=== PATIENT | female | born 1940 | race Caucasian/White ===

== ENCOUNTER → 2020-02-14 14:47 | Outpatient (CLI) | payer MEDICARE, MEDICAID, SELFPAY ==
--- NOTE | ~2020-02-14 | MR_ITS ---
EXAMINATION: MR lumbar spine wo con DATE: 02/14/2020 15:28 INDICATION: Lumbar radiculopathy. TECHNIQUE: Magnetic resonance imaging (MRI) of the lumbar spine was performed without intravenous con trast. Sequences included sagittal T2-weighted FSE, sagittal T2-weighted FS FSE, sagittal T1-weighted FSE, and axial T2-weighted FSE. COMPARISON: None FINDINGS: There is 34 degrees levoscoliosis of lumbar spine. There is 4 mm retrolisthesis of L3 on L4 and L4 on L5. There is severely decreased disc height from L1-L2 through L5-S1 with endplate remodel ing. There is interbody fusion at L4-L5. The distal spinal cord signal intensity is normal. The conus medullaris is at L1-L2. The following disc levels are specifically discussed: L1-L2: The disc is bulging. There is severe bilateral facet joint osteoarthritis. There is mild bilat eral neural foraminal stenosis. There is mild central canal stenosis. L2-L3: The disc is bulging. There is severe bilateral facet joint osteoarthritis. There is mild left neural foraminal stenosis. There is mild central canal stenosis. L3-L4: The disc is bulging. There is severe bilateral facet joint osteoarthritis. There is mild right and moderate left neural foraminal stenosis. There is mild central canal stenosis. L4-L5: The disc is bulging. There is severe right and mild left facet joint osteoarthritis. There is mild bilateral neural foraminal stenosis. There is mild central canal stenosis. L5-S1: The disc does not extend beyond the endplate margin. There is ankylosis of the facet joints wi th moderate hypertrophy. There is moderate right and mild left neural foraminal stenosis. There is no central canal stenosis. IMPRESSION: 1. Severe lumbar spondylosis. 2. Lumbar levoscoliosis. Reviewed, dictated and finalized at location A.
== END ==
PROVIDERS: Visit Provider Nurse Practitioner Adult Health
DX: M47.26 Other spondylosis with radiculopathy, lumbar region (principal)
CPT/HCPCS: 72148

== ENCOUNTER 2020-04-30 14:36 | Outpatient (CLI) | payer MEDICARE, MEDICAID, SELFPAY ==
[2020-04-30 15:00] LABS: Basophils Absolute Auto 0.1 K/mm3 (0.0-0.1); Basophils Percent Auto 0.5 % (0.2-1.2); Eosinophils Absolute Auto 2.1 K/mm3 (0-0.3); Eosinophils Percent Auto 16.2 % (0-4.4); Hematocrit 38.2 % (37.0-47.0); Hemoglobin 13.1 g/dL (12.0-15.0); Immature Granulocyte Absolute 0.03 K/mm3 (0.00-0.031); Immature Granulocyte Percent A 0.2 % (0-0.5); Lymphocytes Absolute Auto 5.91 K/mm3 (0.9-3.2); Mean Corpuscular HGB Conc 34.3 g/dl (32-36); Mean Corpuscular Hemoglobin 32.5 pg (26-34); Mean Corpuscular Volume 94.8 fl (80-100); Mean Platelet Volume 9.4 fl (7.4-10.4); Monocytes Absolute Auto 0.8 K/mm3 (0.1-0.6); Monocytes Percent Auto 5.7 % (2.6-8.5); Neutrophils Absolute Auto 4.3 K/mm3 (1.3-6.7); Neutrophils Percent Auto 32.4 % (45.5-73.1); Platelet Count Result 186 k/mm3 (150-375); Red Blood Count 4.03 M/mm3 (4.2-5.4); Red Cell Distribution Width 12.7 % (11.5-14.5); White Blood Count 13.1 K/mm3 (4.5-10.0)
[2020-04-30 15:03] LABS: Atypical Lymphocytes Present; Platelet Estimate Adequate (Adequate)
[2020-04-30 16:45] LABS: Alanine Aminotransferase 15 U/L (4-35); Albumin Level 4.9 g/dL (3.5-5.1); Alkaline Phosphatase 40 U/L (38-126); Anion Gap 8 mmol/L (8-16); Aspartate Amino Transferase 23 U/L (14-36); Bilirubin,Total 0.4 mg/dL (0.2-1.3); Blood Urea Nitrogen 19 mg/dL (7-17); Calcium 10.5 mg/dL (8.4-10.2); Carbon Dioxide 28 mmol/L (22-30); Chloride 99 mmol/L (98-107); Estimated Glomerular Filt Rate > 60; Glucose 92 mg/dL (65-105); Lactate Dehydrogenase 431 U/L (313-618); Potassium 4.6 mmol/L (3.4-5.0); Sodium 135 mmol/L (137-145)
[2020-04-30 18:23] LABS: Immunoglobulin A < 40 mg/dL (70-400); Immunoglobulin G < 270 mg/dL (700-1600); Immunoglobulin M < 25 mg/dL (40-230)
== END 2020-04-30 14:37 | disposition home or self-care (01) ==
PROVIDERS: Visit Provider Internal Medicine Hematology & Oncology
DX: C91.10 Chronic lymphocytic leukemia of B-cell type not having achieved remission (principal)
CPT/HCPCS: 36415; 80053; 82784; 83615; 85025

== ENCOUNTER 2022-11-05 10:44 | Inpatient (IN) | payer MEDICARE, MEDICAID, SELFPAY ==
[2022-11-05] VITALS (28 sets, daily range): BP systolic 105–125; BP diastolic 45–65; PULSE 0–101; RESP 10–27; TEMP 36.3–37.1; O2SAT 92–100; BMI 21.5
--- NOTE | ~2022-11-05 | XR_ITS ---
EXAM: XR hip LT min 2V DATE: 11/08/2022 15:24 HISTORY: LEFT BIPOLAR HIP - POST OP . COMPARISON: 11/05/2022. FINDINGS: Decreased mineralization. Status post left hip arthroplasty, in good position. Postsurgica l gas in the joint capsule and surrounding soft tissues. No unexpected radiopaque foreign body. IMPRESSION: Expected postsurgical changes, with no radiographic evidence of procedure or hardware rel ated complication. Reviewed, dictated and finalized at location K. IMPRESSION: Expected postsurgical changes, with no radiographic evidence of pro cedure or hardware related complication.
--- NOTE | ~2022-11-05 | XR_ITS ---
EXAMINATION: XR chest 1V DATE: 11/05/2022 11:50 INDICATION: New hypoxia. TECHNIQUE: A single frontal view of the chest was obtained on 2 radiographs. COMPARISON: None. FINDINGS: There is volume loss of right hemithorax. There is mild scarring at left lung apex with anastasiia cifications. There are peripheral reticular opacities in right mid and lower lung zones. A calcified left lung nodule is consistent with old adenomatous disease. No pleural effusion or pneumothorax. The heart size is normal. There are surgical clips in right axilla. IMPRESSION: 1. Peripheral reticular opacities in right mid and lower lung zones with volume loss of right lung, l ikely chronic lung disease such as chronic radiation pneumonitis. Reviewed, dictated and finalized at location A. IMPRESSION: 1. Peripheral reticular opacities in right mid and lower lung zones with volume loss of right lung, likely chronic lung disease such as chronic radiation pneu monitis.
--- NOTE | ~2022-11-05 | CT_ITS ---
EXAMINATION: CT brain wo con INDICATION: Head injury COMPARISON: None TECHNIQUE: Standard unenhanced head CT. The dose-length product (DLP) was 681.00 mGy-cm. The mA was a djusted according to patient size. Iterative reconstruction technique was employed. FINDINGS: There is no acute intraparenchymal hemorrhage. No evidence of mass lesion. No evidence of a cute infarction. There is moderate periventricular and subcortical hypodensity probably related to sm all vessel ischemic disease. There is moderate prominence of the sulci and ventricles related to cere bral atrophy. Intracranial calcified cerebral atherosclerosis is noted. There are no extra-axial alicia ections. There is no mass effect or midline shift. Changes in the globes are likely from ocular lens surgery. The visualized sinuses and mastoid air cells are well aerated. IMPRESSION: 1. No acute intracranial abnormality. 2. Age related findings. Reviewed, dictated and finalized at location B.
--- NOTE | ~2022-11-05 | XR_ITS ---
EXAMINATION: XR hip LT 2V w AP pelvis DATE: 11/05/2022 11:50 INDICATION: Left hip pain. Fall. TECHNIQUE: An anteroposterior view of the pelvis and 2 views of left hip on 3 radiographs were obtain ed. COMPARISON: None. FINDINGS: There is a subcapital fracture of left femoral neck. The distal fracture fragment demonstra jean-claude impaction, varus angulation, 7 mm lateral displacement, and 6 mm anterior displacement. There is lumbar scoliosis and severe spondylosis. There is mild osteoarthritis of the hips. IMPRESSION: 1. Subcapital fracture of left femoral neck. 2. Mild osteoarthritis of the hips. Reviewed, dictated and finalized at location A.
--- NOTE | 2022-11-05 11:06 | ECG_ITS ---
Measurements Intervals [place] Rate: 72 P: 70 DC: 172 QRS: 82 QRSD: 89 T: 77 QT: 383 QTc: 421 Interpretive Statements SINUS RHYTHM NORMAL ECG NO PREVIOUS ECG AVAILABLE FOR COMPARISON Electronically Signed On 11-06-2022 14:53:56 CDT by Richard Mathews M.D.
[2022-11-05 12:10] LABS: Basophils Absolute Auto 0.1 K/mm3 (0.0-0.1); Basophils Percent Auto 0.3 % (0.2-1.2); Eosinophils Absolute Auto 0.5 K/mm3 (0-0.3); Eosinophils Percent Auto 2.9 % (0-4.4); Hematocrit 39.5 % (37.0-47.0); Hemoglobin 13.2 g/dL (12.0-15.0); Immature Granulocyte Absolute 0.11 K/mm3 (0.00-0.031); Immature Granulocyte Percent A 0.6 % (0-0.5); Lymphocytes Absolute Auto 3.59 K/mm3 (0.9-3.2); Lymphocytes Percent Auto 20.7 % (18.3-44.2); Mean Corpuscular HGB Conc 33.4 g/dl (32-36); Mean Corpuscular Volume 98.8 fl (80-100); Mean Platelet Volume 9.3 fl (7.4-10.4); Monocytes Absolute Auto 0.7 K/mm3 (0.1-0.6); Monocytes Percent Auto 3.9 % (2.6-8.5); Neutrophils Absolute Auto 12.4 K/mm3 (1.3-6.7); Neutrophils Percent Auto 71.6 % (45.5-73.1); Platelet Count Result 195 k/mm3 (150-375); Red Cell Distribution Width 13.3 % (11.5-14.5); White Blood Count 17.4 K/mm3 (4.5-10.0)
[2022-11-05 12:24] LABS: Alanine Aminotransferase 45 U/L (6-35); Albumin Level 4.8 g/dL (3.5-5.1); Alkaline Phosphatase 46 U/L (38-126); Anion Gap 6 mmol/L (8-16); Aspartate Amino Transferase 48 U/L (14-36); Bilirubin,Total 0.6 mg/dL (0.2-1.3); Blood Urea Nitrogen 30 mg/dL (7-17); Calcium 10.1 mg/dL (8.4-10.2); Carbon Dioxide 29 mmol/L (22-30); Chloride 104 mmol/L (98-107); Estimated CRCL calculation 43 ml/min; Estimated Glomerular Filt Rate > 60; Glucose 107 mg/dL (65-110); Potassium 4.5 mmol/L (3.4-5.0); Sodium 139 mmol/L (137-145)
[2022-11-05] MEDS: SODIUM CHLORIDE 0.9% IV 1,000 ML 999 ML IV CONT (12:28)
[2022-11-05] MEDS: ONDANSETRON INJ 4 MG/2 ML VIAL IV PUSH (12:29)
[2022-11-05] MEDS: HYDROmorphone HCL INJ (*CRX) 1 MG/ML SYR IV PUSH (12:29)
[2022-11-05 13:02] LABS: Appearance Urine Clear (Clear); Bacteria Urine None Seen /hpf; Bilirubin Urine Negative (Negative); Blood Urine Negative (Negative); Color Urine Yellow (Yellow); Glucose Urine UA Negative (Negative); Ketones Urine Negative (Negative); Leukocyte Esterase Ur 2+ LEU/UL (Negative); Nitrate Urine Negative (Negative); Non Pathogenic Casts 0-2; Protein Urine Negative (Negative); RBC Urine 0-2 /hpf (0-2); Specific Grav Ur 1.015 (1.001-1.035); Squamous Epithelial Cell Urine None seen /hpf (Few); Urobilinogen Urine 0.2 mg/dL (<2.0); WBC Urine 21-50 /hpf; pH Urine 6.5 (5.0-9.0)
[2022-11-05 13:28] LABS: Add Urine Microscopic? YES
[2022-11-05 13:30] LABS: Prothrombin Time 12.4 Seconds (11.1-14.7)
--- NOTE | 2022-11-05 13:39 | ED.LOWEXIN ---
HPI - Extremity Injury (Lower) General Chief Complaint: Extremity Injury, Lower Stated Complaint: fall Time Seen by Provider: 11/05/22 12:04 Source: patient, EMS and RN notes reviewed Mode of arrival: EMS Limitations: no limitations History of Present Illness HPI Narrative: THis is an 82 year old female with history of chronic back pain, COPD who presents from home for evaluation of left hip pain s/p fall. PAtient states she has been dealing with a UTI and she was diagnosed yesterday. She told triage that she tripped but she reports that she thinks she was dizzy. She is unsure if she hit her head, but she does have wound to her right eyebrow that may be from fall. She reports severe left hip pain from her fall, and she rates it 10.5/10.. When asked if she has pain anywhere, she states she does not know because she is having too much pain in her hip. EMS reports patient was found to have oxygen saturation of 88% on room air, so she was placed on 4 L NC. Patient is 94% on room air in ER. Related Data Home Medications Medication Instructions Recorded Confirmed loratadine 10 mg tablet 10 mg PO DAILY 01/11/20 11/05/22 morphine 15 mg tablet,extended 15 mg PO Q12H 01/11/20 11/05/22 release hydrocodone 7.5 mg-acetaminophen 1 tablet BID 11/05/22 11/05/22 325 mg tablet Allergies Allergy/AdvReac Type Severity Reaction Status Date / Time doxycycline Allergy Unknown Verified 01/11/20 07:59 latex Allergy Unknown Verified 01/11/20 07:59 pregabalin [From Lyrica] Allergy Unknown Verified 01/11/20 07:59 Sulfa (Sulfonamide Allergy Unknown Verified 01/11/20 07:59 Antibiotics) sulfamethoxazole Allergy Unknown Verified 01/11/20 07:59 [From Bactrim] trimethoprim [From Bactrim] Allergy Unknown Verified 01/11/20 07:59 PMF Past Medical History Medical History (Updated 11/05/22 @ 13:49 by Germaine Burdick MD) Allergies Arthritis CLL (chronic lymphocytic leukemia) COPD (chronic obstructive pulmonary disease) Diabetes Melanoma left arm- removed Osteoporosis 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 Trigeminal neuralgia Surgical History Surgical History H/O: hysterectomy History of cholecystectomy History of mastectomy right 1987 Family History Family History Mother CLL (chronic lymphocytic leukemia) Father Lung cancer Sibling Pancreatic cancer Social History Social History Smoking status: Current every day smoker Tobacco type: cigarettes Alcohol intake: never Substance use: never Lack of Transportation: YES Lack of Food: Sometimes True Current Housing: I Have Housing Concerned About Future Housing: No Difficulty Paying Gas/Electric Bills: YES Difficulty Paying for Meds: YES Currently Unemployed: No Education: Don't Know Difficulty w/ Childcare or Family Care: No Spiritual care concerns: No Exam Const: General: alert Nutritional Appearance: thin Orientation/consciousness: patient oriented x3 Limitations: no limitations HENMT: Head: contusion (right eyebrow with abrasion) Ears: external ears normal Mouth: Yes Normal oral and palatal mucosa present Throat: posterior oropharynx normal and uvula midline Eyes: Pupils: Equal, round and reactive pupils present EOM: EOMs intact bilaterally Neck: Neck: normal visual inspection Chest: Chest palpation & inspection: normal inspection of the chest and no tenderness Resp: Effort & Inspection: normal respiratory effort Auscultation: clear to auscultation bilaterally Cardio: Rate: regular rate Rhythm: regular rhythm Heart sounds: no murmurs GI: GI Palp: Yes Soft to palpation, No Tenderness to palpation present (GI), No Guarding due to palpation present (GI) and No Rigid due to palpation Auscultation: normal bowel sounds Back/Spine/Pelvis:
[2022-11-05] MEDS: HYDROmorphone HCL INJ (*CRX) 1 MG/ML SYR 0.5 MG IV PUSH ×3 (14:08→22:18)
--- NOTE | 2022-11-05 15:33 | ADMGEN ---
This patient, Korin Jones, was admitted to Medical Room 249-01. Patient/family oriented to hospital policies and general routines including ID bracelet, bed and alarms, visiting hours, pain management, procedures, bathroom and other care routines, personal items, smoking policy, room service/diet, and visiting hours. Information on how to activate the Rapid Response Team has been discussed. Patient/Family are encouraged to report perceived risks to care and to ask questions if they do not understand what they are told or what they should do.
[2022-11-05] MEDS: SODIUM CHLORIDE 0.9% IV 1,000 ML 125 ML IV CONT (15:51)
--- NOTE | 2022-11-05 16:23 | PM.CNOR ---
Assessment and Plan Assessment and plan (1) Closed subcapital fracture of left femur: Code(s): S72.012A - Unspecified intracapsular fracture of left femur, initial encounter for closed fracture Status: Acute (2) Acute UTI: Code(s): N39.0 - Urinary tract infection, site not specified Status: Acute (3) RA (rheumatoid arthritis): Qualifiers: Rheumatoid arthritis location: multiple sites Rheumatoid factor presence: without rheumatoid factor Qualified Code(s): M06.09 - Rheumatoid arthritis without rheumatoid factor, multiple sites Code(s): M06.9 - Rheumatoid arthritis, unspecified Status: Acute Plan Displaced left hip femoral neck fracture. Will benefit from bipolar hemiarthroplasty. Poor candidate for total hip due to high dislocation risk and medical comorbidities. White count 17.4 due to acute UTI. Will need to treat the UTI prior to surgery. Expect pain control challenges due to her chronic narcotic dependence. Postoperatively she is interested in potential home discharge which may be reasonable. Alternatively, she may benefit from few weeks of rehabilitation. I discussed the situation with the patient in detail. Risks, benefits, and alternatives of surgery discussed. Will proceed with left hip bipolar hemiarthroplasty when ready. History of Present Illness HPI Consult date: 11/05/22 Chief complaint: Left Subcapital Femoral Neck Fracture Narrative: Patient complains of acute left hip pain. Fell from standing height. Admitted through the emergency room for definitive management. No previous hip pain. No numbness, tingling, or other associated symptoms. Relevant history includes acute urinary tract infection followed by dizziness causing the fall. Slight eyebrow wound. CT scan normal. History of CLL, COPD, osteoporosis, diabetes mellitus, current smoker. Chronic pain medication 10 mg morphine twice daily. She has a severe degenerative scoliosis as well. Review of Systems Review of Systems: Denies loss of consciousness. 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 Trigeminal neuralgia Surgical History Surgical History H/O: hysterectomy History of cholecystectomy History of mastectomy right 1987 Family History Family History Mother CLL (chronic lymphocytic leukemia) Father Lung cancer Sibling Pancreatic cancer Social History Social History Smoking status: Current every day smoker Meds Home Medications and Allergies Home Medications Medication Instructions Recorded Confirmed Type loratadine 10 mg tablet 10 mg PO DAILY 01/11/20 11/05/22 History morphine 15 mg tablet,extended 15 mg PO Q12H 01/11/20 11/05/22 History release albuterol sulfate 90 mcg/actuation 1 - 2 puff inhalation Q4-6H PRN 11/17/21 11/05/22 Rx aerosol inhaler (Ventolin HFA) shortness of breath or wheezing #8.5 grams amitriptyline 25 mg tablet 25 mg PO .QHS #90 tabs 11/17/21 11/05/22 Rx carbamazepine 100 mg 100 mg PO Q12H #120 tabs 11/17/21 11/05/22 Rx tablet,extended release,12 hr citalopram 20 mg tablet 20 mg PO DAILY #90 tabs 11/17/21 11/05/22 Rx nitrofurantoin 100 mg PO Q12H 5 days #10 caps 11/03/22 11/05/22 Rx monohydrate/macrocrystals 100 mg capsule (Macrobid) hydrocodone 7.5 mg-acetaminophen 1 tablet BID 11/05/22 11/05/22 History 325 mg tablet Allergies Allergy/AdvReac Type Severity Reaction Status Date / Time doxycycline Allergy Unknown Verified 0
[2022-11-05] MEDS: CARBAMAZEPINE XR 100 MG TAB.SR.12H PO (20:20)
[2022-11-05] MEDS: NITROFURANTOIN MONOHYD MACROCR 100 MG CAP PO (20:20)
[2022-11-05] MEDS: AMITRIPTYLINE HCL 25 MG TABLET PO (20:20)
[2022-11-05] MEDS: MORPHINE SULFATE (*CRX) 15 MG TABCR PO (20:20)
[2022-11-05] MEDS: HYDROcodone/acetaminophen (*CRX) 7.5-325 MG TABLET 1 TAB BY MOUTH (20:20)
--- NOTE | 2022-11-05 21:00 | PM.IMHP ---
H&P: HPI History of Present Illness Date/Time: 11/05/22 21:00 Chief Complaint: Left hip pain after a fall. Narrative: This is a very pleasant 82-year-old female smoker with COPD, trigeminal neuralgia, chronic lymphocytic leukemia, rheumatoid arthritis, diet-controlled diabetes, chronic pain syndrome on long-term opiate therapy, and other comorbidities who presented to the emergency department via EMS from home for evaluation of left hip pain after a fall. Patient provides the following history. 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 She could not get herself up due to severe pain in the left hip but she was able to crawl to the door to call her neighbors for help. She does not think that she lost consciousness consciousness but cannot say for certain and in fact she thinks she may have been feeling dizzy before she fell. She has a small abrasion on the right eyebrow but she does not recall hitting her head. Brain CT in the ED showed no acute intracranial abnormalities. Hip and pelvic x-rays showed a subcapital fracture of the left femoral neck and she is being admitted in this setting for pain control and surgical repair. She is currently complaining of severe pain in the left hip. As mentioned she is on chronic opiate therapy which is not touching her left hip pain, unfortunately. She describes a sharp shooting pain in the hip, worse with movement. She has no other complaints at this time. Review of Systems Review of Systems: Twelve systems were reviewed. No fever, chills, or sweats. She denies recent cold and flu symptoms. She has severe right-sided trigeminal neuralgia and is on chronic pain medications for that. No chest pain or shortness of breath. She is currently on oxygen however and chest x-ray shows findings of chronic lung disease, possible radiation pneumonitis. She does have a history of breast cancer and radiation. She also has COPD but states she has never had an oxygen requirement before. No chest pain or pleuritic pain. She denies nausea, vomiting, and diarrhea. She occasionally has constipation due to the pain medication. No history of venous thromboembolism. Except as documented, all other systems were reviewed and are negative. [facility] Past Medical History Medical History (Updated 11/05/22 @ 23:47 by Ghazala Tejeda PA-C) Allergies Arthritis Cancer of right breast Status post mastectomy and radiation. Chronic lymphocytic leukemia Chronic obstructive pulmonary disease Chronic pain syndrome Chronic prescription opiate use Depression Diabetes Diet-controlled diabetes mellitus Immunoglobulin deficiency Melanoma Left arm. Osteoporosis Rheumatoid arthritis Squamous cell carcinoma Back. Tobacco dependence Trigeminal neuralgia Surgical History Surgical History (Updated 11/05/22 @ 23:43 by Ghazala Tejeda PA-C) History of cholecystectomy History of hysterectomy History of melanoma excision Left arm. History of right mastectomy (1987) History of squamous cell carcinoma excision Back. Family History Family History Mother CLL (chronic lymphocytic leukemia) Father Lung cancer Sibling Pancreatic cancer Social History Social History (Updated 11/05/22 @ 23:44 by Ghazala Tejeda PA-C) Social History: Surrogate medical decision maker: Oj Gregory, son. Code status: Full code. Smoking packs per day: 0.25 Smoking cigarettes per day: 5.0 Years smoked: 50 Smoking pack-years: 12.50 Smoking status: Current every day smoker Tobacco type: cigarettes Alcohol intake: never Substance use: never Lack of Transportation: YES Lack of Food: Sometimes True Current Housing: I Have Housing Concerned About Future Housing: No Difficulty Paying Gas/Electric Bills: YES Difficulty Paying for Meds: YES Currently Unemployed:
[2022-11-05] MEDS: NICOTINE (*PBKC) 7 MG PATCH 1 PATCH TRANSDERM (22:19)
[2022-11-06] VITALS (10 sets, daily range): BP systolic 106–123; BP diastolic 43–71; PULSE 62–84; RESP 17–20; TEMP 36.5–37.1; O2SAT 92–99
[2022-11-06] MEDS: HYDROmorphone HCL INJ (*CRX) 1 MG/ML SYR 0.5 MG IV PUSH ×5 (02:05→20:05)
[2022-11-06 06:07] LABS: Basophils Absolute Auto 0.1 K/mm3 (0.0-0.1); Basophils Percent Auto 0.5 % (0.2-1.2); Eosinophils Absolute Auto 0.3 K/mm3 (0-0.3); Eosinophils Percent Auto 2.8 % (0-4.4); Hematocrit 35.7 % (37.0-47.0); Hemoglobin 11.9 g/dL (12.0-15.0); Immature Granulocyte Absolute 0.04 K/mm3 (0.00-0.031); Immature Granulocyte Percent A 0.3 % (0-0.5); Lymphocytes Absolute Auto 3.52 K/mm3 (0.9-3.2); Lymphocytes Percent Auto 29.2 % (18.3-44.2); Mean Corpuscular HGB Conc 33.3 g/dl (32-36); Mean Corpuscular Hemoglobin 33.2 pg (26-34); Mean Corpuscular Volume 99.7 fl (80-100); Mean Platelet Volume 9.8 fl (7.4-10.4); Neutrophils Absolute Auto 7.1 K/mm3 (1.3-6.7); Neutrophils Percent Auto 59.2 % (45.5-73.1); Platelet Count Result 171 k/mm3 (150-375); Red Blood Count 3.58 M/mm3 (4.2-5.4)
[2022-11-06 06:14] LABS: Alanine Aminotransferase 35 U/L (6-35); Albumin Level 3.9 g/dL (3.5-5.1); Alkaline Phosphatase 38 U/L (38-126); Anion Gap 5 mmol/L (8-16); Aspartate Amino Transferase 37 U/L (14-36); Bilirubin,Total 0.7 mg/dL (0.2-1.3); Blood Urea Nitrogen 21 mg/dL (7-17); Carbon Dioxide 25 mmol/L (22-30); Chloride 105 mmol/L (98-107); Estimated CRCL calculation 51 ml/min; Estimated Glomerular Filt Rate > 60; Glucose 107 mg/dL (65-110); Potassium 3.9 mmol/L (3.4-5.0); Sodium 135 mmol/L (137-145)
[2022-11-06 07:24] LABS: Free T4 Free Thyroxine Reflex 1.02 ng/dL (0.78-2.19)
[2022-11-06] MEDS: MORPHINE SULFATE (*CRX) 15 MG TABCR PO ×3 (08:06→23:01)
[2022-11-06] MEDS: LORATADINE 10 MG TABLET PO (08:06)
[2022-11-06] MEDS: HYDROcodone/acetaminophen (*CRX) 7.5-325 MG TABLET 1 TAB BY MOUTH ×2 (08:06→17:12)
[2022-11-06] MEDS: NICOTINE (*PBKC) 7 MG PATCH 1 PATCH TRANSDERM (08:07)
[2022-11-06] MEDS: CITALOPRAM HYDROBROMIDE 20 MG TABLET PO (08:07)
[2022-11-06 08:34] LABS: Total Triiodothyronine (T3) 0.72 NG/ML (0.97-1.69)
[2022-11-06] MEDS: SODIUM CHLORIDE 0.9% IV 1,000 ML 125 ML IV CONT ×2 (09:08→20:09)
[2022-11-06] MEDS: CARBAMAZEPINE XR 100 MG TAB.SR.12H PO ×2 (09:09→20:05)
--- NOTE | 2022-11-06 09:30 | PM.IMPN ---
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 Initiate fall precautions. PT and OT when appropriate (2) Closed subcapital fracture of left femur: Code(s): S72.012A - Unspecified intracapsular fracture of left femur, initial encounter for closed fracture Status: Acute Assessment and Plan: hip and pelvis x-ray shows subcapital fracture of the left femoral neck Dilaudid available for breakthrough pain, increased to q.3 hours. orthopedics consulted await recommendations from Ortho surgeon possibly need to be NPO after midnight for surgery in the morning pain control ordered however will be hard to difficult due to patient's chronic pain medication use DVT prophylaxis per Orthopedics (3) Abnormal urinalysis: Code(s): R82.90 - Unspecified abnormal findings in urine Status: Acute Assessment and Plan: UA mildly infectious with leukocyte esterase and mild white blood cell continue ceftriaxone for now urine culture pending trend urine output (4) Chronic pain syndrome: Code(s): G89.4 - Chronic pain syndrome Status: Acute Assessment and Plan: Continue chronic pain regimen. Dilaudid available for breakthrough pain. (5) Chronic lymphocytic leukemia: Code(s): C91.10 - Chronic lymphocytic leukemia of B-cell type not having achieved remission Status: Acute Assessment and Plan: Not being actively treated. chronic and stable continue outpatient follow-up as indicated (6) Chronic obstructive pulmonary disease: Code(s): J44.9 - Chronic obstructive pulmonary disease, unspecified Status: Acute Assessment and Plan: No evidence to suggest acute exacerbation. Currently on a couple of L nasal cannula. Chest x-ray shows findings of possible chronic lung disease. May need home O2 evaluation prior to discharge. (7) Tobacco dependence: Code(s): F17.200 - Nicotine dependence, unspecified, uncomplicated Status: Acute Assessment and Plan: Patient requested nicotine patch. Smoking cessation is encouraged. (8) Diet-controlled diabetes mellitus: Code(s): E11.9 - Type 2 diabetes mellitus without complications Status: Acute Assessment and Plan: Random glucose was 107 no indication for further treatment at this time continue to trend glucose adjust therapy as indicated Time Spent With Patient Time: 53 minutes Time with patient: Greater than 35 minutes Subjective Date/time seen: 11/06/22929 Interval history: 11/06/22929 Patient stated that she has been having a lot of pain issues. She also stated that she has not been able to get comfortable. She does take quite a bit of pain medicine at home including 15 mg of morphine Q 8 and [place] 7.5/325 twice a day. Currently she states her pain is above 10 and hurts like crazy. She denies any chest pain, shortness a breath, nausea, vomiting, diarrhea constipation. Went in to re-evaluate the patient at 1130 and patient stated that her pain was better however she did try to adjust herself and the pain is coming back. According the nurse the patient's pain did get down to a 9. It was also mentioned that the patient has chronic pain level is a 7-8. 11/05/22? 21:00 This is a very pleasant 82-year-old female smoker with COPD, trigeminal neuralgia, chronic lymphocytic leukemia, rheumatoid arthritis, diet-controlled diabetes, chronic pain syndrome on long-term opiate therapy, and other comorbidities who presented to the emergency department via EMS from home for evaluation of left hip pain after a fall. Patient provides the following history. She
--- NOTE | 2022-11-06 09:30 | P.PNIM_ITS ---
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 * Initiate fall precautions. * PT and OT when appropriate (2) Closed subcapital fracture of left femur: Code(s): S72.012A - Unspecified intracapsular fracture of left femur, initial encounter for closed fracture Status: Acute Assessment and Plan: * hip and pelvis x-ray shows subcapital fracture of the left femoral neck * Dilaudid available for breakthrough pain, increased to q.3 hours. * orthopedics consulted * await recommendations from Ortho surgeon * possibly need to be NPO after midnight for surgery in the morning * pain control ordered however will be hard to difficult due to patient's chronic pain medication use * DVT prophylaxis per Orthopedics (3) Abnormal urinalysis: Code(s): R82.90 - Unspecified abnormal findings in urine Status: Acute Assessment and Plan: * UA mildly infectious with leukocyte esterase and mild white blood cell * continue ceftriaxone for now * urine culture pending * trend urine output (4) Chronic pain syndrome: Code(s): G89.4 - Chronic pain syndrome Status: Acute Assessment and Plan: * Continue chronic pain regimen. * Dilaudid available for breakthrough pain. (5) Chronic lymphocytic leukemia: Code(s): C91.10 - Chronic lymphocytic leukemia of B-cell type not having achieved remission Status: Acute Assessment and Plan: * Not being actively treated. * chronic and stable * continue outpatient follow-up as indicated (6) Chronic obstructive pulmonary disease: Code(s): J44.9 - Chronic obstructive pulmonary disease, unspecified Status: Acute Assessment and Plan: * No evidence to suggest acute exacerbation. * Currently on a couple of L nasal cannula. * Chest x-ray shows findings of possible chronic lung disease. * May need home O2 evaluation prior to discharge. (7) Tobacco dependence: Code(s): F17.200 - Nicotine dependence, unspecified, uncomplicated Status: Acute Assessment and Plan: * Patient requested nicotine patch. Smoking cessation is encouraged. (8) Diet-controlled diabetes mellitus: Code(s): E11.9 - Type 2 diabetes mellitus without complications Status: Acute Assessment and Plan: * Random glucose was 107 * no indication for further treatment at this time * continue to trend glucose adjust therapy as indicated Time Spent With Patient Time: 53 minutes Time with patient: Greater than 35 minutes Subjective Date/time seen: 11/06/22929 Interval history: 11/06/22929 Patient stated that she has been having a lot of pain issues. She also stated that she has not been able to get comfortable. She does take quite a bit of pain medicine at home including 15 mg of morphine Q 8 and [place] 7.5/325 twice a day. Currently she states her pain is above 10 and hurts like crazy. She denies any chest pain, shortness a breath, nausea, vomiting, diarrhea constipation. Went in to re-evaluate the patient at 1130 and patient stated that her pain was better however she did try t
[2022-11-06] MEDS: HYDROmorphone HCL INJ (*CRX) 1 MG/ML SYR IV PUSH (09:56)
[2022-11-06] MEDS: AMITRIPTYLINE HCL 25 MG TABLET PO (20:05)
[2022-11-06] MEDS: MORPHINE SULFATE (*CRX) 2 MG/ML INJ IV PUSH (23:27)
--- NOTE | 2022-11-06 23:45 | PC.NURSE ---
This RN witnessed patient take her scheduled MS Contin 15mg which was scanned at 2301. Patient states she took a white pill when MS Contin is normally blue. She is denying she took the MS Contin at this time. RN looked extensively through patient's bed and blankets, on the floor, and on her bedside table to make sure the medication was not there. She still insists she did not take the medication. RN explained to patient he witnessed the patient take the medication directly after it was scanned and he cannot risk giving her two doses of the medication. Will continue to assess pain and address as needed.
[2022-11-07] VITALS (9 sets, daily range): BP systolic 107–116; BP diastolic 46–54; PULSE 63–81; RESP 16–18; TEMP 36.4–36.8; O2SAT 92–97
[2022-11-07] MEDS: HYDROmorphone HCL INJ (*CRX) 1 MG/ML SYR 4 MG IV PUSH (01:28)
[2022-11-07] MEDS: SODIUM CHLORIDE 0.9% IV 1,000 ML 125 ML IV CONT (05:02)
[2022-11-07 06:43] LABS: Basophils Absolute Auto 0.1 K/mm3 (0.0-0.1); Basophils Percent Auto 0.5 % (0.2-1.2); Eosinophils Absolute Auto 0.7 K/mm3 (0-0.3); Eosinophils Percent Auto 6.3 % (0-4.4); Hematocrit 34.2 % (37.0-47.0); Hemoglobin 11.3 g/dL (12.0-15.0); Immature Granulocyte Absolute 0.05 K/mm3 (0.00-0.031); Immature Granulocyte Percent A 0.5 % (0-0.5); Lymphocytes Absolute Auto 4.01 K/mm3 (0.9-3.2); Lymphocytes Percent Auto 37.7 % (18.3-44.2); Mean Corpuscular Hemoglobin 33.1 pg (26-34); Mean Corpuscular Volume 100.3 fl (80-100); Mean Platelet Volume 9.8 fl (7.4-10.4); Monocytes Absolute Auto 0.8 K/mm3 (0.1-0.6); Monocytes Percent Auto 7.3 % (2.6-8.5); Neutrophils Absolute Auto 5.1 K/mm3 (1.3-6.7); Neutrophils Percent Auto 47.7 % (45.5-73.1); Platelet Count Result 166 k/mm3 (150-375); Red Blood Count 3.41 M/mm3 (4.2-5.4); Red Cell Distribution Width 13.2 % (11.5-14.5); White Blood Count 10.7 K/mm3 (4.5-10.0)
[2022-11-07 06:52] LABS: Alanine Aminotransferase 30 U/L (6-35); Albumin Level 3.5 g/dL (3.5-5.1); Alkaline Phosphatase 31 U/L (38-126); Anion Gap 1 mmol/L (8-16); Aspartate Amino Transferase 29 U/L (14-36); Bilirubin,Total 0.6 mg/dL (0.2-1.3); Blood Urea Nitrogen 17 mg/dL (7-17); Calcium 8.9 mg/dL (8.4-10.2); Carbon Dioxide 27 mmol/L (22-30); Chloride 108 mmol/L (98-107); Estimated CRCL calculation 51 ml/min; Estimated Glomerular Filt Rate > 60; Glucose 84 mg/dL (65-110); Potassium 3.8 mmol/L (3.4-5.0); Sodium 136 mmol/L (137-145)
[2022-11-07] MEDS: MORPHINE SULFATE (*CRX) 15 MG TABCR PO ×3 (07:09→23:01)
[2022-11-07] MEDS: NICOTINE (*PBKC) 7 MG PATCH 1 PATCH TRANSDERM (08:00)
[2022-11-07] MEDS: HYDROcodone/acetaminophen (*CRX) 7.5-325 MG TABLET 1 TAB BY MOUTH ×2 (08:00→16:29)
[2022-11-07] MEDS: LORATADINE 10 MG TABLET PO (08:00)
[2022-11-07] MEDS: CARBAMAZEPINE XR 100 MG TAB.SR.12H PO ×2 (08:00→20:55)
[2022-11-07] MEDS: CITALOPRAM HYDROBROMIDE 20 MG TABLET PO (08:01)
[2022-11-07] MEDS: HYDROmorphone HCL INJ (*CRX) 1 MG/ML SYR 0.5 MG IV PUSH ×5 (08:36→20:56)
--- NOTE | 2022-11-07 10:45 | PM.IMPN ---
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 Initiate fall precautions. PT and OT when appropriate Could be from the UTI (2) Closed subcapital fracture of left femur: Code(s): S72.012A - Unspecified intracapsular fracture of left femur, initial encounter for closed fracture Status: Acute Assessment and Plan: hip and pelvis x-ray shows subcapital fracture of the left femoral neck Dilaudid available for breakthrough pain, increased to q.3 hours. orthopedics consulted Surgical intervention most likely on Mon, UTI treatment under way possibly need to be NPO after midnight for surgery in the morning pain control ordered however will be hard to difficult due to patient's chronic pain medication use DVT prophylaxis per Orthopedics (3) Acute UTI: Code(s): N39.0 - Urinary tract infection, site not specified Status: Acute Assessment and Plan: UA mildly infectious with leukocyte esterase and mild white blood cell continue ceftriaxone for now urine culture gram negative bacilli trend urine output (4) Chronic pain syndrome: Code(s): G89.4 - Chronic pain syndrome Status: Acute Assessment and Plan: Continue chronic pain regimen. Dilaudid available for breakthrough pain. (5) Chronic lymphocytic leukemia: Code(s): C91.10 - Chronic lymphocytic leukemia of B-cell type not having achieved remission Status: Acute Assessment and Plan: Not being actively treated. chronic and stable continue outpatient follow-up as indicated (6) Chronic obstructive pulmonary disease: Code(s): J44.9 - Chronic obstructive pulmonary disease, unspecified Status: Acute Assessment and Plan: No evidence to suggest acute exacerbation. Currently on a couple of L nasal cannula. Chest x-ray shows findings of possible chronic lung disease. May need home O2 evaluation prior to discharge. (7) Tobacco dependence: Code(s): F17.200 - Nicotine dependence, unspecified, uncomplicated Status: Acute Assessment and Plan: Patient requested nicotine patch. Smoking cessation is encouraged. (8) Diet-controlled diabetes mellitus: Code(s): E11.9 - Type 2 diabetes mellitus without complications Status: Acute Assessment and Plan: Random glucose was 84 no indication for further treatment at this time continue to trend glucose adjust therapy as indicated Time Spent With Patient Time: 51 minutes Time with patient: Greater than 35 minutes Subjective Date/time seen: 11/07/221044 Interval history: 11/07/221044 patient was lying in bed. Patient stated that she would like her pain shot. She is having a lot of issues with pain and stated that she is not getting any relief. She currently denies any chest pain, shortness a breath, nausea, vomiting, diarrhea or constipation. She is eating and doing well otherwise. 11/06/22 09 Patient stated that she has been having a lot of pain issues. She also stated that she has not been able to get comfortable. She does take quite a bit of pain medicine at home including 15 mg of morphine Q 8 and [place] 7.5/325 twice a day. Currently she states her pain is above 10 and hurts like crazy. She denies any chest pain, shortness a breath, nausea, vomiting, diarrhea constipation. Went in to re-evaluate the patient at 1130 and patient stated that her pain was better however she did try to adjust herself and the pain is coming back. According the nurse the patient's pain did get down to a 9. It was also mentioned that the patient has chronic pain level is a 7-8.
--- NOTE | 2022-11-07 10:45 | P.PNIM_ITS ---
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 * Initiate fall precautions. * PT and OT when appropriate * Could be from the UTI (2) Closed subcapital fracture of left femur: Code(s): S72.012A - Unspecified intracapsular fracture of left femur, initial encounter for closed fracture Status: Acute Assessment and Plan: * hip and pelvis x-ray shows subcapital fracture of the left femoral neck * Dilaudid available for breakthrough pain, increased to q.3 hours. * orthopedics consulted * Surgical intervention most likely on Mon, UTI treatment under way * possibly need to be NPO after midnight for surgery in the morning * pain control ordered however will be hard to difficult due to patient's chronic pain medication use * DVT prophylaxis per Orthopedics (3) Acute UTI: Code(s): N39.0 - Urinary tract infection, site not specified Status: Acute Assessment and Plan: * UA mildly infectious with leukocyte esterase and mild white blood cell * continue ceftriaxone for now * urine culture gram negative bacilli * trend urine output (4) Chronic pain syndrome: Code(s): G89.4 - Chronic pain syndrome Status: Acute Assessment and Plan: * Continue chronic pain regimen. * Dilaudid available for breakthrough pain. (5) Chronic lymphocytic leukemia: Code(s): C91.10 - Chronic lymphocytic leukemia of B-cell type not having achieved remission Status: Acute Assessment and Plan: * Not being actively treated. * chronic and stable * continue outpatient follow-up as indicated (6) Chronic obstructive pulmonary disease: Code(s): J44.9 - Chronic obstructive pulmonary disease, unspecified Status: Acute Assessment and Plan: * No evidence to suggest acute exacerbation. * Currently on a couple of L nasal cannula. * Chest x-ray shows findings of possible chronic lung disease. * May need home O2 evaluation prior to discharge. (7) Tobacco dependence: Code(s): F17.200 - Nicotine dependence, unspecified, uncomplicated Status: Acute Assessment and Plan: * Patient requested nicotine patch. Smoking cessation is encouraged. (8) Diet-controlled diabetes mellitus: Code(s): E11.9 - Type 2 diabetes mellitus without complications Status: Acute Assessment and Plan: * Random glucose was 84 * no indication for further treatment at this time * continue to trend glucose adjust therapy as indicated Time Spent With Patient Time: 51 minutes Time with patient: Greater than 35 minutes Subjective Date/time seen: 11/07/221044 Interval history: 11/07/221044 patient was lying in bed. Patient stated that she would like her pain shot. She is having a lot of issues with pain and stated that she is not getting any relief. She currently denies any chest pain, shortness a breath, nausea, vomiti ng, diarrhea or constipation. She is eating and doing well otherwise. 11/06/22 09 Patient stated that she has been having a lot of pain i
[2022-11-07] MEDS: KETOROLAC 15 MG/ML VIAL (*BKC) IV PUSH (14:15)
[2022-11-07] MEDS: AMITRIPTYLINE HCL 25 MG TABLET PO (20:55)
[2022-11-08] VITALS (18 sets, daily range): BP systolic 98–139; BP diastolic 46–64; PULSE 60–97; RESP 11–20; TEMP 36.1–36.9; O2SAT 70–100
[2022-11-08] MEDS: HYDROmorphone HCL INJ (*CRX) 1 MG/ML SYR 0.5 MG IV PUSH ×4 (00:14→10:51)
[2022-11-08] MEDS: HYDROmorphone HCL INJ (*CRX) 1 MG/ML SYR 4 MG IV PUSH (04:55)
[2022-11-08 06:33] LABS: Basophils Absolute Auto 0.1 K/mm3 (0.0-0.1); Basophils Percent Auto 0.4 % (0.2-1.2); Eosinophils Absolute Auto 0.6 K/mm3 (0-0.3); Eosinophils Percent Auto 4.9 % (0-4.4); Hematocrit 32.7 % (37.0-47.0); Hemoglobin 11.4 g/dL (12.0-15.0); Immature Granulocyte Absolute 0.06 K/mm3 (0.00-0.031); Immature Granulocyte Percent A 0.5 % (0-0.5); Lymphocytes Absolute Auto 4.54 K/mm3 (0.9-3.2); Lymphocytes Percent Auto 37.3 % (18.3-44.2); Mean Corpuscular HGB Conc 34.9 g/dl (32-36); Mean Corpuscular Hemoglobin 32.6 pg (26-34); Mean Corpuscular Volume 93.4 fl (80-100); Monocytes Absolute Auto 0.8 K/mm3 (0.1-0.6); Monocytes Percent Auto 6.3 % (2.6-8.5); Neutrophils Absolute Auto 6.2 K/mm3 (1.3-6.7); Neutrophils Percent Auto 50.6 % (45.5-73.1); Platelet Count Result 157 k/mm3 (150-375); Red Cell Distribution Width 12.6 % (11.5-14.5); White Blood Count 12.2 K/mm3 (4.5-10.0)
[2022-11-08 06:41] LABS: Alanine Aminotransferase 28 U/L (6-35); Albumin Level 3.3 g/dL (3.5-5.1); Alkaline Phosphatase 32 U/L (38-126); Anion Gap 4 mmol/L (8-16); Aspartate Amino Transferase 33 U/L (14-36); Bilirubin,Total 0.8 mg/dL (0.2-1.3); Blood Urea Nitrogen 13 mg/dL (7-17); Calcium 8.8 mg/dL (8.4-10.2); Carbon Dioxide 26 mmol/L (22-30); Chloride 104 mmol/L (98-107); Estimated CRCL calculation 51 ml/min; Estimated Glomerular Filt Rate > 60; Glucose 98 mg/dL (65-110); Magnesium 1.9 mg/dL (1.6-2.3); Potassium 3.6 mmol/L (3.4-5.0); Sodium 134 mmol/L (137-145)
[2022-11-08] MEDS: CARBAMAZEPINE XR 100 MG TAB.SR.12H PO ×2 (08:06→20:34)
[2022-11-08] MEDS: CITALOPRAM HYDROBROMIDE 20 MG TABLET PO (08:07)
[2022-11-08] MEDS: HYDROcodone/acetaminophen (*CRX) 7.5-325 MG TABLET 1 TAB BY MOUTH ×2 (08:09→16:48)
--- NOTE | 2022-11-08 11:00 | P.PNIM_ITS ---
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 * Initiate fall precautions. * PT and OT when appropriate * Could be from the UTI (2) Closed subcapital fracture of left femur: Code(s): S72.012A - Unspecified intracapsular fracture of left femur, initial encounter for closed fracture Status: Acute Assessment and Plan: * POD 0 * hip and pelvis x-ray shows subcapital fracture of the left femoral neck * Dilaudid available for breakthrough pain, increased to q.3 hours. * orthopedics consulted * Surgical intervention preformed on 11/08/22 * Post op care per ortho * possibly need to be NPO after midnight for surgery in the morning * pain control ordered however will be hard to difficult due to patient's chronic pain medication use * DVT prophylaxis per Orthopedics (3) Acute UTI: Code(s): N39.0 - Urinary tract infection, site not specified Status: Acute Assessment and Plan: * UA mildly infectious with leukocyte esterase and mild white blood cell * ceftriaxone for today then change antibiotics Augmentin per sensitivities * urine culture grew proteus Mirabilis * trend urine output (4) Chronic pain syndrome: Code(s): G89.4 - Chronic pain syndrome Status: Acute Assessment and Plan: * Continue chronic pain regimen. * Dilaudid available for breakthrough pain. (5) Chronic lymphocytic leukemia: Code(s): C91.10 - Chronic lymphocytic leukemia of B-cell type not having achieved remission Status: Acute Assessment and Plan: * Not being actively treated. * chronic and stable * continue outpatient follow-up as indicated (6) Chronic obstructive pulmonary disease: Code(s): J44.9 - Chronic obstructive pulmonary disease, unspecified Status: Acute Assessment and Plan: * No evidence to suggest acute exacerbation. * Currently on a couple of L nasal cannula. * Chest x-ray shows findings of possible chronic lung disease. * May need home O2 evaluation prior to discharge. (7) Tobacco dependence: Code(s): F17.200 - Nicotine dependence, unspecified, uncomplicated Status: Acute Assessment and Plan: * Patient requested nicotine patch. Smoking cessation is encouraged. (8) Diet-controlled diabetes mellitus: Code(s): E11.9 - Type 2 diabetes mellitus without complications Status: Acute Assessment and Plan: * Random glucose was 98 * no indication for further treatment at this time * continue to trend glucose adjust therapy as indicated Time Spent With Patient Time: 28 minutes Time with patient: Greater than 35 minutes Subjective Date/time seen: 11/08/22 1100 Interval history: 11/08/22 1100 Patient went to her procedure for her hip repair. She denied any complaints except for pain. Labs and vital signs were reviewed. Antibiotics were changed in relation to UTI and sensitivities. 11/07/22 1045 patient was lying in bed. Patient stated that she would like her pain shot. She is having a lot o
--- NOTE | 2022-11-08 11:00 | PM.IMPN ---
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 Initiate fall precautions. PT and OT when appropriate Could be from the UTI (2) Closed subcapital fracture of left femur: Code(s): S72.012A - Unspecified intracapsular fracture of left femur, initial encounter for closed fracture Status: Acute Assessment and Plan: POD 0 hip and pelvis x-ray shows subcapital fracture of the left femoral neck Dilaudid available for breakthrough pain, increased to q.3 hours. orthopedics consulted Surgical intervention preformed on 11/08/22 Post op care per ortho possibly need to be NPO after midnight for surgery in the morning pain control ordered however will be hard to difficult due to patient's chronic pain medication use DVT prophylaxis per Orthopedics (3) Acute UTI: Code(s): N39.0 - Urinary tract infection, site not specified Status: Acute Assessment and Plan: UA mildly infectious with leukocyte esterase and mild white blood cell ceftriaxone for today then change antibiotics Augmentin per sensitivities urine culture grew proteus Mirabilis trend urine output (4) Chronic pain syndrome: Code(s): G89.4 - Chronic pain syndrome Status: Acute Assessment and Plan: Continue chronic pain regimen. Dilaudid available for breakthrough pain. (5) Chronic lymphocytic leukemia: Code(s): C91.10 - Chronic lymphocytic leukemia of B-cell type not having achieved remission Status: Acute Assessment and Plan: Not being actively treated. chronic and stable continue outpatient follow-up as indicated (6) Chronic obstructive pulmonary disease: Code(s): J44.9 - Chronic obstructive pulmonary disease, unspecified Status: Acute Assessment and Plan: No evidence to suggest acute exacerbation. Currently on a couple of L nasal cannula. Chest x-ray shows findings of possible chronic lung disease. May need home O2 evaluation prior to discharge. (7) Tobacco dependence: Code(s): F17.200 - Nicotine dependence, unspecified, uncomplicated Status: Acute Assessment and Plan: Patient requested nicotine patch. Smoking cessation is encouraged. (8) Diet-controlled diabetes mellitus: Code(s): E11.9 - Type 2 diabetes mellitus without complications Status: Acute Assessment and Plan: Random glucose was 98 no indication for further treatment at this time continue to trend glucose adjust therapy as indicated Time Spent With Patient Time: 28 minutes Time with patient: Greater than 35 minutes Subjective Date/time seen: 11/08/22 1100 Interval history: 11/08/22 1100 Patient went to her procedure for her hip repair. She denied any complaints except for pain. Labs and vital signs were reviewed. Antibiotics were changed in relation to UTI and sensitivities. 11/07/22 1045 patient was lying in bed. Patient stated that she would like her pain shot. She is having a lot of issues with pain and stated that she is not getting any relief. She currently denies any chest pain, shortness a breath, nausea, vomiting, diarrhea or constipation. She is eating and doing well otherwise. 11/06/22 0930 Patient stated that she has been having a lot of pain issues. She also stated that she has not been able to get comfortable. She does take quite a bit of pain medicine at home including 15 mg of morphine Q 8 and [place] 7.5/325 twice a day. Currently she states her pain is above 10 and hurts like crazy. She denies any chest pain, shortness a breath, nausea, vomiting, diarrhea constipation. Went in to re-e
--- NOTE | 2022-11-08 12:04 | WPDHPUPDATE1 ---
History and Physical Update Update Date/Time: 11/08/22 12:04 History and Physical has been reviewed, including an updated exam of the patient. There are NO changes in the patient's condition. Risks, benefits, and alternatives have been discussed and questions answered. Patient agrees to proceed with procedure.
[2022-11-08] MEDS: fentaNYL CITRATE INJ (*CRX) 100 MCG/2 ML VIAL 25 MCG IV PUSH ×4 (12:17→12:49)
--- NOTE | 2022-11-08 12:38 | WPDANESEPPF ---
Anes - Initial Pre Proc Eval Procedure: Operation Date: 11/08/22 13:00 Proposed Procedures p Left Bipolar Hip Replacement(Left) - Brian Escobar MD Date/Time: 11/08/22 12:38 Surgeon: Shawn Pre Op Diagnosis: Left Subcapital Femoral Neck Fracture Patient Data Age: 82 Gender: F Height: 1.52 m Weight: 53 kg Last Vital Signs Temp 36.8 C 11/08/22 05:42 Pulse 78 11/08/22 08:00 Resp 17 11/08/22 05:42 BP 121/49 L 11/08/22 05:42 Pulse Ox 93 11/08/22 05:42 O2 Del Method Room Air 11/07/22 08:00 O2 Flow Rate 1 11/06/22 09:20 FiO2 36 11/05/22 16:33 Allergies Allergy/AdvReac Type Severity Reaction Status Date / Time doxycycline Allergy Unknown Verified 01/11/20 07:59 latex Allergy Unknown Verified 01/11/20 07:59 pregabalin [From Lyrica] Allergy Unknown Verified 01/11/20 07:59 Sulfa (Sulfonamide Allergy Unknown Verified 01/11/20 07:59 Antibiotics) sulfamethoxazole Allergy Unknown Verified 01/11/20 07:59 [From Bactrim] trimethoprim [From Bactrim] Allergy Unknown Verified 01/11/20 07:59 Home Medications Medication Instructions Recorded Confirmed Type loratadine 10 mg tablet 10 mg PO DAILY 01/11/20 11/05/22 History morphine 15 mg tablet,extended 15 mg PO Q8H 01/11/20 11/06/22 History release albuterol sulfate 90 mcg/actuation 1 - 2 puff inhalation Q4-6H PRN 11/17/21 11/05/22 Rx aerosol inhaler (Ventolin HFA) shortness of breath or wheezing #8.5 grams amitriptyline 25 mg tablet 25 mg PO .QHS #90 tabs 11/17/21 11/05/22 Rx carbamazepine 100 mg 100 mg PO Q12H #120 tabs 11/17/21 11/05/22 Rx tablet,extended release,12 hr citalopram 20 mg tablet 20 mg PO DAILY #90 tabs 11/17/21 11/05/22 Rx nitrofurantoin 100 mg PO Q12H 5 days #10 caps 11/03/22 11/05/22 Rx monohydrate/macrocrystals 100 mg capsule (Macrobid) hydrocodone 7.5 mg-acetaminophen 1 tablet BID 11/05/22 11/05/22 History 325 mg tablet Laboratory Tests 11/08/22 11/08/22 06:17 06:17 WBC 12.2 K/mm3 H K/mm3 (4.5-10.0) RBC 3.50 M/mm3 L M/mm3 (4.2-5.4) Hgb 11.4 g/dL L g/dL (12.0-15.0) Hct 32.7 % L % (37.0-47.0) MCV 93.4 fl D fl (80-100) MCH 32.6 pg pg (26-34) MCHC 34.9 g/dl g/dl (32-36) RDW 12.6 % % (11.5-14.5) Plt Count 157 k/mm3 k/mm3 (150-375) MPV 9.0 fl fl (7.4-10.4) Immature Gran % (Auto) 0.5 % % (0-0.5) Neut % (Auto) 50.6 % % (45.5-73.1) Lymph % (Auto) 37.3 % % (18.3-44.2) [place] % (Auto) 6.3 % % (2.6-8.5) Eos % (Auto) 4.9 % H % (0-4.4) Baso % (Auto) 0.4 % % (0.2-1.2) Lymph # (Auto) 4.54 K/mm3 H K/mm3 (0.9-3.2) [place] # (Auto) 0.8 K/mm3 H K/mm3 (0.1-0.6) Eos # (Auto) 0.6 K/mm3 H K/mm3 (0-0.3) Baso # (Auto) 0.1 K/mm3 K/mm3 (0.0-0.1) Abs Immat Gran (auto) 0.06 K/mm3 H K/mm3 (0.00-0.031) Absolute Neuts (auto) 6.2 K/mm3 K/mm3 (1.3-6.7) Absolute Nucleated RBC 0.0 K/mm3 K/mm3 (0.0-0.012) Nucleated RBC % 0.0 % % (0.0-0.2) Sodium 134 mmol/L L mmol/L (137-145) Potassium 3.6 mmol/L mmol/L (3.4-5.0) Chloride 104 mmol/L mmol/L (98-107) Carbon Dioxide 26 mmol/L mmol/L (22-30) Anion Gap 4 mmol/L L mmol/L (8-16) BUN 13 mg/dL mg/dL (7-17) Creatinine 0.50 mg/dL L mg/dL (0.7-1.0) Estim Creat Clear Calc 51 ml/min ml/min Estimated GFR > 60 (59 - ) Glucose 98 mg/dL mg/dL (65-110) Calcium 8.8 mg/dL mg/dL (8.4-10.2) Magnesium 1.9 mg/dL mg/dL (1.6-2.3) Total Bilirubin 0.8 mg/dL mg/dL (0.2-1.3) AST 33 U/L U/L (14-36) ALT 28 U/L U/L (6-35) Alkaline Phosphatase 32 U/L L U/L (38-126) Total Protein 5.0 g/dL L g/dL (6.3-8.2) Albumin 3.3 g/dL L g/dL (3.5-5.1) Patient hx anesthesia problems: none Family hx anesthesia problems: none Results
[2022-11-08] MEDS: TRANEXAMIC ACID 1,000MG/ISO100 1,000 MG/100 ML BAG 200 MG IVPB (12:47)
[2022-11-08] MEDS: LACTATED RINGERS 1,000 ML 30 ML IV CONT (15:09)
--- NOTE | 2022-11-08 16:02 | P.OP_ITS ---
Procedure Note - Detailed Date of Procedure 11/08/22 Pre-op Diagnosis Left Subcapital Femoral Neck Fracture Post-op Diagnosis Same Procedure Performed Bipolar hemiarthroplasty left. Surgeon Brian Escobar MD Anesthesia General Description of Procedure A general anesthetic was administered. The patient was carefully placed in the lateral decubitus position on the peg board positioner. An axillary roll was placed. The hip was prepped and draped in the usual sterile fashion. A minimally invasive optimized posterior approach to the hip was performed. An L shaped capsulotomy was created along the upper border of the piriformis. The short external rotators were tagged with number 2 high strength suture for later repair. The labrum was preserved. The femoral neck cut was performed. The femoral head was removed and sized. The acetabular floor was cleared of debris and loose tissue. The femur was sequentially broached. Trial was assessed for leg length and stability. The real component was impacted into position, trialed again, and the final head and bipolar component were assembled. The hip was reduced after copious irrigation. The short external rotators and capsule were repaired through drill holes in the posterior trochanter. The wound was closed in layers with 1 vicryl, 2,0, and 2-0 running barbed suture. Adhesive tapes were placed on the skin, followed by a sterile gauze dressing. The patient was extubated and brought to the recovery room. Implants [place] Accolate 2 hip stem 132 degree, size 4, UH are bipolar component outer diameter size 44, inner metal ball size 28 mm Estimated Blood Loss 75 Urine Output -300.0 Drains No Pathology None sent Complications No immediate complications Condition Stable Disposition PACU [facility] Billing Surgery - Charge Forward: Surgery Billing
[2022-11-08] MEDS: NICOTINE (*PBKC) 7 MG PATCH 1 PATCH TRANSDERM (16:48)
[2022-11-08] MEDS: MORPHINE SULFATE (*CRX) 15 MG TABCR PO ×2 (16:48→23:01)
[2022-11-08] MEDS: SENNA/DOCUSATE SODIUM TABLET 2 TAB PO (18:30)
[2022-11-08] MEDS: ACETAMINOPHEN 500 MG TABLET 1000 MG PO (18:30)
[2022-11-08] MEDS: FAMOTIDINE 20 MG TABLET PO (20:34)
[2022-11-08] MEDS: AMITRIPTYLINE HCL 25 MG TABLET PO (20:34)
[2022-11-08] MEDS: ACETAMINOPHEN 325 MG TABLET 650 MG BY MOUTH (23:01)
[2022-11-09] VITALS (8 sets, daily range): BP systolic 107–141; BP diastolic 48–63; PULSE 77–93; RESP 18; TEMP 36.4–36.9; O2SAT 90–96
[2022-11-09] MEDS: HYDROmorphone HCL INJ (*CRX) 1 MG/ML SYR 0.5 MG IV PUSH ×4 (05:03→17:05)
[2022-11-09] MEDS: ACETAMINOPHEN 325 MG TABLET 650 MG BY MOUTH ×3 (05:03→17:05)
[2022-11-09 06:02] LABS: Basophils Absolute Auto 0.1 K/mm3 (0.0-0.1); Basophils Percent Auto 0.3 % (0.2-1.2); Eosinophils Absolute Auto 0.4 K/mm3 (0-0.3); Eosinophils Percent Auto 2.7 % (0-4.4); Hematocrit 32.6 % (37.0-47.0); Hemoglobin 11.3 g/dL (12.0-15.0); Immature Granulocyte Absolute 0.08 K/mm3 (0.00-0.031); Immature Granulocyte Percent A 0.5 % (0-0.5); Mean Corpuscular HGB Conc 34.7 g/dl (32-36); Mean Corpuscular Hemoglobin 33.1 pg (26-34); Mean Corpuscular Volume 95.6 fl (80-100); Mean Platelet Volume 9.4 fl (7.4-10.4); Monocytes Percent Auto 6.4 % (2.6-8.5); Neutrophils Absolute Auto 9.6 K/mm3 (1.3-6.7); Neutrophils Percent Auto 64.1 % (45.5-73.1); Platelet Count Result 168 k/mm3 (150-375); Red Blood Count 3.41 M/mm3 (4.2-5.4); Red Cell Distribution Width 12.9 % (11.5-14.5)
[2022-11-09 06:15] LABS: Alanine Aminotransferase 28 U/L (6-35); Albumin Level 3.4 g/dL (3.5-5.1); Alkaline Phosphatase 34 U/L (38-126); Anion Gap 3 mmol/L (8-16); Aspartate Amino Transferase 31 U/L (14-36); Bilirubin,Total 0.6 mg/dL (0.2-1.3); Blood Urea Nitrogen 19 mg/dL (7-17); Calcium 8.8 mg/dL (8.4-10.2); Carbon Dioxide 27 mmol/L (22-30); Chloride 105 mmol/L (98-107); Estimated CRCL calculation 51 ml/min; Estimated Glomerular Filt Rate > 60; Glucose 117 mg/dL (65-110); Magnesium 1.9 mg/dL (1.6-2.3); Potassium 3.8 mmol/L (3.4-5.0); Sodium 135 mmol/L (137-145)
[2022-11-09] MEDS: MORPHINE SULFATE (*CRX) 15 MG TABCR PO ×2 (07:51→17:05)
[2022-11-09] MEDS: HYDROcodone/acetaminophen (*CRX) 7.5-325 MG TABLET 1 TAB BY MOUTH ×2 (07:55→17:04)
--- NOTE | 2022-11-09 09:15 | PM.IMPN ---
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 Initiate fall precautions. PT and OT ongoing Could be from the UTI (2) Closed subcapital fracture of left femur: Code(s): S72.012A - Unspecified intracapsular fracture of left femur, initial encounter for closed fracture Status: Acute Assessment and Plan: POD 1 hip and pelvis x-ray shows subcapital fracture of the left femoral neck Dilaudid available for breakthrough pain, increased to q.3 hours. orthopedics consulted Surgical intervention preformed on 11/08/22 Post op care per ortho possibly need to be NPO after midnight for surgery in the morning pain control ordered however will be hard to difficult due to patient's chronic pain medication use DVT prophylaxis per Orthopedics Added some oxy 10mg for further pain control (3) Acute UTI: Code(s): N39.0 - Urinary tract infection, site not specified Status: Acute Assessment and Plan: UA mildly infectious with leukocyte esterase and mild white blood cell ceftriaxone for today then change antibiotics Augmentin per sensitivities urine culture grew proteus Mirabilis trend urine output (4) Chronic pain syndrome: Code(s): G89.4 - Chronic pain syndrome Status: Acute Assessment and Plan: Continue chronic pain regimen. Dilaudid available for breakthrough pain. (5) Chronic lymphocytic leukemia: Code(s): C91.10 - Chronic lymphocytic leukemia of B-cell type not having achieved remission Status: Acute Assessment and Plan: Not being actively treated. chronic and stable continue outpatient follow-up as indicated (6) Chronic obstructive pulmonary disease: Code(s): J44.9 - Chronic obstructive pulmonary disease, unspecified Status: Acute Assessment and Plan: No evidence to suggest acute exacerbation. Currently on a couple of L nasal cannula. Chest x-ray shows findings of possible chronic lung disease. May need home O2 evaluation prior to discharge. (7) Tobacco dependence: Code(s): F17.200 - Nicotine dependence, unspecified, uncomplicated Status: Acute Assessment and Plan: Patient requested nicotine patch. Smoking cessation is encouraged. (8) Diet-controlled diabetes mellitus: Code(s): E11.9 - Type 2 diabetes mellitus without complications Status: Acute Assessment and Plan: Random glucose was 98 no indication for further treatment at this time continue to trend glucose adjust therapy as indicated Time Spent With Patient Time: 48 minutes Time with patient: Greater than 35 minutes Subjective Date/time seen: 11/09/22914 Interval history: 11/09/22914 Patient resting in bed. She is currently doing ok. She is having some pain. She currently rates her pain a 10/10. She denies any chest pain shortness of breath, nausea, vomiting, diarrhea, or constipation. 11/08/22 1100 Patient went to her procedure for her hip repair. She denied any complaints except for pain. Labs and vital signs were reviewed. Antibiotics were changed in relation to UTI and sensitivities. 11/07/22 1045 patient was lying in bed. Patient stated that she would like her pain shot. She is having a lot of issues with pain and stated that she is not getting any relief. She currently denies any chest pain, shortness a breath, nausea, vomiting, diarrhea or constipation. She is eating and doing well otherwise. 11/06/22 0930 Patient stated that she has been having a lot of pain issues. She also stated that she has not been able to get comfortable. She does take quite a
--- NOTE | 2022-11-09 09:15 | P.PNIM_ITS ---
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 * Initiate fall precautions. * PT and OT ongoing * Could be from the UTI (2) Closed subcapital fracture of left femur: Code(s): S72.012A - Unspecified intracapsular fracture of left femur, initial encounter for closed fracture Status: Acute Assessment and Plan: * POD 1 * hip and pelvis x-ray shows subcapital fracture of the left femoral neck * Dilaudid available for breakthrough pain, increased to q.3 hours. * orthopedics consulted * Surgical intervention preformed on 11/08/22 * Post op care per ortho * possibly need to be NPO after midnight for surgery in the morning * pain control ordered however will be hard to difficult due to patient's chronic pain medication use * DVT prophylaxis per Orthopedics * Added some oxy 10mg for further pain control (3) Acute UTI: Code(s): N39.0 - Urinary tract infection, site not specified Status: Acute Assessment and Plan: * UA mildly infectious with leukocyte esterase and mild white blood cell * ceftriaxone for today then change antibiotics Augmentin per sensitivities * urine culture grew proteus Mirabilis * trend urine output (4) Chronic pain syndrome: Code(s): G89.4 - Chronic pain syndrome Status: Acute Assessment and Plan: * Continue chronic pain regimen. * Dilaudid available for breakthrough pain. (5) Chronic lymphocytic leukemia: Code(s): C91.10 - Chronic lymphocytic leukemia of B-cell type not having achieved remission Status: Acute Assessment and Plan: * Not being actively treated. * chronic and stable * continue outpatient follow-up as indicated (6) Chronic obstructive pulmonary disease: Code(s): J44.9 - Chronic obstructive pulmonary disease, unspecified Status: Acute Assessment and Plan: * No evidence to suggest acute exacerbation. * Currently on a couple of L nasal cannula. * Chest x-ray shows findings of possible chronic lung disease. * May need home O2 evaluation prior to discharge. (7) Tobacco dependence: Code(s): F17.200 - Nicotine dependence, unspecified, uncomplicated Status: Acute Assessment and Plan: * Patient requested nicotine patch. Smoking cessation is encouraged. (8) Diet-controlled diabetes mellitus: Code(s): E11.9 - Type 2 diabetes mellitus without complications Status: Acute Assessment and Plan: * Random glucose was 98 * no indication for further treatment at this time * continue to trend glucose adjust therapy as indicated Time Spent With Patient Time: 48 minutes Time with patient: Greater than 35 minutes Subjective Date/time seen: 11/09/22914 Interval history: 11/09/22914 Patient resting in bed. She is currently doing ok. She is having some pain. She currently rates her pain a 10/10. She denies any chest pain shortness of breath, nausea, vomiting, diarrhea, or constipation. 11/08/22 1100 Patient went to her procedure for her hip repair.
[2022-11-09] MEDS: SENNA/DOCUSATE SODIUM TABLET 2 TAB PO ×2 (09:23→17:05)
[2022-11-09] MEDS: polyethylene glycoL 3350 17 GM POWD.PACK PO (09:23)
[2022-11-09] MEDS: NICOTINE (*PBKC) 7 MG PATCH 1 PATCH TRANSDERM (09:24)
[2022-11-09] MEDS: ENOXAPARIN 30 MG/0.3 ML SYRINGE SUB-Q (09:24)
[2022-11-09] MEDS: FAMOTIDINE 20 MG TABLET PO ×2 (09:24→21:44)
[2022-11-09] MEDS: CARBAMAZEPINE XR 100 MG TAB.SR.12H PO ×2 (09:24→21:44)
[2022-11-09] MEDS: AMOXICILLIN/CLAVULANATE K 875-125 MG TAB 1 TABLET PO ×2 (09:24→21:43)
[2022-11-09] MEDS: CITALOPRAM HYDROBROMIDE 20 MG TABLET PO (09:24)
[2022-11-09] MEDS: LORATADINE 10 MG TABLET PO (09:24)
[2022-11-09] MEDS: oxyCODONE HCL (*CRX) 5 MG TAB IR 10 MG PO ×2 (11:50→21:49)
--- NOTE | 2022-11-09 12:52 | PM.PNORT ---
Progress Note: A&P Assessment and Plan (1) Closed subcapital fracture of left femur: Code(s): S72.012A - Unspecified intracapsular fracture of left femur, initial encounter for closed fracture Status: Acute Plan Postop day 1: left bipolar hemiarthroplasty. Patient tolerated procedure well. No complications. Pain manageable with pain medication. No numbness or tingling. She is participating well with formal physical therapy. She typically lives at home. I recommend rehab or SNF at discharge. Discharge planning in progress. I had a lengthy discussion with the patient and family regarding postoperative wound care, limitations, expectations, and exercises. Patient shows good understanding. Ortho instructions: DOS: 11/08/22 D/C to SNF/rehab Xray in 3 weeks. Follow up virtually with xray surveillance or in office at 4-6 weeks depending on if she is in rehab or not. Wound Care: Remove Mepilex dressing at 7 days post op. Remove steristrips at 14 days post op. May shower. No soaking. PT: Weight bearing as tolerated with a walker. DVT prophylaxis: continue Lovenox for 30 days total Pain medication: Oxycodone. Tylenol. Limit narcotics due to patient's age. Subjective Subjective Date/Time Seen: 11/09/22 12:52 Interval history: Patient resting comfortably in bed with family at the bedside. Notes improved pain since surgery. She has been able to work with formal physical therapy. She has been getting up with a walker with some discomfort. Pain with hip motion. No numbness or tingling. Review of Systems Review of Systems: All systems reviewed & are unremarkable except as noted in HPI and below Exam Narrative: Thin, elderly 82 y/o female. Resting comfortably in bed. Wearing compression socks bilaterally. Dressing dry and intact with no drainage. Mild swelling. No ecchymosis. No erythema. No hematoma. Range of motion limited due to pain. Calf nontender. Thigh nontender. Neurologic status intact. No varicosities. Distal pulses palpable. Objective Data Vital Signs Vital Signs: Vital Signs - 24 hr 11/08/22 15:09 11/08/22 15:20 11/08/22 15:30 Temperature 97.1 F L Pulse Rate 68 60 60 Respiratory Rate 11 L 14 12 Blood Pressure 98/46 L 126/60 126/60 Pulse Oximetry 99 100 100 Oxygen Delivery Simple Face Mask Simple Face Mask Simple Face Mask Oxygen Flow Rate 8 8 8 11/08/22 15:45 11/08/22 16:00 11/08/22 16:15 Temperature Pulse Rate 62 69 75 Respiratory Rate 18 18 20 Blood Pressure 129/62 130/60 130/60 Pulse Oximetry 99 100 98 Oxygen Delivery Nasal Cannula Nasal Cannula Room Air Oxygen Flow Rate 2 2 11/08/22 16:35 11/08/22 16:58 11/08/22 17:40 Temperature 97.6 F 97.5 F L 98.2 F Pulse Rate 66 64 97 Respiratory Rate 18 16 18 Blood Pressure 116/64 133/56 L 116/52 L Pulse Oximetry 95 100 70 L Oxygen Delivery Oxygen Flow Rate 11/08/22 18:10 11/08/22 19:10 11/08/22 20:00 Temperature 98.4 F 96.9 F L Pulse Rate 86 78 77 Respiratory Rate 18 18 Blood Pressure 110/50 L 127/59 L Pulse Oximetry 100 97 Oxygen Delivery Oxygen Flow Rate 11/09/22 00:00 11/08/22 23:10 11/09/22 03:10 Temperature 97.7 F 97.6 F Pulse Rate 79 81 86 Respiratory Rate 18 18 Blood Pressure 139/61 141/56 H Pulse Oximetry 96 96 Oxygen Delivery Oxygen Flow Rate 11/09/22 04:00 11/09/22 07:32 11/09/22 10:00 Temperature 98.4 F Pulse Rate 77 85 Respiratory Rate 18 Blood Pressure 114/48 L Pulse Oximetry 94 Oxygen Delivery Room Air Oxygen Flow Rate Intake/Output Intake/Output: Intake & Output 11/06/22 11/07/22 11/08/22 11/09/22 23:59 23:59 23:59 23:59 Intake Total 2780 1920 660 240 Output Total 168 333 6276 390 Balance [facility] 1120 -880 -150 Meds/Results Medications: Active Medications Generic Name Dose Route Start Last Admin Trade Name Librado PRN Reason Stop Dose Admin Acetaminophen 650 mg 11/09/22 00:00 11/09/22 12:51 Acetaminophen 325 Mg Tablet
--- NOTE | 2022-11-09 14:33 | P.PNAN_ITS ---
Anes - Prog Note Post-Op Date/Time: 11/09/22 14:33 Cardiovascular status: normal Respiratory status: normal Airway patency: baseline Mental status: baseline Post-Op hydration status: normal Vital Signs: Last Vital Signs Temp 98.4 F 11/09/22 10:00 Pulse 85 11/09/22 10:00 Resp 18 11/09/22 10:00 BP 114/48 L 11/09/22 10:00 Pulse Ox 94 11/09/22 10:00 O2 Del Method Room Air 11/09/22 07:32 O2 Flow Rate 2 11/08/22 16:00 FiO2 36 11/05/22 16:33 Pain Score (VAS): 0/10 I/O: Intake & Output 11/08/22 11/09/22 11/09/22 23:59 07:59 15:59 Intake Total 410 120 120 Output Total 90 390 Balance 320 -270 120 Laboratory Tests 11/09/22 05:40 11/09/22 05:40 11/09/22 11/09/22 05:40 05:40 WBC 15.0 H RBC 3.41 L Hgb 11.3 L Hct 32.6 L MCV 95.6 MCH 33.1 MCHC 34.7 RDW 12.9 Plt Count 168 MPV 9.4 Immature Gran % (Auto) 0.5 Neut % (Auto) 64.1 Lymph % (Auto) 26.0 [place] % (Auto) 6.4 Eos % (Auto) 2.7 Baso % (Auto) 0.3 Lymph # (Auto) 3.90 H [place] # (Auto) 1.0 H Eos # (Auto) 0.4 H Baso # (Auto) 0.1 Abs Immat Gran (auto) 0.08 H Absolute Neuts (auto) 9.6 H Absolute Nucleated RBC 0.0 Nucleated RBC % 0.0 Sodium 135 L Potassium 3.8 Chloride 105 Carbon Dioxide 27 Anion Gap 3 L BUN 19 H Creatinine 0.50 L Estim Creat Clear Calc 51 Estimated GFR > 60 Glucose 117 H Calcium 8.8 Magnesium 1.9 Total Bilirubin 0.6 AST 31 ALT 28 Alkaline Phosphatase 34 L Total Protein 5.0 L Albumin 3.4 L Post-procedural complaints: none Patient Feedback: Patient satisfied with anesthetic care.
[2022-11-09] MEDS: AMITRIPTYLINE HCL 25 MG TABLET PO (21:43)
[2022-11-10] MEDS: MORPHINE SULFATE (*CRX) 15 MG TABCR PO ×3 (00:23→15:41)
[2022-11-10] MEDS: ACETAMINOPHEN 325 MG TABLET 650 MG BY MOUTH ×3 (00:23→11:19)
[2022-11-10 00:42] VITALS: BP 124/48; PULSE 87; RESP 18; TEMP 36.8; O2SAT 94
[2022-11-10 04:56] VITALS: BP 127/59; PULSE 85; RESP 18; TEMP 36.3; O2SAT 93
[2022-11-10] MEDS: oxyCODONE HCL (*CRX) 5 MG TAB IR 10 MG PO ×2 (05:30→11:18)
[2022-11-10 05:31] LABS: Basophils Percent Auto 0.3 % (0.2-1.2); Eosinophils Absolute Auto 0.8 K/mm3 (0-0.3); Eosinophils Percent Auto 5.9 % (0-4.4); Hematocrit 31.1 % (37.0-47.0); Hemoglobin 10.5 g/dL (12.0-15.0); Immature Granulocyte Absolute 0.05 K/mm3 (0.00-0.031); Immature Granulocyte Percent A 0.4 % (0-0.5); Lymphocytes Percent Auto 31.9 % (18.3-44.2); Mean Corpuscular HGB Conc 33.8 g/dl (32-36); Mean Corpuscular Hemoglobin 31.9 pg (26-34); Mean Corpuscular Volume 94.5 fl (80-100); Mean Platelet Volume 9.8 fl (7.4-10.4); Monocytes Absolute Auto 0.8 K/mm3 (0.1-0.6); Neutrophils Absolute Auto 7.5 K/mm3 (1.3-6.7); Neutrophils Percent Auto 55.5 % (45.5-73.1); Platelet Count Result 181 k/mm3 (150-375); Red Blood Count 3.29 M/mm3 (4.2-5.4); Red Cell Distribution Width 12.8 % (11.5-14.5); White Blood Count 13.5 K/mm3 (4.5-10.0)
[2022-11-10 05:50] LABS: Alanine Aminotransferase 38 U/L (6-35); Albumin Level 3.1 g/dL (3.5-5.1); Alkaline Phosphatase 36 U/L (38-126); Anion Gap 2 mmol/L (8-16); Aspartate Amino Transferase 39 U/L (14-36); Bilirubin,Total 0.6 mg/dL (0.2-1.3); Blood Urea Nitrogen 18 mg/dL (7-17); Calcium 8.6 mg/dL (8.4-10.2); Carbon Dioxide 29 mmol/L (22-30); Chloride 104 mmol/L (98-107); Estimated CRCL calculation 43 ml/min; Estimated Glomerular Filt Rate > 60; Glucose 104 mg/dL (65-110); Potassium 3.7 mmol/L (3.4-5.0); Sodium 135 mmol/L (137-145)
--- NOTE | 2022-11-10 06:59 | P.PNIM_ITS ---
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 * Initiate fall precautions. * PT and OT ongoing * Could be from the UTI * Will need rehab (2) Closed subcapital fracture of left femur: Code(s): S72.012A - Unspecified intracapsular fracture of left femur, initial encounter for closed fracture Status: Acute Assessment and Plan: * POD 2 * hip and pelvis x-ray shows subcapital fracture of the left femoral neck * Dilaudid available for breakthrough pain, increased to q.3 hours. * orthopedics consulted * Surgical intervention preformed on 11/08/22 * Post op care per ortho * possibly need to be NPO after midnight for surgery in the morning * pain control ordered however will be hard to difficult due to patient's chronic pain medication use * DVT prophylaxis per Orthopedics * Added some oxy 10mg for further pain control (3) Acute UTI: Code(s): N39.0 - Urinary tract infection, site not specified Status: Acute Assessment and Plan: * UA mildly infectious with leukocyte esterase and mild white blood cell * ceftriaxone change antibiotics Augmentin per sensitivities * urine culture grew proteus Mirabilis * trend urine output (4) Chronic pain syndrome: Code(s): G89.4 - Chronic pain syndrome Status: Acute Assessment and Plan: * Continue chronic pain regimen. * Add oxycodone 10mg for pain 7-10 * Dilaudid available for breakthrough pain. (5) Chronic lymphocytic leukemia: Code(s): C91.10 - Chronic lymphocytic leukemia of B-cell type not having achieved remission Status: Acute Assessment and Plan: * Not being actively treated. * chronic and stable * continue outpatient follow-up as indicated (6) Chronic obstructive pulmonary disease: Code(s): J44.9 - Chronic obstructive pulmonary disease, unspecified Status: Acute Assessment and Plan: * No evidence to suggest acute exacerbation. * Currently on a couple of L nasal cannula. * Chest x-ray shows findings of possible chronic lung disease. * May need home O2 evaluation prior to discharge. (7) Tobacco dependence: Code(s): F17.200 - Nicotine dependence, unspecified, uncomplicated Status: Acute Assessment and Plan: * Patient requested nicotine patch. Smoking cessation is encouraged. (8) Diet-controlled diabetes mellitus: Code(s): E11.9 - Type 2 diabetes mellitus without complications Status: Acute Assessment and Plan: * Random glucose was 104 * no indication for further treatment at this time * continue to trend glucose adjust therapy as indicated Time Spent With Patient Time: 45 minutes Time with patient: Greater than 35 minutes Subjective Date/time seen: 11/10/22 06:59 Interval history: 11/09/22 0915 Patient resting in bed. She is currently doing ok. She is having some pain. She currently rates her pain a 10/10. She denies any chest pain shortness of breath, nausea, vomiting, diarrhea, or constipation. 11/08/22 1100
--- NOTE | 2022-11-10 06:59 | PM.IMPN ---
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 Initiate fall precautions. PT and OT ongoing Could be from the UTI Will need rehab (2) Closed subcapital fracture of left femur: Code(s): S72.012A - Unspecified intracapsular fracture of left femur, initial encounter for closed fracture Status: Acute Assessment and Plan: POD 2 hip and pelvis x-ray shows subcapital fracture of the left femoral neck Dilaudid available for breakthrough pain, increased to q.3 hours. orthopedics consulted Surgical intervention preformed on 11/08/22 Post op care per ortho possibly need to be NPO after midnight for surgery in the morning pain control ordered however will be hard to difficult due to patient's chronic pain medication use DVT prophylaxis per Orthopedics Added some oxy 10mg for further pain control (3) Acute UTI: Code(s): N39.0 - Urinary tract infection, site not specified Status: Acute Assessment and Plan: UA mildly infectious with leukocyte esterase and mild white blood cell ceftriaxone change antibiotics Augmentin per sensitivities urine culture grew proteus Mirabilis trend urine output (4) Chronic pain syndrome: Code(s): G89.4 - Chronic pain syndrome Status: Acute Assessment and Plan: Continue chronic pain regimen. Add oxycodone 10mg for pain 7-10 Dilaudid available for breakthrough pain. (5) Chronic lymphocytic leukemia: Code(s): C91.10 - Chronic lymphocytic leukemia of B-cell type not having achieved remission Status: Acute Assessment and Plan: Not being actively treated. chronic and stable continue outpatient follow-up as indicated (6) Chronic obstructive pulmonary disease: Code(s): J44.9 - Chronic obstructive pulmonary disease, unspecified Status: Acute Assessment and Plan: No evidence to suggest acute exacerbation. Currently on a couple of L nasal cannula. Chest x-ray shows findings of possible chronic lung disease. May need home O2 evaluation prior to discharge. (7) Tobacco dependence: Code(s): F17.200 - Nicotine dependence, unspecified, uncomplicated Status: Acute Assessment and Plan: Patient requested nicotine patch. Smoking cessation is encouraged. (8) Diet-controlled diabetes mellitus: Code(s): E11.9 - Type 2 diabetes mellitus without complications Status: Acute Assessment and Plan: Random glucose was 104 no indication for further treatment at this time continue to trend glucose adjust therapy as indicated Time Spent With Patient Time: 45 minutes Time with patient: Greater than 35 minutes Subjective Date/time seen: 11/10/22 06:59 Interval history: 11/09/22 0915 Patient resting in bed. She is currently doing ok. She is having some pain. She currently rates her pain a 10/10. She denies any chest pain shortness of breath, nausea, vomiting, diarrhea, or constipation. 11/08/22 1100 Patient went to her procedure for her hip repair. She denied any complaints except for pain. Labs and vital signs were reviewed. Antibiotics were changed in relation to UTI and sensitivities. 11/07/22 1045 patient was lying in bed. Patient stated that she would like her pain shot. She is having a lot of issues with pain and stated that she is not getting any relief. She currently denies any chest pain, shortness a breath, nausea, vomiting, diarrhea or constipation. She is eating and doing well otherwise. 11/06/22 0930 Patient stated that she has been having a lot of pain issues. She also stated that she has not been able t
--- NOTE | 2022-11-10 08:34 | PCPTNOTE ---
Patient refused treatment this session. Patient did not give reason why, just asked if therapy can come back.
[2022-11-10 08:43] VITALS: PULSE 82; O2SAT 91
[2022-11-10] MEDS: CITALOPRAM HYDROBROMIDE 20 MG TABLET PO (08:57)
[2022-11-10] MEDS: FAMOTIDINE 20 MG TABLET PO (08:57)
[2022-11-10] MEDS: LORATADINE 10 MG TABLET PO (08:57)
[2022-11-10] MEDS: AMOXICILLIN/CLAVULANATE K 875-125 MG TAB 1 TABLET PO (08:57)
[2022-11-10] MEDS: CARBAMAZEPINE XR 100 MG TAB.SR.12H PO (08:57)
[2022-11-10] MEDS: SENNA/DOCUSATE SODIUM TABLET 2 TAB PO ×2 (08:57→16:29)
[2022-11-10] MEDS: polyethylene glycoL 3350 17 GM POWD.PACK PO (08:58)
[2022-11-10] MEDS: NICOTINE (*PBKC) 7 MG PATCH 1 PATCH TRANSDERM (08:58)
[2022-11-10] MEDS: ENOXAPARIN 30 MG/0.3 ML SYRINGE SUB-Q (08:58)
[2022-11-10 10:26] VITALS: BP 127/54; PULSE 81; RESP 16; TEMP 37.3; O2SAT 95
--- NOTE | 2022-11-10 11:04 | PC.NURSE ---
This RN held 0900 dose of scheduled 7.5mg Severy d/t decreased BP and patient appearing very drowsy. BP was 104/54 and pt was also receiving 15mg PO Morphine. I advised pt that we would re-assess BP in a couple of hours and I would administer the Severy if BP was improved. Glenn Roy NP called and advised to not hold the Severy d/t chronic and unmanageable acute pain. I explained reasoning for holding the medication. Was advised to administer the 7.5mg Severy and also give PRN 10mg Oxycodone. Will monitor patient.
[2022-11-10] MEDS: HYDROcodone/acetaminophen (*CRX) 7.5-325 MG TABLET 1 TAB BY MOUTH ×2 (11:18→16:29)
--- NOTE | 2022-11-10 13:38 | PC.NURSE ---
On 11/10/22, the student, [Sandra Read], provided care and completed [facility] documentation on this patient. I have reviewed the student's documentation and agree with the findings.
--- NOTE | 2022-11-10 14:08 | PCPTNOTE ---
Attempted to see patient for PT, however patient declined and asked PT to come back later.
--- NOTE | 2022-11-10 15:00 | PM.DS ---
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 Initiate fall precautions. PT and OT ongoing Could be from the UTI Will need rehab (2) Closed subcapital fracture of left femur: Code(s): S72.012A - Unspecified intracapsular fracture of left femur, initial encounter for closed fracture Status: Acute Assessment and Plan: POD 2 hip and pelvis x-ray shows subcapital fracture of the left femoral neck Dilaudid available for breakthrough pain, increased to q.3 hours. orthopedics consulted Surgical intervention preformed on 11/08/22 Post op care per ortho possibly need to be NPO after midnight for surgery in the morning pain control ordered however will be hard to difficult due to patient's chronic pain medication use DVT prophylaxis per Orthopedics Added some oxy 10mg for further pain control (3) Acute UTI: Code(s): N39.0 - Urinary tract infection, site not specified Status: Acute Assessment and Plan: UA mildly infectious with leukocyte esterase and mild white blood cell ceftriaxone change antibiotics Augmentin per sensitivities urine culture grew proteus Mirabilis trend urine output (4) Chronic pain syndrome: Code(s): G89.4 - Chronic pain syndrome Status: Acute Assessment and Plan: Continue chronic pain regimen. Add oxycodone 10mg for pain 7-10 Dilaudid available for breakthrough pain. (5) Chronic lymphocytic leukemia: Code(s): C91.10 - Chronic lymphocytic leukemia of B-cell type not having achieved remission Status: Acute Assessment and Plan: Not being actively treated. chronic and stable continue outpatient follow-up as indicated (6) Chronic obstructive pulmonary disease: Code(s): J44.9 - Chronic obstructive pulmonary disease, unspecified Status: Acute Assessment and Plan: No evidence to suggest acute exacerbation. Currently on a couple of L nasal cannula. Chest x-ray shows findings of possible chronic lung disease. May need home O2 evaluation prior to discharge. (7) Tobacco dependence: Code(s): F17.200 - Nicotine dependence, unspecified, uncomplicated Status: Acute Assessment and Plan: Patient requested nicotine patch. Smoking cessation is encouraged. (8) Diet-controlled diabetes mellitus: Code(s): E11.9 - Type 2 diabetes mellitus without complications Status: Acute Assessment and Plan: Random glucose was 104 no indication for further treatment at this time continue to trend glucose adjust therapy as indicated DS: Summary Hospital Course Hospital Course: Patient is an 82-year-old female with a past medical history of COPD, neuralgia, CLL, arthritis who presented to the ED with complaints left hip pain after fall. Patient was loading it is worse when she stood up and tripped on her feet and onto her left side. Upon arrival to the ED brain CT was performed showed no acute intracranial process. Hip and pelvis x-ray showed subcapital fracture of the left femoral neck. Patient is on chronic pain medicines and pain has been extremely hard to control. Pain medication regimen had been adjusted throughout her stay for max control. UA did appear infectious and patient was started on ceftriaxone. Proteus mirabilis was grown in the culture and antibiotics have been changed to augementin. patient with for surgical repair of the left hip on 11/08/[address] Escobar. Patient has been working with PT and OT and has been doing well with getting
--- NOTE | 2022-11-10 15:00 | P.DS_ITS ---
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 * Initiate fall precautions. * PT and OT ongoing * Could be from the UTI * Will need rehab (2) Closed subcapital fracture of left femur: Code(s): S72.012A - Unspecified intracapsular fracture of left femur, initial encounter for closed fracture Status: Acute Assessment and Plan: * POD 2 * hip and pelvis x-ray shows subcapital fracture of the left femoral neck * Dilaudid available for breakthrough pain, increased to q.3 hours. * orthopedics consulted * Surgical intervention preformed on 11/08/22 * Post op care per ortho * possibly need to be NPO after midnight for surgery in the morning * pain control ordered however will be hard to difficult due to patient's chronic pain medication use * DVT prophylaxis per Orthopedics * Added some oxy 10mg for further pain control (3) Acute UTI: Code(s): N39.0 - Urinary tract infection, site not specified Status: Acute Assessment and Plan: * UA mildly infectious with leukocyte esterase and mild white blood cell * ceftriaxone change antibiotics Augmentin per sensitivities * urine culture grew proteus Mirabilis * trend urine output (4) Chronic pain syndrome: Code(s): G89.4 - Chronic pain syndrome Status: Acute Assessment and Plan: * Continue chronic pain regimen. * Add oxycodone 10mg for pain 7-10 * Dilaudid available for breakthrough pain. (5) Chronic lymphocytic leukemia: Code(s): C91.10 - Chronic lymphocytic leukemia of B-cell type not having achieved remission Status: Acute Assessment and Plan: * Not being actively treated. * chronic and stable * continue outpatient follow-up as indicated (6) Chronic obstructive pulmonary disease: Code(s): J44.9 - Chronic obstructive pulmonary disease, unspecified Status: Acute Assessment and Plan: * No evidence to suggest acute exacerbation. * Currently on a couple of L nasal cannula. * Chest x-ray shows findings of possible chronic lung disease. * May need home O2 evaluation prior to discharge. (7) Tobacco dependence: Code(s): F17.200 - Nicotine dependence, unspecified, uncomplicated Status: Acute Assessment and Plan: * Patient requested nicotine patch. Smoking cessation is encouraged. (8) Diet-controlled diabetes mellitus: Code(s): E11.9 - Type 2 diabetes mellitus without complications Status: Acute Assessment and Plan: * Random glucose was 104 * no indication for further treatment at this time * continue to trend glucose adjust therapy as indicated DS: Summary Hospital Course Hospital Course: Patient is an 82-year-old female with a past medical history of COPD, neuralgia, CLL, arthritis who presented to the ED with complaints left hip pain after fall. Patient was loading it is worse when she stood up and tripped on her feet and onto her left side. Upon arrival to
[2022-11-10 15:16] VITALS: BP 111/44; PULSE 81; RESP 18; TEMP 37.2; O2SAT 94
== END 2022-11-10 18:04 | DRG 522 ==
LOC: ANHED 13:49 → ANH2MED 14:45
PROVIDERS: Emergency Medicine; Orthopaedic Surgery; Physician Assistant; Admitting Provider Internal Medicine; Emergency Provider General Practice; PCP Internal Medicine; Visit Provider Nurse Practitioner
PROC: (CPT 27125; principal; 2022-11-08 13:00)
DX: S72.012A Unspecified intracapsular fracture of left femur, initial encounter for closed fracture (principal); N39.0 Urinary tract infection, site not specified; C91.10 Chronic lymphocytic leukemia of B-cell type not having achieved remission; S00.11XA Contusion of right eyelid and periocular area, initial encounter; J44.9 Chronic obstructive pulmonary disease, unspecified; E11.9 Type 2 diabetes mellitus without complications; M81.0 Age-related osteoporosis without current pathological fracture; M54.9 Dorsalgia, unspecified; M06.09 Rheumatoid arthritis without rheumatoid factor, multiple sites; M41.50 Other secondary scoliosis, site unspecified; G50.0 Trigeminal neuralgia; G89.4 Chronic pain syndrome; F17.210 Nicotine dependence, cigarettes, uncomplicated; W01.0XXA Fall on same level from slipping, tripping and stumbling without subsequent striking against object, initial encounter; Z85.3 Personal history of malignant neoplasm of breast; Z85.820 Personal history of malignant melanoma of skin; Z79.891 Long term (current) use of opiate analgesic
CPT/HCPCS: 36415; 51702; 70450; 71045; 73502; 80053; 81001; 83605; 83735; 84439; 84443; 84480; 85025; 85610; 85730; 86850; 86900; 86901; 87077; 87086; 87186; 93005; 96361; 96365; 96375; 96376; 97110; 97161; 97165; 97530; 97535; 99285; A9270; C1713; C1776; J0171; J0330; J0696; J1100; J1170; J1650; J1885; J2270; J2405; J2704; J2795; J3010; J7030; J7120

== ENCOUNTER 2023-03-28 15:11 | Outpatient (CLI) | payer MEDICARE, MEDICAID, SELFPAY ==
[2023-03-28 18:56] LABS: Hemoglobin 13.6 g/dL (12.0-15.0); Mean Corpuscular HGB Conc 33.2 g/dl (32-36); Mean Corpuscular Hemoglobin 32.5 pg (26-34); Mean Corpuscular Volume 97.9 fl (80-100); Mean Platelet Volume 10.5 fl (7.4-10.4); Platelet Count Result 193 k/mm3 (150-375); Red Blood Count 4.19 M/mm3 (4.2-5.4); Red Cell Distribution Width 13.6 % (11.5-14.5); White Blood Count 13.9 K/mm3 (4.5-10.0)
[2023-03-28 19:23] LABS: Alanine Aminotransferase 29 U/L (6-35); Albumin Level 4.6 g/dL (3.5-5.1); Alkaline Phosphatase 48 U/L (38-126); Anion Gap 4 mmol/L (8-16); Aspartate Amino Transferase 52 U/L (14-36); Bilirubin,Total 0.3 mg/dL (0.2-1.3); Blood Urea Nitrogen 27 mg/dL (7-17); Carbon Dioxide 32 mmol/L (22-30); Chloride 102 mmol/L (98-107); Estimated Glomerular Filt Rate > 60; Glucose 97 mg/dL (65-110); Sodium 138 mmol/L (137-145)
[2023-03-28 20:02] LABS: Eosinophils Absolute Manual 1.25 K/mm3 (0.02-0.5); Eosinophils Percent Manual 9 % (0-4); Lymphocytes Absolute Manual 6.39 K/mm3 (1.1-4.5); Monocytes Absolute Manual 0.97 K/mm3 (0.1-0.90); Monocytes Percent Manual 7 % (3-9); Neutrophils Percent Manual 38 % (46-73); Platelet Estimate Adequate (Adequate); Total Cells Counted 100
[2023-03-28 20:03] LABS: Schistocytes None Seen (NORMAL)
== END 2023-03-28 15:12 | disposition home or self-care (01) ==
LOC: ANHGOSHLAB 15:14
PROVIDERS: PCP Internal Medicine; Visit Provider Clinical Nurse Specialist
DX: C91.10 Chronic lymphocytic leukemia of B-cell type not having achieved remission (principal); F32.9 Major depressive disorder, single episode, unspecified; E55.9 Vitamin D deficiency, unspecified
CPT/HCPCS: 36415; 80053; 82306; 84443; 85025

== ENCOUNTER → 2023-03-28 15:54 | Outpatient (CLI) | payer MEDICARE, MEDICAID, SELFPAY ==
--- NOTE | ~2023-03-28 | XR_ITS ---
XR hip LT min 2V DATE: 03/28/2023 16:11 INDICATION: Left hip pain TECHNIQUE: AP and lateral views COMPARISON: 12/23/2022 left hip FINDINGS: Status post left bipolar hip replacement. No fracture or dislocation or bone destruction. There is osteopenia. There is severe rotatory lumbar dextroscoliosis and severe degenerative disc disease. The pubic symphysis and sacral iliac joints are intact. IMPRESSION: Severe rotatory lumbar dextroscoliosis and multilevel severe degenerative disc disease Osteopenia Left bipolar hip prosthesis No fracture or dislocation or bone destruction of left hip Reviewed, dictated and finalized at location B. IMPRESSION: Severe rotatory lumbar dextroscoliosis and multilevel severe degene rative disc disease Osteopenia Left bipolar hip prosthesis No fracture or dislocation or bone destruction of left hip
== END ==
PROVIDERS: PCP Clinical Nurse Specialist; Visit Provider Clinical Nurse Specialist
DX: M25.552 Pain in left hip (principal); M51.36 Other intervertebral disc degeneration, lumbar region
CPT/HCPCS: 73502

== ENCOUNTER 2023-07-19 13:16 | Outpatient (CLI) | payer MEDICARE, MEDICAID, SELFPAY ==
[2023-07-19 13:35] LABS: Basophils Absolute Auto 0.1 K/mm3 (0.0-0.1); Basophils Percent Auto 0.7 % (0.2-1.2); Eosinophils Absolute Auto 1.2 K/mm3 (0-0.3); Eosinophils Percent Auto 9.8 % (0-4.4); Hematocrit 39.5 % (37.0-47.0); Hemoglobin 13.3 g/dL (12.0-15.0); Immature Granulocyte Absolute 0.04 K/mm3 (0.00-0.031); Immature Granulocyte Percent A 0.3 % (0-0.5); Lymphocytes Absolute Auto 5.84 K/mm3 (0.9-3.2); Lymphocytes Percent Auto 49.5 % (18.3-44.2); Mean Corpuscular HGB Conc 33.7 g/dl (32-36); Mean Platelet Volume 9.6 fl (7.4-10.4); Monocytes Absolute Auto 0.8 K/mm3 (0.1-0.6); Monocytes Percent Auto 6.4 % (2.6-8.5); Neutrophils Absolute Auto 3.9 K/mm3 (1.3-6.7); Neutrophils Percent Auto 33.3 % (45.5-73.1); Platelet Count Result 194 k/mm3 (150-375); Red Blood Count 4.03 M/mm3 (4.2-5.4); Red Cell Distribution Width 12.9 % (11.5-14.5); White Blood Count 11.8 K/mm3 (4.5-10.0)
[2023-07-19 14:30] LABS: Alanine Aminotransferase 19 U/L (6-35); Albumin Level 4.5 g/dL (3.5-5.1); Alkaline Phosphatase 49 U/L (38-126); Anion Gap 7 mmol/L (8-16); Aspartate Amino Transferase 33 U/L (14-36); Bilirubin,Total 0.4 mg/dL (0.2-1.3); Blood Urea Nitrogen 27 mg/dL (7-17); Carbon Dioxide 27 mmol/L (22-30); Chloride 103 mmol/L (98-107); Estimated Glomerular Filt Rate > 60; Glucose 97 mg/dL (65-110); Lactate Dehydrogenase 195 U/L (120-246); Potassium 4.5 mmol/L (3.4-5.0); Sodium 137 mmol/L (137-145)
[2023-07-19 14:55] LABS: Immunoglobulin A < 40 mg/dL (70-400); Immunoglobulin G < 270 mg/dL (700-1600); Immunoglobulin M < 25 mg/dL (40-230)
== END 2023-07-19 13:17 | disposition home or self-care (01) ==
LOC: ANHLAB 13:20
PROVIDERS: PCP Clinical Nurse Specialist; Visit Provider Internal Medicine Hematology & Oncology
DX: C91.10 Chronic lymphocytic leukemia of B-cell type not having achieved remission (principal)
CPT/HCPCS: 36415; 80053; 82784; 83615; 85025

== ENCOUNTER 2023-09-15 13:35 | Outpatient (NON) | payer MEDICARE, MEDICAID, SELFPAY | END 2023-09-15 13:36 | disposition home or self-care (01) | LOC: ANHGOSHLAB 13:36 | PROVIDERS: PCP Internal Medicine; Visit Provider Clinical Nurse Specialist | DX: R39.9 Unspecified symptoms and signs involving the genitourinary system (principal) | CPT/HCPCS: 87077; 87086; 87186 ==

== ENCOUNTER 2024-04-30 13:49 | Outpatient (CLI) | payer MEDICARE, SELFPAY ==
[2024-04-30 18:53] LABS: Basophils Absolute Auto 0.1 K/mm3 (0.0-0.1); Basophils Percent Auto 0.5 % (0.2-1.2); Eosinophils Absolute Auto 0.4 K/mm3 (0-0.3); Eosinophils Percent Auto 3.2 % (0-4.4); Hematocrit 42.2 % (37.0-47.0); Hemoglobin 14.2 g/dL (12.0-15.0); Immature Granulocyte Absolute 0.03 K/mm3 (0.00-0.031); Immature Granulocyte Percent A 0.2 % (0-0.5); Lymphocytes Absolute Auto 4.84 K/mm3 (0.9-3.2); Mean Corpuscular HGB Conc 33.6 g/dl (32-36); Mean Corpuscular Hemoglobin 33.7 pg (26-34); Mean Corpuscular Volume 100.2 fl (80-100); Mean Platelet Volume 10.2 fl (7.4-10.4); Monocytes Absolute Auto 1.5 K/mm3 (0.1-0.6); Monocytes Percent Auto 11.6 % (2.6-8.5); Neutrophils Absolute Auto 6.2 K/mm3 (1.3-6.7); Neutrophils Percent Auto 47.5 % (45.5-73.1); Platelet Count Result 200 k/mm3 (150-375); Red Blood Count 4.21 M/mm3 (4.2-5.4); Red Cell Distribution Width 12.9 % (11.5-14.5); White Blood Count 13.1 K/mm3 (4.5-10.0)
[2024-04-30 19:12] LABS: Alanine Aminotransferase 22 U/L (6-35); Albumin Level 4.5 g/dL (3.5-5.1); Alkaline Phosphatase 51 U/L (38-126); Anion Gap 8 mmol/L (4-12); Aspartate Amino Transferase 47 U/L (14-36); Bilirubin,Total 0.3 mg/dL (0.2-1.3); Blood Urea Nitrogen 28 mg/dL (7-17); Calcium 10.4 mg/dL (8.4-10.2); Carbon Dioxide 29 mmol/L (22-30); Chloride 100 mmol/L (98-107); Estimated Glomerular Filt Rate 60; Glucose 99 mg/dL (65-110); Potassium 4.6 mmol/L (3.4-5.0); Sodium 137 mmol/L (137-145)
[2024-04-30 19:23] LABS: Hemoglobin A1C 5.8 % (<5.7)
[2024-04-30 19:35] LABS: Vitamin D 25 Hydroxy 60.7 ng/mL
== END 2024-04-30 13:50 | disposition home or self-care (01) ==
LOC: ANHGOSHLAB 13:50
PROVIDERS: PCP Internal Medicine; Visit Provider Clinical Nurse Specialist
DX: G89.4 Chronic pain syndrome (principal); E55.9 Vitamin D deficiency, unspecified; C91.10 Chronic lymphocytic leukemia of B-cell type not having achieved remission; D80.9 Immunodeficiency with predominantly antibody defects, unspecified; M06.9 Rheumatoid arthritis, unspecified; E11.9 Type 2 diabetes mellitus without complications; M06.09 Rheumatoid arthritis without rheumatoid factor, multiple sites; F32.9 Major depressive disorder, single episode, unspecified
CPT/HCPCS: 36415; 80053; 82306; 83036; 84443; 85025

== ENCOUNTER 2024-06-27 16:18 | Inpatient (IN) | payer MEDICARE, MEDICAID, SELFPAY ==
--- NOTE | ~2024-06-27 | XR_ITS ---
EXAMINATION: XR chest 1V portable DATE: 07/01/2024 10:03 INDICATION: Fever. TECHNIQUE: A single frontal view of the chest was obtained. COMPARISON: Chest single view 11/05/2022, CT abdomen and pelvis 06/27/2024 FINDINGS: There is mild scarring at the lung apices. There is an interstitial pattern in the lungs. T here are airspace opacities at the lung bases. There are small pleural effusions. No pneumothorax. Th e heart size is normal. There are surgical clips in right axilla. IMPRESSION: 1. Mild pulmonary edema. 2. Small pleural effusions. 3. Airspace opacities at the lung bases, consistent with atelectasis versus pneumonia. Reviewed, dictated and finalized at location A. NING INSPECTOR IMPRESSION: 1. Mild pulmonary edema. 2. Small pleural effusions. 3. Airspace opacities at the lung bases, consistent with atelectasis versus pne umonia.
--- NOTE | ~2024-06-27 | XR_ITS ---
EXAMINATION: XR chest 1V portable DATE: 07/03/2024 09:32 INDICATION: Shortness of breath and confusion TECHNIQUE: frontal view of the chest was obtained. COMPARISON: Chest radiograph dated 07/01/[address] abdomen and pelvis dated 06/27/2024 FINDINGS: Persistent airspace opacities in bilateral lower lung zones which includes unchanged small bilateral pleural effusions. No pneumothorax. Heart size within normal limits for AP technique. Asymmetry to th e breasts surgical clips the right axilla consistent with likely prior partial right mastectomy and a xillary lymph node dissection. Curvilinear capsular calcifications associated with a ruptured and col lapsed right breast implant better appreciated on prior CT. IMPRESSION: 1. Unchanged small bilateral pleural effusions with associated basilar atelectasis versus pneumonia. Reviewed, dictated and finalized at location A. S COUNTER CLERK IMPRESSION: 1. Unchanged small bilateral pleural effusions with associated basilar atelecta sis versus pneumonia.
--- NOTE | ~2024-06-27 | CT_ITS ---
EXAMINATION: CT abdomen pelvis w con DATE: 06/27/2024 16:51 INDICATION: Abdominal pain TECHNIQUE: Computed tomography (CT) of the abdomen and pelvis was performed with 100 mL Omnipaque-350 intravenous contrast. Automated exposure control and iterative reconstruction technique were employe d. The dose-length product was 213.77 mGy-cm. COMPARISON: None FINDINGS: Mild emphysema and mild dependent atelectasis in the bilateral lower lungs. Mild hepatomegaly with ri ght atrial enlargement. Atherosclerotic coronary artery calcific location. No pericardial or pleural effusion. Dilation of the common bile duct 1.8 cm and moderate intrahepatic biliary ductal dilation w ithout evident distal stone or mass which could be related to prior cholecystectomy with no visualize d gallbladder. Numerous dystrophic calcifications throughout the pancreas consistent with sequela of chronic pancreatitis. There is also mild dilation of the main pancreatic duct which measures up to 5 mm at the head of the pancreas. No peripancreatic infiltrative change to suggest acute pancreatitis. Spleen, bilateral adrenal glands are normal. There are bilateral renal cysts larger on the left measu ring 1.7 cm. There is asymmetric delayed renal parenchymal enhancement at the left kidney prominent a therosclerotic plaque and likely hemodynamically significant stenosis at the origin of the left renal artery. Decompressed bladder is unremarkable. The uterus is not identified and has likely been surgi reyna resected. Moderate amount of colonic stool. No abnormal bowel wall thickening or obstruction. T he appendix is not visualized. No pericecal inflammatory change to suggest acute appendicitis. No charlette e intraperitoneal gas or fluid. No pathologically enlarged abdominal or pelvic lymphadenopathy. Moder ate S-shaped scoliosis of the lumbar lower thoracic spine with severe spondylosis. Bipolar type left hip hemiarthroplasty. IMPRESSION: 1. Likely hemodynamically significant stenosis at the origin of the left renal artery with asymmetric ally delayed left renal parenchymal enhancement. 2. Moderate intra and extra hepatic biliary ductal dilation which could be related to prior cholecyst ectomy and sphincterotomy. Correlate with liver function tests and if clinically indicated could cons ider MRCP for further evaluation. 3. Cardiomegaly with right atrial enlargement. 4. Numerous pancreatic parenchymal calcifications along with mild dilation of the main pancreatic jorgito t consistent with sequela chronic pancreatitis without radiographic findings to suggest acute pancrea titis. Could consider correlation with lipase levels if there is concern for acute pancreatitis. Reviewed, dictated and finalized at location A. GHT FORWARDER IMPRESSION: 1. Likely hemodynamically significant stenosis at the origin of the left renal artery with asymmetrically delayed left renal parenchymal enhancement. 2. Moderate intra and extra hepatic biliary ductal dilation which could be rela nereyda to prior cholecystectomy and sphincterotomy. Correlate with liver function tests and if clinically indicated could consider MRCP for further evaluation. 3. Cardiomegaly with right atrial enlargement. 4. Numerous pancreatic parenchymal calcifications along with mild dilation of t he main pancreatic duct consistent with sequela chronic pancreatitis without ra diographic findings to suggest acute pancreatitis. Could consider correlation w ith lipase levels if there is concern for acute pancreatitis.
[2024-06-27 16:20] VITALS: BP 143/67; PULSE 85; RESP 16; TEMP 36.8; O2SAT 91
[2024-06-27 16:42] LABS: Basophils Percent Auto 0.2 % (0.2-1.2); Eosinophils Absolute Auto 0.3 K/mm3 (0-0.3); Eosinophils Percent Auto 1.6 % (0-4.4); Immature Granulocyte Percent A 0.6 % (0-0.5); Lymphocytes Absolute Auto 4.86 K/mm3 (0.9-3.2); Lymphocytes Percent Auto 27.3 % (18.3-44.2); Mean Corpuscular HGB Conc 34.1 g/dl (32-36); Mean Corpuscular Hemoglobin 33.2 pg (26-34); Mean Corpuscular Volume 97.2 fl (80-100); Mean Platelet Volume 9.8 fl (7.4-10.4); Monocytes Absolute Auto 1.2 K/mm3 (0.1-0.6); Monocytes Percent Auto 6.5 % (2.6-8.5); Neutrophils Absolute Auto 11.3 K/mm3 (1.3-6.7); Neutrophils Percent Auto 63.8 % (45.5-73.1); Platelet Count Result 188 k/mm3 (150-375); Red Blood Count 4.22 M/mm3 (4.2-5.4); White Blood Count 17.8 K/mm3 (4.5-10.0)
[2024-06-27 16:53] LABS: Alanine Aminotransferase 29 U/L (6-35); Albumin Level 4.6 g/dL (3.5-5.1); Alkaline Phosphatase 52 U/L (38-126); Anion Gap 3 mmol/L (4-12); Aspartate Amino Transferase 40 U/L (14-36); Bilirubin,Total 0.6 mg/dL (0.2-1.3); Blood Urea Nitrogen 28 mg/dL (7-17); Calcium 10.2 mg/dL (8.4-10.2); Carbon Dioxide 30 mmol/L (22-30); Chloride 99 mmol/L (98-107); Estimated CRCL calculation 25 ml/min; Estimated Glomerular Filt Rate 47; Glucose 138 mg/dL (65-110); Lipase 42 U/L (23-300); Potassium 4.6 mmol/L (3.4-5.0); Sodium 132 mmol/L (137-145)
[2024-06-27 17:06] LABS: Add Urine Microscopic? YES; Appearance Urine Cloudy (Clear); Bacteria Urine 3+ /hpf; Bilirubin Urine Negative (Negative); Blood Urine Negative (Negative); Budding Yeast Urine Present /hpf; Color Urine Yellow (Yellow); Glucose Urine UA Negative (Negative); Ketones Urine Negative (Negative); Leukocyte Esterase Ur 1+ LEU/UL (Negative); Need Manual Microscopic Reviewed; Nitrate Urine Negative (Negative); Non Pathogenic Casts 0-2; Protein Urine 1+ mg/dL (Negative); Specific Grav Ur 1.017 (1.001-1.035); Squamous Epithelial Cell Urine None Seen /hpf (Few); pH Urine 7.5 (5.0-9.0)
--- NOTE | 2024-06-27 17:28 | ED_ITS ---
HPI - Abdominal Pain General Chief Complaint: Abdominal Pain Stated Complaint: abd pain Time Seen by Provider: 06/27/24 17:10 Source: patient Mode of arrival: EMS Limitations: no limitations History of Present Illness HPI narrative: this is an 84-year-old female that presents to the emergency department for lower abdominal pain. Ongoing since last night. Reports cloudy urine. She was concerned she had a UTI which prompted her to be seen. Denies fevers, vomiting, diarrhea. Related Data Home Medications Medication Instructions Recorded Confirmed loratadine 10 mg tablet 10 mg PO DAILY 01/11/20 04/30/24 omega 5-arg-agt-fish oil 60 mg-90 1 cap PO DAILY 09/15/23 04/30/24 mg-500 mg capsule hydrocodone 10 mg-acetaminophen 1 tablet PO BID Pain (Scale Score 04/30/24 04/30/24 325 mg tablet 7-10) morphine 30 mg tablet,extended 30 mg PO Q12H 04/30/24 04/30/24 release Allergies Allergy/AdvReac Type Severity Reaction Status Date / Time doxycycline Allergy Unknown Verified 04/30/24 12:54 latex Allergy Unknown Verified 04/30/24 12:54 pregabalin [From Lyrica] Allergy Unknown Verified 04/30/24 12:54 Sulfa (Sulfonamide Allergy Unknown Verified 04/30/24 12:54 Antibiotics) sulfamethoxazole Allergy Unknown Verified 04/30/24 12:54 [From Bactrim] trimethoprim [From Bactrim] Allergy Unknown Verified 04/30/24 12:54 Review of Systems Review of Systems: CONSTITUTIONAL: Denies fever GASTROINTESTINAL: Reports abdominal pain, nausea. Denies vomiting, or diarrhea. GENITOURINARY: Denies dysuria All systems reviewed & are unremarkable except as noted in HPI and below PMFSH Past Medical History Medical History (Updated 06/27/24 @ 18:57 by Rajwinder Rosa APRN) Allergies Arthritis Cancer of right breast Status post mastectomy and radiation. Chronic lymphocytic leukemia Chronic obstructive pulmonary disease Chronic pain syndrome Chronic prescription opiate use Depression Diet-controlled diabetes mellitus GERD (gastroesophageal reflux disease) Immunoglobulin deficiency Melanoma Left arm. Osteoporosis Rheumatoid arthritis Squamous cell carcinoma Back. Tobacco dependence Trigeminal neuralgia Vitamin D deficiency Surgical History Surgical History History of cholecystectomy History of hemiarthroplasty of left hip (~11/08/22) Bipolar hemiarthroplasty left. History of hysterectomy History of melanoma excision Left arm. History of right mastectomy (1987) History of squamous cell carcinoma excision Back. Family History Family History Mother CLL (chronic lymphocytic leukemia) Father Lung cancer Sibling Pancreatic cancer Social History Social History (Updated 03/28/23 @ 14:31 by Yumi Marin [facility]) Social History: Surrogate medical decision maker: richie Youssef. Code status: Full code. Smoking packs per day: 0.50 Smoking cigarettes per day: 10.0 Years smoked: 40 Smoking pack-years: 20.00 Smoking status: Current every day smoker Tobacco type: cigarettes Alcohol intake: never Substance use: never Substance use type: does not use Lack of Transportation: YES Lack of Food: Sometimes True Current Housing: I Have Housing Concerned About Future Housing: No Difficulty Paying Gas/Electric Bills: YES Difficulty Paying for Meds: YES Currently Unemployed: No Education: Don't Know Difficulty w/ Childcare or Family Care: No Additional living arrangements comments: Lives alone in [place]. Originally from [place]. Spiritual care concerns: No Exam Narrative: GENERAL: Well-appearing, well-nourished, and in no acute distress. HEAD: Normocephalic, atraumatic. EYES: EOMI. CHEST: Clear to auscultation. No respiratory distress. No wheezes rales or rhonchi HEART: Regular rate and rhythm. No murmur heard. Normal peripheral pulses. ABDOMEN: Soft, nondistended, normal active bowel sounds. Tender to palpation throughout the lower abdomen, without guarding EXTREMITIES: Normal range of motion. No edema. SKIN: Warm, dry, no rash. NEURO: No focal deficits. Alert and oriented x3. PSYCH: Normal mood and affect Course Course Emergency Course: patient updated on workup and recommendation for admission Consultations Consultation #1: Spoke with Dr. Lovelace about finding of renal artery stenosis. He reports they only stent this if it is bilateral or she has severe hypertension or poor renal function Date: 06/27/24 Consultation #2: Spoke with hospitalist about patient and workup who accepts admission Date: 06/27/24 Vital Signs Vital signs: Vital Signs Temperature 98.2 F 06/27/24 16:20 Pulse Rate 85 06/27/24 16:20 Respiratory Rate 16 06/27/24 16:20 Blood Pressure 143/67 H 06/27/24 16:20 Pulse Oximetry 91 06/27/24 16:20 Oxygen Delivery Room Air 06/27/24 16:20 Temperature 98.3 F 06/27/24 18:52 Pulse Rate 81 06/27/24 18:52 Respiratory Rate 20 06/27/24 18:52 Blood Pressure 134/58 L 06/27/24 18:52 Pulse Oximetry 97 06/27/24 18:52 Oxygen Delivery Room Air 06/27/24 16:20 MDM - Abdominal Pain MDM Narrative Medical decision making narrative: Patient presents to the ER for lower abdominal pain. She is afebrile and nontoxic appearing. Her vitals are stable. CBC with leukocytosis to 17.8. Metabolic panel with some evidence of dehydration. Urine with evidence of infection. CT abdomen pelvis shows renal artery stenosis. Biliary ductal dilation. Cardiomegaly. Chronic pancreatitis. Patient updated on workup and recommendation for admission. Spoke with Dr. Lovelace about finding of renal artery stenosis. He reports they only stent this if it is bilateral or she has severe hypertension or poor renal function. Spoke with hospitalist about patient and workup who accepts admission Differential Diagnosis Differential diagnosis: Likely calculus of kidney, constipation and diverticulitis Lab Data Attestation: I reviewed the patient's lab results. 06/27/24 16:30 06/27/24 16:30 Labs: Lab Results 06/27/24 Range/Units 16:30 WBC 17.8 H (4.5-10.0) K/mm3 RBC 4.22 (4.2-5.4) M/mm3 Hgb 14.0 (12.0-15.0) g/dL Hct 41.0 (37.0-47.0) % MCV 97.2 (80-100) fl MCH 33.2 (26-34) pg MCHC 34.1 (32-36) g/dl RDW 13.0 (11.5-14.5) % Plt Count 188 (150-375) k/mm3 MPV 9.8 (7.4-10.4) fl Immature Gran % (Auto) 0.6 H (0-0.5) % Neut % (Auto) 63.8 (45.5-73.1) % Lymph % (Auto) 27.3 (18.3-44.2) % Ada % (Auto) 6.5 (2.6-8.5) % Eos % (Auto) 1.6 (0-4.4) % Baso % (Auto) 0.2 (0.2-1.2) % Lymph # (Auto) 4.86 H (0.9-3.2) K/mm3 Ada # (Auto) 1.2 H (0.1-0.6) K/mm3 Eos # (Auto) 0.3 (0-0.3) K/mm3 Baso # (Auto) 0.0 (0.0-0.1) K/mm3 Abs Immat Gran (auto) 0.10 H (0.00-0.031) K/mm3 Absolute Neuts (auto) 11.3 H (1.3-6.7) K/mm3 Absolute Nucleated RBC 0.000 (0.0-0.012) K/mm3 Nucleated RBC % 0.0 (0.0-0.2) % Sodium 132 L (137-145) mmol/L Potassium 4.6 (3.4-5.0) mmol/L Chloride 99 (98-107) mmol/L Carbon Dioxide 30 (22-30) mmol/L Anion Gap 3 L (4-12) mmol/L BUN 28 H (7-17) mg/dL Creatinine 1.10 H (0.7-1.0) mg/dL Estim Creat Clear Calc 25 ml/min Estimated GFR 47 L (59 - ) Glucose 138 H (65-110) mg/dL Calcium 10.2 (8.4-10.2) mg/dL Total Bilirubin 0.6 (0.2-1.3) mg/dL AST 40 H (14-36) U/L ALT 29 (6-35) U/L Alkaline Phosphatase 52 (38-126) U/L Total Protein 7.0 (6.3-8.2) g/dL Albumin 4.6 (3.5-5.1) g/dL Lipase 42 (23-300) U/L Urine Color Yellow (Yellow) Urine Appearance Cloudy H (Clear) Urine pH 7.5 (5.0-9.0) Ur Specific [place] 1.017 (1.001-1.035) Urine Protein 1+ H (Negative) mg/dL Urine Glucose (UA) Negative (Negative) mg/dL Urine Ketones Negative (Negative) mg/dL Ur Blood (Man) Negative (Negative) Urine Nitrate Negative (Negative) Urine Bilirubin Negative (Negative) Urine Urobilinogen 1.0 (<2.0) mg/dL Add Ur Microanalysis Reviewed Leukocyte Esterase Rfl 1+ H (Negative) SHERITA/UL Urine RBC 6-10 H (0-2) /hpf Urine WBC 11-20 H (0-3) /hpf Ur Squamous Epith Cells None seen (Few) /hpf Urine Bacteria 3+ H /hpf Urine Casts 0-2 Urine Yeast (Budding) Present H (None) /hpf Imaging Data Radiologist's impression: ITS Impressions Abdomen/Pelvis CT 06/27/24 16:52 IMPRESSION: 1. Likely hemodynamically significant stenosis at the origin of the left renal artery with asymmetrically delayed left renal parenchymal enhancement. 2. Moderate intra and extra hepatic biliary ductal dilation which could be related to prior cholecystectomy and sphincterotomy. Correlate with liver function tests and if clinically indicated could consider MRCP for further eval uation. 3. Cardiomegaly with right atrial enlargement. 4. Numerous pancreatic parenchymal calcifications along with mild dilation of the main pancreatic duct consistent with sequela chronic pancreatitis without radiographic findings to suggest acute pancreatitis. Could consider correlation with lipase levels if there is concern for acute pancreatitis. Critical Care Time Critical Care Time Critical Care Time: No Discharge Plan Discharge Clinical Impression: Acute UTI, Acute dehydration, Renal artery stenosis Patient Disposition: Still a Patient Condition: Stable Prescriptions: No Action hydrocodone-acetaminophen 10-325 mg tablet 1 tablet PO BID omega 2-nfe-nwv-fish oil 60-90-500 mg capsule 1 cap PO DAILY albuterol sulfate [Ventolin HFA] 90 mcg/actuation HFA aerosol inhaler 1 - 2 puff INHALATION Q4-6H PRN (Reason: shortness of breath or wheezing) Qty: 8.5 3RF duloxetine [Cymbalta] 30 mg capsule,delayed release(DR/EC) 30 mg PO QAM Qty: 90 1RF famotidine 20 mg tablet 20 mg PO Q12HR Qty: 180 1RF fluticasone propionate [Flonase Allergy Relief] 50 mcg/actuation spray,suspension 1 spray intranasal Q12H Qty: 16 0RF Rx Instructions: administer into each nostril morphine 30 mg tablet extended release 30 mg PO Q12H Patient Comments: Prescribed by pain management. loratadine 10 mg tablet 10 mg PO DAILY carbamazepine 100 mg tablet extended release 12 hr 100 mg PO Q12H Qty: 60 3RF amitriptyline 25 mg tablet 25 mg PO .QHS Qty: 90 1RF Follow-up/Referrals: Baldomero Denis, [Primary Care Provider] -
[2024-06-27] MEDS: MORPHINE SULFATE (*CRX) 4 MG/ML INJ IV PUSH (18:35)
[2024-06-27] MEDS: ONDANSETRON INJ 4 MG/2 ML VIAL IV PUSH (18:35)
[2024-06-27] MEDS: SODIUM CHLORIDE 0.9% IV 1,000 ML 999 ML IV CONT (18:42)
--- NOTE | 2024-06-27 18:51 | P.HP_ITS ---
H&P: HPI History of Present Illness Date/Time: 06/27/24 18:51 Chief Complaint: Lower Abdominal Pain Narrative: 84 y/o F presents here with lower abdominal pain with PMH of breast cancer (s/p mastectomy and radiation), chronic lymphocytic leukemia, COPD, chronic pain syndrome, depression, diet-controlled diabetes, rheumatoid arthritis, osteoporosis, squamous cell carcinoma (back). The patient presents here from home for further evaluation of lower abdominal pain. She reports insidious onset of abdominal pain approximately 2 days ago. She describes the pain as severe, radiating into her hip and back, constant, no aggravating or alleviating factors. Trialed her home pain medications without relief. The abdominal pain is accompanied by cloudy urine and urinary frequency. She denies fever, nausea, vomiting, diarrhea, dysuria, or hematuria. Initial VS at presentation: 98.2? F, HR 85, RR 16, 143/67, and 91% on RA. ED workup showed: WBC 17.8, no anemia, sodium 132, creatinine 1.1 and GFR 47 (previously 0.9 and GFR 60 on 04/30/2024), and UA consistent with UTI. CT of the abdomen pelvis showed likely hemodynamically significant stenosis at the origin of the left renal artery, moderate extrahepatic biliary duct dilation (could be related to prior cholecystectomy or sphincterectomy), cardiomegaly with right atrial enlargement, and numerous pancreatic parenchymal calcifications. Review of Systems Review of Systems: All systems reviewed & are unremarkable except as noted in HPI and below PMFSH Past Medical History Medical History Allergies Arthritis Cancer of right breast Status post mastectomy and radiation. Chronic lymphocytic leukemia Chronic obstructive pulmonary disease Chronic pain syndrome Chronic prescription opiate use Depression Diet-controlled diabetes mellitus GERD (gastroesophageal reflux disease) Immunoglobulin deficiency Melanoma Left arm. Osteoporosis Rheumatoid arthritis Squamous cell carcinoma Back. Tobacco dependence Trigeminal neuralgia Vitamin D deficiency Surgical History Surgical History History of cholecystectomy History of hemiarthroplasty of left hip (~11/08/22) Bipolar hemiarthroplasty left. History of hysterectomy History of melanoma excision Left arm. History of right mastectomy (1987) History of squamous cell carcinoma excision Back. Family History Family History Mother CLL (chronic lymphocytic leukemia) Father Lung cancer Sibling Pancreatic cancer Social History Social History Social History: Surrogate medical decision maker: Oj Gregory, richie. Code status: Full code. Smoking packs per day: 1 Smoking cigarettes per day: 20.0 Years smoked: 60 Smoking pack-years: 60.00 Smoking status: Current every day smoker Tobacco type: cigarettes Alcohol intake: never Substance use: never Substance use type: does not use Do You Feel Safe in your Home?: Yes Lack of Transportation: YES Lack of Food: Never True Current Housing: I Have Housing Concerned About Future Housing: No Difficulty Paying Gas/Electric Bills: No Difficulty Paying for Meds: No Currently Unemployed: No Education: Grade School Difficulty w/ Childcare or Family Care: No Additional living arrangements comments: Lives alone in [place]. Originally from [place]. Spiritual care concerns: No Meds Home Medications and Allergies Home Medications Medication Instructions Recorded Confirmed Type omega 4-qmb-xnf-fish oil 60 mg-90 1 cap PO QPM 09/15/23 06/27/24 History mg-500 mg capsule carbamazepine 100 mg 100 mg PO Q12H #60 tabs 03/29/24 06/27/24 Rx tablet,extended release,12 hr amitriptyline 25 mg tablet 25 mg PO .QHS #90 tabs 04/16/24 06/27/24 Rx albuterol sulfate 90 mcg/actuation 1 - 2 puff inhalation Q4-6H PRN 04/30/24 06/27/24 Rx aerosol inhaler (Ventolin HFA) shortness of breath or wheezing #8.5 grams duloxetine 30 mg capsule,delayed 30 mg PO QAM #90 caps 04/30/24 06/27/24 Rx release (Cymbalta) famotidine 20 mg tablet 20 mg PO Q12HR #180 tabs 04/30/24 06/27/24 Rx fluticasone propionate 50 1 spray intranasal Q12H #16 mL 04/30/24 06/27/24 Rx mcg/actuation nasal spray,suspension (Flonase Allergy Relief) hydrocodone 10 mg-acetaminophen 1 tablet PO BID PRN Pain (Scale 04/30/24 06/27/24 History 325 mg tablet Score 7-10) morphine 30 mg tablet,extended 30 mg PO Q12H 04/30/24 06/27/24 History release Allergies Allergy/AdvReac Type Severity Reaction Status Date / Time doxycycline Allergy Unknown Verified 04/30/24 12:54 latex Allergy Unknown Verified 04/30/24 12:54 pregabalin [From Lyrica] Allergy Unknown Verified 04/30/24 12:54 Sulfa (Sulfonamide Allergy Unknown Verified 04/30/24 12:54 Antibiotics) sulfamethoxazole Allergy Unknown Verified 04/30/24 12:54 [From Bactrim] trimethoprim [From Bactrim] Allergy Unknown Verified 04/30/24 12:54 Vital Signs Vital Signs - 24 hr 06/27/24 16:20 Temperature 98.2 F Pulse Rate 85 Respiratory Rate 16 Blood Pressure 143/67 H Pulse Oximetry 91 Oxygen Delivery Room Air Exam Const: General: comfortable and no acute distress Other: , female, nontoxic appearance HENMT: Face/Nose/Sinus: Normal nares present Mouth: Yes moist mucous m embranes Eyes: General: appearance normal, both eyes and all related structures Sclera: sclerae normal Pupils: Equal, round and reactive pupils present EOM: EOMs intact bilaterally Resp: Effort & Inspection: normal respiratory effort Auscultation: clear to auscultation bilaterally Cardio: Rate: regular rate Rhythm: regular rhythm Other: S1-S2 present without murmur, rub, ectopy GI: Other: Abdomen soft to firm, nondistended. Nontender. : Other: No suprapubic tenderness Skin: General skin exam: normal color and no rashes or lesions noted Wounds: no wounds Neuro: Speech: normal speech Motor exam (neuro): 5/5 motor strength present throughout Sensory Exam: normal sensation Other: A&O x4 Extrem: General: normal to inspection Psych: Mental Status: mental status grossly normal Affect: normal affect Other: Good insight and judgment, pleasant H&P: Results Labs Labs: Short CBC 06/27/24 Range/Units 16:30 WBC 17.8 H (4.5-10.0) K/mm3 Hgb 14.0 (12.0-15.0) g/dL Hct 41.0 (37.0-47.0) % Plt Count 188 (150-375) k/mm3 BMP 06/27/24 16:30 Sodium 132 L Potassium 4.6 Chloride 99 Carbon Dioxide 30 BUN 28 H Creatinine 1.10 H Glucose 138 H Calcium 10.2 Liver Function 06/27/24 Range/Units 16:30 Total Bilirubin 0.6 (0.2-1.3) mg/dL AST 40 H (14-36) U/L ALT 29 (6-35) U/L Alkaline Phosphatase 52 (38-126) U/L Albumin 4.6 (3.5-5.1) g/dL Urine 06/27/24 Range/Units 16:30 Urine Color Yellow (Yellow) Urine Appearance Cloudy H (Clear) Urine pH 7.5 (5.0-9.0) Ur Specific [place] 1.017 (1.001-1.035) Urine Protein 1+ H (Negative) mg/dL Urine Glucose (UA) Negative (Negative) mg/dL Assessment and Plan Assessment and plan (1) Acute UTI: Code(s): N39.0 - Urinary tract infection, site not specified Status: Acute Assessment and Plan: - did not meet SIRS criteria (WBC only at 17.8) - UA: Cloudy, 1+ protein, 1+ leuks, 6-10 RBC, 11-20 WBC, no epithelial cells, 3+ bacteria, yeast budding present. - UC pending - previous micro reviewed, has previously grown Proteus mirabilis, Pseudomonas in 2022. Most recent positive urine culture grew E coli in September of 2023 with only intermediate response to Unasyn, otherwise no resistances. Given Pseudomonas in the last year, will start patient on cefepime - started on Ceftriaxone, and transitioned to cefepime on 06/27 - patient dry on exam, maintenance fluids at 100 mL/hour. Discontinue when appropriate. - trend renal function (2) Renal artery stenosis: Code(s): I70.1 - Atherosclerosis of renal artery Status: Acute Assessment and Plan: - CT abd/pelvis: 1. Likely hemodynamically significant stenosis at the origin of the left renal artery with asymmetrically delayed left renal parenchymal enhancement. 2. Moderate intra and extra hepatic biliary ductal dilation which could be related to prior cholecystectomy and sphincterotomy. Correlate with liver function tests and if clinically indicated could consider MRCP for further evaluation. 3. Cardiomegaly with right atrial enlargement. 4. Numerous pancreatic parenchymal calcifications along with mild dilation of the main pancreatic duct consistent with sequela chronic pancreatitis without radiographic findings to suggest acute pancreatitis. Could consider correlation with lipase levels if there is concern for acute pancreatitis. - ED provider reached out to vascular at [facility] [place], no intervention indicated at this time given stenosis. Bilateral, patient is not renal failure, and blood pressure is not extremely elevated - trend renal function and CBC (3) Diet-controlled diabetes mellitus: Code(s): E11.9 - Type 2 diabetes mellitus without complications Status: Acute Assessment and Plan: - A1C 5.8 on 04/30/2024 Plan Diet: Diabetic GI Prophylaxis: Not currently indicated DVT Prophylaxis: SCDs Lines: Peripheral Code Status: Full code Quality VTE Prophylaxis VTE prophylaxis: mechanical ordered Hospitalist MIPS Advance Care Plan I have confirmed that the patient's Advanced Care Plan is present, code status is documented, or surrogate decision maker is listed in patient medical record.: Yes Medication Reconciliation I have utilized all available resources to obtain, update and review the patients current medications (includes all prescriptions, OTC, herbals, cannabis, and nutritional supplements).: Yes
[2024-06-27 18:52] VITALS: BP 134/58; PULSE 81; RESP 20; TEMP 36.8; O2SAT 97
[2024-06-27] MEDS: SODIUM CHLORIDE 0.9% IV 1,000 ML 100 ML IV CONT (20:12)
[2024-06-27 20:13] VITALS: BP 125/55; PULSE 81; RESP 18; TEMP 36.8; O2SAT 95
[2024-06-27] MEDS: CEFEPIME 1 GM/NS 50 ML 1 GM/50 ML BAG IVPB (21:48)
[2024-06-27 22:00] VITALS: BP 129/43; PULSE 84; RESP 14; TEMP 36.4; O2SAT 90; O2SAT 93
[2024-06-27 22:08] VITALS: BMI 19.1
[2024-06-27] MEDS: MORPHINE SULFATE (*CRX) 30 MG TABCR PO (23:08)
[2024-06-27] MEDS: AMITRIPTYLINE HCL 25 MG TABLET PO (23:08)
[2024-06-28 05:47] VITALS: BP 136/54; PULSE 76; RESP 22; TEMP 37; O2SAT 91
[2024-06-28 06:08] LABS: Basophils Absolute Auto 0.1 K/mm3 (0.0-0.1); Basophils Percent Auto 0.3 % (0.2-1.2); Eosinophils Absolute Auto 0.3 K/mm3 (0-0.3); Eosinophils Percent Auto 1.7 % (0-4.4); Hematocrit 38.4 % (37.0-47.0); Hemoglobin 12.8 g/dL (12.0-15.0); Immature Granulocyte Absolute 0.09 K/mm3 (0.00-0.031); Immature Granulocyte Percent A 0.5 % (0-0.5); Lymphocytes Absolute Auto 5.62 K/mm3 (0.9-3.2); Lymphocytes Percent Auto 32.9 % (18.3-44.2); Mean Corpuscular HGB Conc 33.3 g/dl (32-36); Mean Corpuscular Hemoglobin 33.3 pg (26-34); Mean Platelet Volume 9.8 fl (7.4-10.4); Monocytes Absolute Auto 1.2 K/mm3 (0.1-0.6); Neutrophils Absolute Auto 9.8 K/mm3 (1.3-6.7); Neutrophils Percent Auto 57.6 % (45.5-73.1); Platelet Count Result 181 k/mm3 (150-375); Red Blood Count 3.84 M/mm3 (4.2-5.4); Red Cell Distribution Width 12.9 % (11.5-14.5); White Blood Count 17.1 K/mm3 (4.5-10.0)
[2024-06-28 06:17] LABS: Anion Gap 6 mmol/L (4-12); Blood Urea Nitrogen 22 mg/dL (7-17); Calcium 9.4 mg/dL (8.4-10.2); Carbon Dioxide 26 mmol/L (22-30); Chloride 102 mmol/L (98-107); Estimated CRCL calculation 29 ml/min; Estimated Glomerular Filt Rate 53; Glucose 98 mg/dL (65-110); Potassium 4.6 mmol/L (3.4-5.0); Sodium 134 mmol/L (137-145)
[2024-06-28 06:37] LABS: Atypical Lymphocytes Present; Platelet Estimate Adequate (Adequate); Schistocytes None Seen
[2024-06-28] MEDS: SODIUM CHLORIDE 0.9% IV 1,000 ML 100 ML IV CONT ×2 (07:49→17:23)
[2024-06-28] MEDS: MORPHINE SULFATE (*CRX) 30 MG TABCR PO ×2 (07:49→19:52)
[2024-06-28 08:20] VITALS: O2SAT 93
[2024-06-28] MEDS: FAMOTIDINE 20 MG TABLET PO ×2 (09:00→19:52)
[2024-06-28] MEDS: CARBAMAZEPINE XR 100 MG TAB.SR.12H PO ×2 (09:00→19:58)
[2024-06-28] MEDS: DULoxetine HCL 30 MG CAPSULE.DR PO (09:00)
[2024-06-28] MEDS: ONDANSETRON INJ 4 MG/2 ML VIAL IV PUSH (11:25)
[2024-06-28] MEDS: FLUTICASONE PROPIONATE 0.05% NA SPR 16 GM BTL (*BKC) 1 SPRAY NASAL ×2 (11:26→19:58)
[2024-06-28 14:00] VITALS: BP 132/53; PULSE 77; RESP 16; TEMP 36.8; O2SAT 91
[2024-06-28] MEDS: HYDROcodone/acetaminophen (*CRX) 10-325 MG TABLET 1 TAB PO (14:49)
--- NOTE | 2024-06-28 16:03 | P.PNIM_ITS ---
Progress Note: A&P Assessment and Plan (1) Acute UTI: Code(s): N39.0 - Urinary tract infection, site not specified Status: Acute Assessment and Plan: - did not meet SIRS criteria (WBC only at 17.8) - UA: Cloudy, 1+ protein, 1+ leuks, 6-10 RBC, 11-20 WBC, no epithelial cells, 3+ bacteria, yeast budding present. - UC pending - previous micro reviewed, has previously grown Proteus mirabilis, Pseudomonas in 2022. Most recent positive urine culture grew E coli in September of 2023 with only intermediate response to Unasyn, otherwise no resistances. Given Pseudomonas in the last year, started on cefepime. - started on Ceftriaxone, and transitioned to cefepime on 06/27 - patient dry on exam, maintenance fluids at 100 mL/hour. Discontinue when appropriate. - continue to trend renal function (2) Renal artery stenosis: Code(s): I70.1 - Atherosclerosis of renal artery Status: Acute Assessment and Plan: - CT abd/pelvis: 1. Likely hemodynamically significant stenosis at the origin of the left renal artery with asymmetrically delayed left renal parenchymal enhancement. 2. Moderate intra and extra hepatic biliary ductal dilation which could be related to prior cholecystectomy and sphincterotomy. Correlate with liver functi on tests and if clinically indicated could consider MRCP for further evaluation. 3. Cardiomegaly with right atrial enlargement. 4. Numerous pancreatic parenchymal calcifications along with mild dilation of the main pancreatic duct consistent with sequela chronic pancreatitis without radiographic findings to suggest acute pancreatitis. Could consider correlation with lipase levels if there is concern for acute pancreatitis. - ED provider reached out to vascular at [facility], no intervention indicated at this time given stenosis. Patient is not in renal failure, and blood pressure is not extremely elevated. - trend renal function and CBC. - Icing Machine Operator consulted for recommendations. (3) Diet-controlled diabetes mellitus: Code(s): E11.9 - Type 2 diabetes mellitus without complications Status: Acute Assessment and Plan: - A1C 5.8 on 04/30/2024. - Continue to monitor blood-glucose for now with diet restrictions. Plan Diet: Diabetic GI Prophylaxis: Not currently indicated DVT Prophylaxis: SCDs Lines: Peripheral Code Status: Full code Time Spent With Patient Time with patient: 15 - 25 minutes Subjective Date/time seen: 06/28/24 16:03 Patient states she feels alright. States she wants to go home and spend time with her grandson and his kitten. Interval history: Patient calm on bedrest and looks to be in no acute distress. Review of Systems Review of Systems: All systems reviewed & are unremarkable except as noted in HPI and below Exam Narrative: General: Fair appearing, no acute distress. HEENT: Atraumatic, PERRL, EOM, moist mucosa. NECK: Supple. Lungs: Clear bilaterally. Heart: RRR, no murmurs. Abdomen: Soft, non-tender, non-distended, +ve bowel sounds X4 quadrants. Extremities: No edema. 2+ radial and pedal pulses. Skin: Warm and dry with no lesions. Neuro: Fairly well oriented. No focal neuro deficits noted. Psych: Pleasant and co-operative. Objective Data Vital Signs Vital Signs: Vital Signs - 24 hr 06/27/24 16:20 06/27/24 18:52 06/27/24 20:13 Temperature 98.2 F 98.3 F 98.2 F Pulse Rate 85 81 81 Respiratory Rate 16 20 18 Blood Pressure 143/67 H 134/58 L 125/55 L Pulse Oximetry 91 97 95 Oxygen Delivery Room Air Oxygen Flow Rate 06/27/24 22:00 06/28/24 05:47 06/27/24 22:00 Temperature 97.6 F 98.6 F Pulse Rate 84 76 Respiratory Rate 14 22 H Blood Pressure 129/43 L 136/54 L Pulse Oximetry 90 91 93 Oxygen Delivery Nasal Cannula Oxygen Flow Rate 1 06/28/24 08:20 06/28/24 14:00 Temperature 98.2 F Pulse Rate 77 Respiratory Rate 16 Blood Pressure 132/53 L Pulse Oximetry 93 91 Oxygen Delivery Nasal Cannula Oxygen Flow Rate 1 Intake/Output Intake/Output: Intake & Output 06/25/24 06/26/24 06/27/24 06/28/24 23:59 23:59 23:59 23:59 Intake Total 1100 1490 Output Total 100 600 Balance 1000 890 Meds/Results Medications: Active Medications Generic Name Dose Route Start Last Admin Trade Name Freq PRN Reason Stop Dose Admin Acetaminophen 650 mg 06/27/24 19:00 Acetaminophen 325 Mg Tablet PO Q4H PRN Mild Pain (1-3) or Fever Hydrocodone Bitart/Acetaminophen 1 tab 06/27/24 19:04 Hydrocodone/Acetaminophen (*Crx) 5-325 Mg Tablet PO Q6H PRN Pain Rated 4-6 Hydrocodone Bitart/Acetaminophen 1 tab 06/27/24 22:49 06/28/24 14:49 Hydrocodone/Acetaminophen (*Crx) 10-325 Mg Tablet PO 1 tab BID PRN Administration Pain (Scale Score 7-10) Albuterol 1 - 2 puff 06/27/24 22:49 Albuterol Sulfate (*Sp) Aerosol 1 Puff INHALATION Q4-6H PRN SOB/WHEEZING Amitriptyline HCl 25 mg 06/27/24 22:55 06/27/24 23:08 Amitriptyline Hcl 25 Mg Tablet PO 25 mg HS WILI Administration Carbamazepine 100 mg 06/27/24 21:00 06/28/24 09:00 Carbamazepine Xr 100 Mg Tab.Sr.12h PO 100 mg Q12H WILI Administration Duloxetine HCl 30 mg 06/28/24 09:00 06/28/24 09:00 Duloxetine Hcl 30 Mg Capsule.Dr PO 30 mg QAM WILI Administration Famotidine 20 mg 06/28/24 09:00 06/28/24 09:00 Famotidine 20 Mg Tablet PO 20 mg Q12HR WILI Administration Fish Oil 1 gm 06/28/24 17:00 [place] 3 Polyunsat Fatty Acids 1 Gm Cap PO DAILY@1700 WILI Fluticasone Propionate 1 spray 06/28/24 09:00 06/28/24 11:26 Fluticasone Propionate 0.05% Na Spr 16 Gm Btl (*Bkc) NASAL 1 spray Q12H WILI Administration Cefepime HCl 1 gm in 50 mls @ 100 mls/hr 06/27/24 21:00 06/27/24 22:15 Maxipime 1 Gm/Ns 50 Ml IVPB Infused Q24H WILI Infusion Sodium Chloride 1,000 mls @ 100 mls/hr 06/27/24 19:05 06/28/24 07:49 Normal Saline Iv IV CONT 100 mls/hr .Q10H WILI Administration Morphine Sulfate 30 mg 06/27/24 22:55 06/28/24 07:49 Morphine Sulfate (*Crx) 30 Mg Tabcr PO 30 mg 0700,1900 WILI Administration Ondansetron HCl 4 mg 06/28/24 11:20 06/28/24 11:25 Ondansetron Inj 4 Mg/2 Ml Vial IV PUSH 4 mg Q6H PRN Administration Nausea And Vomiting Radiology Results: ITS Impressions Abdomen/Pelvis CT 06/27/24 16:52 IMPRESSION: 1. Likely hemodynamically significant stenosis at the origin of the left renal artery with asymmetrically delayed left renal parenchymal enhancement. 2. Moderate intra and extra hepatic biliary ductal dilation which could be related to prior cholecystectomy and sphincterotomy. Correlate with liver function tests and if clinically indicated could consider MRCP for further evaluation. 3. Cardiomegaly with right atrial enlargement. 4. Numerous pancreatic parenchymal calcifications along with mild dilation of the main pancreatic duct consistent with sequela chronic pancreatitis without radiographic findings to suggest acute pancreatitis. Could consider correlation with lipase levels if there is concern for acute pancreatitis. Labs Labs: Laboratory Results - last 24 hr 06/27/24 06/28/24 16:30 05:58 WBC 17.8 H 17.1 H RBC 4.22 3.84 L Hgb 14.0 12.8 Hct 41.0 38.4 MCV 97.2 100.0 MCH 33.2 33.3 MCHC 34.1 33.3 RDW 13.0 12.9 Plt Count 188 181 MPV 9.8 9.8 Immature Gran % (Auto) 0.6 H 0.5 Neut % (Auto) 63.8 57.6 Lymph % (Auto) 27.3 32.9 [place] % (Auto) 6.5 7.0 Eos % (Auto) 1.6 1.7 Baso % (Auto) 0.2 0.3 Lymph # (Auto) 4.86 H 5.62 H [place] # (Auto) 1.2 H 1.2 H Eos # (Auto) 0.3 0.3 Baso # (Auto) 0.0 0.1 Abs Immat Gran (auto) 0.10 H 0.09 H Absolute Neuts (auto) 11.3 H 9.8 H Absolute Nucleated RBC 0.000 0.000 Nucleated RBC % 0.0 0.0 Atypical Lymphocytes Present Platelet Estimate Adequate Schistocytes None seen Sodium 132 L 134 L Potassium 4.6 4.6 Chloride 99 102 Carbon Dioxide 30 26 Anion Gap 3 L 6 BUN 28 H 22 H Creatinine 1.10 H 1.00 Estim Creat Clear Calc 25 29 Estimated GFR 47 L 53 L Glucose 138 H 98 Calcium 10.2 9.4 Total Bilirubin 0.6 AST 40 H ALT 29 Alkaline Phosphatase 52 Total Protein 7.0 Albumin 4.6 Lipase 42 Urine Color Yellow Urine Appearance Cloudy H Urine pH 7.5 Ur Specific [place] 1.017 Urine Protein 1+ H Urine Glucose (UA) Negative Urine Ketones Negative Ur Blood (Man) Negative Urine Nitrate Negative Urine Bilirubin Negative Urine Urobilinogen 1.0 Add Ur Microanalysis Reviewed Leukocyte Esterase Rfl 1+ H Urine RBC 6-10 H Urine WBC 11-20 H Ur Squamous Epith Cells None seen Urine Bacteria 3+ H Urine Casts 0-2 Urine Yeast (Budding) Present H Quality VTE Prophylaxis VTE prophylaxis: mechanical ordered Hospitalist MIPS Advance Care Plan I have confirmed that the patient's Advanced Care Plan is present, code status is documented, or surrogate decision maker is listed in patient medical record.: Yes Medication Reconciliation I have utilized all available resources to obtain, update and review the patients current medications (includes all prescriptions, OTC, herbals, cannabis, and nutritional supplements).: Yes
[2024-06-28] MEDS: OMEGA 3 POLYUNSAT FATTY ACIDS 1 GM CAP PO (17:22)
[2024-06-28 18:09] LABS: Basophils Absolute Auto 0.1 K/mm3 (0.0-0.1); Basophils Percent Auto 0.3 % (0.2-1.2); Eosinophils Percent Auto 0.2 % (0-4.4); Hematocrit 37.2 % (37.0-47.0); Hemoglobin 12.4 g/dL (12.0-15.0); Immature Granulocyte Absolute 0.05 K/mm3 (0.00-0.031); Immature Granulocyte Percent A 0.3 % (0-0.5); Lymphocytes Absolute Auto 4.61 K/mm3 (0.9-3.2); Lymphocytes Percent Auto 27.4 % (18.3-44.2); Mean Corpuscular HGB Conc 33.3 g/dl (32-36); Mean Corpuscular Hemoglobin 33.3 pg (26-34); Mean Platelet Volume 9.7 fl (7.4-10.4); Monocytes Absolute Auto 1.2 K/mm3 (0.1-0.6); Monocytes Percent Auto 7.2 % (2.6-8.5); Neutrophils Absolute Auto 10.9 K/mm3 (1.3-6.7); Neutrophils Percent Auto 64.6 % (45.5-73.1); Platelet Count Result 163 k/mm3 (150-375); Red Blood Count 3.72 M/mm3 (4.2-5.4); Red Cell Distribution Width 12.7 % (11.5-14.5); White Blood Count 16.8 K/mm3 (4.5-10.0)
[2024-06-28 18:14] LABS: Alanine Aminotransferase 29 U/L (6-35); Albumin Level 3.7 g/dL (3.5-5.1); Alkaline Phosphatase 41 U/L (38-126); Anion Gap 5 mmol/L (4-12); Aspartate Amino Transferase 35 U/L (14-36); Bilirubin,Total 0.7 mg/dL (0.2-1.3); Blood Urea Nitrogen 22 mg/dL (7-17); Calcium 9.4 mg/dL (8.4-10.2); Carbon Dioxide 26 mmol/L (22-30); Chloride 102 mmol/L (98-107); Estimated CRCL calculation 29 ml/min; Estimated Glomerular Filt Rate 53; Glucose 146 mg/dL (65-110); Potassium 4.5 mmol/L (3.4-5.0); Sodium 133 mmol/L (137-145)
[2024-06-28] MEDS: ACETAMINOPHEN 325 MG TABLET 650 MG PO (19:52)
[2024-06-28] MEDS: CEFEPIME 1 GM/NS 50 ML 1 GM/50 ML BAG IVPB (19:57)
[2024-06-28] MEDS: AMITRIPTYLINE HCL 25 MG TABLET PO (19:58)
[2024-06-28 20:00] VITALS: BP 136/55; PULSE 77; RESP 18; TEMP 37.5; O2SAT 93
[2024-06-28 21:54] VITALS: BP 136/55; PULSE 77; RESP 18; TEMP 37.5; O2SAT 93
[2024-06-29] VITALS (7 sets, daily range): BP systolic 98–137; BP diastolic 57–78; PULSE 84–93; RESP 18–20; TEMP 36.8–37.2; O2SAT 92–98
[2024-06-29] MEDS: HYDROcodone/acetaminophen (*CRX) 5-325 MG TABLET 1 TAB PO ×2 (03:01→14:56)
[2024-06-29] MEDS: SODIUM CHLORIDE 0.9% IV 1,000 ML 100 ML IV CONT ×2 (05:30→19:56)
[2024-06-29] MEDS: MORPHINE SULFATE (*CRX) 30 MG TABCR PO ×2 (06:06→18:06)
[2024-06-29] MEDS: FAMOTIDINE 20 MG TABLET PO ×2 (08:33→19:55)
[2024-06-29] MEDS: DULoxetine HCL 30 MG CAPSULE.DR PO (08:33)
[2024-06-29] MEDS: CARBAMAZEPINE XR 100 MG TAB.SR.12H PO ×2 (08:33→19:55)
[2024-06-29] MEDS: HYDROcodone/acetaminophen (*CRX) 10-325 MG TABLET 1 TAB PO (08:33)
[2024-06-29] MEDS: FLUTICASONE PROPIONATE 0.05% NA SPR 16 GM BTL (*BKC) 1 SPRAY NASAL ×2 (08:35→19:56)
[2024-06-29] MEDS: ONDANSETRON INJ 4 MG/2 ML VIAL IV PUSH (08:36)
--- NOTE | 2024-06-29 11:08 | P.PNIM_ITS ---
Progress Note: A&P Assessment and Plan (1) Acute UTI: Code(s): N39.0 - Urinary tract infection, site not specified Status: Acute Assessment and Plan: - did not meet SIRS criteria, WBC 17.8>>16.8 - UA: Cloudy, 1+ protein, 1+ leuks, 6-10 RBC, 11-20 WBC, no epithelial cells, 3+ bacteria, yeast budding present. - UC; Non-uropathogenic Gram positive organism. May represent colonizers from external and internal genitalia. - previous micro reviewed, previously grew Proteus mirabilis on urine culture, Pseudomonas in 2022. Most recent urine culture grew E. coli in September of 2023 with only intermediate response to Unasyn, otherwise no resistances. Started on cefepime per previous sensitivities. - Initially on Ceftriaxone but transitioned to cefepime on 06/27 - Discontinue IVF with improved renal function and good PO intake. (2) Renal artery stenosis: Code(s): I70.1 - Atherosclerosis of renal artery Status: Acute Assessment and Plan: - CT abd/pelvis: 1. Likely hemodynamically significant stenosis at the origin of the left renal artery with asymmetrically delayed left renal parenchymal enhancement. 2. Moderate intra and extra hepatic biliary ductal dilation which could be related to prior cholecystectomy and sphincterotomy. Correlate with liver function tests and if clinically indicated could consider MRCP for further evaluation. 3. Cardiomegaly with right atrial enlargement. 4. Numerous pancreatic parenchymal calcifications along with mild dilation of the main pancreatic duct consistent with sequela chronic pancreatitis without radiographic findings to suggest acute pancreatitis. Could consider correlation with lipase levels if there is concern for acute pancreatitis. - ED provider reached out to vascular at [facility], no intervention indicated at this time given stenosis. Patient is not in renal failure, and blood pressure is not extremely elevated. - trend renal function and CBC. - Clinical Data Specialist consulted for significant renal stenosis and we'll follow recommendations. (3) Diet-controlled diabetes mellitus: Code(s): E11.9 - Type 2 diabetes mellitus without complications Status: Acute Assessment and Plan: - A1C 5.8 on 04/30/2024. - Continue to monitor blood-glucose for now with diet restrictions. Plan Diet: Diabetic GI Prophylaxis: Not currently indicated DVT Prophylaxis: SCDs Lines: Peripheral Code Status: Full code Time Spent With Patient Time with patient: 15 - 25 minutes Subjective Date/time seen: 06/29/24 11:08 Patient states she feels alright and has no distressful symptoms.States hoping to be home before tuesday. Interval history: Patient calm on bedrest and looks to be in no acute distress. Review of Systems Review of Systems: All systems reviewed & are unremarkable except as noted in HPI and below Exam Narrative: General: Generalized muscle weakness, no acute distress. HEENT: Atraumatic, PERRL, EOM, moist mucosa. NECK: Supple. Lungs: Clear bilaterally. Heart: RRR, no murmurs. Abdomen: Soft, non-tender, non-distended, +ve bowel sounds X4 quadrants. Extremities: No edema. 2+ radial and pedal pulses. Skin: Warm and dry with no lesions. Neuro: Fairly well oriented. No focal neuro deficits noted. Psych: Pleasant and co-operative. Objective Data Vital Signs Vital Signs: Vital Signs - 24 hr 06/28/24 14:00 06/28/24 20:00 06/28/24 21:54 Temperature 98.2 F 99.5 F 99.5 F Pulse Rate 77 77 77 Respiratory Rate 16 18 18 Blood Pressure 132/53 L 136/55 L 136/55 L Pulse Oximetry 91 93 93 Oxygen Delivery Oxygen Flow Rate 06/28/24 20:00 06/29/24 06:00 06/29/24 08:00 Temperature 98.8 F Pulse Rate 85 Respiratory Rate 20 Blood Pressure 133/60 Pulse Oximetry 93 98 95 Oxygen Delivery Nasal Cannula Nasal Cannula Oxygen Flow Rate 1 1 Intake/Output Intake/Output: Intake & Output 06/26/24 06/27/24 06/28/24 06/29/24 23:59 23:59 23:59 23:59 Intake Total 1100 2496.7 1240 Output Total 100 600 Balance 1000 1896.7 1240 Meds/Results Medications: Active Medications Generic Name Dose Route Start Last Admin Trade Name Freq PRN Reason Stop Dose Admin Acetaminophen 650 mg 06/27/24 19:00 06/28/24 19:52 Acetaminophen 325 Mg Tablet PO 650 mg Q4H PRN Administration Mild Pain (1-3) or Fever Hydrocodone Bitart/Acetaminophen 1 tab 06/27/24 19:04 06/29/24 03:01 Hydrocodone/Acetaminophen (*Crx) 5-325 Mg Tablet PO 1 tab Q6H PRN Administration Pain Rated 4-6 Hydrocodone Bitart/Acetaminophen 1 tab 06/27/24 22:49 06/29/24 08:33 Hydrocodone/Acetaminophen (*Crx) 10-325 Mg Tablet PO 1 tab BID PRN Administration Pain (Scale Score 7-10) Albuterol 1 - 2 puff 06/27/24 22:49 Albuterol Sulfate (*Sp) Aerosol 1 Puff INHALATION Q4-6H PRN SOB/WHEEZING Amitriptyline HCl 25 mg 06/27/24 22:55 06/28/24 19:58 Amitriptyline Hcl 25 Mg Tablet PO 25 mg HS WILI Administration Carbamazepine 100 mg 06/27/24 21:00 06/29/24 08:33 Carbamazepine Xr 100 Mg Tab.Sr.12h PO 100 mg Q12H WILI Administration Duloxetine HCl 30 mg 06/28/24 09:00 06/29/24 08:33 Duloxetine Hcl 30 Mg Capsule.Dr PO 30 mg QAM WILI Administration Famotidine 20 mg 06/28/24 09:00 06/29/24 08:33 Famotidine 20 Mg Tablet PO 20 mg Q12HR WILI Administration Fish Oil 1 gm 06/28/24 17:00 06/28/24 17:22 [place] 3 Polyunsat Fatty Acids 1 Gm Cap PO 1 gm DAILY@1700 WILI Administration Fluticasone Propionate 1 spray 06/28/24 09:00 06/29/24 08:35 Fluticasone Propionate 0.05% Na Spr 16 Gm Btl (*Bkc) NASAL 1 spray Q12H WILI Administration Cefepime HCl 1 gm in 50 mls @ 100 mls/hr 06/27/24 21:00 06/28/24 20:27 Maxipime 1 Gm/Ns 50 Ml IVPB Infused Q24H WILI Infusion Sodium Chloride 1,000 mls @ 100 mls/hr 06/27/24 19:05 06/29/24 05:30 Normal Saline Iv IV CONT 100 mls/hr .Q10H WILI Administration Morphine Sulfate 30 mg 06/27/24 22:55 06/29/24 06:06 Morphine Sulfate (*Crx) 30 Mg Tabcr PO 30 mg 0700,1900 WILI Administration Ondansetron HCl 4 mg 06/28/24 11:20 06/29/24 08:36 Ondansetron Inj 4 Mg/2 Ml Vial IV PUSH 4 mg Q6H PRN Administration Nausea And Vomiting Radiology Results: ITS Impressions Abdomen/Pelvis CT 06/27/24 16:52 IMPRESSION: 1. Likely hemodynamically significant stenosis at the origin of the left renal artery with asymmetrically delayed left renal parenchymal enhancement. 2. Moderate intra and extra hepatic biliary ductal dilation which could be related to prior cholecystectomy and sphincterotomy. Correlate with liver function tests and if clinically indicated could consider MRCP for further evaluation. 3. Cardiomegaly with right atrial enlargement. 4. Numerous pancreatic parenchymal calcifications along with mild dilation of the main pancreatic duct consistent with sequela chronic pancreatitis without radiographic findings to suggest acute pancreatitis. Could consider correlation with lipase levels if there is concern for acute pancreatitis. Labs Labs: Laboratory Results - last 24 hr 06/28/24 17:59 WBC 16.8 H RBC 3.72 L Hgb 12.4 Hct 37.2 MCV 100.0 MCH 33.3 MCHC 33.3 RDW 12.7 Plt Count 163 MPV 9.7 Immature Gran % (Auto) 0.3 Neut % (Auto) 64.6 Lymph % (Auto) 27.4 [place] % (Auto) 7.2 Eos % (Auto) 0.2 Baso % (Auto) 0.3 Lymph # (Auto) 4.61 H [place] # (Auto) 1.2 H Eos # (Auto) 0.0 Baso # (Auto) 0.1 Abs Immat Gran (auto) 0.05 H Absolute Neuts (auto) 10.9 H Absolute Nucleated RBC 0.000 Nucleated RBC % 0.0 Sodium 133 L Potassium 4.5 Chloride 102 Carbon Dioxide 26 Anion Gap 5 BUN 22 H Creatinine 1.00 Estim Creat Clear Calc 29 Estimated GFR 53 L Glucose 146 H Calcium 9.4 Total Bilirubin 0.7 AST 35 ALT 29 Alkaline Phosphatase 41 Total Protein 6.0 L Albumin 3.7 Quality VTE Prophylaxis VTE prophylaxis: mechanical ordered Hospitalist [facility] Advance Care Plan I have confirmed that the patient's Advanced Care Plan is present, code status is documented, or surrogate decision maker is listed in patient medical record.: Yes Medication Reconciliation I have utilized all available resources to obtain, update and review the patients current medications (includes all prescriptions, OTC, herbals, cannabis, and nutritional supplements).: Yes
[2024-06-29 12:55] LABS: Add Urine Microscopic? YES; Appearance Urine Clear (Clear); Bacteria Urine None Seen /hpf; Bilirubin Urine Negative (Negative); Blood Urine Negative (Negative); Color Urine Yellow (Yellow); Glucose Urine UA Negative (Negative); Ketones Urine 2+ mg/dL (Negative); Leukocyte Esterase Ur 2+ LEU/UL (Negative); Need Manual Microscopic Reviewed; Nitrate Urine Negative (Negative); Non Pathogenic Casts 0-2; Protein Urine 1+ mg/dL (Negative); Specific Grav Ur 1.018 (1.001-1.035); Squamous Epithelial Cell Urine None Seen /hpf (Few); Urobilinogen Urine 0.2 mg/dL (<2.0); WBC Urine 51-100 /hpf (0-3); pH Urine 5.5 (5.0-9.0)
--- NOTE | 2024-06-29 13:22 | PM.CNCAR ---
Assessment and Plan Assessment and plan (1) Renal artery stenosis: Code(s): I70.1 - Atherosclerosis of renal artery Status: Acute Plan This is an 84-year-old woman hospitalized with a urinary tract infection. In the course of this evaluation a CT scan of the abdomen has demonstrated some atherosclerosis of the left renal artery there is no indication for investigating this or certainly for intervention of this as she is normotensive, takes no blood pressure medication and renal function is normal. Jamison Lang MD [facility] History of Present Illness History of Present Illness Consult date/time: 06/29/24 13:22 Reason For Visit: Acute UTI, dehydration Narrative: This is an 84-year-old woman I am seeing at the request of the hospitalist because of renal artery stenosis. She has no cardiovascular history that she is aware of. She came to the hospital was hospitalized with a chief complaint of abdominal pain and she was found to have evidence of a urinary tract infection which is being treated. In the process of this workup she had a CT scan of her abdomen done which demonstrated evidence of some left renal artery stenosis prompting this consultation. There is a note in the chart that indicates a phone conversation/consultation was had with the vascular surgeon elsewhere who indicated there was no indication for intervention. The patient has no history of hypertension she takes no blood pressure medication and according to the her lab data her creatinine is normal. She says that her abdominal discomfort is getting better with antibiotics but she still has some cramping mid abdominal pain off and on. She is comfortable otherwise visiting with with her son as a at the room to see her for consultation. She denies any cardiac symptoms such as chest pain CURTIS palpitations orthopnea PND or edema. Review of Systems Constitutional: Constitutional: Reports lethargy Eyes: Eyes: Reports no additional eye complaints ENT: Reports system reviewed and no additional complaints, except as documented Cardiovascular: Cardiovascular: Reports no additional cardiovascular complaints Respiratory: Respiratory: Reports no additional respiratory complaints Gastrointestinal: Gastrointestinal: Reports as per HPI and Reports abdominal pain Genitourinary: Genitourinary: Reports as per HPI Musculoskeletal: Musculoskeletal: Reports back pain Integumentary/Breasts: Skin/Breast: Reports system reviewed and no additional complaints, except as docu Neurologic: Reports system reviewed and no additional complaints, except as documented Endocrine: Endocrine: Reports no additional endocrine complaints Hematologic/Lymphatic: Hematologic/Lymphatic: Reports no additional hematologic/lymphatic complaints Allergic/Immunologic: Allergic/Immunologic: Reports no additional allergic/immunologic complaints [facility] Past Medical History Medical History Allergies Arthritis Cancer of right breast Status post mastectomy and radiation. Chronic lymphocytic leukemia Chronic obstructive pulmonary disease Chronic pain syndrome Chronic prescription opiate use Depression Diet-controlled diabetes mellitus GERD (gastroesophageal reflux disease) Immunoglobulin deficiency Melanoma Left arm. Osteoporosis Rheumatoid arthritis Squamous cell carcinoma Back. Tobacco dependence Trigeminal neuralgia Vitamin D deficiency Surgical History Surgical History History of cholecystectomy History of hemiarthroplasty of left hip (~11/08/22) Bipolar hemiarthroplasty left. History of hysterectomy History of melanoma excision Left arm. History of right mastectomy (1987) History of squamous cell carcinoma excision Back. Family History Family History Mother CLL (chronic lymphocytic leukemia) Father Lung cancer Sibling Pancreatic cancer Social History Social History Social History: Surrogate medical decision maker: Oj Gregory, son. Code status: Full code. Smoking packs per day: 1 Smoking cigarettes per day: 20.0 Years smoked: 60 Smoking pack-years: 60.00 Smoking status: Current every day smoker Tobacco type: cigarettes Alcohol intake: never Substance use: never Substance use type: does not use Do You Feel Safe in your Home?: Yes Lack of Transportation: YES Lack of Food: Never True Current Housing: I Have Housing Concerned About Future Housing: No Difficulty Paying Gas/Electric Bills: No Difficulty Paying for Meds: No Currently Unemployed: No Education: Grade School Difficulty w/ Childcare or Family Care: No Additional living arrangements comments: Lives alone in [place]. Originally from [place]. Spiritual care concerns: No Meds Home Medications and Allergies Home Medications Medication Instructions Recorded Confirmed Type omega 7-alj-bkm-fish oil 60 mg-90 1 cap PO QPM 09/15/23 06/27/24 History mg-500 mg capsule carbamazepine 100 mg 100 mg PO Q12H #60 tabs 03/29/24 06/27/24 Rx tablet,extended release,12 hr amitriptyline 25 mg tablet 25 mg PO .QHS #90 tabs 04/16/24 06/27/24 Rx albuterol sulfate 90 mcg/actuation 1 - 2 puff inhalation Q4-6H PRN 04/30/24 06/27/24 Rx aerosol inhaler (Ventolin HFA) shortness of breath or wheezing #8.5 grams duloxetine 30 mg capsule,delayed 30 mg PO QAM #90 caps 04/30/24 06/27/24 Rx release (Cymbalta) famotidine 20 mg tablet 20 mg PO Q12HR #180 tabs 04/30/24 06/27/24 Rx fluticasone propionate 50 1 spray intranasal Q12H #16 mL 04/30/24 06/27/24 Rx mcg/actuation nasal spray,suspension (Flonase Allergy Relief) hydrocodone 10 mg-acetaminophen 1 tablet PO BID PRN Pain (Scale 04/30/24 06/27/24 History 325 mg tablet Score 7-10) morphine 30 mg tablet,extended 30 mg PO Q12H 04/30/24 06/27/24 History release Allergies Allergy/AdvReac Type Severity Reaction Status Date / Time doxycycline Allergy Unknown Verified 04/30/24 12:54 latex Allergy Unknown Verified 04/30/24 12:54 pregabalin [From Lyrica] Allergy Unknown Verified 04/30/24 12:54 Sulfa (Sulfonamide Allergy Unknown Verified 04/30/24 12:54 Antibiotics) sulfamethoxazole Allergy Unknown Verified 04/30/24 12:54 [From Bactrim] trimethoprim [From Bactrim] Allergy Unknown Verified 04/30/24 12:54 Vital Signs Vital Signs - 24 hr 06/28/24 14:00 06/28/24 20:00 06/28/24 21:54 Temperature 36.8 C 37.5 C 37.5 C Pulse Rate 77 77 77 Respiratory Rate 16 18 18 Blood Pressure 132/53 L 136/55 L 136/55 L Pulse Oximetry 91 93 93 Oxygen Delivery Oxygen Flow Rate 06/28/24 20:00 06/29/24 06:00 06/29/24 08:00 Temperature 37.1 C Pulse Rate 85 Respiratory Rate 20 Blood Pressure 133/60 Pulse Oximetry 93 98 95 Oxygen Delivery Nasal Cannula Nasal Cannula Oxygen Flow Rate 1 1 Exam Const: Other: Pleasant elderly white female appearing her stated age comfortable cooperative in no distress of any kind HENMT: Mouth: Yes moist mucous membranes Eyes: Sclera: sclerae normal Neck: Neck: supple and no JVD Resp: Effort & Inspection: normal respiratory effort Auscultation: clear to auscultation bilaterally Cardio: Rate: regular rate Rhythm: regular rhythm Other: Very soft systolic murmur which does not radiate from the left sternal border GI: GI Palp: Yes Soft to palpation Auscultation: normal bowel sounds Other: No abdominal bruit Skin: General skin exam: normal color Neuro: Other: Alert and oriented Results Labs and Meds 06/28/24 17:59 06/28/24 17:59 Lab results: Cardiac Enzymes 06/28/24 Range/Units 17:59 AST 35 (14-36) U/L CBC 06/28/24 Range/Units 17:59 WBC 16.8 H (4.5-10.0) K/mm3 RBC 3.72 L (4.2-5.4) M/mm3 Hgb 12.4 (12.0-15.0) g/dL Hct 37.2 (37.0-47.0) % Plt Count 163 (150-375) k/mm3 Lymph # (Auto) 4.61 H (0.9-3.2) K/mm3 [place] # (Auto) 1.2 H (0.1-0.6) K/mm3 Eos # (Auto) 0.0 (0-0.3) K/mm3 Baso # (Auto) 0.1 (0.0-0.1) K/mm3 Comprehensive Metabolic Panel 06/28/24 Range/Units 17:59 Sodium 133 L (137-145) mmol/L Potassium 4.5 (3.4-5.0) mmol/L Chloride 102 (98-107) mmol/L Carbon Dioxide 26 (22-30) mmol/L BUN 22 H (7-17) mg/dL Creatinine 1.00 (0.7-1.0) mg/dL Glucose 146 H (65-110) mg/dL Calcium 9.4 (8.4-10.2) mg/dL AST 35 (14-36) U/L ALT 29 (6-35) U/L Alkaline Phosphatase 41 (38-126) U/L Total Protein 6.0 L (6.3-8.2) g/dL Albumin 3.7 (3.5-5.1) g/dL Intake and Output 11/28/24 11/29/24 11/29/24 23:59 07:59 15:59 Intake Total 1006.7 1000 240 Balance 1006.7 1000 240 Intake: IV 1006.7 1000 Sodium Chloride 0.9% IV 1,000 956.7 1000 ml @ 100 mls/hr IV CONT .Q10H [facility] Rx#:[id number] Cefepime 1 gm/Ns 50 ml 1 gm In 50 50 ml @ 100 mls/hr IVPB Q24H [facility] Rx#:[id number] Oral 0 240 Other: # Unmeasured Voids 2 5
[2024-06-29] MEDS: OMEGA 3 POLYUNSAT FATTY ACIDS 1 GM CAP PO (16:08)
[2024-06-29 17:32] LABS: Basophils Percent Auto 0.2 % (0.2-1.2); Eosinophils Absolute Auto 0.1 K/mm3 (0-0.3); Eosinophils Percent Auto 0.6 % (0-4.4); Hematocrit 37.2 % (37.0-47.0); Hemoglobin 12.6 g/dL (12.0-15.0); Immature Granulocyte Absolute 0.08 K/mm3 (0.00-0.031); Immature Granulocyte Percent A 0.5 % (0-0.5); Lymphocytes Absolute Auto 5.08 K/mm3 (0.9-3.2); Lymphocytes Percent Auto 29.3 % (18.3-44.2); Mean Corpuscular HGB Conc 33.9 g/dl (32-36); Mean Corpuscular Hemoglobin 33.2 pg (26-34); Mean Corpuscular Volume 98.2 fl (80-100); Mean Platelet Volume 9.6 fl (7.4-10.4); Monocytes Absolute Auto 1.4 K/mm3 (0.1-0.6); Monocytes Percent Auto 7.9 % (2.6-8.5); Neutrophils Absolute Auto 10.7 K/mm3 (1.3-6.7); Neutrophils Percent Auto 61.5 % (45.5-73.1); Platelet Count Result 179 k/mm3 (150-375); Red Blood Count 3.79 M/mm3 (4.2-5.4); Red Cell Distribution Width 12.7 % (11.5-14.5); White Blood Count 17.3 K/mm3 (4.5-10.0)
[2024-06-29 17:43] LABS: Alanine Aminotransferase 27 U/L (6-35); Albumin Level 3.6 g/dL (3.5-5.1); Alkaline Phosphatase 47 U/L (38-126); Anion Gap 7 mmol/L (4-12); Aspartate Amino Transferase 30 U/L (14-36); Bilirubin,Total 0.6 mg/dL (0.2-1.3); Blood Urea Nitrogen 25 mg/dL (7-17); Calcium 9.2 mg/dL (8.4-10.2); Carbon Dioxide 25 mmol/L (22-30); Chloride 99 mmol/L (98-107); Estimated CRCL calculation 32 ml/min; Estimated Glomerular Filt Rate 60; Glucose 118 mg/dL (65-110); Potassium 3.9 mmol/L (3.4-5.0); Sodium 131 mmol/L (137-145)
[2024-06-29] MEDS: AMITRIPTYLINE HCL 25 MG TABLET PO (19:55)
[2024-06-29] MEDS: CEFEPIME 1 GM/NS 50 ML 1 GM/50 ML BAG IVPB (19:56)
[2024-06-30] VITALS (7 sets, daily range): BP systolic 136–146; BP diastolic 55–85; PULSE 82–100; RESP 18; TEMP 36.7–37.7; O2SAT 91–95
[2024-06-30] MEDS: SODIUM CHLORIDE 0.9% IV 1,000 ML 100 ML IV CONT (06:24)
[2024-06-30] MEDS: MORPHINE SULFATE (*CRX) 30 MG TABCR PO ×2 (06:24→18:16)
[2024-06-30 09:23] LABS: Basophils Percent Auto 0.2 % (0.2-1.2); Eosinophils Percent Auto 0.2 % (0-4.4); Hematocrit 34.5 % (37.0-47.0); Hemoglobin 12.2 g/dL (12.0-15.0); Immature Granulocyte Absolute 0.06 K/mm3 (0.00-0.031); Immature Granulocyte Percent A 0.4 % (0-0.5); Lymphocytes Absolute Auto 3.92 K/mm3 (0.9-3.2); Lymphocytes Percent Auto 27.8 % (18.3-44.2); Mean Corpuscular HGB Conc 35.4 g/dl (32-36); Mean Corpuscular Hemoglobin 33.7 pg (26-34); Mean Corpuscular Volume 95.3 fl (80-100); Mean Platelet Volume 9.5 fl (7.4-10.4); Monocytes Absolute Auto 0.9 K/mm3 (0.1-0.6); Monocytes Percent Auto 6.6 % (2.6-8.5); Neutrophils Absolute Auto 9.2 K/mm3 (1.3-6.7); Neutrophils Percent Auto 64.8 % (45.5-73.1); Platelet Count Result 168 k/mm3 (150-375); Red Blood Count 3.62 M/mm3 (4.2-5.4); Red Cell Distribution Width 12.7 % (11.5-14.5); White Blood Count 14.1 K/mm3 (4.5-10.0)
[2024-06-30] MEDS: FAMOTIDINE 20 MG TABLET PO ×2 (09:31→20:12)
[2024-06-30] MEDS: FLUTICASONE PROPIONATE 0.05% NA SPR 16 GM BTL (*BKC) 1 SPRAY NASAL ×2 (09:31→20:12)
[2024-06-30] MEDS: CARBAMAZEPINE XR 100 MG TAB.SR.12H PO ×2 (09:31→20:12)
[2024-06-30] MEDS: DULoxetine HCL 30 MG CAPSULE.DR PO (09:31)
[2024-06-30 09:53] LABS: Anion Gap 3 mmol/L (4-12); Blood Urea Nitrogen 19 mg/dL (7-17); Calcium 9.1 mg/dL (8.4-10.2); Carbon Dioxide 24 mmol/L (22-30); Chloride 105 mmol/L (98-107); Estimated CRCL calculation 36 ml/min; Estimated Glomerular Filt Rate > 60; Glucose 99 mg/dL (65-110); Potassium 4.1 mmol/L (3.4-5.0); Sodium 132 mmol/L (137-145)
--- NOTE | 2024-06-30 13:50 | PM.IMPN ---
Progress Note: A&P Assessment and Plan (1) Acute UTI: Code(s): N39.0 - Urinary tract infection, site not specified Status: Acute Assessment and Plan: - did not meet SIRS criteria, WBC 17.8>>16.8 - UA: Cloudy, 1+ protein, 1+ leuks, 6-10 RBC, 11-20 WBC, no epithelial cells, 3+ bacteria, yeast budding present. - UC; Non-uropathogenic Gram positive organism. May represent colonizers from external and internal genitalia. - previous micro reviewed, previously grew Proteus mirabilis on urine culture, Pseudomonas in 2022. Most recent urine culture grew E. coli in September of 2023 with only intermediate response to Unasyn, otherwise no resistances. Started on cefepime per previous sensitivities. - Repeat urine culture pending. - Initially on Ceftriaxone but transitioned to cefepime on 06/27 - IVF discontinued with improved renal function and good PO intake. (2) Renal artery stenosis: Code(s): I70.1 - Atherosclerosis of renal artery Status: Acute Assessment and Plan: - CT abd/pelvis: 1. Likely hemodynamically significant stenosis at the origin of the left renal artery with asymmetrically delayed left renal parenchymal enhancement. 2. Moderate intra and extra hepatic biliary ductal dilation which could be related to prior cholecystectomy and sphincterotomy. Correlate with liver function tests and if clinically indicated could consider MRCP for further evaluation. 3. Cardiomegaly with right atrial enlargement. 4. Numerous pancreatic parenchymal calcifications along with mild dilation of the main pancreatic duct consistent with sequela chronic pancreatitis without radiographic findings to suggest acute pancreatitis. Could consider correlation with lipase levels if there is concern for acute pancreatitis. - ED provider reached out to vascular [facility], no intervention indicated at this time given stenosis. Patient is not in renal failure, and blood pressure is not extremely elevated. - trend renal function and CBC. 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 (3) Diet-controlled diabetes mellitus: Code(s): E11.9 - Type 2 diabetes mellitus without complications Status: Acute Assessment and Plan: - A1C 5.8 on 04/30/2024. - Continue to monitor blood-glucose for now with diet restrictions. Plan Diet: Diabetic GI Prophylaxis: Not currently indicated DVT Prophylaxis: SCDs Lines: Peripheral Code Status: Full code Time Spent With Patient Time with patient: 15 - 25 minutes Subjective Date/time seen: 06/30/24 13:50 Patient cstates she feels good and want to go home. Interval history: Patient calm on bedrest and looks to be in no acute distress. Review of Systems Review of Systems: All systems reviewed & are unremarkable except as noted in HPI and below Exam Narrative: General: Generalized muscle weakness, no acute distress. HEENT: Atraumatic, PERRL, EOM, moist mucosa. NECK: Supple. Lungs: Clear bilaterally. Heart: RRR, no murmurs. Abdomen: Soft, non-tender, non-distended, +ve bowel sounds X4 quadrants. Extremities: No edema. 2+ radial and pedal pulses. Skin: Warm and dry with no lesions. Neuro: Fairly well oriented. No focal neuro deficits noted. Psych: Pleasant and co-operative. Objective Data Vital Signs Vital Signs: Vital Signs - 24 hr 06/29/24 16:00 06/29/24 20:00 06/29/24 21:27 Temperature 99 F 98.5 F 98.5 F Pulse Rate 84 93 93 Respiratory Rate 20 18 18 Blood Pressure 134/75 137/57 L 137/57 L Pulse Oximetry 95 92 92 Oxygen Delivery Oxygen Flow Rate Fraction of Inspired Oxygen 06/29/24 23:59 06/29/24 20:00 06/30/24 04:00 Temperature 98.5 F 98.1 F Pulse Rate 93 90 Respiratory Rate 18 18 Blood Pressure 137/57 L 142/85 H Pulse Oximetry 92 93 93 Oxygen Delivery Nasal Cannula Oxygen Flow Rate 1 Fraction of Inspired Oxygen 06/30/24 06:00 06/30/24 07:50 06/30/24 09:18 Temperature 98.4 F 99.7 F H Pulse Rate 100 98 Respiratory Rate 18 18 Blood Pressure 140/65 146/68 H Pulse Oximetry 94 93 91 Oxygen Delivery Nasal Cannula Oxygen Flow Rate 1 Fraction of Inspired Oxygen 24 Intake/Output Intake/Output: Intake & Output 06/27/24 06/28/24 06/29/24 06/30/24 23:59 23:59 23:59 23:59 Intake Total 1100 2496.7 3480 1720 Output Total 100 939 947 4807 Balance 1000 1896.7 2680 720 Meds/Results Medications: Active Medications Generic Name Dose Route Start Last Admin Trade Name Freq PRN Reason Stop Dose Admin Acetaminophen 650 mg 06/27/24 19:00 06/28/24 19:52 Acetaminophen 325 Mg Tablet PO 650 mg Q4H PRN Administration Mild Pain (1-3) or Fever Hydrocodone Bitart/Acetaminophen 1 tab 06/27/24 19:04 06/29/24 14:56 Hydrocodone/Acetaminophen (*Crx) 5-325 Mg Tablet PO 1 tab Q6H PRN Administration Pain Rated 4-6 Hydrocodone Bitart/Acetaminophen 1 tab 06/27/24 22:49 06/29/24 08:33 Hydrocodone/Acetaminophen (*Crx) 10-325 Mg Tablet PO 1 tab BID PRN Administration Pain (Scale Score 7-10) Albuterol 1 - 2 puff 06/27/24 22:49 Albuterol Sulfate (*Sp) Aerosol 1 Puff INHALATION Q4-6H PRN SOB/WHEEZING Amitriptyline HCl 25 mg 06/27/24 22:55 06/29/24 19:55 Amitriptyline Hcl 25 Mg Tablet PO 25 mg HS WILI Administration Carbamazepine 100 mg 06/27/24 21:00 06/30/24 09:31 Carbamazepine Xr 100 Mg Tab.Sr.12h PO 100 mg Q12H WILI Administration Duloxetine HCl 30 mg 06/28/24 09:00 06/30/24 09:31 Duloxetine Hcl 30 Mg Capsule.Dr PO 30 mg QAM WILI Administration Famotidine 20 mg 06/28/24 09:00 06/30/24 09:31 Famotidine 20 Mg Tablet PO 20 mg Q12HR WILI Administration Fish Oil 1 gm 06/28/24 17:00 06/29/24 16:08 [place] 3 Polyunsat Fatty Acids 1 Gm Cap PO 1 gm DAILY@1700 WILI Administration Fluticasone Propionate 1 spray 06/28/24 09:00 06/30/24 09:31 Fluticasone Propionate 0.05% Na Spr 16 Gm Btl (*Bkc) NASAL 1 spray Q12H WILI Administration Cefepime HCl 1 gm in 50 mls @ 100 mls/hr 06/27/24 21:00 06/29/24 19:56 Maxipime 1 Gm/Ns 50 Ml IVPB 100 mls/hr Q24H WILI Administration Sodium Chloride 1,000 mls @ 100 mls/hr 06/27/24 19:05 06/30/24 06:24 Normal Saline Iv IV CONT 100 mls/hr .Q10H WILI Administration Morphine Sulfate 30 mg 06/27/24 22:55 06/30/24 06:24 Morphine Sulfate (*Crx) 30 Mg Tabcr PO 30 mg 0700,1900 WILI Administration Ondansetron HCl 4 mg 06/28/24 11:20 06/29/24 08:36 Ondansetron Inj 4 Mg/2 Ml Vial IV PUSH 4 mg Q6H PRN Administration Nausea And Vomiting Radiology Results: ITS Impressions Abdomen/Pelvis CT 06/27/24 16:52 IMPRESSION: 1. Likely hemodynamically significant stenosis at the origin of the left renal artery with asymmetrically delayed left renal parenchymal enhancement. 2. Moderate intra and extra hepatic biliary ductal dilation which could be related to prior cholecystectomy and sphincterotomy. Correlate with liver function tests and if clinically indicated could consider MRCP for further evaluation. 3. Cardiomegaly with right atrial enlargement. 4. Numerous pancreatic parenchymal calcifications along with mild dilation of the main pancreatic duct consistent with sequela chronic pancreatitis without radiographic findings to suggest acute pancreatitis. Could consider correlation with lipase levels if there is concern for acute pancreatitis. Labs Labs: Laboratory Results - last 24 hr 06/29/24 06/30/24 17:26 09:15 WBC 17.3 H 14.1 H RBC 3.79 L 3.62 L Hgb 12.6 12.2 Hct 37.2 34.5 L MCV 98.2 95.3 MCH 33.2 33.7 MCHC 33.9 35.4 RDW 12.7 12.7 Plt Count 179 168 MPV 9.6 9.5 Immature Gran % (Auto) 0.5 0.4 Neut % (Auto) 61.5 64.8 Lymph % (Auto) 29.3 27.8 [place] % (Auto) 7.9 6.6 Eos % (Auto) 0.6 0.2 Baso % (Auto) 0.2 0.2 Lymph # (Auto) 5.08 H 3.92 H [place] # (Auto) 1.4 H 0.9 H Eos # (Auto) 0.1 0.0 Baso # (Auto) 0.0 0.0 Abs Immat Gran (auto) 0.08 H 0.06 H Absolute Neuts (auto) 10.7 H 9.2 H Absolute Nucleated RBC 0.000 0.000 Nucleated RBC % 0.0 0.0 Sodium 131 L 132 L Potassium 3.9 4.1 Chloride 99 105 Carbon Dioxide 25 24 Anion Gap 7 3 L BUN 25 H 19 H Creatinine 0.90 0.80 Estim Creat Clear Calc 32 36 Estimated GFR 60 > 60 Glucose 118 H 99 Calcium 9.2 9.1 Total Bilirubin 0.6 AST 30 ALT 27 Alkaline Phosphatase 47 Total Protein 6.0 L Albumin 3.6 Quality VTE Prophylaxis VTE prophylaxis: mechanical ordered Hospitalist MIPS Advance Care Plan I have confirmed that the patient's Advanced Care Plan is present, code status is documented, or surrogate decision maker is listed in patient medical record.: Yes Medication Reconciliation I have utilized all available resources to obtain, update and review the patients current medications (includes all prescriptions, OTC, herbals, cannabis, and nutritional supplements).: Yes
[2024-06-30] MEDS: HYDROcodone/acetaminophen (*CRX) 10-325 MG TABLET 1 TAB PO ×2 (14:47→20:17)
[2024-06-30 16:29] LABS: Basophils Percent Auto 0.3 % (0.2-1.2); Eosinophils Absolute Auto 0.1 K/mm3 (0-0.3); Eosinophils Percent Auto 0.7 % (0-4.4); Hematocrit 33.4 % (37.0-47.0); Hemoglobin 11.8 g/dL (12.0-15.0); Immature Granulocyte Absolute 0.08 K/mm3 (0.00-0.031); Immature Granulocyte Percent A 0.6 % (0-0.5); Lymphocytes Absolute Auto 4.15 K/mm3 (0.9-3.2); Mean Corpuscular HGB Conc 35.3 g/dl (32-36); Mean Corpuscular Hemoglobin 33.7 pg (26-34); Mean Corpuscular Volume 95.4 fl (80-100); Mean Platelet Volume 9.5 fl (7.4-10.4); Monocytes Percent Auto 7.1 % (2.6-8.5); Neutrophils Absolute Auto 8.9 K/mm3 (1.3-6.7); Neutrophils Percent Auto 62.3 % (45.5-73.1); Platelet Count Result 164 k/mm3 (150-375); Red Cell Distribution Width 12.7 % (11.5-14.5); White Blood Count 14.3 K/mm3 (4.5-10.0)
[2024-06-30 16:40] LABS: Alanine Aminotransferase 23 U/L (6-35); Alkaline Phosphatase 44 U/L (38-126); Anion Gap 2 mmol/L (4-12); Aspartate Amino Transferase 27 U/L (14-36); Bilirubin,Total 0.6 mg/dL (0.2-1.3); Blood Urea Nitrogen 19 mg/dL (7-17); Carbon Dioxide 25 mmol/L (22-30); Chloride 103 mmol/L (98-107); Estimated CRCL calculation 36 ml/min; Estimated Glomerular Filt Rate > 60; Glucose 102 mg/dL (65-110); Potassium 4.1 mmol/L (3.4-5.0); Sodium 130 mmol/L (137-145)
[2024-06-30] MEDS: OMEGA 3 POLYUNSAT FATTY ACIDS 1 GM CAP PO (18:16)
[2024-06-30] MEDS: CEFEPIME 1 GM/NS 50 ML 1 GM/50 ML BAG IVPB (20:11)
[2024-06-30] MEDS: AMITRIPTYLINE HCL 25 MG TABLET PO (20:12)
[2024-07-01] VITALS: BP 143/63; PULSE 84; RESP 18; TEMP 37.4; O2SAT 92
[2024-07-01 04:00] VITALS: BP 136/74; PULSE 97; RESP 18; TEMP 36.6; O2SAT 95
[2024-07-01] MEDS: MORPHINE SULFATE (*CRX) 30 MG TABCR PO ×2 (06:13→17:00)
[2024-07-01 06:20] LABS: Basophils Percent Auto 0.3 % (0.2-1.2); Eosinophils Absolute Auto 0.2 K/mm3 (0-0.3); Eosinophils Percent Auto 1.2 % (0-4.4); Hematocrit 35.3 % (37.0-47.0); Hemoglobin 12.5 g/dL (12.0-15.0); Immature Granulocyte Absolute 0.06 K/mm3 (0.00-0.031); Immature Granulocyte Percent A 0.5 % (0-0.5); Lymphocytes Absolute Auto 4.08 K/mm3 (0.9-3.2); Mean Corpuscular HGB Conc 35.4 g/dl (32-36); Mean Corpuscular Hemoglobin 33.5 pg (26-34); Mean Corpuscular Volume 94.6 fl (80-100); Mean Platelet Volume 9.4 fl (7.4-10.4); Monocytes Absolute Auto 0.9 K/mm3 (0.1-0.6); Monocytes Percent Auto 6.8 % (2.6-8.5); Neutrophils Absolute Auto 7.6 K/mm3 (1.3-6.7); Neutrophils Percent Auto 59.2 % (45.5-73.1); Platelet Count Result 177 k/mm3 (150-375); Red Blood Count 3.73 M/mm3 (4.2-5.4); Red Cell Distribution Width 12.6 % (11.5-14.5); White Blood Count 12.8 K/mm3 (4.5-10.0)
[2024-07-01 08:00] VITALS: BP 132/62; PULSE 90; RESP 16; TEMP 37.4; O2SAT 95
[2024-07-01] MEDS: CARBAMAZEPINE XR 100 MG TAB.SR.12H PO ×2 (09:46→20:35)
[2024-07-01] MEDS: DULoxetine HCL 30 MG CAPSULE.DR PO (09:46)
[2024-07-01] MEDS: FAMOTIDINE 20 MG TABLET PO ×2 (09:46→20:35)
[2024-07-01] MEDS: FLUTICASONE PROPIONATE 0.05% NA SPR 16 GM BTL (*BKC) 1 SPRAY NASAL ×2 (09:47→20:35)
--- NOTE | 2024-07-01 11:35 | PM.IMPN ---
Progress Note: A&P Assessment and Plan (1) Pneumonia: Code(s): J18.9 - Pneumonia, unspecified organism Status: Acute Assessment and Plan: - CXR 07/01: Airspace opacities at the lung bases, consistent with atelectasis versus pneumonia. - WBC still elevated but trending down; 17.8>>16.8>>12.8 - Continued on Cefepime and started on Azithromyicin. - IS provided and encouraged. - Currently good O2 sats > 90 % on RA. - Bronchodilators ordered. (2) Acute UTI: Code(s): N39.0 - Urinary tract infection, site not specified Status: Acute Assessment and Plan: - Possibly not real UTI. - Initial UA 06/27: Cloudy, 1+ protein, 1+ leuks, 6-10 RBC, 11-20 WBC, no epithelial cells, 3+ bacteria, yeast budding present. - UC; Non-uropathogenic Gram positive organism. May represent colonizers from external and internal genitalia. - Repeat UA 06/29 with no bacteria. - Continued on cefepime for now, started 06/27, for possible PNA. - IVF discontinued with improved renal function and good PO intake. (3) Renal artery stenosis: Code(s): I70.1 - Atherosclerosis of renal artery Status: Acute Assessment and Plan: - CT abd/pelvis: 1. Likely hemodynamically significant stenosis at the origin of the left renal artery with asymmetrically delayed left renal parenchymal enhancement. 2. Moderate intra and extra hepatic biliary ductal dilation which could be related to prior cholecystectomy and sphincterotomy. Correlate with liver function tests and if clinically indicated could consider MRCP for further evaluation. 3. Cardiomegaly with right atrial enlargement. 4. Numerous pancreatic parenchymal calcifications along with mild dilation of the main pancreatic duct consistent with sequela chronic pancreatitis without radiographic findings to suggest acute pancreatitis. Could consider correlation with lipase levels if there is concern for acute pancreatitis. - ED provider reached out to vascular at [facility], no intervention indicated at this time given stenosis. Patient is not in renal failure, and blood pressure is not extremely elevated. - trend renal function and CBC. - Seen by [facility] and no interventions recommended for renal artery stenosis. (4) Diet-controlled diabetes mellitus: Code(s): E11.9 - Type 2 diabetes mellitus without complications Status: Acute Assessment and Plan: - A1C 5.8 on 04/30/2024. - Continue to monitor blood-glucose for now with diet restrictions. Plan Diet: Diabetic GI Prophylaxis: Not currently indicated DVT Prophylaxis: SCDs Lines: Peripheral Code Status: Full code Time Spent With Patient Time with patient: 15 - 25 minutes Subjective Date/time seen: 07/01/24 11:35 Patient states she feels alright and wants to go home. Interval history: Patient calm on bedrest and looks to be in no acute distress. Review of Systems Review of Systems: All systems reviewed & are unremarkable except as noted in HPI and below Exam Narrative: General: Generalized muscle weakness, no acute distress. HEENT: Atraumatic, PERRL, EOM, moist mucosa. NECK: Supple. Lungs: Faint crackles to bases. Heart: RRR, no murmurs. Abdomen: Soft, non-tender, non-distended, +ve bowel sounds X4 quadrants. Extremities: No edema. 2+ radial and pedal pulses. Skin: Warm and dry with no lesions. Neuro: Fairly well oriented. No focal neuro deficits noted. Psych: Pleasant and co-operative. Objective Data Vital Signs Vital Signs: Vital Signs - 24 hr 06/30/24 12:00 06/30/24 16:00 06/30/24 20:00 Temperature 99.8 F H 99.7 F H Pulse Rate 87 82 Respiratory Rate 18 18 Blood Pressure 143/71 H 138/59 L Pulse Oximetry 95 95 95 Oxygen Delivery Nasal Cannula Oxygen Flow Rate 1 06/30/24 20:00 07/01/24 00:00 07/01/24 04:00 Temperature 99.8 F H 99.4 F 98 F Pulse Rate 91 84 97 Respiratory Rate 18 18 18 Blood Pressure 136/55 L 143/63 H 136/74 Pulse Oximetry 93 92 95 Oxygen Delivery Oxygen Flow Rate 07/01/24 08:00 Temperature 99.4 F Pulse Rate 90 Respiratory Rate 16 Blood Pressure 132/62 Pulse Oximetry 95 Oxygen Delivery Oxygen Flow Rate Intake/Output Intake/Output: Intake & Output 06/28/24 06/29/24 06/30/24 07/01/24 23:59 23:59 23:59 23:59 Intake Total 2496.7 3530 2320 100 Output Total 613 322 9427 Balance 1896.7 2730 1320 100 Meds/Results Medications: Active Medications Generic Name Dose Route Start Last Admin Trade Name Freq PRN Reason Stop Dose Admin Acetaminophen 650 mg 06/27/24 19:00 06/28/24 19:52 Acetaminophen 325 Mg Tablet PO 650 mg Q4H PRN Administration Mild Pain (1-3) or Fever Hydrocodone Bitart/Acetaminophen 1 tab 06/27/24 19:04 06/29/24 14:56 Hydrocodone/Acetaminophen (*Crx) 5-325 Mg Tablet PO 1 tab Q6H PRN Administration Pain Rated 4-6 Hydrocodone Bitart/Acetaminophen 1 tab 06/27/24 22:49 06/30/24 20:17 Hydrocodone/Acetaminophen (*Crx) 10-325 Mg Tablet PO 1 tab BID PRN Administration Pain (Scale Score 7-10) Albuterol 1 - 2 puff 06/27/24 22:49 Albuterol Sulfate (*Sp) Aerosol 1 Puff INHALATION Q4-6H PRN SOB/WHEEZING Amitriptyline HCl 25 mg 06/27/24 22:55 06/30/24 20:12 Amitriptyline Hcl 25 Mg Tablet PO 25 mg HS WILI Administration Carbamazepine 100 mg 06/27/24 21:00 07/01/24 09:46 Carbamazepine Xr 100 Mg Tab.Sr.12h PO 100 mg Q12H WILI Administration Duloxetine HCl 30 mg 06/28/24 09:00 07/01/24 09:46 Duloxetine Hcl 30 Mg Capsule.Dr PO 30 mg QAM WILI Administration Famotidine 20 mg 06/28/24 09:00 07/01/24 09:46 Famotidine 20 Mg Tablet PO 20 mg Q12HR WILI Administration Fish Oil 1 gm 06/28/24 17:00 06/30/24 18:16 [place] 3 Polyunsat Fatty Acids 1 Gm Cap PO 1 gm DAILY@1700 WILI Administration Fluticasone Propionate 1 spray 06/28/24 09:00 07/01/24 09:47 Fluticasone Propionate 0.05% Na Spr 16 Gm Btl (*Bkc) NASAL 1 spray Q12H WILI Administration Cefepime HCl 1 gm in 50 mls @ 100 mls/hr 06/27/24 21:00 06/30/24 21:31 Maxipime 1 Gm/Ns 50 Ml IVPB Infused Q24H WILI Infusion Morphine Sulfate 30 mg 06/27/24 22:55 07/01/24 06:13 Morphine Sulfate (*Crx) 30 Mg Tabcr PO 30 mg 0700,1900 WILI Administration Ondansetron HCl 4 mg 06/28/24 11:20 06/29/24 08:36 Ondansetron Inj 4 Mg/2 Ml Vial IV PUSH 4 mg Q6H PRN Administration Nausea And Vomiting Radiology Results: ITS Impressions Abdomen/Pelvis CT 06/27/24 16:52 IMPRESSION: 1. Likely hemodynamically significant stenosis at the origin of the left renal artery with asymmetrically delayed left renal parenchymal enhancement. 2. Moderate intra and extra hepatic biliary ductal dilation which could be related to prior cholecystectomy and sphincterotomy. Correlate with liver function tests and if clinically indicated could consider MRCP for further evaluation. 3. Cardiomegaly with right atrial enlargement. 4. Numerous pancreatic parenchymal calcifications along with mild dilation of the main pancreatic duct consistent with sequela chronic pancreatitis without radiographic findings to suggest acute pancreatitis. Could consider correlation with lipase levels if there is concern for acute pancreatitis. Chest X-Ray 07/01/24 10:06 IMPRESSION: 1. Mild pulmonary edema. 2. Small pleural effusions. 3. Airspace opacities at the lung bases, consistent with atelectasis versus pneumonia. Labs Labs: Laboratory Results - last 24 hr 06/30/24 07/01/24 16:25 06:11 WBC 14.3 H 12.8 H RBC 3.50 L 3.73 L Hgb 11.8 L 12.5 Hct 33.4 L 35.3 L MCV 95.4 94.6 MCH 33.7 33.5 MCHC 35.3 35.4 RDW 12.7 12.6 Plt Count 164 177 MPV 9.5 9.4 Immature Gran % (Auto) 0.6 H 0.5 Neut % (Auto) 62.3 59.2 Lymph % (Auto) 29.0 32.0 [place] % (Auto) 7.1 6.8 Eos % (Auto) 0.7 1.2 Baso % (Auto) 0.3 0.3 Lymph # (Auto) 4.15 H 4.08 H [place] # (Auto) 1.0 H 0.9 H Eos # (Auto) 0.1 0.2 Baso # (Auto) 0.0 0.0 Abs Immat Gran (auto) 0.08 H 0.06 H Absolute Neuts (auto) 8.9 H 7.6 H Absolute Nucleated RBC 0.000 0.000 Nucleated RBC % 0.0 0.0 Sodium 130 L Potassium 4.1 Chloride 103 Carbon Dioxide 25 Anion Gap 2 L BUN 19 H Creatinine 0.80 Estim Creat Clear Calc 36 Estimated GFR > 60 Glucose 102 Calcium 9.0 Total Bilirubin 0.6 AST 27 ALT 23 Alkaline Phosphatase 44 Total Protein 5.0 L Albumin 3.0 L Quality VTE Prophylaxis VTE prophylaxis: mechanical ordered Hospitalist MIPS Advance Care Plan I have confirmed that the patient's Advanced Care Plan is present, code status is documented, or surrogate decision maker is listed in patient medical record.: Yes Medication Reconciliation I have utilized all available resources to obtain, update and review the patients current medications (includes all prescriptions, OTC, herbals, cannabis, and nutritional supplements).: Yes
[2024-07-01 12:00] VITALS: BP 138/64; PULSE 91; RESP 18; TEMP 37.5; O2SAT 93
[2024-07-01] MEDS: NICOTINE (*PBKC) 14 MG PATCH 1 PATCH TRANSDERM (14:54)
[2024-07-01] MEDS: AZITHROMYCIN 500 MG/NS 250 ML 500 MG/250 ML BAG 250 MG IVPB (14:56)
[2024-07-01 16:00] VITALS: BP 138/64; PULSE 88; RESP 18; TEMP 36.9; O2SAT 93
[2024-07-01] MEDS: OMEGA 3 POLYUNSAT FATTY ACIDS 1 GM CAP PO (16:59)
[2024-07-01] MEDS: CEFEPIME 1 GM/NS 50 ML 1 GM/50 ML BAG IVPB (20:34)
[2024-07-01] MEDS: AMITRIPTYLINE HCL 25 MG TABLET PO (20:35)
[2024-07-01 21:00] VITALS: BP 132/73; PULSE 86; RESP 16; TEMP 36.9; O2SAT 97
[2024-07-02 04:50] VITALS: BP 141/72; PULSE 78; RESP 18; TEMP 36.5; O2SAT 92
--- NOTE | 2024-07-02 05:28 | PC.NURSE ---
Pt stated that her back pain was a 10/10. I attempted to give pt a [place] 10 (ordered for 7-10 breakthrough pain). Pt refused to take the pill. Pt stated that she wanted her nurse. I said that I was her nurse and that we had been together for the last 3 nights. Pt sneered at me as she looked me up and down and stated, you're not the nurse you're a bitch! I asked pt not please not call me names as I am trying to help her. Pt held on to the [place] 10 in the cup but refused to take the pill. She continued to rant and curse. Pt demanded that I call her son as she wants to speak to him all the while saying that this is the worst place ever. all of you are the worst ever! I attempted to call using the house phone (as pt doesn't have a cell phone) standing bedside pt's son but his number went straight to voicemail. I explained this to pt as I hung up the phone to which pt replied, You're a liar! I attempted to assess pt's orientation to which she snidely laughed and refused to answer any questions. There was another nurse and an aide in the room while all of this was occurring. Still refusing to take the pill, I removed the cup with the pill from pt explaining that I cannot leave her to just hold the pill. She did not resist me removing the cup. I made sure the bed alarm was on and tended to the other patient in the room.
[2024-07-02 07:09] LABS: Basophils Absolute Auto 0.1 K/mm3 (0.0-0.1); Basophils Percent Auto 0.4 % (0.2-1.2); Eosinophils Absolute Auto 0.2 K/mm3 (0-0.3); Eosinophils Percent Auto 1.8 % (0-4.4); Hemoglobin 12.3 g/dL (12.0-15.0); Immature Granulocyte Absolute 0.05 K/mm3 (0.00-0.031); Immature Granulocyte Percent A 0.4 % (0-0.5); Lymphocytes Absolute Auto 3.84 K/mm3 (0.9-3.2); Lymphocytes Percent Auto 32.8 % (18.3-44.2); Mean Corpuscular HGB Conc 34.2 g/dl (32-36); Mean Corpuscular Hemoglobin 32.9 pg (26-34); Mean Corpuscular Volume 96.3 fl (80-100); Mean Platelet Volume 9.5 fl (7.4-10.4); Monocytes Absolute Auto 0.9 K/mm3 (0.1-0.6); Monocytes Percent Auto 7.3 % (2.6-8.5); Neutrophils Absolute Auto 6.7 K/mm3 (1.3-6.7); Neutrophils Percent Auto 57.3 % (45.5-73.1); Platelet Count Result 210 k/mm3 (150-375); Red Blood Count 3.74 M/mm3 (4.2-5.4); Red Cell Distribution Width 12.5 % (11.5-14.5); White Blood Count 11.7 K/mm3 (4.5-10.0)
[2024-07-02 08:00] VITALS: PULSE 78; RESP 18; O2SAT 92
[2024-07-02] MEDS: FAMOTIDINE 20 MG TABLET PO ×2 (08:31→21:28)
[2024-07-02] MEDS: NICOTINE (*PBKC) 14 MG PATCH 1 PATCH TRANSDERM (08:31)
[2024-07-02] MEDS: FLUTICASONE PROPIONATE 0.05% NA SPR 16 GM BTL (*BKC) 1 SPRAY NASAL ×2 (08:31→21:28)
[2024-07-02] MEDS: DULoxetine HCL 30 MG CAPSULE.DR PO (08:31)
[2024-07-02] MEDS: MORPHINE SULFATE (*CRX) 30 MG TABCR PO ×2 (08:31→16:55)
[2024-07-02] MEDS: CARBAMAZEPINE XR 100 MG TAB.SR.12H PO ×2 (08:31→21:28)
[2024-07-02] MEDS: AZITHROMYCIN 500 MG/NS 250 ML 500 MG/250 ML BAG 250 MG IVPB (12:05)
--- NOTE | 2024-07-02 13:03 | PM.IMPN ---
Progress Note: A&P Assessment and Plan (1) Pneumonia: Code(s): J18.9 - Pneumonia, unspecified organism Status: Acute Assessment and Plan: - CXR 07/01: Airspace opacities at the lung bases, consistent with atelectasis versus pneumonia. - WBC still elevated but trending down; 17.8>>16.8>>12.8>>11.7 - Started on Augmentin and we'll continue Azithromyicin. - IS provided and encouraged. - Currently good O2 sats > 90 % on RA. - Continue bronchodilators. (2) Acute UTI: Code(s): N39.0 - Urinary tract infection, site not specified Status: Acute Assessment and Plan: - Possibly not real UTI. - Initial UA 06/27: Cloudy, 1+ protein, 1+ leuks, 6-10 RBC, 11-20 WBC, no epithelial cells, 3+ bacteria, yeast budding present. - UC; Non-uropathogenic Gram positive organism. May represent colonizers from external and internal genitalia. - Repeat UA 06/29 with no bacteria. - Treated with Cefepime for 6 days. 06/27-07/02. (3) Renal artery stenosis: Code(s): I70.1 - Atherosclerosis of renal artery Status: Acute Assessment and Plan: - CT abd/pelvis: 1. Likely hemodynamically significant stenosis at the origin of the left renal artery with asymmetrically delayed left renal parenchymal enhancement. 2. Moderate intra and extra hepatic biliary ductal dilation which could be related to prior cholecystectomy and sphincterotomy. Correlate with liver function tests and if clinically indicated could consider MRCP for further evaluation. 3. Cardiomegaly with right atrial enlargement. 4. Numerous pancreatic parenchymal calcifications along with mild dilation of the main pancreatic duct consistent with sequela chronic pancreatitis without radiographic findings to suggest acute pancreatitis. Could consider correlation with lipase levels if there is concern for acute pancreatitis. - ED provider reached out to vascular [facility], no intervention indicated at this time given stenosis. Patient is not in renal failure, and blood pressure is not extremely elevated. - trend renal function and CBC. - Seen by [facility] [employer] and no interventions recommended for renal artery stenosis. (4) Diet-controlled diabetes mellitus: Code(s): E11.9 - Type 2 diabetes mellitus without complications Status: Acute Assessment and Plan: - A1C 5.8 on 04/30/2024. - Continue to monitor blood-glucose for now with diet restrictions. Plan Diet: Diabetic GI Prophylaxis: Not currently indicated DVT Prophylaxis: SCDs Lines: Peripheral Code Status: Full code Time Spent With Patient Time with patient: 15 - 25 minutes Subjective Date/time seen: 07/02/24 13:03 Patient states she feels alright and has to go home tomorrow. States she ambulated with PT earlier and did well. Interval history: Patient seated on chair and looks to be in no acute distress. Review of Systems Review of Systems: All systems reviewed & are unremarkable except as noted in HPI and below Exam Narrative: General: Generalized muscle weakness, no acute distress. HEENT: Atraumatic, PERRL, EOM, moist mucosa. NECK: Supple. Lungs: Faint crackles to bases. Heart: RRR, no murmurs. Abdomen: Soft, non-tender, non-distended, +ve bowel sounds X4 quadrants. Extremities: No edema. 2+ radial and pedal pulses. Skin: Warm and dry with no lesions. Neuro: Fairly well oriented. No focal neuro deficits noted. Psych: Pleasant and co-operative. Objective Data Vital Signs Vital Signs: Vital Signs - 24 hr 07/01/24 16:00 07/01/24 21:00 07/01/24 20:00 Temperature 98.5 F 98.4 F Pulse Rate 88 86 Respiratory Rate 18 16 Blood Pressure 138/64 132/73 Pulse Oximetry 93 97 Oxygen Delivery Room Air Fraction of Inspired Oxygen 07/02/24 04:50 07/02/24 08:00 Temperature 97.7 F Pulse Rate 78 78 Respiratory Rate 18 18 Blood Pressure 141/72 H Pulse Oximetry 92 92 Oxygen Delivery Room Air Fraction of Inspired Oxygen 24 Intake/Output Intake/Output: Intake & Output 06/29/24 06/30/24 07/01/24 07/02/24 23:59 23:59 23:59 23:59 Intake Total 3530 2320 590 478 Output Total 800 1000 1000 Balance 2730 1320 590 -522 Meds/Results Medications: Active Medications Generic Name Dose Route Start Last Admin Trade Name Freq PRN Reason Stop Dose Admin Acetaminophen 650 mg 06/27/24 19:00 06/28/24 19:52 Acetaminophen 325 Mg Tablet PO 650 mg Q4H PRN Administration Mild Pain (1-3) or Fever Hydrocodone Bitart/Acetaminophen 1 tab 06/27/24 19:04 06/29/24 14:56 Hydrocodone/Acetaminophen (*Crx) 5-325 Mg Tablet PO 1 tab Q6H PRN Administration Pain Rated 4-6 Hydrocodone Bitart/Acetaminophen 1 tab 06/27/24 22:49 06/30/24 20:17 Hydrocodone/Acetaminophen (*Crx) 10-325 Mg Tablet PO 1 tab BID PRN Administration Pain (Scale Score 7-10) Albuterol 1 - 2 puff 06/27/24 22:49 Albuterol Sulfate (*Sp) Aerosol 1 Puff INHALATION Q4-6H PRN SOB/WHEEZING Amitriptyline HCl 25 mg 06/27/24 22:55 07/01/24 20:35 Amitriptyline Hcl 25 Mg Tablet PO 25 mg HS WILI Administration Amoxicillin/Clavulanate Potassium 1 tablet 07/03/24 09:00 Amoxicillin/Clavulanate K 875-125 Mg Tab PO 07/03/24 21:01 Q12HR WILI Azithromycin 500 mg 07/03/24 09:00 Azithromycin 250 Mg Tablet PO 07/05/24 09:01 DAILY WILI Carbamazepine 100 mg 06/27/24 21:00 07/02/24 08:31 Carbamazepine Xr 100 Mg Tab.Sr.12h PO 100 mg Q12H WILI Administration Duloxetine HCl 30 mg 06/28/24 09:00 07/02/24 08:31 Duloxetine Hcl 30 Mg Capsule.Dr PO 30 mg QAM WILI Administration Famotidine 20 mg 06/28/24 09:00 07/02/24 08:31 Famotidine 20 Mg Tablet PO 20 mg Q12HR WILI Administration Fish Oil 1 gm 06/28/24 17:00 07/01/24 16:59 [place] 3 Polyunsat Fatty Acids 1 Gm Cap PO 1 gm DAILY@1700 WILI Administration Fluticasone Propionate 1 spray 06/28/24 09:00 07/02/24 08:31 Fluticasone Propionate 0.05% Na Spr 16 Gm Btl (*Bkc) NASAL 1 spray Q12H WILI Administration Cefepime HCl 1 gm in 50 mls @ 100 mls/hr 06/27/24 21:00 07/01/24 20:34 Maxipime 1 Gm/Ns 50 Ml IVPB 07/02/24 23:59 100 mls/hr Q24H WILI Administration Morphine Sulfate 30 mg 06/27/24 22:55 07/02/24 08:31 Morphine Sulfate (*Crx) 30 Mg Tabcr PO 30 mg 0700,1900 WILI Administration Nicotine 1 patch 07/01/24 11:45 07/02/24 08:31 Nicotine (*Pbkc) 14 Mg Patch TRANSDERM 1 patch DAILY WILI Administration Ondansetron HCl 4 mg 06/28/24 11:20 06/29/24 08:36 Ondansetron Inj 4 Mg/2 Ml Vial IV PUSH 4 mg Q6H PRN Administration Nausea And Vomiting Radiology Results: ITS Impressions Abdomen/Pelvis CT 06/27/24 16:52 IMPRESSION: 1. Likely hemodynamically significant stenosis at the origin of the left renal artery with asymmetrically delayed left renal parenchymal enhancement. 2. Moderate intra and extra hepatic biliary ductal dilation which could be related to prior cholecystectomy and sphincterotomy. Correlate with liver function tests and if clinically indicated could consider MRCP for further evaluation. 3. Cardiomegaly with right atrial enlargement. 4. Numerous pancreatic parenchymal calcifications along with mild dilation of the main pancreatic duct consistent with sequela chronic pancreatitis without radiographic findings to suggest acute pancreatitis. Could consider correlation with lipase levels if there is concern for acute pancreatitis. Chest X-Ray 07/01/24 10:06 IMPRESSION: 1. Mild pulmonary edema. 2. Small pleural effusions. 3. Airspace opacities at the lung bases, consistent with atelectasis versus pneumonia. Labs Labs: Laboratory Results - last 24 hr 07/02/24 06:44 WBC 11.7 H RBC 3.74 L Hgb 12.3 Hct 36.0 L MCV 96.3 MCH 32.9 MCHC 34.2 RDW 12.5 Plt Count 210 MPV 9.5 Immature Gran % (Auto) 0.4 Neut % (Auto) 57.3 Lymph % (Auto) 32.8 [place] % (Auto) 7.3 Eos % (Auto) 1.8 Baso % (Auto) 0.4 Lymph # (Auto) 3.84 H [place] # (Auto) 0.9 H Eos # (Auto) 0.2 Baso # (Auto) 0.1 Abs Immat Gran (auto) 0.05 H Absolute Neuts (auto) 6.7 Absolute Nucleated RBC 0.000 Nucleated RBC % 0.0 Quality VTE Prophylaxis VTE prophylaxis: mechanical ordered Hospitalist [facility] Advance Care Plan I have confirmed that the patient's Advanced Care Plan is present, code status is documented, or surrogate decision maker is listed in patient medical record.: Yes Medication Reconciliation I have utilized all available resources to obtain, update and review the patients current medications (includes all prescriptions, OTC, herbals, cannabis, and nutritional supplements).: Yes
[2024-07-02 13:56] VITALS: BP 120/55; PULSE 66; RESP 18; TEMP 36.7; O2SAT 94
[2024-07-02] MEDS: OMEGA 3 POLYUNSAT FATTY ACIDS 1 GM CAP PO (16:55)
[2024-07-02 20:00] VITALS: O2SAT 94
[2024-07-02] MEDS: AMITRIPTYLINE HCL 25 MG TABLET PO (21:28)
[2024-07-03 05:57] VITALS: PULSE 86; RESP 20; TEMP 37.3; O2SAT 100
[2024-07-03 06:21] LABS: Basophils Percent Auto 0.2 % (0.2-1.2); Eosinophils Absolute Auto 0.3 K/mm3 (0-0.3); Eosinophils Percent Auto 2.5 % (0-4.4); Hematocrit 36.8 % (37.0-47.0); Hemoglobin 12.8 g/dL (12.0-15.0); Immature Granulocyte Absolute 0.06 K/mm3 (0.00-0.031); Immature Granulocyte Percent A 0.5 % (0-0.5); Lymphocytes Absolute Auto 3.85 K/mm3 (0.9-3.2); Lymphocytes Percent Auto 31.7 % (18.3-44.2); Mean Corpuscular HGB Conc 34.8 g/dl (32-36); Mean Corpuscular Hemoglobin 32.9 pg (26-34); Mean Corpuscular Volume 94.6 fl (80-100); Mean Platelet Volume 9.2 fl (7.4-10.4); Monocytes Absolute Auto 0.9 K/mm3 (0.1-0.6); Monocytes Percent Auto 7.6 % (2.6-8.5); Neutrophils Percent Auto 57.5 % (45.5-73.1); Platelet Count Result 240 k/mm3 (150-375); Red Blood Count 3.89 M/mm3 (4.2-5.4); Red Cell Distribution Width 12.8 % (11.5-14.5); White Blood Count 12.2 K/mm3 (4.5-10.0)
[2024-07-03] MEDS: NICOTINE (*PBKC) 14 MG PATCH 1 PATCH TRANSDERM (08:20)
[2024-07-03] MEDS: AZITHROMYCIN 250 MG TABLET 500 MG PO (08:21)
[2024-07-03] MEDS: FAMOTIDINE 20 MG TABLET PO (08:22)
[2024-07-03] MEDS: FLUTICASONE PROPIONATE 0.05% NA SPR 16 GM BTL (*BKC) 1 SPRAY NASAL (08:22)
[2024-07-03] MEDS: DULoxetine HCL 30 MG CAPSULE.DR PO (08:22)
[2024-07-03] MEDS: CARBAMAZEPINE XR 100 MG TAB.SR.12H PO (08:22)
[2024-07-03] MEDS: AMOXICILLIN/CLAVULANATE K 875-125 MG TAB 1 TABLET PO (08:22)
[2024-07-03] MEDS: MORPHINE SULFATE (*CRX) 30 MG TABCR PO (08:26)
--- NOTE | 2024-07-03 08:57 | PCPTNOTE ---
Attempted to see patient for PT, however patient was eating breakfast at this time.
--- NOTE | 2024-07-03 12:42 | P.DS_ITS ---
DS: Admitting Diagnosis Discharge Date 07/03/2024 Admitting Diagnosis UTI DS: Discharge Diagnosis Discharge Diagnosis (1) Pneumonia: Code(s): J18.9 - Pneumonia, unspecified organism Status: Acute Assessment and Plan: - CXR 07/01: Airspace opacities at the lung bases, consistent with atelectasis versus pneumonia. - CXR 07/03: Unchanged small bilateral pleural effusions with associated basilar atelectasis versus pneumonia. - WBC stable and mildly elevated elevated, slightly trended up; 12.8>>11.7>>12.2 - Will be discharged on Augmentin and Azithromycin to complete abx treatment. - IS provided and encouraged with use. - Maintains good O2 sats > 90 % on RA. - Continue bronchodilators. (2) Acute UTI: Code(s): N39.0 - Urinary tract infection, site not specified Status: Acute Assessment and Plan: - Possibly not real UTI. - Initial UA 06/27: Cloudy, 1+ protein, 1+ leuks, 6-10 RBC, 11-20 WBC, no epithelial cells, 3+ bacteria, yeast budding present. - UC; Non-uropathogenic Gram positive organism. May represent colonizers from external and internal genitalia. - Repeat UA 06/29 with no bacteria. - Treated with Cefepime for 6 days. 06/27-07/02. (3) Renal artery stenosis: Code(s): I70.1 - Atherosclerosis of renal artery Status: Acute Assessment and Plan: - CT abd/pelvis: 1. Likely hemodynamically significant stenosis at the origin of the left renal artery with asymmetrically delayed left renal parenchymal enhancement. 2. Moderate intra and extra hepatic biliary ductal dilation which could be related to prior cholecystectomy and sphincterotomy. Correlate with liver function tests and if clinically indicated could consider MRCP for further evaluation. 3. Cardiomegaly with right atrial enlargement. 4. Numerous pancreatic parenchymal calcifications along with mild dilation of the main pancreatic duct consistent with sequela chronic pancreatitis without radiographic findings to suggest acute pancreatitis. Could consider correlation with lipase levels if there is concern for acute pancreatitis. - ED provider reached out to vascular at [facility], no intervention indicated at this time given stenosis. Patient is not in renal failure, and blood pressure is not extremely elevated. - trend renal function and CBC. - Seen by Sales Service Supervisor and no interventions recommended for renal artery stenosis. (4) Diet-controlled diabetes mellitus: Code(s): E11.9 - Type 2 diabetes mellitus without complications Status: Acute Assessment and Plan: - A1C 5.8 on 04/30/2024. - Continue to monitor blood-glucose with diet management. Plan Discharge Home. DS: Summary Hospital Course Reason for hospitalization: Lower abdominal Pain. Hospital Course: Patient presented here from home for further evaluation of lower abdominal pain. She reported insidious onset of abdominal pain approximately 2 days ago. She described the pain as severe, radiating into her hip and back, constant, no aggravating or alleviating factors. Trialed her home pain medications without relief. The abdominal pain was accompanied by cloudy urine and urinary frequency. Her UA was consistent with possible UTI, but the patient had negative urine and blood cultures, including with repeat urine cultures. Patient also had an abdominal CT done on admission that was significant for left renal artery stenosis.ED provider reached out to vascular at [facility], no intervention indicated at this time given stenosis. She was also seen by the lapping machine set up operator and no interventions were recommended, with pt's normal BP and no renal dysfunction. Patient has been treated by IV abx for possible PNA and will be discharged on oral antibiotics to complete treatment. She has also worked with PT and has been encouraged with incentive spirometer use, to assist with possible bibasilar atelectasis vs PNA. Her blood glucose levels were well controlled by diet. Patient states she feels well and has to be discharged today, and will f/u with PCP for new symptoms. No acute distress was noted and patient was medically stable for discharge to f/u with PCP for repeat labs. Time spent discussing smoking cessation with patient: 3 to 10 minutes Status at Discharge Functional status at discharge: independent ambulation Overall status at discharge: patient is progressing back to baseline Time Spent with Patient Time attestation: Total time spent providing and/or coordinating discharge services: Time spent: Greater than 30 minutes Exam Narrative: General: Generalized muscle weakness, no acute distress. HEENT: Atraumatic, PERRL, EOM, moist mucosa. NECK: Supple. Lungs: Faint crackles to bases. Heart: RRR, no murmurs. Abdomen: Soft, non-tender, non-distended, +ve bowel sounds X4 quadrants. Extremities: No edema. 2+ radial and pedal pulses. Skin: Warm and dry with no lesions. Neuro: Fairly well oriented. No focal neuro deficits noted. Psych: Pleasant and co-operative. DS: Data Data Completed and Pending Labs on day of discharge: Labs from last 24 hours 07/03/24 06:05 WBC 12.2 H RBC 3.89 L Hgb 12.8 Hct 36.8 L MCV 94.6 MCH 32.9 MCHC 34.8 RDW 12.8 Plt Count 240 MPV 9.2 Immature Gran % (Auto) 0.5 Neut % (Auto) 57.5 Lymph % (Auto) 31.7 [place] % (Auto) 7.6 Eos % (Auto) 2.5 Baso % (Auto) 0.2 Lymph # (Auto) 3.85 H [place] # (Auto) 0.9 H Eos # (Auto) 0.3 Baso # (Auto) 0.0 Abs Immat Gran (auto) 0.06 H Absolute Neuts (auto) 7.0 H Absolute Nucleated RBC 0.000 Nucleated RBC % 0.0 Discharge Plan Discharge Attending physician on discharge: Gustavo Prince Consulting providers: Jamison Lang Discharging Clinician: Tony Mart Anticipated Discharge Date/Time: 07/03/24 13:15 Patient Disposition: Home, Self-Care Activity: as tolerated Diet: heart healthy and diabetic Patient Instructions: How to Stop Smoking (DC), Antibiotic Form Stand Alone Forms: General Discharge Information Follow-up/Referrals: Baldomero Denis DO [Primary Care Provider] - 1 Week Discharge Medications: New amoxicillin-pot clavulanate [Augmentin] 500-125 mg tablet 1 tablet PO Q12H Qty: 4 0RF azithromycin [Zithromax] 250 mg Tablet 500 mg PO DAILY Qty: 2 0RF Continued hydrocodone-acetaminophen 10-325 mg tablet 1 tablet PO BID PRN (Reason: Pain (Scale Score 7-10)) Rx Instructions: for breakthrough pain omega 8-nyx-ekb-fish oil 60-90-500 mg capsule 1 cap PO QPM Rx Instructions: only takes when she eats dinner albuterol sulfate [Ventolin HFA] 90 mcg/actuation HFA aerosol inhaler 1 - 2 puff INHALATION Q4-6H PRN (Reason: shortness of breath or wheezing) Qty: 8.5 3RF duloxetine [Cymbalta] 30 mg capsule,delayed release(DR/EC) 30 mg PO QAM Qty: 90 1RF famotidine 20 mg tablet 20 mg PO Q12HR Qty: 180 1RF fluticasone propionate [Flonase Allergy Relief] 50 mcg/actuation spray,suspension 1 spray intranasal Q12H Qty: 16 0RF Rx Instructions: administer into each nostril morphine 30 mg tablet extended release 30 mg PO Q12H Patient Comments: Prescribed by pain management. please schedule for 7a-7p carbamazepine 100 mg tablet extended release 12 hr 100 mg PO Q12H Qty: 60 3RF amitriptyline 25 mg tablet 25 mg PO .QHS Qty: 90 1RF Date of admission: 06/29/24 13:11 Primary Care Provider: Baldomero Denis Admitting Provider: Marcel Butts Attending physician on admission: Marcel Butts Condition: Stable Quality If No VTE Prophylaxis Answer both mechanical and pharmacologic: Reason no mechanical VTE proph: low risk/not indicated Reason no pharmacologic proph: low risk/not indicated Hospitalist MIPS Heart Failure (Exclusion) Patient has history of Heart Transplant or Left Ventricular Assistive Device?: No IF YES, STOP HERE Heart Failure (Qualifier) Patient has current or prior documentation of LVEF less than or equal to 40%, or mod/servere depressed LVSF?: No IF NO, STOP HERE
[2024-07-03 14:00] VITALS: BP 131/63; PULSE 68; RESP 18; TEMP 36.6; O2SAT 94
[2024-07-06 10:34] LABS: Estimated CRCL calculation 23 ml/min; Estimated Glomerular Filt Rate 39
== END 2024-07-03 17:15 | disposition home or self-care (01) | DRG 195 ==
LOC: ANHED 19:02 → ANH3MEDSUR 21:02
PROVIDERS: Emergency Medicine; Student in an Organized Health Care Education/Training Program; Admitting Provider Internal Medicine; Emergency Provider Physician Assistant; PCP Internal Medicine; Visit Provider Nurse Practitioner Adult Health
DX: J18.9 Pneumonia, unspecified organism (principal); I70.1 Atherosclerosis of renal artery; E86.0 Dehydration; J44.9 Chronic obstructive pulmonary disease, unspecified; K21.9 Gastro-esophageal reflux disease without esophagitis; G89.4 Chronic pain syndrome; E11.9 Type 2 diabetes mellitus without complications; M81.0 Age-related osteoporosis without current pathological fracture; M06.9 Rheumatoid arthritis, unspecified; G50.0 Trigeminal neuralgia; F32.A Depression, unspecified; F17.210 Nicotine dependence, cigarettes, uncomplicated; Z85.828 Personal history of other malignant neoplasm of skin; Z85.3 Personal history of malignant neoplasm of breast; Z85.820 Personal history of malignant melanoma of skin; Z90.49 Acquired absence of other specified parts of digestive tract; Z90.710 Acquired absence of both cervix and uterus; Z85.6 Personal history of leukemia
CPT/HCPCS: 36415; 71045; 74177; 80048; 80053; 81001; 82565; 83690; 85025; 87040; 87086; 87088; 96361; 96376; 97161; 97530; 99285; A9270; G0378; J0456; J0692; J0696; J2270; J2405; J7030; Q9967

== ENCOUNTER 2024-07-04 16:17 | Observation (INO) | payer MEDICARE, MEDICAID, SELFPAY ==
--- NOTE | ~2024-07-04 | CT_ITS ---
CT cervical spine wo con Ordering provider: Earlene Marquez History: . fall, possible HI . Comparison: None. Technique: CT of the cervical spine was performed without contrast. Sagittal and coronal reformatted images were also obtained and reviewed. Automated exposure control and iterative reconstruction waldo hnique were employed. The dose-length product was 133.55 mGy-cm. FINDINGS: VERTEBRAE: Minimal anterolisthesis at the level of C4-C5 C7-T1. No subluxation or acute fracture. The occipital condyles are intact. DISC SPACES: Severe Narrowing of the disc C5-C6 and C6-C7. Narrowing of the disc C7-T1. Multilevel fa cet joint disease. Multilevel uncovertebral joint osteoarthritic changes narrowing of the left forami na at the level of C3-C4 and C4-C5. Bilateral narrowing of the level of C5-C6. Right narrowing at the level of C6-C7 PARASPINOUS SOFT TISSUES: Normal. Calcification the left thyroid gland. Emphysematous changes of the lungs. Pleural calcification in the left apical area. IMPRESSION: No acute osseous abnormality cervical spine. Multilevel degenerative disc disease. Reviewed, dictated and finalized at location A. DAMAGE PREVENTION TECHNICIAN
--- NOTE | ~2024-07-04 | XR_ITS ---
XR hip BI 2V w AP pelvis Ordering provider: Earlene Marquez History: . fall, pain . Comparison: March 28, 2023 FINDINGS: BONES: Lucency in the right intertrochanteric area. This may be artifactual but CT evaluation to excl ude a fracture is advised. HIP JOINT SPACES: Left hip arthroplasty. Right hip severe osteoarthritic changes. SACROILIAC JOINT SPACES/LUMBAR SPINE: The sacroiliac joint spaces are normal. Mild degenerative atwood es of the visualized lower lumbar spine. Dextroscoliosis. Bilateral sacroiliitis. PUBIC SYMPHYSIS: Normal. SOFT TISSUES: Vascular calcifications. IMPRESSION: Lucency in the right intertrochanteric area further evaluation with the CT is advised. Severe degenerative changes of the spine with dextroscoliosis. Bilateral sacroiliitis. Reviewed, dictated and finalized at location A. L ARCHITECT SPECIALIST IMPRESSION: Lucency in the right intertrochanteric area further evaluation with the CT is a dvised. Severe degenerative changes of the spine with dextroscoliosis. Bilateral sacroiliitis.
--- NOTE | ~2024-07-04 | XR_ITS ---
XR knee RT 3V Ordering provider: Ana María Way History: . swollen, post fall . Comparison: None. FINDINGS: BONES: No acute fracture or dislocation. JOINT SPACES: Narrowing of the medial compartment. Marginal osteophytes are seen in the knee and zavala lla. SOFT TISSUES: Vascular calcifications. IMPRESSION: No acute osseous abnormality right knee. Severe osteoarthritic changes. Reviewed, dictated and finalized at location A. TIME GUARD
--- NOTE | ~2024-07-04 | CT_ITS ---
CT abdomen pelvis wo con Ordering provider: Bob Kaiser MD History: 84 years Female with . Hydronephrosis, further imaging recommended by Rad . Comparison: None Technique: CT abdomen and pelvis without IV and without oral contrast. Automated exposure control and iterative reconstruction technique were employed. The dose-length product was 277.97 mGy-cm. Findings: VISUALIZED LOWER CHEST: Bilateral atelectasis versus pneumonia with pleural effusion. Emphysematous c hanges of the lungs. UPPER ABDOMINAL ORGANS: Liver: Normal. Gallbladder: Not well demonstrated. Spleen: Normal. Stomach/duodenum: Normal. Pancreas: Pancreatic calcifications. Adrenals: Slightly prominent left adrenal. Kidneys: Right kidney is smaller than the left. Multiple hyperdense areas are seen in the left kidney. Possibility of nephrocalcinosis or masses shou ld be considered. Stones are less likely. Hydronephrotic changes seen in the left kidney. No definite ureteric stones seen. PELVIC ORGANS: The bladder is normal. BOWEL AND MESENTERY: Colon: Residual contrast is seen in the colon . Fecal material is seen in the rectum with thickened w all which may indicate proctitis. Appendix is not demonstrated. Small Bowel: Normal. No obstruction. Peritoneum/mesentery: No free air or free fluid. No mesenteric lymphadenopathy. RETROPERITONEUM: Mild atheromatous disease of the abdominal aorta. No retroperitoneal lymphadenopat hy. MUSCULOSKELETAL: Superficial soft tissues: The superficial soft tissues are normal. Bones: Age appropriate degenerative changes of the spine. Left hip arthroplasty. Dextroscoliosis. IMPRESSION: 1. Left kidney hydronephrotic changes with no definite stones. Right kidney is smaller than the left . 2. Constipation with impacted fecal material in the rectum. Proctitis is highly suggestive 3. Multiple hypodense areas in the left kidney differential include nephrocalcinosis. Masses cannot be excluded. Follow-up advised. 4. Bilateral atelectatic changes versus pneumonia with pleural effusion. 5. Prominent left adrenal gland. Reviewed, dictated and finalized at location A. T TECHNICIAN IMPRESSION: 1. Left kidney hydronephrotic changes with no definite stones. Right kidney is smaller than the left. 2. Constipation with impacted fecal material in the rectum. Proctitis is highl y suggestive 3. Multiple hypodense areas in the left kidney differential include nephrocalc inosis. Masses cannot be excluded. Follow-up advised. 4. Bilateral atelectatic changes versus pneumonia with pleural effusion. 5. Prominent left adrenal gland.
--- NOTE | ~2024-07-04 | CT_ITS ---
CT brain wo con Ordering provider: Earlene Marquez History: 84 years Female with . fall, possible HI . Comparison: November 05, 2022 Technique: CT of the head without contrast. FINDINGS: BRAIN PARENCHYMA AND CSF SPACES: Moderate leukoaraiosis and diffuse cortical atrophy. Moderate athero matous disease. No midline shift, mass effect or hemorrhage. The brain parenchyma and CSF spaces are otherwise normal. VISUALIZED PARANASAL SINUSES: Well aerated. MASTOIDS: Bilateral sclerotic. BONES: The bones appear intact. SOFT TISSUES: Visualized nasopharynx is normal. Superficial soft tissues are normal. IMPRESSION: No acute intracranial findings. Reviewed, dictated and finalized at location A. SHOP TECHNICIAN
--- NOTE | ~2024-07-04 | CT_ITS ---
EXAMINATION: CT hip RT wo con DATE: 07/04/2024 20:38 INDICATION: Right hip pain. Fracture. TECHNIQUE: Computed tomography (CT) of the right hip was performed without intravenous contrast. Auto mated exposure control and iterative reconstruction technique were employed. The dose-length product was 194.08 mGy-cm. COMPARISON: Pelvis and hip radiographs 07/04/2024 FINDINGS: Stool distends the rectum. There are calcifications in the pancreas, consistent with chroni c pancreatitis. There is lumbar dextroscoliosis and severe spondylosis. No fracture. There is severe right hip osteoarthritis. Osteitis pubis is noted. IMPRESSION: 1. No fracture. 2. Severe right hip osteoarthritis. Reviewed, dictated and finalized at location A. D DESIGNER
--- NOTE | ~2024-07-04 | XR_ITS ---
XR chest 1V portable 07/06/2024 11:35 Indication: Pneumonia Procedure: AP portable chest Comparison: 07/03/2024 and 07/01/2024 Findings: Stable cardiomegaly. There is bilateral airspace disease in the mid and lower lungs. Possib le small effusions. No pneumothorax. Impression: 1: Bibasilar airspace disease may represent edema or pneumonia. 2: Cardiomegaly. Reviewed, dictated and finalized at location B. PAROLE COUNSELING AIDE Impression: 1: Bibasilar airspace disease may represent edema or pneumonia. 2: Cardiomegaly.
--- NOTE | ~2024-07-04 | CT_ITS ---
CT lumbar spine wo con Ordering provider: Earlene Marquez History: 84 years Female with . fall, back pain . Comparison: The Technique: CT lumbar spine without contrast. Automated exposure control and iterative reconstruction technique were employed. The dose-length product was 471.40 mGy-cm. FINDINGS: VERTEBRAE: Dextroscoliosis. Severe degenerative changes of the spine. Normal height and alignment. No subluxation or visible acute fracture. DISC SPACES: Narrowing of all the disc spaces. Multilevel facet joint disease. Narrowing of the left foramina at the level of L1-L2 PARASPINOUS SOFT TISSUES: Mild atheromatous disease of the abdominal aorta. Bilateral pleural effusio n with adjacent atelectasis. Areas of hypodensity seen in the left kidney with left hydronephrotic ch anges. Bilateral sacroiliitis. IMPRESSION: No evidence of acute fracture or dislocation. Multilevel degenerative disc disease. Severe right dextroscoliosis. Multiple hyperdense areas in the left kidney with hydronephrotic changes. Proper imaging advised. Bilateral pleural effusion with adjacent atelectasis. Reviewed, dictated and finalized at location A. BLANKER OPERATOR IMPRESSION: No evidence of acute fracture or dislocation. Multilevel degenerative disc disease. Severe right dextroscoliosis. Multiple hyperdense areas in the left kidney with hydronephrotic changes. Prope r imaging advised. Bilateral pleural effusion with adjacent atelectasis.
[2024-07-04 16:42] VITALS: BP 139/65; PULSE 93; RESP 17; TEMP 36.4; O2SAT 94
--- NOTE | 2024-07-04 16:48 | ED_ITS ---
HPI - Fall General Chief Complaint: Fall <EMILY Hamilton Last Filed: 07/04/24 16:50> Stated Complaint: unwitnessed fall, back pain <EMILY Hamilton Last Filed: 07/04/24 16:50> Time Seen by Provider: 07/04/24 16:42 <EMILY Hamilton Last Filed: 07/04/24 16:50> Focused HPI: Patient is an 84-year-old female who presents the ED via EMS from home with report of a fall. per EMS report, patient had an unwitnessed fall today. Patient reports she fell while trying to go to the bathroom. She is unable to tell me how the fall occurred. Denies passing out. States she was unable to get up off the ground. Complains of pain to her lower back. Unsure if she hit her head. Denied LOC. patient is not on any anticoagulation. Was reportedly seen in our ED yesterday and diagnosed with UTI. GENERAL: Elderly, frail, and in no acute distress. HEAD: Normocephalic, atraumatic. CHEST: Clear to auscultation. ?No respiratory distress. HEART: Regular rate and rhythm.? MSK: Diffuse tenderness to palpation throughout lumbosacral region. No palpable bony deformities or step offs. NEURO: ?Alert and oriented x3. Patient screened in triage and initial orders placed.? ?Additional care and disposition to be based upon?diagnostic testing and treatment. <EMILY Hamilton Last Filed: 07/04/24 16:50> Source: patient <EMILY Hamilton Last Filed: 07/04/24 16:50> Mode of arrival: EMS <EMILY Hamilton Last Filed: 07/04/24 16:50> Limitations: no limitations <EMILY Hamilton Last Filed: 07/04/24 16:50> History of Present Illness HPI Narrative: Patient is a 84-year-old female who presents emergency department with chief complaint of fall patient was brought in by EMS after an unwitnessed fall while trying to go the bathroom the patient was unable to tell how she fell is unable to really provide history the patient was complaining of low back pain reports that she was just discharged from the hospital on the after being in the hospital from the the patient is currently on amoxicillin and a Zithromax for 2 more days <Bob Kaiser MD - Last Filed: 07/05/24 00:14> Related Data Home Medications: Home Medications Medication Instructions Recorded Confirmed omega 1-thp-zbi-fish oil 60 mg-90 1 cap PO QPM 09/15/23 06/27/24 mg-500 mg capsule hydrocodone 10 mg-acetaminophen 1 tablet PO BID PRN Pain (Scale 04/30/24 06/27/24 325 mg tablet Score 7-10) morphine 30 mg tablet,extended 30 mg PO Q12H 04/30/24 06/27/24 release <Earlene Marquez PA-C - Last Filed: 07/04/24 16:50> Allergies/Adverse Reactions: Allergies Allergy/AdvReac Type Severity Reaction Status Date / Time doxycycline Allergy Unknown Verified 07/04/24 18:56 latex Allergy Unknown Verified 07/04/24 18:56 pregabalin [From Lyrica] Allergy Unknown Verified 07/04/24 18:56 Sulfa (Sulfonamide Allergy Unknown Verified 07/04/24 18:56 Antibiotics) sulfamethoxazole Allergy Unknown Verified 07/04/24 18:56 [From Bactrim] trimethoprim [From Bactrim] Allergy Unknown Verified 07/04/24 18:56 <Earlene Marquez PA-C - Last Filed: 07/04/24 16:50> Review of Systems Review of Systems: A 10 system review of systems was completed on the patient and is negative except for what is stated in the HPI. Nursing and ancillary documentation was reviewed. <Bob Kaiser MD - Last Filed: 07/05/24 00:14> [facility] Past Medical History Medical History: Medical History Allergies Arthritis Cancer of right breast Status post mastectomy and radiation. Chronic lymphocytic leukemia Chronic obstructive pulmonary disease Chronic pain syndrome Chronic prescription opiate use Depression Diet-controlled diabetes mellitus GERD (gastroesophageal reflux disease) Immunoglobulin deficiency Melanoma Left arm. Osteoporosis Rheumatoid arthritis Squamous cell carcinoma Back. Tobacco dependence Trigeminal neuralgia Vitamin D deficiency <EMILY Hamilton Last Filed: 07/04/24 16:50> Surgical History Surgical History: Surgical History History of cholecystectomy History of hemiarthroplasty of left hip (~11/08/22) Bipolar hemiarthroplasty left. History of hysterectomy History of melanoma excision Left arm. History of right mastectomy (1987) History of squamous cell carcinoma excision Back. <EMILY Hamilton Last Filed: 07/04/24 16:50> Family History Family History: Family History Mother CLL (chronic lymphocytic leukemia) Father Lung cancer Sibling Pancreatic cancer <Earlene Marquez PA-C - Last Filed: 07/04/24 16:50> Social History Social History: Social History Social History: Surrogate medical decision maker: Oj Gregory, richie. Code status: Full code. Smoking packs per day: 1 Smoking cigarettes per day: 20.0 Years smoked: 60 Smoking pack-years: 60.00 Smoking status: Current every day smoker Tobacco type: cigarettes Alcohol intake: never Substance use: never Substance use type: does not use Do You Feel Safe in your Home?: Yes Lack of Transportation: YES Lack of Food: Never True Current Housing: I Have Housing Concerned About Future Housing: No Difficulty Paying Gas/Electric Bills: No Difficulty Paying for Meds: No Currently Unemployed: No Education: Grade School Difficulty w/ Childcare or Family Care: No Additional living arrangements comments: Lives alone in [place]. Originally from [place]. Spiritual care concerns: No <EMILY Hamilton Last Filed: 07/04/24 16:50> Exam Narrative: GENERAL: Well-appearing, well-nourished, and in no acute distress. HEAD: Normocephalic, atraumatic. EYES: PERRLA and EOMI. ENT: Nares clear, no rhinorrhea or epistaxis. Mucous membranes moist. NECK: Supple. CHEST: Clear to auscultation. No respiratory distress. HEART: Regular rate and rhythm. No murmur heard. Normal peripheral pulses. ABDOMEN: Soft, nontender, nondistended, normal active bowel sounds. EXTREMITIES: Normal range of motion. No edema. SKIN: Warm, dry, no rash. NEURO: No focal deficits. Alert and oriented x2-3. PSYCH: Normal mood and affect. <Bob Kaiser MD - Last Filed: 07/05/24 00:14> Course Vital Signs Vital signs: Vital Signs Temperature 36.4 C 07/04/24 16:42 Pulse Rate 93 07/04/24 16:42 Respiratory Rate 17 07/04/24 16:42 Blood Pressure 139/65 07/04/24 16:42 Pulse Oximetry 94 07/04/24 16:42 Temperature 36.4 C 07/04/24 16:42 Pulse Rate 73 07/05/24 00:03 Respiratory Rate 16 07/05/24 00:03 Blood Pressure 147/68 H 07/05/24 00:03 Pulse Oximetry 95 07/05/24 00:03 <Earlene Marquez PA-C - Last Filed: 07/04/24 16:50> Vital Signs Temperature 36.4 C 07/04/24 16:42 Pulse Rate 93 07/04/24 16:42 Respiratory Rate 17 07/04/24 16:42 Blood Pressure 139/65 07/04/24 16:42 Pulse Oximetry 94 07/04/24 16:42 Temperature 36.4 C 07/04/24 16:42 Pulse Rate 73 07/05/24 00:03 Respiratory Rate 16 07/05/24 00:03 Blood Pressure 147/68 H 07/05/24 00:03 Pulse Oximetry 95 07/05/24 00:03 <Bob Kaiser MD - Last Filed: 07/05/24 00:14> MDM - Fall MDM Narrative Medical decision making narrative: MSE by INDU in triage. <Earlene Marquez PA-C - Last Filed: 07/04/24 16:50> MSE by INDU in triage. Differential diagnosis includes Intracranial injury, cervical spine fracture, lumbar fracture, hip fracture CT head CT C-spine were obtained that showed no acute abnormality CT scan of the lumbar spine showed possible hydronephrosis Plain film x-rays of the hip showed a possibility of a hip fracture a CT scan of the hip was obtained which showed no evidence of fracture CT scan of the abdomen pelvis showed no acute abnormalities but did show some hydronephrosis Initial plan was for the patient be discharged back parent leave the patient lives independently and was discharged back to living independently from the hospital and is unable to care for herself at this point would been unable to contact family Laboratory studies were obtained on the patient and plan will be to admit the patient back to the hospital <Bob Kaiser MD - Last Filed: 07/05/24 00:14> Lab Data Result diagrams: 07/04/24 23:32 07/04/24 23:32 <Earlene Marquez PA-C - Last Filed: 07/04/24 16:50> Labs: Lab Results 07/04/24 Range/Units 23:32 WBC 17.7 H (4.5-10.0) K/mm3 RBC 3.77 L (4.2-5.4) M/mm3 Hgb 12.5 (12.0-15.0) g/dL Hct 36.2 L (37.0-47.0) % MCV 96.0 (80-100) fl MCH 33.2 (26-34) pg MCHC 34.5 (32-36) g/dl RDW 12.6 (11.5-14.5) % Plt Count 330 (150-375) k/mm3 MPV 9.4 (7.4-10.4) fl Immature Gran % (Auto) 0.6 H (0-0.5) % Neut % (Auto) 70.0 (45.5-73.1) % Lymph % (Auto) 24.1 (18.3-44.2) % [place] % (Auto) 4.7 (2.6-8.5) % Eos % (Auto) 0.3 (0-4.4) % Baso % (Auto) 0.3 (0.2-1.2) % Lymph # (Auto) 4.27 H (0.9-3.2) K/mm3 [place] # (Auto) 0.8 H (0.1-0.6) K/mm3 Eos # (Auto) 0.1 (0-0.3) K/mm3 Baso # (Auto) 0.1 (0.0-0.1) K/mm3 Abs Immat Gran (auto) 0.10 H (0.00-0.031) K/mm3 Absolute Neuts (auto) 12.4 H (1.3-6.7) K/mm3 Absolute Nucleated RBC 0.000 (0.0-0.012) K/mm3 Nucleated RBC % 0.0 (0.0-0.2) % Sodium 135 L (137-145) mmol/L Potassium 3.7 (3.4-5.0) mmol/L Chloride 100 (98-107) mmol/L Carbon Dioxide 29 (22-30) mmol/L Anion Gap 6 (4-12) mmol/L BUN 25 H (7-17) mg/dL Creatinine 0.60 L (0.7-1.0) mg/dL Estim Creat Clear Calc Not Reportable Estimated GFR > 60 (59 - ) Glucose 106 (65-110) mg/dL Calcium 10.6 H (8.4-10.2) mg/dL Total Bilirubin 0.7 (0.2-1.3) mg/dL AST 47 H (14-36) U/L ALT 39 H (6-35) U/L Alkaline Phosphatase 50 (38-126) U/L Total Protein 7.0 (6.3-8.2) g/dL Albumin 4.2 (3.5-5.1) g/dL <Earlene Marquez PA-C - Last Filed: 07/04/24 16:50> Lab Results 07/04/24 Range/Units 23:32 WBC 17.7 H (4.5-10.0) K/mm3 RBC 3.77 L (4.2-5.4) M/mm3 Hgb 12.5 (12.0-15.0) g/dL Hct 36.2 L (37.0-47.0) % MCV 96.0 (80-100) fl MCH 33.2 (26-34) pg MCHC 34.5 (32-36) g/dl RDW 12.6 (11.5-14.5) % Plt Count 330 (150-375) k/mm3 MPV 9.4 (7.4-10.4) fl Immature Gran % (Auto) 0.6 H (0-0.5) % Neut % (Auto) 70.0 (45.5-73.1) % Lymph % (Auto) 24.1 (18.3-44.2) % [place] % (Auto) 4.7 (2.6-8.5) % Eos % (Auto) 0.3 (0-4.4) % Baso % (Auto) 0.3 (0.2-1.2) % Lymph # (Auto) 4.27 H (0.9-3.2) K/mm3 [place] # (Auto) 0.8 H (0.1-0.6) K/mm3 Eos # (Auto) 0.1 (0-0.3) K/mm3 Baso # (Auto) 0.1 (0.0-0.1) K/mm3 Abs Immat Gran (auto) 0.10 H (0.00-0.031) K/mm3 Absolute Neuts (auto) 12.4 H (1.3-6.7) K/mm3 Absolute Nucleated RBC 0.000 (0.0-0.012) K/mm3 Nucleated RBC % 0.0 (0.0-0.2) % Sodium 135 L (137-145) mmol/L Potassium 3.7 (3.4-5.0) mmol/L Chloride 100 (98-107) mmol/L Carbon Dioxide 29 (22-30) mmol/L Anion Gap 6 (4-12) mmol/L BUN 25 H (7-17) mg/dL Creatinine 0.60 L (0.7-1.0) mg/dL Estim Creat Clear Calc Not Reportable Estimated GFR > 60 (59 - ) Glucose 106 (65-110) mg/dL Calcium 10.6 H (8.4-10.2) mg/dL Total Bilirubin 0.7 (0.2-1.3) mg/dL AST 47 H (14-36) U/L ALT 39 H (6-35) U/L Alkaline Phosphatase 50 (38-126) U/L Total Protein 7.0 (6.3-8.2) g/dL Albumin 4.2 (3.5-5.1) g/dL <Bob Kaiser MD - Last Filed: 07/05/24 00:14> Discharge Plan Discharge Clinical Impression: Fall from ground level, Back pain, Altered mental status, Weakness <EMILY Hamilton Last Filed: 07/04/24 16:50> Patient Disposition: NH Detention/Asst Living <EMILY Hamilton Last Filed: 07/04/24 16:50> Condition: Stable <EMILY Hamilton Last Filed: 07/04/24 16:50> Instructions: Antibiotic Form, Back Pain (ED), Fall Prevention (ED) <EMILY Hamilton Last Filed: 07/04/24 16:50> Additional Instructions: Please continue the antibiotics were prescribed after being discharged from the hospital yesterday <EMILY Hamilton Last Filed: 07/04/24 16:50> Prescriptions: No Action hydrocodone-acetaminophen 10-325 mg tablet 1 tablet PO BID PRN (Reason: Pain (Scale Score 7-10)) Rx Instructions: for breakthrough pain omega 0-hvp-lui-fish oil 60-90-500 mg capsule 1 cap PO QPM Rx Instructions: only takes when she eats dinner albuterol sulfate [Ventolin HFA] 90 mcg/actuation HFA aerosol inhaler 1 - 2 puff INHALATION Q4-6H PRN (Reason: shortness of breath or wheezing) Qty: 8.5 3RF duloxetine [Cymbalta] 30 mg capsule,delayed release(DR/EC) 30 mg PO QAM Qty: 90 1RF famotidine 20 mg tablet 20 mg PO Q12HR Qty: 180 1RF fluticasone propionate [Flonase Allergy Relief] 50 mcg/actuation spray,suspension 1 spray intranasal Q12H Qty: 16 0RF Rx Instructions: administer into each nostril morphine 30 mg tablet extended release 30 mg PO Q12H Patient Comments: Prescribed by pain management. please schedule for 7a-7p azithromycin [Zithromax] 250 mg Tablet 500 mg PO DAILY Qty: 2 0RF amoxicillin-pot clavulanate [Augmentin] 500-125 mg tablet 1 tablet PO Q12H Qty: 4 0RF carbamazepine 100 mg tablet extended release 12 hr 100 mg PO Q12H Qty: 60 3RF amitriptyline 25 mg tablet 25 mg PO .QHS Qty: 90 1RF <Earlene Marquez PA-C - Last Filed: 07/04/24 16:50> Follow-up/Referrals: Baldomero Denis DO [Primary Care Provider] - <Earlene Marquez PA-C - Last Filed: 07/04/24 16:50> Time of Disposition: 22:34 <Earlene Marquez PA-C - Last Filed: 07/04/24 16:50> 22:34 <Bob Kaiser MD - Last Filed: 07/05/24 00:14>
[2024-07-04 18:35] VITALS: BP 136/59; PULSE 75; RESP 15; O2SAT 94
--- NOTE | 2024-07-04 19:15 | PC.NURSE ---
Assumed care of patient after receiving report from NOE Knight. No questions at this time.
[2024-07-04 19:20] VITALS: BP 131/99; PULSE 75; RESP 15; O2SAT 96
[2024-07-04 21:15] VITALS: BP 134/59; PULSE 74; RESP 15; O2SAT 95
[2024-07-04 23:43] LABS: Basophils Absolute Auto 0.1 K/mm3 (0.0-0.1); Basophils Percent Auto 0.3 % (0.2-1.2); Eosinophils Absolute Auto 0.1 K/mm3 (0-0.3); Eosinophils Percent Auto 0.3 % (0-4.4); Hematocrit 36.2 % (37.0-47.0); Hemoglobin 12.5 g/dL (12.0-15.0); Immature Granulocyte Percent A 0.6 % (0-0.5); Lymphocytes Absolute Auto 4.27 K/mm3 (0.9-3.2); Lymphocytes Percent Auto 24.1 % (18.3-44.2); Mean Corpuscular HGB Conc 34.5 g/dl (32-36); Mean Corpuscular Hemoglobin 33.2 pg (26-34); Mean Platelet Volume 9.4 fl (7.4-10.4); Monocytes Absolute Auto 0.8 K/mm3 (0.1-0.6); Monocytes Percent Auto 4.7 % (2.6-8.5); Neutrophils Absolute Auto 12.4 K/mm3 (1.3-6.7); Platelet Count Result 330 k/mm3 (150-375); Red Blood Count 3.77 M/mm3 (4.2-5.4); Red Cell Distribution Width 12.6 % (11.5-14.5); White Blood Count 17.7 K/mm3 (4.5-10.0)
[2024-07-04 23:56] LABS: Alanine Aminotransferase 39 U/L (6-35); Albumin Level 4.2 g/dL (3.5-5.1); Alkaline Phosphatase 50 U/L (38-126); Anion Gap 6 mmol/L (4-12); Aspartate Amino Transferase 47 U/L (14-36); Bilirubin,Total 0.7 mg/dL (0.2-1.3); Blood Urea Nitrogen 25 mg/dL (7-17); Calcium 10.6 mg/dL (8.4-10.2); Carbon Dioxide 29 mmol/L (22-30); Chloride 100 mmol/L (98-107); Estimated Glomerular Filt Rate > 60; Glucose 106 mg/dL (65-110); Potassium 3.7 mmol/L (3.4-5.0); Sodium 135 mmol/L (137-145)
[2024-07-05 00:03] VITALS: BP 147/68; PULSE 73; RESP 16; O2SAT 95
[2024-07-05 00:47] LABS: Add Urine Microscopic? YES; Appearance Urine Clear (Clear); Bacteria Urine None Seen /hpf; Bilirubin Urine Negative (Negative); Blood Urine Negative (Negative); Color Urine Yellow (Yellow); Glucose Urine UA Negative (Negative); Ketones Urine 3+ mg/dL (Negative); Leukocyte Esterase Ur Trace LEU/UL (Negative); Nitrate Urine Negative (Negative); Non Pathogenic Casts 0-2; Protein Urine 1+ mg/dL (Negative); Specific Grav Ur 1.018 (1.001-1.035); Squamous Epithelial Cell Urine None Seen /hpf (Few); WBC Urine 0-5 /hpf (0-3)
[2024-07-05 00:48] LABS: Need Manual Microscopic Reviewed
[2024-07-05 02:04] VITALS: BP 160/62; PULSE 77; RESP 17; O2SAT 96
--- NOTE | 2024-07-05 03:13 | ADMGEN ---
This patient, Korin Jones, was admitted to Medical Room 344-01. Patient/family oriented to hospital policies and general routines including ID bracelet, bed and alarms, visiting hours, pain management, procedures, bathroom and other care routines, personal items, smoking policy, room service/diet, and visiting hours. Information on how to activate the Rapid Response Team has been discussed. Patient/Family are encouraged to report perceived risks to care and to ask questions if they do not understand what they are told or what they should do.
[2024-07-05 03:23] VITALS: BP 146/63; PULSE 69; RESP 18; TEMP 36.6; O2SAT 99
[2024-07-05] MEDS: ACETAMINOPHEN 325 MG TABLET 650 MG PO (06:32)
[2024-07-05 07:04] LABS: Basophils Percent Auto 0.2 % (0.2-1.2); Eosinophils Percent Auto 0.2 % (0-4.4); Hematocrit 34.2 % (37.0-47.0); Hemoglobin 11.7 g/dL (12.0-15.0); Immature Granulocyte Absolute 0.08 K/mm3 (0.00-0.031); Immature Granulocyte Percent A 0.6 % (0-0.5); Lymphocytes Percent Auto 27.7 % (18.3-44.2); Mean Corpuscular HGB Conc 34.2 g/dl (32-36); Mean Corpuscular Hemoglobin 32.9 pg (26-34); Mean Corpuscular Volume 96.1 fl (80-100); Mean Platelet Volume 9.6 fl (7.4-10.4); Monocytes Absolute Auto 0.6 K/mm3 (0.1-0.6); Monocytes Percent Auto 4.4 % (2.6-8.5); Neutrophils Absolute Auto 9.7 K/mm3 (1.3-6.7); Neutrophils Percent Auto 66.9 % (45.5-73.1); Platelet Count Result 305 k/mm3 (150-375); Red Blood Count 3.56 M/mm3 (4.2-5.4); Red Cell Distribution Width 12.5 % (11.5-14.5); White Blood Count 14.4 K/mm3 (4.5-10.0)
[2024-07-05 07:15] LABS: Alanine Aminotransferase 32 U/L (6-35); Albumin Level 3.7 g/dL (3.5-5.1); Alkaline Phosphatase 45 U/L (38-126); Anion Gap 8 mmol/L (4-12); Aspartate Amino Transferase 39 U/L (14-36); Bilirubin,Total 0.7 mg/dL (0.2-1.3); Blood Urea Nitrogen 24 mg/dL (7-17); Carbon Dioxide 25 mmol/L (22-30); Chloride 101 mmol/L (98-107); Estimated Glomerular Filt Rate > 60; Glucose 104 mg/dL (65-110); Potassium 3.5 mmol/L (3.4-5.0); Sodium 134 mmol/L (137-145)
--- NOTE | 2024-07-05 07:43 | P.HP_ITS ---
H&P: HPI History of Present Illness Date/Time: 07/05/24 07:43 Chief Complaint: fall Narrative: Patient is an 84-year-old female PMH of breast cancer (s/p mastectomy and radiation), chronic lymphocytic leukemia, COPD, chronic pain syndrome, depression, diet-controlled diabetes, rheumatoid arthritis, osteoporosis, squamous cell carcinoma (back).who presents the ED via EMS from home with report of a fall. per EMS report, patient had an unwitnessed fall today. Patient reports she fell while trying to go to the bathroom. She is unable to tell me how the fall occurred. Denies passing out. States she was unable to get up off the ground. Complains of pain to her lower back. Unsure if she hit her head. Denied LOC. patient is not on any anticoagulation. Was reportedly seen in our ED yesterday and diagnosed with UTI. Of note- she was discharged from this hospital on 07/03 for abd pain. abdominal CT done on admission that was significant for left renal artery stenosis.ED provider reached out to vascular at [facility], no intervention indicated at this time given stenosis. Patient has been treated by IV abx for possible PNA and will be discharged on oral antibiotics to complete treatment. She has also worked with PT and has been encouraged with incentive spirometer use, to assist with possible bibasilar atelectasis vs PNA. she was discharged on amoxicillin and a Zithromax for 2 more days. IN ED: differentials dxs: Intracranial injury, cervical spine fracture, lumbar fracture, hip fracture CT head CT C-spine were obtained that showed no acute abnormality CT scan of the lumbar spine showed possible hydronephrosis Plain film x-rays of the hip showed a possibility of a hip fracture a CT scan of the hip was obtained which showed no evidence of fracture CT scan of the abdomen pelvis showed no acute abnormalities but did show some hydronephrosis Initial plan was for the patient be discharged back home but she is unable to take care of herself independently and will need PT/OT eval for possible placement. she is seen and examined. she answerers questions but confused. reports pain all over, weakness. Review of Systems Review of Systems: All systems reviewed & are unremarkable except as noted in HPI and below ROS unobtainable: Yes unobtainable due to mental status PMFSH Past Medical History Medical History Allergies Arthritis Cancer of right breast Status post mastectomy and radiation. Chronic lymphocytic leukemia Chronic obstructive pulmonary disease Chronic pain syndrome Chronic prescription opiate use Depression Diet-controlled diabetes mellitus GERD (gastroesophageal reflux disease) Immunoglobulin deficiency Melanoma Left arm. Osteoporosis Rheumatoid arthritis Squamous cell carcinoma Back. Tobacco dependence Trigeminal neuralgia Vitamin D deficiency Surgical History Surgical History History of cholecystectomy History of hemiarthroplasty of left hip (~11/08/22) Bipolar hemiarthroplasty left. History of hysterectomy History of melanoma excision Left arm. History of right mastectomy (1987) History of squamous cell carcinoma excision Back. Family History Family History Mother CLL (chronic lymphocytic leukemia) Father Lung cancer Sibling Pancreatic cancer Social History Social History Social History: Surrogate medical decision maker: Oj Gregory, son. Code status: Full code. Smoking packs per day: 1 Smoking cigarettes per day: 20.0 Years smoked: 60 Smoking pack-years: 60.00 Smoking status: Never smoker Tobacco type: cigarettes Alcohol intake: never Substance use: never Substance use type: does not use Do You Feel Safe in your Home?: Yes Lack of Transportation: YES Lack of Food: Never True Current Housing: I Have Housing Concerned About Future Housing: No Difficulty Paying Gas/Electric Bills: No Difficulty Paying for Meds: No Currently Unemployed: No Education: Grade School Difficulty w/ Childcare or Family Care: No Additional living arrangements comments: Lives alone in [place]. Originally from [place]. Spiritual care concerns: No Meds Home Medications and Allergies Home Medications Medication Instructions Recorded Confirmed Type omega 6-fnu-dma-fish oil 60 mg-90 1 cap PO QPM 09/15/23 07/05/24 History mg-500 mg capsule carbamazepine 100 mg 100 mg PO Q12H #60 tabs 03/29/24 07/05/24 Rx tablet,extended release,12 hr amitriptyline 25 mg tablet 25 mg PO .QHS #90 tabs 04/16/24 07/05/24 Rx albuterol sulfate 90 mcg/actuation 1 - 2 puff inhalation Q4-6H PRN 04/30/24 07/05/24 Rx aerosol inhaler (Ventolin HFA) shortness of breath or wheezing #8.5 grams duloxetine 30 mg capsule,delayed 30 mg PO QAM #90 caps 04/30/24 07/05/24 Rx release (Cymbalta) famotidine 20 mg tablet 20 mg PO Q12HR #180 tabs 04/30/24 07/05/24 Rx fluticasone propionate 50 1 spray intranasal Q12H #16 mL 04/30/24 07/05/24 Rx mcg/actuation nasal spray,suspension (Flonase Allergy Relief) hydrocodone 10 mg-acetaminophen 1 tablet PO BID PRN Pain (Scale 04/30/24 07/05/24 History 325 mg tablet Score 7-10) morphine 30 mg tablet,extended 30 mg PO Q12H 04/30/24 07/05/24 History release amoxicillin 500 mg-potassium 1 tablet PO Q12H #4 tabs 07/03/24 07/05/24 Rx clavulanate 125 mg tablet (Augmentin) azithromycin 250 mg tablet 500 mg PO DAILY #2 tabs 07/03/24 07/05/24 Rx (Zithromax) Allergies Allergy/AdvReac Type Severity Reaction Status Date / Time doxycycline Allergy Unknown Verified 07/05/24 06:46 latex Allergy Unknown Verified 07/05/24 06:46 pregabalin [From Lyrica] Allergy Unknown Verified 07/05/24 06:46 Sulfa (Sulfonamide Allergy Unknown Verified 07/05/24 06:46 Antibiotics) sulfamethoxazole Allergy Unknown Verified 07/05/24 06:46 [From Bactrim] trimethoprim [From Bactrim] Allergy Unknown Verified 07/05/24 06:46 Vital Signs Vital Signs - 24 hr 07/04/24 16:42 07/04/24 18:35 07/04/24 19:20 Temperature 97.6 F Pulse Rate 93 75 75 Respiratory Rate 17 15 15 Blood Pressure 139/65 136/59 L 131/99 H Pulse Oximetry 94 94 96 Oxygen Delivery 07/05/24 00:03 07/04/24 21:15 07/05/24 02:04 Temperature Pulse Rate 73 74 77 Respiratory Rate 16 15 17 Blood Pressure 147/68 H 134/59 L 160/62 H Pulse Oximetry 95 95 96 Oxygen Delivery 07/05/24 03:20 07/05/24 03:23 Temperature 97.8 F Pulse Rate 69 Respiratory Rate 18 Blood Pressure 146/63 H Pulse Oximetry 99 Oxygen Delivery Room Air H&P: Results Labs Labs: Short CBC 07/04/24 07/05/24 Range/Units 23:32 06:29 WBC 17.7 H 14.4 H (4.5-10.0) K/mm3 Hgb 12.5 11.7 L (12.0-15.0) g/dL Hct 36.2 L 34.2 L (37.0-47.0) % Plt Count 330 305 (150-375) k/mm3 BMP 07/04/24 07/05/24 23:32 06:29 Sodium 135 L 134 L Potassium 3.7 3.5 Chloride 100 101 Carbon Dioxide 29 25 BUN 25 H 24 H Creatinine 0.60 L 0.60 L Glucose 106 104 Calcium 10.6 H 10.0 Liver Function 07/04/24 07/05/24 Range/Units 23:32 06:29 Total Bilirubin 0.7 0.7 (0.2-1.3) mg/dL AST 47 H 39 H (14-36) U/L ALT 39 H 32 (6-35) U/L Alkaline Phosphatase 50 45 (38-126) U/L Albumin 4.2 3.7 (3.5-5.1) g/dL Urine 07/05/24 Range/Units 00:00 Urine Color Yellow (Yellow) Urine Appearance Clear (Clear) Urine pH 7.0 (5.0-9.0) Ur Specific [place] 1.018 (1.001-1.035) Urine Protein 1+ H (Negative) mg/dL Urine Glucose (UA) Negative (Negative) mg/dL Assessment and Plan Assessment and plan (1) Fall from ground level: Code(s): W18.30XA - Fall on same level, unspecified, initial encounter Status: Acute Assessment and Plan: pt/ot will likely need placement noted rt swollen knee- will xray (2) Back pain: Code(s): M54.9 - Dorsalgia, unspecified Status: Acute (3) Pneumonia: Code(s): J18.9 - Pneumonia, unspecified organism Status: Acute Assessment and Plan: finishing up treatment augmentin and azithro Plan dvt- scd Quality VTE Prophylaxis VTE prophylaxis: mechanical ordered Hospitalist MIPS Advance Care Plan I have confirmed that the patient's Advanced Care Plan is present, code status is documented, or surrogate decision maker is listed in patient medical record.: Yes Medication Reconciliation I have utilized all available resources to obtain, update and review the patients current medications (includes all prescriptions, OTC, herbals, cannabis, and nutritional supplements).: Yes
[2024-07-05 10:43] VITALS: BMI 19.1
[2024-07-05 14:00] VITALS: BP 123/44; PULSE 71; RESP 16; TEMP 36.8; O2SAT 95
[2024-07-05] MEDS: OMEGA 3 POLYUNSAT FATTY ACIDS 1 GM CAP PO (18:23)
[2024-07-05] MEDS: AMOXICILLIN/CLAVULANATE K 500-125 MG TAB 1 TABLET PO (21:20)
[2024-07-05] MEDS: AMITRIPTYLINE HCL 25 MG TABLET PO (21:20)
[2024-07-05] MEDS: CARBAMAZEPINE XR 100 MG TAB.SR.12H PO (21:20)
[2024-07-05] MEDS: MORPHINE SULFATE (*CRX) 30 MG TABCR PO (21:20)
[2024-07-05] MEDS: FLUTICASONE PROPIONATE 0.05% NA SPR 16 GM BTL (*BKC) 1 SPRAY NASAL (21:21)
[2024-07-05] MEDS: FAMOTIDINE 20 MG TABLET PO (21:21)
[2024-07-05 21:43] VITALS: BP 144/59; PULSE 71; RESP 14; TEMP 36.8; O2SAT 94
[2024-07-06 05:57] LABS: Basophils Absolute Auto 0.1 K/mm3 (0.0-0.1); Basophils Percent Auto 0.3 % (0.2-1.2); Eosinophils Absolute Auto 0.3 K/mm3 (0-0.3); Eosinophils Percent Auto 1.9 % (0-4.4); Hematocrit 34.8 % (37.0-47.0); Hemoglobin 11.9 g/dL (12.0-15.0); Immature Granulocyte Absolute 0.13 K/mm3 (0.00-0.031); Immature Granulocyte Percent A 0.9 % (0-0.5); Lymphocytes Absolute Auto 5.32 K/mm3 (0.9-3.2); Lymphocytes Percent Auto 36.5 % (18.3-44.2); Mean Corpuscular HGB Conc 34.2 g/dl (32-36); Mean Corpuscular Hemoglobin 32.7 pg (26-34); Mean Corpuscular Volume 95.6 fl (80-100); Mean Platelet Volume 9.2 fl (7.4-10.4); Monocytes Absolute Auto 1.2 K/mm3 (0.1-0.6); Monocytes Percent Auto 8.1 % (2.6-8.5); Neutrophils Absolute Auto 7.6 K/mm3 (1.3-6.7); Neutrophils Percent Auto 52.3 % (45.5-73.1); Platelet Count Result 338 k/mm3 (150-375); Red Blood Count 3.64 M/mm3 (4.2-5.4); Red Cell Distribution Width 12.5 % (11.5-14.5); White Blood Count 14.6 K/mm3 (4.5-10.0)
[2024-07-06 06:00] VITALS: BP 137/71; PULSE 82; RESP 14; TEMP 36.8; O2SAT 96
[2024-07-06 06:24] LABS: Alanine Aminotransferase 35 U/L (6-35); Albumin Level 3.7 g/dL (3.5-5.1); Alkaline Phosphatase 45 U/L (38-126); Anion Gap 4 mmol/L (4-12); Aspartate Amino Transferase 34 U/L (14-36); Bilirubin,Total 0.6 mg/dL (0.2-1.3); Blood Urea Nitrogen 24 mg/dL (7-17); Carbon Dioxide 28 mmol/L (22-30); Chloride 105 mmol/L (98-107); Estimated CRCL calculation 40 ml/min; Estimated Glomerular Filt Rate > 60; Glucose 104 mg/dL (65-110); Potassium 3.3 mmol/L (3.4-5.0); Sodium 137 mmol/L (137-145)
[2024-07-06] MEDS: CARBAMAZEPINE XR 100 MG TAB.SR.12H PO (10:08)
[2024-07-06] MEDS: MORPHINE SULFATE (*CRX) 30 MG TABCR PO (10:08)
[2024-07-06] MEDS: AMOXICILLIN/CLAVULANATE K 500-125 MG TAB 1 TABLET PO (10:08)
[2024-07-06] MEDS: FAMOTIDINE 20 MG TABLET PO (10:08)
[2024-07-06] MEDS: DULoxetine HCL 30 MG CAPSULE.DR PO (10:08)
[2024-07-06] MEDS: FLUTICASONE PROPIONATE 0.05% NA SPR 16 GM BTL (*BKC) 1 SPRAY NASAL (10:09)
[2024-07-06] MEDS: AZITHROMYCIN 250 MG TABLET 500 MG PO (10:13)
--- NOTE | 2024-07-06 10:40 | P.PNIM_ITS ---
Progress Note: A&P Assessment and Plan (1) Fall from ground level: Code(s): W18.30XA - Fall on same level, unspecified, initial encounter Status: Acute Assessment and Plan: pt/ot will likely need placement noted rt swollen knee- will xray (2) Back pain: Code(s): M54.9 - Dorsalgia, unspecified Status: Acute (3) Pneumonia: Code(s): J18.9 - Pneumonia, unspecified organism Status: Acute Assessment and Plan: finishing up treatment augmentin and azithro will repeat chets xray as wbc increased slightly to re eval for resolution of pneumonia Plan dvt prophylaxis- scd Subjective Date/time seen: 07/06/24 10:40 Interval history: Patient is an 84-year-old female PMH of breast cancer (s/p mastectomy and radiation), chronic lymphocytic leukemia, COPD, chronic pain syndrome, depression, diet-controlled diabetes, rheumatoid arthritis, osteoporosis, squamous cell carcinoma (back).who presents the ED via EMS from home with report of a fall. 07/06- pt is seen and examined. PT/OT ordered Review of Systems Review of Systems: All systems reviewed & are unremarkable except as noted in HPI and below ROS unobtainable: Yes unobtainable due to mental status Objective Data Vital Signs Vital Signs: Vital Signs - 24 hr 07/05/24 13:25 07/05/24 14:00 07/05/24 21:43 Temperature 98.2 F 98.2 F Pulse Rate 71 71 Respiratory Rate 16 14 Blood Pressure 123/44 L 144/59 H Pulse Oximetry 95 94 Oxygen Delivery Room Air 07/05/24 20:00 07/06/24 06:00 07/06/24 08:00 Temperature 98.2 F Pulse Rate 82 Respiratory Rate 14 Blood Pressure 137/71 Pulse Oximetry 96 Oxygen Delivery Room Air Room Air Intake/Output Intake/Output: Intake & Output 07/03/24 07/04/24 07/05/24 07/06/24 23:59 23:59 23:59 23:59 Intake Total 780 360 Balance 780 360 Meds/Results Medications: Active Medications Generic Name Dose Route Start Last Admin Trade Name Freq PRN Reason Stop Dose Admin Acetaminophen 650 mg 07/05/24 00:16 07/05/24 06:32 Acetaminophen 325 Mg Tablet PO 650 mg Q4H PRN Administration Mild Pain (1-3) or Fever Hydrocodone Bitart/Acetaminophen 1 tab 07/05/24 14:27 Hydrocodone/Acetaminophen (*Crx) 10-325 Mg Tablet PO BID PRN Pain (Scale Score 7-10) Amitriptyline HCl 25 mg 07/05/24 21:00 07/05/24 21:20 Amitriptyline Hcl 25 Mg Tablet PO 25 mg HS WILI Administration Amoxicillin/Clavulanate Potassium 1 tablet 07/05/24 21:00 07/06/24 10:08 Amoxicillin/Clavulanate K 500-125 Mg Tab PO 07/07/24 23:59 1 tablet Q12HR WILI Administration Azithromycin 500 mg 07/06/24 09:00 07/06/24 10:13 Azithromycin 250 Mg Tablet PO 07/08/24 08:59 500 mg DAILY WILI Administration Carbamazepine 100 mg 07/05/24 21:00 07/06/24 10:08 Carbamazepine Xr 100 Mg Tab.Sr.12h PO 100 mg Q12HR WILI Administration Duloxetine HCl 30 mg 07/06/24 09:00 07/06/24 10:08 Duloxetine Hcl 30 Mg Capsule.Dr PO 30 mg QAM WILI Administration Famotidine 20 mg 07/05/24 21:00 07/06/24 10:08 Famotidine 20 Mg Tablet PO 20 mg Q12HR WILI Administration Fish Oil 1 gm 07/05/24 18:00 07/05/24 18:23 [place] 3 Polyunsat Fatty Acids 1 Gm Cap PO 1 gm QPM WILI Administration Fluticasone Propionate 1 spray 07/05/24 21:00 07/06/24 10:09 Fluticasone Propionate 0.05% Na Spr 16 Gm Btl (*Bkc) NASAL 1 spray Q12HR WILI Administration Morphine Sulfate 30 mg 07/05/24 21:00 07/06/24 10:08 Morphine Sulfate (*Crx) 30 Mg Tabcr PO 30 mg Q12HR WILI Administration Potassium Chloride 20 meq 07/07/24 09:00 Potassium Chloride 20 Meq Packet (For Liquid) PO DAILY [facility] Radiology Results: ITS Impressions Head CT 07/04/24 18:15 IMPRESSION: No acute intracranial findings. Hip/Pelvis X-Ray 07/04/24 19:14 IMPRESSION: Lucency in the right intertrochanteric area further evaluation with the CT is advised. Severe degenerative changes of the spine with dextroscoliosis. Bilateral sacroiliitis. Cervical Spine CT 07/04/24 20:00 IMPRESSION: No acute osseous abnormality cervical spine. Multilevel degenerative disc disease. Lumbar Spine CT 07/04/24 20:27 IMPRESSION: No evidence of acute fracture or dislocation. Multilevel degenerative disc disease. Severe right dextroscoliosis. Multiple hyperdense areas in the left kidney with hydronephrotic changes. Proper imaging advised. Bilateral pleural effusion with adjacent atelectasis. Hip CT 07/04/24 21:21 IMPRESSION: 1. No fracture. 2. Severe right hip osteoarthritis. Abdomen/Pelvis CT 07/04/24 22:04 IMPRESSION: 1. Left kidney hydronephrotic changes with no definite stones. Right kidney is smaller than the left. 2. Constipation with impacted fecal material in the rectum. Proctitis is highly suggestive 3. Multiple hypodense areas in the left kidney differential include nephrocalcinosis. Masses cannot be excluded. Follow-up advised. 4. Bilateral atelectatic changes versus pneumonia with pleural effusion. 5. Prominent left adrenal gland. Knee X-Ray 07/05/24 15:27 IMPRESSION: No acute osseous abnormality right knee. Severe osteoarthritic changes. Labs Labs: Laboratory Results - last 24 hr 07/06/24 05:38 WBC 14.6 H RBC 3.64 L Hgb 11.9 L Hct 34.8 L MCV 95.6 MCH 32.7 MCHC 34.2 RDW 12.5 Plt Count 338 MPV 9.2 Immature Gran % (Auto) 0.9 H Neut % (Auto) 52.3 Lymph % (Auto) 36.5 [place] % (Auto) 8.1 Eos % (Auto) 1.9 Baso % (Auto) 0.3 Lymph # (Auto) 5.32 H [place] # (Auto) 1.2 H Eos # (Auto) 0.3 Baso # (Auto) 0.1 Abs Immat Gran (auto) 0.13 H Absolute Neuts (auto) 7.6 H Absolute Nucleated RBC 0.000 Nucleated RBC % 0.0 Sodium 137 Potassium 3.3 L Chloride 105 Carbon Dioxide 28 Anion Gap 4 BUN 24 H Creatinine 0.70 Estim Creat Clear Calc 40 Estimated GFR > 60 Glucose 104 Calcium 10.0 Magnesium 2.0 Total Bilirubin 0.6 AST 34 ALT 35 Alkaline Phosphatase 45 Total Protein 6.0 L Albumin 3.7 Quality VTE Prophylaxis VTE prophylaxis: mechanical ordered
--- NOTE | 2024-07-06 12:28 | P.DS_ITS ---
DS: Admitting Diagnosis Discharge Date 07/06 Admitting Diagnosis fall DS: Discharge Diagnosis Discharge Diagnosis (1) Fall from ground level: Code(s): W18.30XA - Fall on same level, unspecified, initial encounter Status: Acute (2) Back pain: Code(s): M54.9 - Dorsalgia, unspecified Status: Acute (3) Pneumonia: Code(s): J18.9 - Pneumonia, unspecified organism Status: Acute DS: Summary Hospital Course Hospital Course: Fall Narrative: Patient is an 84-year-old female PMH of breast cancer (s/p mastectomy and radiation), chronic lymphocytic leukemia, COPD, chronic pain syndrome, depression, diet-controlled diabetes, rheumatoid arthritis, osteoporosis, squamous cell carcinoma (back).who presents the ED via EMS from home with report of a fall. per EMS report, patient had an unwitnessed fall today. Patient reports she fell while trying to go to the bathroom. She is unable to tell me how the fall occurred. Denies passing out. States she was unable to get up off the ground. Complains of pain to her lower back. Unsure if she hit her head. Denied LOC. patient is not on any anticoagulation. Of note- she was discharged from this hospital on 07/[address] for [address] abdominal CT done on admission that was significant for left renal artery stenosis.ED provider reached out to vascular at [facility], no intervention indicated at this time given stenosis. Patient has been treated by IV abx for possible PNA and will be discharged on oral antibiotics to complete treatment. She has also worked with PT and has been encouraged with incentive spirometer use, to assist with possible bibasilar atelectasis vs PNA. she was discharged on amoxicillin and a Zithromax for 2 more days. IN ED: differentials dxs: Intracranial injury, cervical spine fracture, lumbar fracture, hip fracture CT head CT C-spine were obtained that showed no acute abnormality CT scan of the lumbar spine showed possible hydronephrosis Plain film x-rays of the hip showed a possibility of a hip fracture a CT scan of the hip was obtained which showed no evidence of fracture CT scan of the abdomen pelvis showed no acute abnormalities but did show some hydronephrosis Initial plan was for the patient be discharged back home but she is unable to take care of herself independently and will need PT/OT eval for possible placement. She was drowsy and confused on 07/05 but completely alert and aware today. Answered all orientation questions. Denies mixing or taking more pain meds at home that she should. She is finishing up pneumonia treatment- augmentin - last dose 07/07 9 pm (3 more doses) and azith 07/08 9 am (2 more doses) Time Spent with Patient Time attestation: Total time spent providing and/or coordinating discharge services: Exam Narrative: up in the chair, alert/oriented, pleasant Const: General: comfortable Psych: Affect: normal affect DS: Data Data Completed and Pending Completed studies during hospitalization: hip/lumbar/cervical spine ct, head ct, knee xray Labs on day of discharge: Labs from last 24 hours 07/06/24 05:38 WBC 14.6 H RBC 3.64 L Hgb 11.9 L Hct 34.8 L MCV 95.6 MCH 32.7 MCHC 34.2 RDW 12.5 Plt Count 338 MPV 9.2 Immature Gran % (Auto) 0.9 H Neut % (Auto) 52.3 Lymph % (Auto) 36.5 [place] % (Auto) 8.1 Eos % (Auto) 1.9 Baso % (Auto) 0.3 Lymph # (Auto) 5.32 H [place] # (Auto) 1.2 H Eos # (Auto) 0.3 Baso # (Auto) 0.1 Abs Immat Gran (auto) 0.13 H Absolute Neuts (auto) 7.6 H Absolute Nucleated RBC 0.000 Nucleated RBC % 0.0 Sodium 137 Potassium 3.3 L Chloride 105 Carbon Dioxide 28 Anion Gap 4 BUN 24 H Creatinine 0.70 Estim Creat Clear Calc 40 Estimated GFR > 60 Glucose 104 Calcium 10.0 Magnesium 2.0 Total Bilirubin 0.6 AST 34 ALT 35 Alkaline Phosphatase 45 Total Protein 6.0 L Albumin 3.7 Discharge Plan Discharge Attending physician on discharge: Bob Maldonado Discharging Clinician: Ana María Way Patient Disposition: SNF Activity: may shower Diet: as tolerated and heart healthy Discharge Instructions: please finish your antibiotics for pneumonia. you potassium level was slightly low i will send some replacement- take it for few days and have your PCP recheck your level. Stand Alone Forms: General Discharge Information Discharge Medications: New potassium chloride 20 mEq Packet 20 meq PO DAILY Qty: 14 0RF Continued omega 5-ycf-iml-fish oil 60-90-500 mg capsule 1 cap PO QPM Rx Instructions: only takes when she eats dinner albuterol sulfate [Ventolin HFA] 90 mcg/actuation HFA aerosol inhaler 1 - 2 puff INHALATION Q4-6H PRN (Reason: shortness of breath or wheezing) Qty: 8.5 3RF duloxetine [Cymbalta] 30 mg capsule,delayed release(DR/EC) 30 mg PO QAM Qty: 90 1RF famotidine 20 mg tablet 20 mg PO Q12HR Qty: 180 1RF fluticasone propionate [Flonase Allergy Relief] 50 mcg/actuation spray,suspension 1 spray intranasal Q12H Qty: 16 0RF Rx Instructions: administer into each nostril morphine 30 mg tablet extended release 30 mg PO Q12H Qty: 10 0RF Patient Comments: Prescribed by pain management. please schedule for 7a-7p hydrocodone-acetaminophen 10-325 mg tablet 1 tablet PO BID PRN (Reason: Pain (Scale Score 7-10)) Qty: 10 0RF Rx Instructions: for breakthrough pain azithromycin [Zithromax] 250 mg Tablet 500 mg PO DAILY Qty: 2 0RF amoxicillin-pot clavulanate [Augmentin] 500-125 mg tablet 1 tablet PO Q12H Qty: 3 0RF carbamazepine 100 mg tablet extended release 12 hr 100 mg PO Q12H Qty: 60 3RF amitriptyline 25 mg tablet 25 mg PO .QHS Qty: 90 1RF Date of admission: 07/05/24 00:16 Primary Care Provider: Baldomero Denis Admitting Provider: Bob Maldonado Attending physician on admission: Bob Maldonado Condition: Stable Quality VTE Prophylaxis VTE prophylaxis: mechanical ordered Hospitalist MIPS Heart Failure (Exclusion) Patient has history of Heart Transplant or Left Ventricular Assistive Device?: No IF YES, STOP HERE Heart Failure (Qualifier) Patient has current or prior documentation of LVEF less than or equal to 40%, or mod/servere depressed LVSF?: No IF NO, STOP HERE
[2024-07-06 14:00] VITALS: BP 140/74; PULSE 84; RESP 16; TEMP 36.9; O2SAT 98
[2024-07-06] MEDS: OMEGA 3 POLYUNSAT FATTY ACIDS 1 GM CAP PO (17:03)
== END 2024-07-06 18:56 ==
LOC: ANHED 22:34 → ANH3MED 07-05 02:16
PROVIDERS: Nurse Practitioner; Admitting Provider Internal Medicine; Emergency Provider Emergency Medicine; PCP Internal Medicine; Visit Provider Internal Medicine
DX: J18.9 Pneumonia, unspecified organism (principal); M54.9 Dorsalgia, unspecified; R41.82 Altered mental status, unspecified; R59.0 Localized enlarged lymph nodes; R53.1 Weakness; W18.30XA Fall on same level, unspecified, initial encounter; J44.9 Chronic obstructive pulmonary disease, unspecified; C91.10 Chronic lymphocytic leukemia of B-cell type not having achieved remission; E11.9 Type 2 diabetes mellitus without complications; G89.4 Chronic pain syndrome; M06.9 Rheumatoid arthritis, unspecified; M81.0 Age-related osteoporosis without current pathological fracture; E55.9 Vitamin D deficiency, unspecified; F32.A Depression, unspecified; K21.9 Gastro-esophageal reflux disease without esophagitis; Z79.891 Long term (current) use of opiate analgesic; Z92.3 Personal history of irradiation; Z85.3 Personal history of malignant neoplasm of breast; F17.210 Nicotine dependence, cigarettes, uncomplicated
CPT/HCPCS: 36415; 70450; 71045; 72125; 72131; 73521; 73562; 73700; 74176; 80053; 81001; 83735; 85025; 97110; 97161; 97166; 97530; 99285; A9270; G0378

== ENCOUNTER 2024-07-27 18:59 | Inpatient (IN) | payer MEDICARE, MEDICAID, SELFPAY ==
--- NOTE | ~2024-07-27 | MR_ITS ---
EXAMINATION: MR brain/brain stem wo con DATE: 08/02/2024 11:35 INDICATION: Altered mental status. TECHNIQUE: Magnetic resonance imaging (MRI) of the brain and brainstem was performed without intraven ous contrast. COMPARISON: Head CT 07/27/2024 FINDINGS: There are scattered areas of nonspecific increased T2-weighted signal intensity in the cere bral white matter and [place]. There is no intracranial hemorrhage, acute infarction, or abnormal intrac ranial mass lesion. The ventricles are normal in size. There are likely changes of ocular lens replac ement surgeries. There is mucosal thickening in the paranasal sinuses. There are small bilateral mast oid effusions. IMPRESSION: 1. Extensive nonspecific cerebral white matter disease and pontine disease, which likely represents c hronic small vessel ischemic disease. Reviewed, dictated and finalized at location A. GER PROGRAMMING IMPRESSION: 1. Extensive nonspecific cerebral white matter disease and pontine disease, whi ch likely represents chronic small vessel ischemic disease.
--- NOTE | ~2024-07-27 | XR_ITS ---
XR chest 1V Ordering provider: Earlene Marquez PA-C History: 84 years Female with . weakness, AMS . Comparison: July 06, 2024 FINDINGS: MEDIASTINUM: The cardiac silhouette is not enlarged. Prominent both luci. LUNGS: No effusions or pneumothorax. Opacification the right lung base suggestive of atelectasis vers us pneumonia. Underlying emphysematous changes. OTHER: No free air under the diaphragm. IMPRESSION: Right basal pneumonia. Follow-up to resolution is advised. Reviewed, dictated and finalized at location A. K OFFBEARER
--- NOTE | ~2024-07-27 | CT_ITS ---
CT brain wo con Ordering provider: Earlene Marquez PA-C History: 84 years Female with . ams . Comparison: None. Technique: CT of the head without contrast. Radiation reduction technique utilized.The dose-length product was 756.67 mGy-cm. FINDINGS: BRAIN PARENCHYMA AND CSF SPACES: Mild leukoaraiosis and diffuse cortical atrophy. Mild atheromatous d isease. No midline shift, mass effect or hemorrhage. The brain parenchyma and CSF spaces are otherwi se normal. VISUALIZED PARANASAL SINUSES: Well aerated. MASTOIDS: Sclerotic mastoids. BONES: The bones appear intact. SOFT TISSUES: Visualized nasopharynx is normal. Superficial soft tissues are normal. IMPRESSION: No acute intracranial findings. Reviewed, dictated and finalized at location A. R FITNESS INSTRUCTOR
[2024-07-27 19:04] VITALS: BP 132/67; PULSE 88; RESP 16; TEMP 36.8; O2SAT 98
[2024-07-27] MEDS: SODIUM CHLORIDE 0.9% IV 1,000 ML 999 ML IV CONT ×2 (20:34→22:07)
--- NOTE | 2024-07-27 20:53 | ED_ITS ---
HPI - Weakness General Chief complaint: Weakness Stated complaint: Generalized weakness Time Seen by Provider: 07/27/24 19:18 Source: patient and family Mode of arrival: EMS Limitations: clinical condition History of Present Illness HPI Narrative: Patient is an 84-year-old female who presents the ED via EMS with report of weakness/altered mental status. Family at bedside assisted in providing information. Reports that patient has been in and out of the hospital and rehab over the last few weeks with a UTI/weakness. Currently at home since last week. Family states patient has been steadily declining, not eating or drinking, now not even communicating, not opening the door for home health, sleeping most of the day. Currently has home health 2 days/week. Family reports that they plan to have home health come every day now. Patient unable to provide any information. Related Data Home Medications ?Medication ?Instructions ?Recorded ?Confirmed ?Last Taken ?Type omega 4-xnt-ylx-fish oil 60 mg-90 1 cap PO QPM 09/15/23 07/05/24 06/26/24 History mg-500 mg capsule Allergies Allergy/AdvReac Type Severity Reaction Status Date / Time doxycycline Allergy Unknown Verified 07/27/24 19:08 latex Allergy Unknown Verified 07/27/24 19:08 pregabalin (From Lyrica) Allergy Unknown Verified 07/27/24 19:08 Sulfa (Sulfonamide Allergy Unknown Verified 07/27/24 19:08 Antibiotics) sulfamethoxazole (From Allergy Unknown Verified 07/27/24 19:08 Bactrim) trimethoprim (From Bactrim) Allergy Unknown Verified 07/27/24 19:08 Review of Systems 2 Review of Systems: ROS unobtainable: Yes unobtainable due to medical condition PMFSH Past Medical History Medical History Vitamin D deficiency GERD (gastroesophageal reflux disease) Osteoporosis Chronic prescription opiate use Chronic pain syndrome Rheumatoid arthritis Diet-controlled diabetes mellitus Tobacco dependence Cancer of right breast Status post mastectomy and radiation. Chronic lymphocytic leukemia Chronic obstructive pulmonary disease Depression Immunoglobulin deficiency Trigeminal neuralgia Arthritis Allergies Squamous cell carcinoma Back. Melanoma Left arm. Surgical History Surgical History History of hemiarthroplasty of left hip (~04/10/23) Bipolar hemiarthroplasty left. History of squamous cell carcinoma excision Back. History of melanoma excision Left arm. History of hysterectomy History of right mastectomy (1987) History of cholecystectomy Family History Family History Mother CLL (chronic lymphocytic leukemia) Father Lung cancer Sibling Pancreatic cancer Social History Social History Social History: Surrogate medical decision maker: Oj Gregory, richie. Code status: Full code. Smoking packs per day: 1 Smoking cigarettes per day: 20.0 Years smoked: 60 Smoking pack-years: 60.00 Smoking status: Never smoker Tobacco type: cigarettes Alcohol intake: never Substance use: never Substance use type: does not use Do You Feel Safe in your Home?: Yes Lack of Transportation: YES Lack of Food: Never True Current Housing: I Have Housing Concerned About Future Housing: No Difficulty Paying Gas/Electric Bills: No Difficulty Paying for Meds: No Currently Unemployed: No Education: Grade School Difficulty w/ Childcare or Family Care: No Additional living arrangements comments: Lives alone in [place]. Originally from [place]. Spiritual care concerns: No Exam 2 Narrative: GENERAL: Elderly, ill appearing, thin/frail, in no acute distress. HEAD: Normocephalic, atraumatic. ENT: MMs very dry RESPIRATORY: Airway patent, respirations nonlabored. No appreciable focal lung sounds. Decreased lung sounds in bases. CARDIOVASCULAR: Regular rate and rhythm ABDOMINAL: Soft, nondistended. Normoactive BS. No appreciable tenderness MUSCULOSKELETAL: No gross deformities. SKIN: Warm, dry, normal color. NEURO: Alert, opens eyes but does not answer questions or speak. Follows some commands. No ataxic movements. Able to move all extremities. PSYCHIATRIC: Follows some commands, otherwise nonverbal Course Vital Signs Vital signs: Vital Signs Temperature 98.2 F 07/27/24 19:04 Pulse Rate 88 07/27/24 19:04 Respiratory Rate 16 07/27/24 19:04 Blood Pressure 132/67 07/27/24 19:04 Pulse Oximetry 98 07/27/24 19:04 Oxygen Delivery Room Air 07/27/24 19:04 Temperature 98.2 F 07/27/24 19:04 Pulse Rate 77 07/27/24 23:16 Respiratory Rate 20 12/27/24 23:16 Blood Pressure 138/70 07/27/24 23:16 Pulse Oximetry 96 07/27/24 23:16 Oxygen Delivery Room Air 07/27/24 19:04 MDM - Weakness MDM Narrative Medical decision making narrative: Patient presented to ED from home with family reporting weakness, decreased communication/PO intake, failure to thrive. Vital signs are stable upon arrival. Patient is in no acute distress. Mucous membranes are very dry, exam is otherwise fairly unremarkable. Cbc without leukocytosis. Stable H&H. CMP is fairly unremarkable. Consistent with mild dehydration. Fluids ongoing. Stable kidney function. Lactic acid within normal range. CK within normal range. UA with ketones, no signs of infection. CT brain negative. Chest x-ray with right basilar pneumonia. Blood cultures obtained. Rocephin and azithromycin started. Covid testing did result positive. Family reports patient has had a cough over the last few days. Patient will be admitted for further eval, FTT/weakness, PNA, supportive care for covid. Will likely need further rehab vs care home placement. Discussed case with Dr. Sr, hospitalist, accepted patient for admission. Patient and family in agreement with plan. Medical Records Attestation: I reviewed the patient's medical records. Lab Data Attestation: I reviewed the patient's lab results. 07/27/24 20:49 07/27/24 20:49 Labs: Lab Results 07/27/24 07/27/24 07/27/24 Range/Units 20:49 20:49 21:13 WBC 7.8 (4.5-10.0) K/mm3 RBC 3.77 L (4.2-5.4) M/mm3 Hgb 12.2 (12.0-15.0) g/dL Hct 35.5 L (37.0-47.0) % MCV 94.2 (80-100) fl MCH 32.4 (26-34) pg MCHC 34.4 (32-36) g/dl RDW 13.4 (11.5-14.5) % Plt Count 179 (150-375) k/mm3 MPV 9.3 (7.4-10.4) fl Immature Gran % (Auto) 1.3 H (0-0.5) % Neut % (Auto) 46.7 (45.5-73.1) % Lymph % (Auto) 45.1 H (18.3-44.2) % [place] % (Auto) 6.6 (2.6-8.5) % Eos % (Auto) 0.0 (0-4.4) % Baso % (Auto) 0.3 (0.2-1.2) % Lymph # (Auto) 3.53 H (0.9-3.2) K/mm3 [place] # (Auto) 0.5 (0.1-0.6) K/mm3 Eos # (Auto) 0.0 (0-0.3) K/mm3 Baso # (Auto) 0.0 (0.0-0.1) K/mm3 Abs Immat Gran (auto) 0.10 H (0.00-0.031) K/mm3 Absolute Neuts (auto) 3.7 (1.3-6.7) K/mm3 Absolute Nucleated RBC 0.000 (0.0-0.012) K/mm3 Nucleated RBC % 0.0 (0.0-0.2) % PT 12.6 (11.1-14.7) Seconds INR 0.9 APTT 22.5 (22.3-36.8) Seconds Sodium 133 L (137-145) mmol/L Potassium 3.5 (3.4-5.0) mmol/L Chloride 106 (98-107) mmol/L Carbon Dioxide 21 L (22-30) mmol/L Anion Gap 6 (4-12) mmol/L BUN 23 H (7-17) mg/dL Creatinine 0.90 (0.7-1.0) mg/dL Estim Creat Clear Calc 32 ml/min Estimated GFR 60 (59 - ) Glucose 78 (65-110) mg/dL Lactic Acid 0.8 (0.7-2.0) mmol/L Calcium 9.3 (8.4-10.2) mg/dL Magnesium 1.8 Cancelled (1.6-2.3) mg/dL Total Bilirubin 0.6 (0.2-1.3) mg/dL AST 33 (14-36) U/L ALT 24 (6-35) U/L Alkaline Phosphatase 55 (38-126) U/L Total Creatine Kinase < 20 L (30-135) U/L Total Protein 6.0 L (6.3-8.2) g/dL Albumin 3.8 (3.5-5.1) g/dL Urine Color Yellow (Yellow) Urine Appearance Cloudy H (Clear) Urine pH 7.5 (5.0-9.0) Ur Specific [place] 1.017 (1.001-1.035) Urine Protein 2+ H (Negative) mg/dL Urine Glucose (UA) Negative (Negative) mg/dL Urine Ketones 3+ H (Negative) mg/dL Ur Blood (Man) Negative (Negative) Urine Nitrate Negative (Negative) Urine Bilirubin Negative (Negative) Urine Urobilinogen 1.0 (<2.0) mg/dL Add Ur Microanalysis Reviewed Leukocyte Esterase Rfl Trace H (Negative) SHERITA/UL Urine RBC 0-2 (0-2) /hpf Urine WBC 0-5 (0-3) /hpf Ur Squamous Epith Cells None seen (Few) /hpf Urine Bacteria None seen /hpf Urine Casts 0-2 Influenza A (RT-PCR) Negative (Negative) Influenza B (RT-PCR) Negative (Negative) RSV (RT-PCR) Negative (Negative) SARS-CoV-2 RNA (RT-PCR) Positive A (Negative) Imaging Data Attestation: I personally reviewed and interpreted this imaging study as follows: Radiologist's impression: ITS Impressions Chest X-Ray 07/27/24 20:00 IMPRESSION: Right basal pneumonia. Follow-up to resolution is advised. Head CT 07/27/24 20:04 IMPRESSION: No acute intracranial findings. Discharge Plan Discharge Clinical Impression: COVID-19, Weakness, Adult failure to thrive Pneumonia Qualifiers: Pneumonia type: due to unspecified organism Laterality: right Lung location: l ower lobe of lung Qualified Code(s): J18.9 - Pneumonia, unspecified organism Patient Disposition: Still a Patient Condition: Guarded Prognosis Patient Language: Northern Irish Prescriptions: No Action omega 3-juy-ikn-fish oil 60-90-500 mg capsule 1 cap PO QPM Rx Instructions: only takes when she eats dinner albuterol sulfate [Ventolin HFA] 90 mcg/actuation HFA aerosol inhaler 1 - 2 puff INHALATION Q4-6H PRN (Reason: shortness of breath or wheezing) Qty: 8.5 3RF duloxetine [Cymbalta] 30 mg capsule,delayed release(DR/EC) 30 mg PO QAM Qty: 90 1RF famotidine 20 mg tablet 20 mg PO Q12HR Qty: 180 1RF fluticasone propionate [Flonase Allergy Relief] 50 mcg/actuation spray,suspension 1 spray intranasal Q12H Qty: 16 0RF Rx Instructions: administer into each nostril morphine 30 mg tablet extended release 30 mg PO Q12H Qty: 10 0RF Patient Comments: Prescribed by pain management. please schedule for 7a-7p hydrocodone-acetaminophen 10-325 mg tablet 1 tablet PO BID PRN (Reason: Pain (Scale Score 7-10)) Qty: 10 0RF Rx Instructions: for breakthrough pain potassium chloride 20 mEq Packet 20 meq PO DAILY Qty: 14 0RF azithromycin [Zithromax] 250 mg Tablet 500 mg PO DAILY Qty: 2 0RF amoxicillin-pot clavulanate [Augmentin] 500-125 mg tablet 1 tablet PO Q12H Qty: 3 0RF carbamazepine 100 mg tablet extended release 12 hr 100 mg PO Q12H Qty: 60 3RF amitriptyline 25 mg tablet 25 mg PO .QHS Qty: 90 1RF Follow-up/Referrals: Baldomero Denis DO [Primary Care Provider] -
[2024-07-27 20:59] LABS: Basophils Percent Auto 0.3 % (0.2-1.2); Hematocrit 35.5 % (37.0-47.0); Hemoglobin 12.2 g/dL (12.0-15.0); Immature Granulocyte Percent A 1.3 % (0-0.5); Lymphocytes Absolute Auto 3.53 K/mm3 (0.9-3.2); Lymphocytes Percent Auto 45.1 % (18.3-44.2); Mean Corpuscular HGB Conc 34.4 g/dl (32-36); Mean Corpuscular Hemoglobin 32.4 pg (26-34); Mean Corpuscular Volume 94.2 fl (80-100); Mean Platelet Volume 9.3 fl (7.4-10.4); Monocytes Absolute Auto 0.5 K/mm3 (0.1-0.6); Monocytes Percent Auto 6.6 % (2.6-8.5); Neutrophils Absolute Auto 3.7 K/mm3 (1.3-6.7); Neutrophils Percent Auto 46.7 % (45.5-73.1); Platelet Count Result 179 k/mm3 (150-375); Red Blood Count 3.77 M/mm3 (4.2-5.4); Red Cell Distribution Width 13.4 % (11.5-14.5); White Blood Count 7.8 K/mm3 (4.5-10.0)
[2024-07-27 21:11] LABS: Alanine Aminotransferase 24 U/L (6-35); Albumin Level 3.8 g/dL (3.5-5.1); Alkaline Phosphatase 55 U/L (38-126); Anion Gap 6 mmol/L (4-12); Aspartate Amino Transferase 33 U/L (14-36); Bilirubin,Total 0.6 mg/dL (0.2-1.3); Blood Urea Nitrogen 23 mg/dL (7-17); Calcium 9.3 mg/dL (8.4-10.2); Carbon Dioxide 21 mmol/L (22-30); Chloride 106 mmol/L (98-107); Creatine Kinase < 20 U/L (30-135); Estimated CRCL calculation 32 ml/min; Estimated Glomerular Filt Rate 60; Glucose 78 mg/dL (65-110); Lactic Acid Reflex 0.8 mmol/L (0.7-2.0); Magnesium 1.8 mg/dL (1.6-2.3); Potassium 3.5 mmol/L (3.4-5.0); Sodium 133 mmol/L (137-145)
[2024-07-27 21:14] LABS: INR 0.9; Prothrombin Time 12.6 Seconds (11.1-14.7)
[2024-07-27 21:15] LABS: Partial Thromboplastin Time 22.5 Seconds (22.3-36.8)
[2024-07-27 21:38] LABS: Add Urine Microscopic? YES; Appearance Urine Cloudy (Clear); Bacteria Urine None Seen /hpf; Bilirubin Urine Negative (Negative); Blood Urine Negative (Negative); Color Urine Yellow (Yellow); Glucose Urine UA Negative (Negative); Ketones Urine 3+ mg/dL (Negative); Leukocyte Esterase Ur Trace LEU/UL (Negative); Need Manual Microscopic Reviewed; Nitrate Urine Negative (Negative); Non Pathogenic Casts 0-2; Protein Urine 2+ mg/dL (Negative); RBC Urine 0-2 /hpf (0-2); Specific Grav Ur 1.017 (1.001-1.035); Squamous Epithelial Cell Urine None Seen /hpf (Few); WBC Urine 0-5 /hpf (0-3); pH Urine 7.5 (5.0-9.0)
[2024-07-27 21:58] LABS: Influenza A QL RT-PCR Negative (Negative); Influenza B QL RT-PCR Negative (Negative); RSV RNA, RT-PCR Negative (Negative); SARS-CoV-2 RNA PCR Positive (Negative)
[2024-07-27] MEDS: AZITHROMYCIN 500 MG/NS 250 ML 500 MG/250 ML BAG 250 MG IVPB (22:07)
--- NOTE | 2024-07-27 22:57 | P.HP_ITS ---
H&P: HPI History of Present Illness Date/Time: 07/27/24 22:57 Chief Complaint: ams Narrative: This is an 84-year-old female with past medical history significant for tobacco dependence, COPD, GERD, osteoporosis, chronic opiate use, chronic pain syndrome, RA, chronic lymphocytic leukemia, trigeminal neuralgia. Patient was recently discharged from rehabilitation center went home. Was noted to have progressively be declining spending a lot of time in bed with poor per orally intake and altered mental status lethargy. Patient was brought to the emergency room for evaluation in emergency room patient was found to be positive for COVID and a right basal pneumonia. History was obtained from daughter and granddaughter who were at bedside patient was unable to participate in a meaningful way to history taking due to lethargy. Patient has been admitted for further evaluation management and treatment XR chest 1V Ordering provider: Earlene Marquez PA-C History: 84 years Female with . weakness, AMS . Comparison: July 06, 2024 FINDINGS: MEDIASTINUM: The cardiac silhouette is not enlarged. Prominent both luci. LUNGS: No effusions or pneumothorax. Opacification the right lung base suggest do of atelectasis versus pneumonia. Underlying emphysematous changes. OTHER: No free air under the diaphragm. IMPRESSION: Right basal pneumonia. Follow-up to resolution is advised. CT brain wo con Ordering provider: Earlene Marquez PA-C History: 84 years Female with . ams . Comparison: None. Technique: CT of the head without contrast. Radiation reduction technique utilized.The dose-length product was 756.67 mGy- cm. FINDINGS: BRAIN PARENCHYMA AND CSF SPACES: Mild leukoaraiosis and diffuse cortical atrophy. Mild atheromatous disease. No midline shift, mass effect or hemorrhage. The brain parenchyma and CSF spaces are otherwise normal. VISUALIZED PARANASAL SINUSES: Well aerated. MASTOIDS: Sclerotic mastoids. BONES: The bones appear intact. SOFT TISSUES: Visualized nasopharynx is normal. Superficial soft tissues are normal. IMPRESSION: No acute intracranial findings. Review of Systems Review of Systems: ROS unobtainable: Yes unobtainable due to mental status (Lethargy, obtundation) [facility] Past Medical History Medical History Vitamin D deficiency GERD (gastroesophageal reflux disease) Osteoporosis Chronic prescription opiate use Chronic pain syndrome Rheumatoid arthritis Diet-controlled diabetes mellitus Tobacco dependence Cancer of right breast Status post mastectomy and radiation. Chronic lymphocytic leukemia Chronic obstructive pulmonary disease Depression Immunoglobulin deficiency Trigeminal neuralgia Arthritis Allergies Squamous cell carcinoma Back. Melanoma Left arm. Surgical History Surgical History History of hemiarthroplasty of left hip (~11/08/22) Bipolar hemiarthroplasty left. History of squamous cell carcinoma excision Back. History of melanoma excision Left arm. History of hysterectomy History of right mastectomy (1987) History of cholecystectomy Family History Family History Mother CLL (chronic lymphocytic leukemia) Father Lung cancer Sibling Pancreatic cancer Social History Social History Social History: Surrogate medical decision maker: Oj Greogry, son. Code status: Full code. Smoking packs per day: 1 Smoking cigarettes per day: 20.0 Years smoked: 70 Smoking pack-years: 70.00 Smoking status: Current every day smoker Tobacco type: cigarettes Alcohol intake: never Substance use: never Substance use type: does not use Do You Feel Safe in your Home?: No Lack of Transportation: No Lack of Food: Never True Current Housing: I Have Housing Concerned About Future Housing: No Difficulty Paying Gas/Electric Bills: No Difficulty Paying for Meds: No Currently Unemployed: No Education: Master's Degree or Higher Difficulty w/ Childcare or Family Care: No Additional living arrangements comments: Lives alone in [place]. Originally from [place]. Spiritual care concerns: No Meds Home Medications and Allergies Home Medications ?Medication ?Instructions ?Recorded ?Confirmed ?Type omega 4-gme-yxy-fish oil 60 mg-90 1 cap PO QPM 09/15/23 07/28/24 History mg-500 mg capsule carbamazepine 100 mg 100 mg PO Q12H #60 tabs 03/29/24 07/28/24 Rx tablet,extended release,12 hr amitriptyline 25 mg tablet 25 mg PO .QHS #90 tabs 04/16/24 07/28/24 Rx albuterol sulfate 90 mcg/actuation 1 - 2 puff inhalation Q4-6H PRN 04/30/24 07/05/24 Rx aerosol inhaler (Ventolin HFA) shortness of breath or wheezing #8.5 grams duloxetine 30 mg capsule,delayed 30 mg PO QAM #90 caps 04/30/24 07/28/24 Rx release (Cymbalta) famotidine 20 mg tablet 20 mg PO Q12HR #180 tabs 04/30/24 07/28/24 Rx hydrocodone 10 mg-acetaminophen 1 tablet PO BID PRN Pain (Scale 07/06/24 07/28/24 Rx 325 mg tablet Score 7-10) #10 tabs morphine 30 mg tablet,extended 30 mg PO Q12H #10 tabs 07/06/24 07/28/24 Rx release Allergies Allergy/AdvReac Type Severity Reaction Status Date / Time doxycycline Allergy Unknown Verified 07/27/24 19:08 latex Allergy Unknown Verified 07/27/24 19:08 pregabalin (From Lyrica) Allergy Unknown Verified 07/27/24 19:08 Sulfa (Sulfonamide Allergy Unknown Verified 07/27/24 19:08 Antibiotics) sulfamethoxazole (From Allergy Unknown Verified 07/27/24 19:08 Bactrim) trimethoprim (From Bactrim) Allergy Unknown Verified 07/27/24 19:08 Vital Signs Vital Signs - 24 hr 07/27/24 19:04 Temperature 98.2 F Pulse Rate 88 Respiratory Rate 16 Blood Pressure 132/67 Pulse Oximetry 98 Oxygen Delivery Room Air Exam Narrative: Laying in a stretcher Const: General: well developed, ill appearing acutely and underweight Nutritional Appearance: average body habitus Orientation/consciousness: lethargic HENMT: Head: normal to inspection, normocephalic and atraumatic Ears: hearing grossly normal bilaterally Face/Nose/Sinus: normal facial exam Face and sinus: normal facial exam Eyes: General: appearance normal, both eyes and all related structures Pupils: Equal, round and reactive pupils present EOM: EOMs intact bilaterally Neck: Neck: full ROM, no lymphadenopathy and no JVD Thyroid: thyroid normal Lymphatic: no lymphadenopathy noted Resp: Effort & Inspection: normal respiratory effort and able to speak in complete sentences Auscultation: crackles on the right at the base and diminished lung sounds Cardio: Jugular venous distension: no JVD Rate: regular rate Rhythm: regular rhythm Heart sounds: S1 normal heart sound present and S2 normal heart sound present GI: GI Palp: Yes Soft to palpation and Yes No hepatosplenomegaly present : General: Yes deferred Skin: Rashes: no rashes Wounds: no wounds Neuro: General: moves all extremities, CN's II-XI intact bilaterally and patient obtunded Cranial nerves: Yes CN's II-XII intact bilaterally and Yes Equal, round and reactive pupils present Cognition (Neuro): abnormal cognition (Lethargic) Motor exam (neuro): 5/5 motor strength present throughout Extrem: General: normal to inspection, full ROM, no joint enlargement and no pedal edema H&P: Results Labs Labs: Short CBC 07/27/24 Range/Units 20:49 WBC 7.8 (4.5-10.0) K/mm3 Hgb 12.2 (12.0-15.0) g/dL Hct 35.5 L (37.0-47.0) % Plt Count 179 (150-375) k/mm3 BMP 07/27/24 20:49 Sodium 133 L Potassium 3.5 Chloride 106 Carbon Dioxide 21 L BUN 23 H Creatinine 0.90 Glucose 78 Calcium 9.3 Cardiac Enzymes 07/27/24 Range/Units 20:49 Total Creatine Kinase < 20 L (30-135) U/L Liver Function 07/27/24 Range/Units 20:49 Total Bilirubin 0.6 (0.2-1.3) mg/dL AST 33 (14-36) U/L ALT 24 (6-35) U/L Alkaline Phosphatase 55 (38-126) U/L Albumin 3.8 (3.5-5.1) g/dL Urine 07/27/24 Range/Units 21:13 Urine Color Yellow (Yellow) Urine Appearance Cloudy H (Clear) Urine pH 7.5 (5.0-9.0) Ur Specific [place] 1.017 (1.001-1.035) Urine Protein 2+ H (Negative) mg/dL Urine Glucose (UA) Negative (Negative) mg/dL Assessment and Plan Assessment and plan (1) Adult failure to thrive: Code(s): R62.7 - Adult failure to thrive Status: Acute Assessment and Plan: Admit to regular medical floor Likely secondary to acute illness (2) Pneumonia: Qualifiers: Laterality: right Lung location: lower lobe of lung Pneumonia type: due to unspecified organism Qualified Code(s): J18.9 - Pneumonia, unspecified organism Code(s): J18.9 - Pneumonia, unspecified organism Status: Acute Assessment and Plan: Patient started on Rocephin and Zithromax Await cultures (3) Weakness: Code(s): R53.1 - Weakness Status: Acute Assessment and Plan: Likely secondary to acute illness (4) COVID-19: Code(s): U07.1 - COVID-19 Status: Acute Assessment and Plan: Supportive care (5) Diet-controlled diabetes mellitus: Code(s): E11.9 - Type 2 diabetes mellitus without complications Status: Acute Assessment and Plan: Carb consistent diet (6) RA (rheumatoid arthritis): Qualifiers: Rheumatoid arthritis location: multiple sites Rheumatoid factor presence: without rheumatoid factor Qualified Code(s): M06.09 - Rheumatoid arthritis without rheumatoid factor, multiple sites Code(s): M06.9 - Rheumatoid arthritis, unspecified Status: Acute Assessment and Plan: On Tylenol (7) Chronic lymphocytic leukemia: Code(s): C91.10 - Chronic lymphocytic leukemia of B-cell type not having achieved remission Status: Acute Assessment and Plan: Follow-up in outpatient setting (8) Lethargy: Code(s): R53.83 - Other fatigue Status: Acute Assessment and Plan: Likely secondary to acute illness Holding extended release morphine Holding duloxetine Holding carbamazepine Holding opioid Holding amitriptyline Restart as needed Hospitalist MIPS Advance Care Plan I have confirmed that the patient's Advanced Care Plan is present, code status is documented, or surrogate decision maker is listed in patient medical record.: Yes Medication Reconciliation I have utilized all available resources to obtain, update and review the patients current medications (includes all prescriptions, OTC, herbals, cannabis, and nutritional supplements).: Yes
--- NOTE | 2024-07-27 23:14 | ECG_ITS ---
Test Date: 2024-07-28 00:04:07 Measurements Intervals [place] Rate: 71 P: 72 MS: 169 QRS: 73 QRSD: 89 T: 72 QT: 388 QTc: 422 Interpretive Statements SINUS RHYTHM NORMAL ECG Electronically Signed On 07-28-2024 08:29:58 [employer]WALL STRIPPER by Esteban Cárdenas M.D.
[2024-07-27 23:16] VITALS: BP 138/70; PULSE 77; RESP 20; O2SAT 96
[2024-07-28] VITALS (10 sets, daily range): BP systolic 115–156; BP diastolic 40–70; PULSE 65–84; RESP 16–20; TEMP 36.7–37.2; O2SAT 84–97; BMI 19.3
--- NOTE | 2024-07-28 00:53 | PC.NURSE ---
This RN was notified of patient bed assignment @ [id number]
--- NOTE | 2024-07-28 01:33 | ADMGEN ---
This patient, Korin Jones, was admitted to Medical Room 348-01. Patient/family oriented to hospital policies and general routines including ID bracelet, bed and alarms, visiting hours, pain management, procedures, bathroom and other care routines, personal items, smoking policy, room service/diet, and visiting hours. Information on how to activate the Rapid Response Team has been discussed. Patient/Family are encouraged to report perceived risks to care and to ask questions if they do not understand what they are told or what they should do.
[2024-07-28] MEDS: IPRATROPIUM 0.5 MG/ALBUTEROL SULFATE 2.5 MG AMPUL.NEB 3 ML INHALATION ×3 (07:56→21:00)
[2024-07-28] MEDS: FAMOTIDINE 20 MG TABLET PO ×2 (08:42→21:49)
[2024-07-28] MEDS: ENOXAPARIN 40 MG/0.4 ML SYRINGE SUB-Q (08:42)
[2024-07-28] MEDS: ACETAMINOPHEN 325 MG TABLET 650 MG PO (08:48)
[2024-07-28] MEDS: MORPHINE SULFATE (*CRX) 30 MG TABCR PO ×2 (11:40→17:09)
[2024-07-28] MEDS: CARBAMAZEPINE XR 100 MG TAB.SR.12H PO ×2 (11:40→21:49)
--- NOTE | 2024-07-28 16:58 | PM.IMPN ---
Progress Note: A&P Assessment and Plan (1) Adult failure to thrive: Code(s): R62.7 - Adult failure to thrive Status: Acute Assessment and Plan: Likely secondary to acute illness vs possibly dementia. Nutritional supplements ordered. Encourage with meals. (2) Pneumonia: Qualifiers: Laterality: right Lung location: lower lobe of lung Pneumonia type: due to unspecified organism Qualified Code(s): J18.9 - Pneumonia, unspecified organism Code(s): J18.9 - Pneumonia, unspecified organism Status: Acute Assessment and Plan: Patient on Rocephin and Zithromax Await cultures Currently good O2 sats > 90 % on RA. (3) Weakness: Code(s): R53.1 - Weakness Status: Acute Assessment and Plan: Likely secondary to acute illness. PT eval and treatment. (4) COVID-19: Code(s): U07.1 - COVID-19 Status: Acute Assessment and Plan: Continue supportive care (5) Diet-controlled diabetes mellitus: Code(s): E11.9 - Type 2 diabetes mellitus without complications Status: Acute Assessment and Plan: Carb consistent diet Patient with poor appetite and we'll monitor BG levels for now. (6) RA (rheumatoid arthritis): Qualifiers: Rheumatoid arthritis location: multiple sites Rheumatoid factor presence: without rheumatoid factor Qualified Code(s): M06.09 - Rheumatoid arthritis without rheumatoid factor, multiple sites Code(s): M06.9 - Rheumatoid arthritis, unspecified Status: Acute Assessment and Plan: On Tylenol (7) Chronic lymphocytic leukemia: Code(s): C91.10 - Chronic lymphocytic leukemia of B-cell type not having achieved remission Status: Acute Assessment and Plan: Appears stable. Continue follow-up in outpatient setting (8) Lethargy: Code(s): R53.83 - Other fatigue Status: Acute Assessment and Plan: Possibly secondary to acute illness vs meds vs other. Holding extended release morphine Holding duloxetine Holding carbamazepine Holding opioid Holding amitriptyline Restart as needed Time Spent With Patient Time with patient: 15 - 25 minutes Subjective Date/time seen: 07/28/24 10:58 Patient states she feels alright and her breathing is better. Interval history: Patient calm on bedrest and looks to be in no acute distress. Review of Systems Review of Systems: All systems reviewed & are unremarkable except as noted in HPI and below ROS unobtainable: Yes unobtainable due to mental status (Lethargy, obtundation) Exam Narrative: General: Fair appearing, gen muscle weakness. HEENT: Atraumatic, PERRL, EOM, moist mucosa. NECK: Supple. Lungs: Congested, diminished breath sounds. Heart: RRR, no murmurs. Abdomen: Soft, non-tender, non-distended, +ve bowel sounds X4 quadrants. Extremities: Acyanotic, no edema. Skin: Warm and dry. No lesions. Neuro: Fairly oriented. CN II-XII grossly intact. Psych: Calm and co-operative. Objective Data Vital Signs Vital Signs: Vital Signs - 24 hr 07/27/24 19:04 07/27/24 23:16 07/28/24 00:46 Temperature 98.2 F Pulse Rate 88 77 83 Respiratory Rate 16 20 20 Blood Pressure 132/67 138/70 156/60 H Pulse Oximetry 98 96 96 Oxygen Delivery Room Air 07/28/24 01:50 07/28/24 06:00 07/28/24 07:56 Temperature 98.4 F 99 F Pulse Rate 77 74 75 Respiratory Rate 18 18 18 Blood Pressure 129/70 132/49 L Pulse Oximetry 95 97 Oxygen Delivery 07/28/24 08:00 07/28/24 10:46 07/28/24 12:55 Temperature Pulse Rate Respiratory Rate Blood Pressure Pulse Oximetry Oxygen Delivery Room Air Room Air Room Air 07/28/24 13:55 07/28/24 14:09 07/28/24 14:24 Temperature 98.0 F Pulse Rate 65 76 73 Respiratory Rate 19 20 20 Blood Pressure 115/40 L Pulse Oximetry 92 Oxygen Delivery Intake/Output Intake/Output: Intake & Output 07/25/24 07/26/24 07/27/24 07/28/24 23:59 23:59 23:59 23:59 Intake Total 2300 Balance 2300 Meds/Results Medications: Active Medications Generic Name Dose Route Start Last Admin Trade Name Freq PRN Reason Stop Dose Admin Acetaminophen 650 mg 07/27/24 23:14 07/28/24 08:48 Acetaminophen 325 Mg Tablet PO 650 mg Q4H PRN Administration Mild Pain (1-3) or Fever Hydrocodone Bitart/Acetaminophen 1 tab 07/28/24 11:29 Hydrocodone/Acetaminophen (*Crx) 10-325 Mg Tablet PO BID PRN Pain (Scale Score 7-10) Al Hydrox/Mg Hydrox/Simethicone 30 ml 07/28/24 04:22 Mag Hydrox/Al Hydrox/Simeth 30 Ml Udc PO Q6H PRN Indigestion Albuterol/Ipratropium 3 ml 07/28/24 08:00 07/28/24 14:09 Ipratropium 0.5 Mg/Albuterol Sulfate 2.5 Mg Ampul.Neb 3 Ml INHALATION 3 ml Q6HRT WILI Administration Amitriptyline HCl 25 mg 07/28/24 21:00 Amitriptyline Hcl 25 Mg Tablet PO QHS WILI Carbamazepine 100 mg 07/28/24 11:30 07/28/24 11:40 Carbamazepine Xr 100 Mg Tab.Sr.12h PO 100 mg Q12HR WILI Administration Dextrose 12.5 gm 07/27/24 23:14 Dextrose 50% 25 Gm/50 Ml Syringe IV PUSH PRN PRN Hypoglycemia Protocol Duloxetine HCl 30 mg 07/29/24 09:00 Duloxetine Hcl 30 Mg [address]apsule[facility] Enoxaparin Sodium 40 mg 07/28/24 09:00 07/28/24 08:42 Enoxaparin 40 Mg/0.4 Ml Syringe SUB-Q 40 mg DAILY WILI Administration Famotidine 20 mg 07/28/24 09:00 07/28/24 08:42 Famotidine 20 Mg Tablet PO 20 mg Q12HR WILI Administration Fish Oil 1 gm 07/28/24 18:[address] 3 Polyunsat Fatty Acids 1 Gm Cap PO QPM WILI Glucagon 1 mg 07/27/24 23:14 Glucagon For Inj 1 Mg Vial IM PRN PRN Hypoglycemia Protocol Glucose 15 gm 07/27/24 23:14 Glucose Oral Gel 15 Gm Of Glucse In 37.5 Gm Tube PO PRN PRN Hypoglycemia Protocol Ceftriaxone Sodium 1 gm in 50 mls @ 100 mls/hr 07/28/24 21:00 Rocephin 1 Gm/Ns 50 Ml IVPB Q24H WILI Azithromycin 500 mg in 250 mls @ 250 mls/hr 07/28/24 22:00 Zithromax IVPB Q24H WILI Dextrose 1,000 mls @ 100 mls/hr 07/27/24 23:14 Dextrose 5% 1,000 Ml IVPB PRN PRN Hypoglycemia Protocol Morphine Sulfate 30 mg 07/28/24 11:30 07/28/24 11:40 Morphine Sulfate (*Crx) 30 Mg Tabcr PO 30 mg BID@0700,1900 WILI Administration Ondansetron HCl 4 mg 07/27/24 23:14 Ondansetron Inj 4 Mg/2 Ml Vial IV PUSH Q4H PRN Nausea Polyethylene Glycol 17 gm 07/28/24 04:22 Polyethylene Glycol 3350 17 Gm Powd.Pack PO QAM PRN Constipation Radiology Results: ITS Impressions Chest X-Ray 07/27/24 20:00 IMPRESSION: Right basal pneumonia. Follow-up to resolution is advised. Head CT 07/27/24 20:04 IMPRESSION: No acute intracranial findings. Labs Labs: Laboratory Results - last 24 hr 07/27/24 07/27/24 07/27/24 20:49 20:49 21:13 WBC 7.8 RBC 3.77 L Hgb 12.2 Hct 35.5 L MCV 94.2 MCH 32.4 MCHC 34.4 RDW 13.4 Plt Count 179 MPV 9.3 Immature Gran % (Auto) 1.3 H Neut % (Auto) 46.7 Lymph % (Auto) 45.1 H [place] % (Auto) 6.6 Eos % (Auto) 0.0 Baso % (Auto) 0.3 Lymph # (Auto) 3.53 H [place] # (Auto) 0.5 Eos # (Auto) 0.0 Baso # (Auto) 0.0 Abs Immat Gran (auto) 0.10 H Absolute Neuts (auto) 3.7 Absolute Nucleated RBC 0.000 Nucleated RBC % 0.0 PT 12.6 INR 0.9 APTT 22.5 Sodium 133 L Potassium 3.5 Chloride 106 Carbon Dioxide 21 L Anion Gap 6 BUN 23 H Creatinine 0.90 Estim Creat Clear Calc 32 Estimated GFR 60 Glucose 78 Lactic Acid 0.8 Calcium 9.3 Magnesium 1.8 Cancelled Total Bilirubin 0.6 AST 33 ALT 24 Alkaline Phosphatase 55 Total Creatine Kinase < 20 L Total Protein 6.0 L Albumin 3.8 Urine Color Yellow Urine Appearance Cloudy H Urine pH 7.5 Ur Specific [place] 1.017 Urine Protein 2+ H Urine Glucose (UA) Negative Urine Ketones 3+ H Ur Blood (Man) Negative Urine Nitrate Negative Urine Bilirubin Negative Urine Urobilinogen 1.0 Add Ur Microanalysis Reviewed Leukocyte Esterase Rfl Trace H Urine RBC 0-2 Urine WBC 0-5 Ur Squamous Epith Cells None seen Urine Bacteria None seen Urine Casts 0-2 Influenza A (RT-PCR) Negative Influenza B (RT-PCR) Negative RSV (RT-PCR) Negative SARS-CoV-2 RNA (RT-PCR) Positive A Quality VTE Prophylaxis VTE prophylaxis: pharmacologic ordered Hospitalist MIPS Advance Care Plan I have confirmed that the patient's Advanced Care Plan is present, code status is documented, or surrogate decision maker is listed in patient medical record.: Yes Medication Reconciliation I have utilized all available resources to obtain, update and review the patients current medications (includes all prescriptions, OTC, herbals, cannabis, and nutritional supplements).: Yes
--- NOTE | 2024-07-28 17:46 | PC.NURSE ---
Spoke with [id number], who reports that patient has not eaten (according to the daily caregiver) since Tuesday, . Today, patient has had one ensure compac. But, no other oral intake. They are requesting a surgery teacher assess patient for nutritional guidance, perhaps TPN, if appropriate.
[2024-07-28 21:06] LABS: Glucose Point of Care 150 mg/dl (65-105)
[2024-07-28] MEDS: AZITHROMYCIN 500 MG/NS 250 ML 500 MG/250 ML BAG 250 MG IVPB (21:49)
[2024-07-28] MEDS: AMITRIPTYLINE HCL 25 MG TABLET PO (21:49)
[2024-07-29] VITALS (12 sets, daily range): BP systolic 138–142; BP diastolic 56–60; PULSE 84–99; RESP 14–20; TEMP 37.1–37.3; O2SAT 91–97
[2024-07-29] MEDS: IPRATROPIUM 0.5 MG/ALBUTEROL SULFATE 2.5 MG AMPUL.NEB 3 ML INHALATION ×4 (02:27→22:04)
[2024-07-29] MEDS: MORPHINE SULFATE (*CRX) 30 MG TABCR PO ×2 (06:22→17:56)
[2024-07-29 06:25] LABS: Basophils Percent Auto 0.6 % (0.2-1.2); Hematocrit 33.9 % (37.0-47.0); Hemoglobin 11.6 g/dL (12.0-15.0); Immature Granulocyte Absolute 0.11 K/mm3 (0.00-0.031); Immature Granulocyte Percent A 1.7 % (0-0.5); Lymphocytes Absolute Auto 2.83 K/mm3 (0.9-3.2); Lymphocytes Percent Auto 43.1 % (18.3-44.2); Mean Corpuscular HGB Conc 34.2 g/dl (32-36); Mean Corpuscular Hemoglobin 32.5 pg (26-34); Mean Platelet Volume 9.1 fl (7.4-10.4); Monocytes Absolute Auto 0.6 K/mm3 (0.1-0.6); Monocytes Percent Auto 8.5 % (2.6-8.5); Neutrophils Percent Auto 46.1 % (45.5-73.1); Platelet Count Result 185 k/mm3 (150-375); Red Blood Count 3.57 M/mm3 (4.2-5.4); Red Cell Distribution Width 13.5 % (11.5-14.5); White Blood Count 6.6 K/mm3 (4.5-10.0)
[2024-07-29 07:50] LABS: Glucose Point of Care 103 mg/dl (65-105)
[2024-07-29] MEDS: CARBAMAZEPINE XR 100 MG TAB.SR.12H PO ×2 (08:50→20:52)
[2024-07-29] MEDS: ENOXAPARIN 40 MG/0.4 ML SYRINGE SUB-Q (08:50)
[2024-07-29] MEDS: FAMOTIDINE 20 MG TABLET PO ×2 (08:50→20:52)
[2024-07-29] MEDS: DULoxetine HCL 30 MG CAPSULE.DR PO (08:50)
[2024-07-29 11:29] LABS: Glucose Point of Care 156 mg/dl (65-105)
--- NOTE | 2024-07-29 12:03 | P.PNIM_ITS ---
Progress Note: A&P Assessment and Plan (1) Pneumonia: Qualifiers: Laterality: right Lung location: lower lobe of lung Pneumonia type: due to unspecified organism Qualified Code(s): J18.9 - Pneumonia, unspecified organism Code(s): J18.9 - Pneumonia, unspecified organism Status: Acute Assessment and Plan: CXR showing Right Basal Pneumonia. Patient on Rocephin and Zithromax Follow cultures Currently good O2 sats > 90 % on RA. (2) Adult failure to thrive: Code(s): R62.7 - Adult failure to thrive Status: Acute Assessment and Plan: Likely secondary to acute illness vs possibly dementia vs other. Nutritional supplements ordered. Patient still with very poor appetite. Continue to encourage with meals. (3) Weakness: Code(s): R53.1 - Weakness Status: Acute Assessment and Plan: Possibly secondary to acute illness vs narcotics use vs other. CT head negative for acute. Flu A/B PCR negative, RSV PCR negative. PT eval and treatment. Patient more alert today but still weak. Home chronic pain meds restarted. Continue to monitor for acute neuro changes. (4) COVID-19: Code(s): U07.1 - COVID-19 Status: Acute Assessment and Plan: Continue supportive care (5) Diet-controlled diabetes mellitus: Code(s): E11.9 - Type 2 diabetes mellitus without complications Status: Acute Assessment and Plan: Carb consistent diet Patient with poor appetite and we'll monitor BG levels for now. (6) RA (rheumatoid arthritis): Qualifiers: Rheumatoid arthritis location: multiple sites Rheumatoid factor presence: without rheumatoid factor Qualified Code(s): M06.09 - Rheumatoid arthritis without rheumatoid factor, multiple sites Code(s): M06.9 - Rheumatoid arthritis, unspecified Status: Acute Assessment and Plan: On Tylenol PRN (7) Chronic lymphocytic leukemia: Code(s): C91.10 - Chronic lymphocytic leukemia of B-cell type not having achieved remission Status: Acute Assessment and Plan: Appears stable. Continue follow-up in outpatient setting Plan Continue IV abx for PNA treatment as we follow cultures. Encourage with meals. PT eval and treatment. Time Spent With Patient Time with patient: 15 - 25 minutes Subjective Date/time seen: 07/29/24 12:03 Interval history: Patient calm on bedrest and looks to be in no acute distress. Review of Systems Review of Systems: All systems reviewed & are unremarkable except as noted in HPI and below ROS unobtainable: Yes unobtainable due to mental status (Lethargy, obtundation) Exam Narrative: General: Fair appearing, gen muscle weakness. HEENT: Atraumatic, PERRL, EOM, moist mucosa. NECK: Supple. Lungs: Slightly congested, diminished breath sounds. Heart: RRR, no murmurs. Abdomen: Soft, non-tender, non-distended, +ve bowel sounds X4 quadrants. Extremities: Acyanotic, no edema. Skin: Warm and dry. No lesions. Neuro: Fairly oriented. CN II-XII grossly intact. Psych: Calm and co-operative. Objective Data Vital Signs Vital Signs: Vital Signs - 24 hr 07/28/24 12:55 07/28/24 13:55 07/28/24 14:09 Temperature 98.0 F Pulse Rate 65 76 Respiratory Rate 19 20 Blood Pressure 115/40 L Pulse Oximetry 92 Oxygen Delivery Room Air 07/28/24 14:24 07/28/24 20:00 07/28/24 21:00 Temperature Pulse Rate 73 73 Respiratory Rate 20 20 Blood Pressure Pulse Oximetry Oxygen Delivery Room Air 07/28/24 21:10 07/28/24 22:00 07/29/24 02:28 Temperature 98.6 F Pulse Rate 74 84 84 Respiratory Rate 20 16 20 Blood Pressure 139/51 L Pulse Oximetry 84 L Oxygen Delivery 07/29/24 02:34 07/29/24 06:00 07/29/24 09:06 Temperature 99.1 F Pulse Rate 84 92 86 Respiratory Rate 20 18 18 Blood Pressure 142/56 H Pulse Oximetry 97 Oxygen Delivery 07/29/24 09:12 Temperature Pulse Rate 84 Respiratory Rate 18 Blood Pressure Pulse Oximetry Oxygen Delivery Intake/Output Intake/Output: Intake & Output 07/26/24 07/27/24 07/28/24 07/29/24 23:59 23:59 23:59 23:59 Intake Total 2300 170 120 Output Total 1450 Balance 2300 170 -1330 Meds/Results Medications: Active Medications Generic Name Dose Route Start Last Admin Trade Name Freq PRN Reason Stop Dose Admin Acetaminophen 650 mg 07/27/24 23:14 07/28/24 08:48 Acetaminophen 325 Mg Tablet PO 650 mg Q4H PRN Administration Mild Pain (1-3) or Fever Hydrocodone Bitart/Acetaminophen 1 tab 07/28/24 11:29 Hydrocodone/Acetaminophen (*Crx) 10-325 Mg Tablet PO BID PRN Pain (Scale Score 7-10) Al Hydrox/Mg Hydrox/Simethicone 30 ml 07/28/24 04:22 Mag Hydrox/Al Hydrox/Simeth 30 Ml Udc PO Q6H PRN Indigestion Albuterol/Ipratropium 3 ml 07/28/24 08:00 07/29/24 09:03 Ipratropium 0.5 Mg/Albuterol Sulfate 2.5 Mg Ampul.Neb 3 Ml INHALATION 3 ml Q6HRT WILI Administration Amitriptyline HCl 25 mg 07/28/24 21:00 07/28/24 21:49 Amitriptyline Hcl 25 Mg Tablet PO 25 mg QHS WILI Administration Carbamazepine 100 mg 07/28/24 11:30 07/29/24 08:50 Carbamazepine Xr 100 Mg Tab.Sr.12h PO 100 mg Q12HR WILI Administration Dextrose 12.5 gm 07/27/24 23:14 Dextrose 50% 25 Gm/50 Ml Syringe IV PUSH PRN PRN Hypoglycemia Protocol Duloxetine HCl 30 mg 07/29/24 09:00 07/29/24 08:50 Duloxetine Hcl 30 Mg Capsule.Dr PO 30 mg QAM WILI Administration Enoxaparin Sodium 40 mg 07/28/24 09:00 07/29/24 08:50 Enoxaparin 40 Mg/0.4 Ml Syringe SUB-Q 40 mg DAILY WILI Administration Famotidine 20 mg 07/28/24 09:00 07/29/24 08:50 Famotidine 20 Mg Tablet PO 20 mg Q12HR WILI Administration Fish Oil 1 gm 07/28/24 18:00 07/28/24 18:06 [place] 3 Polyunsat Fatty Acids 1 Gm Cap PO Not Given QPM WILI Glucagon 1 mg 07/27/24 23:14 Glucagon For Inj 1 Mg Vial IM PRN PRN Hypoglycemia Protocol Glucose 15 gm 07/27/24 23:14 Glucose Oral Gel 15 Gm Of Glucse In 37.5 Gm Tube PO PRN PRN Hypoglycemia Protocol Ceftriaxone Sodium 1 gm in 50 mls @ 100 mls/hr 07/28/24 21:00 07/28/24 21:49 Rocephin 1 Gm/Ns 50 Ml IVPB 100 mls/hr Q24H WILI Administration Azithromycin 500 mg in 250 mls @ 250 mls/hr 07/28/24 22:00 07/28/24 21:49 Zithromax IVPB 250 mls/hr Q24H WILI Administration Dextrose 1,000 mls @ 100 mls/hr 07/27/24 23:14 Dextrose 5% 1,000 Ml IVPB PRN PRN Hypoglycemia Protocol Morphine Sulfate 30 mg 07/28/24 11:30 07/29/24 06:22 Morphine Sulfate (*Crx) 30 Mg Tabcr PO 30 mg BID@0700,1900 WILI Administration Ondansetron HCl 4 mg 07/27/24 23:14 Ondansetron Inj 4 Mg/2 Ml Vial IV PUSH Q4H PRN Nausea Polyethylene Glycol 17 gm 07/28/24 04:22 Polyethylene Glycol 3350 17 Gm Powd.Pack PO QAM PRN Constipation Radiology Results: ITS Impressions Chest X-Ray 07/27/24 20:00 IMPRESSION: Right basal pneumonia. Follow-up to resolution is advised. Head CT 07/27/24 20:04 IMPRESSION: No acute intracranial findings. Labs Labs: Laboratory Results - last 24 hr 07/28/24 07/29/24 07/29/24 21:03 05:58 07:47 WBC 6.6 RBC 3.57 L Hgb 11.6 L Hct 33.9 L MCV 95.0 MCH 32.5 MCHC 34.2 RDW 13.5 Plt Count 185 MPV 9.1 Immature Gran % (Auto) 1.7 H Neut % (Auto) 46.1 Lymph % (Auto) 43.1 [place] % (Auto) 8.5 Eos % (Auto) 0.0 Baso % (Auto) 0.6 Lymph # (Auto) 2.83 [place] # (Auto) 0.6 Eos # (Auto) 0.0 Baso # (Auto) 0.0 Abs Immat Gran (auto) 0.11 H Absolute Neuts (auto) 3.0 Absolute Nucleated RBC 0.000 Nucleated RBC % 0.0 POC Capillary Glucose 150 H 103 07/29/24 11:26 WBC RBC Hgb Hct MCV MCH MCHC RDW Plt Count MPV Immature Gran % (Auto) Neut % (Auto) Lymph % (Auto) [place] % (Auto) Eos % (Auto) Baso % (Auto) Lymph # (Auto) [place] # (Auto) Eos # (Auto) Baso # (Auto) Abs Immat Gran (auto) Absolute Neuts (auto) Absolute Nucleated RBC Nucleated RBC % POC Capillary Glucose 156 H Quality VTE Prophylaxis VTE prophylaxis: pharmacologic ordered Hospitalist [facility] Advance Care Plan I have confirmed that the patient's Advanced Care Plan is present, code status is documented, or surrogate decision maker is listed in patient medical record.: Yes Medication Reconciliation I have utilized all available resources to obtain, update and review the patients current medications (includes all prescriptions, OTC, herbals, cannabis, and nutritional supplements).: Yes
[2024-07-29 16:39] LABS: Glucose Point of Care 155 mg/dl (65-105)
[2024-07-29] MEDS: AMITRIPTYLINE HCL 25 MG TABLET PO (20:52)
[2024-07-29] MEDS: AZITHROMYCIN 500 MG/NS 250 ML 500 MG/250 ML BAG 250 MG IVPB (21:03)
[2024-07-30] VITALS (9 sets, daily range): BP systolic 121–153; BP diastolic 57–72; PULSE 82–115; RESP 16–20; TEMP 36.5–37.1; O2SAT 90–95
[2024-07-30 00:32] LABS: Glucose Point of Care 147 mg/dl (65-105)
[2024-07-30] MEDS: MORPHINE SULFATE (*CRX) 30 MG TABCR PO ×2 (06:18→18:05)
[2024-07-30] MEDS: IPRATROPIUM 0.5 MG/ALBUTEROL SULFATE 2.5 MG AMPUL.NEB 3 ML INHALATION ×3 (07:28→21:05)
[2024-07-30 08:33] LABS: Glucose Point of Care 114 mg/dl (65-105)
[2024-07-30] MEDS: FAMOTIDINE 20 MG TABLET PO ×2 (10:19→21:02)
[2024-07-30] MEDS: CARBAMAZEPINE XR 100 MG TAB.SR.12H PO ×2 (10:19→21:02)
[2024-07-30] MEDS: DULoxetine HCL 30 MG CAPSULE.DR PO (10:19)
[2024-07-30] MEDS: ENOXAPARIN 40 MG/0.4 ML SYRINGE SUB-Q (10:19)
[2024-07-30 11:52] LABS: Glucose Point of Care 163 mg/dl (65-105)
[2024-07-30 17:13] LABS: Glucose Point of Care 106 mg/dl (65-105)
--- NOTE | 2024-07-30 17:49 | PM.IMPN ---
Progress Note: A&P Assessment and Plan (1) Pneumonia: Qualifiers: Laterality: right Lung location: lower lobe of lung Pneumonia type: due to unspecified organism Qualified Code(s): J18.9 - Pneumonia, unspecified organism Code(s): J18.9 - Pneumonia, unspecified organism Status: Acute Assessment and Plan: CXR showing Right Basal Pneumonia. Patient on Rocephin and Zithromax Blood cultures NGTD. Follow cultures Currently good O2 sats > 90 % on RA. (2) Adult failure to thrive: Code(s): R62.7 - Adult failure to thrive Status: Acute Assessment and Plan: Likely secondary to acute illness vs possibly dementia vs other. Nutritional supplements ordered. Patient still with very poor appetite but ate better today per family. Continue to encourage with meals. (3) Weakness: Code(s): R53.1 - Weakness Status: Acute Assessment and Plan: Possibly secondary to acute illness vs narcotics use vs dementia vs other. CT head negative for acute. Flu A/B PCR negative, RSV PCR negative. Patient more alert today. Continue PT eval and treatment. Home chronic pain meds restarted. Continue to monitor for acute neuro changes. Case mgt to arrange for placement. (4) COVID-19: Code(s): U07.1 - COVID-19 Status: Acute Assessment and Plan: Asymptomatic. Continue supportive care. (5) Diet-controlled diabetes mellitus: Code(s): E11.9 - Type 2 diabetes mellitus without complications Status: Acute Assessment and Plan: Carb consistent diet Patient with poor appetite and we'll monitor BG levels for now. (6) RA (rheumatoid arthritis): Qualifiers: Rheumatoid arthritis location: multiple sites Rheumatoid factor presence: without rheumatoid factor Qualified Code(s): M06.09 - Rheumatoid arthritis without rheumatoid factor, multiple sites Code(s): M06.9 - Rheumatoid arthritis, unspecified Status: Acute Assessment and Plan: On Tylenol PRN (7) Chronic lymphocytic leukemia: Code(s): C91.10 - Chronic lymphocytic leukemia of B-cell type not having achieved remission Status: Acute Assessment and Plan: Appears stable. Continue follow-up in outpatient setting Plan Continue IV abx for PNA treatment as we follow cultures and await treatment. Encourage with meals. PT eval and treatment. Time Spent With Patient Time with patient: 15 - 25 minutes Subjective Date/time seen: 07/30/24 10:49 Patient states she feels ok and has no pain anywhere. Interval history: Patient calm on bedrest and looks to be in no acute distress, only oriented to self. Review of Systems Review of Systems: All systems reviewed & are unremarkable except as noted in HPI and below Exam Narrative: General: Fair appearing, gen muscle weakness, pleasantly confused. HEENT: Atraumatic, PERRL, EOM, moist mucosa. NECK: Supple. Lungs: Slightly coarse. Heart: RRR, no murmurs. Abdomen: Soft, non-tender, non-distended, +ve bowel sounds X4 quadrants. Extremities: Acyanotic, no edema. Skin: Warm and dry. No lesions. Neuro: Oriented to self only. CN II-XII grossly intact. Psych: Calm and co-operative. Objective Data Vital Signs Vital Signs: Vital Signs - 24 hr 07/29/24 20:00 07/29/24 22:04 07/29/24 22:08 Temperature Pulse Rate 98 Respiratory Rate 20 Blood Pressure Pulse Oximetry 91 Oxygen Delivery Room Air Room Air Fraction of Inspired Oxygen 07/29/24 22:15 07/29/24 22:21 07/30/24 06:00 Temperature 98.7 F 98.7 F Pulse Rate 94 97 82 Respiratory Rate 20 16 16 Blood Pressure 138/60 153/66 H Pulse Oximetry 95 95 Oxygen Delivery Fraction of Inspired Oxygen 07/30/24 07:28 07/30/24 07:28 07/30/24 07:37 Temperature Pulse Rate 84 84 Respiratory Rate 20 20 Blood Pressure Pulse Oximetry 92 Oxygen Delivery Room Air Fraction of Inspired Oxygen 07/30/24 10:26 07/30/24 13:23 07/30/24 13:23 Temperature Pulse Rate 90 Respiratory Rate 20 Blood Pressure Pulse Oximetry 92 Oxygen Delivery Room Air Room Air Fraction of Inspired Oxygen 07/30/24 13:30 07/30/24 13:58 Temperature 98.5 F Pulse Rate 91 95 Respiratory Rate 20 18 Blood Pressure 122/57 L Pulse Oximetry 92 Oxygen Delivery Fraction of Inspired Oxygen Intake/Output Intake/Output: Intake & Output 07/27/24 07/28/24 07/29/24 07/30/24 23:59 23:59 23:59 23:59 Intake Total 2300 470 1015 472 Output Total 1775 1350 Balance 2301 241 -603 -805 Meds/Results Medications: Active Medications Generic Name Dose Route Start Last Admin Trade Name Freq PRN Reason Stop Dose Admin Acetaminophen 650 mg 07/27/24 23:14 07/28/24 08:48 Acetaminophen 325 Mg Tablet PO 650 mg Q4H PRN Administration Mild Pain (1-3) or Fever Hydrocodone Bitart/Acetaminophen 1 tab 07/28/24 11:29 Hydrocodone/Acetaminophen (*Crx) 10-325 Mg Tablet PO BID PRN Pain (Scale Score 7-10) Al Hydrox/Mg Hydrox/Simethicone 30 ml 07/28/24 04:22 Mag Hydrox/Al Hydrox/Simeth 30 Ml Udc PO Q6H PRN Indigestion Albuterol/Ipratropium 3 ml 07/28/24 08:00 07/30/24 13:23 Ipratropium 0.5 Mg/Albuterol Sulfate 2.5 Mg Ampul.Neb 3 Ml INHALATION 3 ml Q6HRT WILI Administration Amitriptyline HCl 25 mg 07/28/24 21:00 07/29/24 20:52 Amitriptyline Hcl 25 Mg Tablet PO 25 mg QHS WILI Administration Carbamazepine 100 mg 07/28/24 11:30 07/30/24 10:19 Carbamazepine Xr 100 Mg Tab.Sr.12h PO 100 mg Q12HR WILI Administration Dextrose 12.5 gm 07/27/24 23:14 Dextrose 50% 25 Gm/50 Ml Syringe IV PUSH PRN PRN Hypoglycemia Protocol Duloxetine HCl 30 mg 07/29/24 09:00 07/30/24 10:19 Duloxetine Hcl 30 Mg Capsule.Dr PO 30 mg QAM WILI Administration Enoxaparin Sodium 40 mg 07/28/24 09:00 07/30/24 10:19 Enoxaparin 40 Mg/0.4 Ml Syringe SUB-Q 40 mg DAILY WILI Administration Famotidine 20 mg 07/28/24 09:00 07/30/24 10:19 Famotidine 20 Mg Tablet PO 20 mg Q12HR WILI Administration Fish Oil 1 gm 07/28/24 18:00 07/29/24 19:31 [place] 3 Polyunsat Fatty Acids 1 Gm Cap PO Not Given QPM WILI Glucagon 1 mg 07/27/24 23:14 Glucagon For Inj 1 Mg Vial IM PRN PRN Hypoglycemia Protocol Glucose 15 gm 07/27/24 23:14 Glucose Oral Gel 15 Gm Of Glucse In 37.5 Gm Tube PO PRN PRN Hypoglycemia Protocol Ceftriaxone Sodium 1 gm in 50 mls @ 100 mls/hr 07/28/24 21:00 07/29/24 21:34 Rocephin 1 Gm/Ns 50 Ml IVPB Infused Q24H WILI Infusion Azithromycin 500 mg in 250 mls @ 250 mls/hr 07/28/24 22:00 07/29/24 22:03 Zithromax IVPB Infused Q24H WILI Infusion Dextrose 1,000 mls @ 100 mls/hr 07/27/24 23:14 Dextrose 5% 1,000 Ml IVPB PRN PRN Hypoglycemia Protocol Morphine Sulfate 30 mg 07/28/24 11:30 07/30/24 06:18 Morphine Sulfate (*Crx) 30 Mg Tabcr PO 30 mg BID@0700,1900 WILI Administration Ondansetron HCl 4 mg 07/27/24 23:14 Ondansetron Inj 4 Mg/2 Ml Vial IV PUSH Q4H PRN Nausea Polyethylene Glycol 17 gm 07/28/24 04:22 Polyethylene Glycol 3350 17 Gm Powd.Pack PO QAM PRN Constipation Radiology Results: ITS Impressions Chest X-Ray 07/27/24 20:00 IMPRESSION: Right basal pneumonia. Follow-up to resolution is advised. Head CT 07/27/24 20:04 IMPRESSION: No acute intracranial findings. Labs Labs: Laboratory Results - last 24 hr 07/29/24 07/30/24 07/30/24 21:59 08:29 11:49 POC Capillary Glucose 147 H 114 H 163 H 07/30/24 16:57 POC Capillary Glucose 106 H Quality VTE Prophylaxis VTE prophylaxis: pharmacologic ordered Hospitalist [facility] Advance Care Plan I have confirmed that the patient's Advanced Care Plan is present, code status is documented, or surrogate decision maker is listed in patient medical record.: Yes Medication Reconciliation I have utilized all available resources to obtain, update and review the patients current medications (includes all prescriptions, OTC, herbals, cannabis, and nutritional supplements).: Yes
[2024-07-30] MEDS: OMEGA 3 POLYUNSAT FATTY ACIDS 1 GM CAP PO (18:05)
[2024-07-30] MEDS: AMITRIPTYLINE HCL 25 MG TABLET PO (21:02)
[2024-07-30] MEDS: AZITHROMYCIN 500 MG/NS 250 ML 500 MG/250 ML BAG 250 MG IVPB (21:07)
[2024-07-31] VITALS (8 sets, daily range): BP systolic 113–135; BP diastolic 49–65; PULSE 84–102; RESP 15–20; TEMP 36.8–37.7; O2SAT 91–100
[2024-07-31] MEDS: IPRATROPIUM 0.5 MG/ALBUTEROL SULFATE 2.5 MG AMPUL.NEB 3 ML INHALATION ×2 (01:11→09:04)
[2024-07-31] MEDS: MORPHINE SULFATE (*CRX) 30 MG TABCR PO ×2 (06:26→18:01)
[2024-07-31] MEDS: DULoxetine HCL 30 MG CAPSULE.DR PO (08:43)
[2024-07-31] MEDS: FAMOTIDINE 20 MG TABLET PO ×2 (08:43→20:52)
[2024-07-31] MEDS: ENOXAPARIN 40 MG/0.4 ML SYRINGE SUB-Q (08:43)
[2024-07-31] MEDS: CARBAMAZEPINE XR 100 MG TAB.SR.12H PO ×2 (08:44→20:52)
[2024-07-31 09:25] LABS: Glucose Point of Care 107 mg/dl (65-105)
[2024-07-31 09:28] LABS: Glucose Point of Care 196 mg/dl (65-105)
--- NOTE | 2024-07-31 12:00 | PCOTNOTE ---
Patient declined to participate this morning. Patient's family present, going to speak with her about participation. Will try back this P.M.
[2024-07-31 12:30] LABS: Glucose Point of Care 158 mg/dl (65-105)
--- NOTE | 2024-07-31 16:32 | P.PNIM_ITS ---
Progress Note: A&P Assessment and Plan (1) Pneumonia: Qualifiers: Laterality: right Lung location: lower lobe of lung Pneumonia type: due to unspecified organism Qualified Code(s): J18.9 - Pneumonia, unspecified organism Code(s): J18.9 - Pneumonia, unspecified organism Status: Acute Assessment and Plan: CXR showing Right Basal Pneumonia. Patient previously on Rocephin and Zithromax. IV abx discontinued, now on Augmentin. Blood cultures NGTD. Follow cultures, NGTD. Currently good O2 sats > 90 % on RA. (2) Adult failure to thrive: Code(s): R62.7 - Adult failure to thrive Status: Acute Assessment and Plan: Likely secondary to acute illness vs possibly dementia vs other. Nutritional supplements ordered. Patient still with very poor appetite but improving. Continue to encourage with meals. (3) Weakness: Code(s): R53.1 - Weakness Status: Acute Assessment and Plan: Possibly secondary to acute illness vs narcotics use vs dementia vs other. CT head negative for acute. Covid positive. Flu A/B, PCR negative, RSV PCR negative. Patient more alert today. Continue PT eval and treatment. Home chronic pain meds restarted. Continue to monitor for acute neuro changes. Case mgt to arrange for placement. (4) COVID-19: Code(s): U07.1 - COVID-19 Status: Acute Assessment and Plan: Asymptomatic. Continue supportive care. (5) Altered mental status: Code(s): R41.82 - Altered mental status, unspecified Status: Acute Assessment and Plan: - Unclear etiology. - Possibly related to infection vs dementia vs other. - Possibly undiagnosed dementia. - Neuro consulted per family request. (6) Diet-controlled diabetes mellitus: Code(s): E11.9 - Type 2 diabetes mellitus without complications Status: Acute Assessment and Plan: Carb consistent diet Patient with poor appetite and we'll monitor BG levels for now. (7) RA (rheumatoid arthritis): Qualifiers: Rheumatoid arthritis location: multiple sites Rheumatoid factor presence: without rheumatoid factor Qualified Code(s): M06.09 - Rheumatoid arthritis without rheumatoid factor, multiple sites Code(s): M06.9 - Rheumatoid arthritis, unspecified Status: Acute Assessment and Plan: On Tylenol PRN (8) Chronic lymphocytic leukemia: Code(s): C91.10 - Chronic lymphocytic leukemia of B-cell type not having achieved remission Status: Acute Assessment and Plan: Appears stable. Continue follow-up in outpatient setting Plan Continue IV abx for PNA treatment as we follow cultures and await treatment. Encourage with meals. PT eval and treatment. Subjective Date/time seen: 07/31/24 10:32 Patient says her name after multiple inquiries. Interval history: Patient pleasantly confused on bedrest and in no acute distress. Review of Systems Review of Systems: ROS unobtainable: Yes unobtainable due to mental status (Lethargy, obtundation) Exam Narrative: General: Fair appearing, gen muscle weakness, pleasantly confused. HEENT: Atraumatic, PERRL, EOM, moist mucosa. NECK: Supple. Lungs: Slightly coarse. Heart: RRR, no murmurs. Abdomen: Soft, non-tender, non-distended, +ve bowel sounds X4 quadrants. Extremities: Acyanotic, no edema. Skin: Warm and dry. No lesions. Neuro: Oriented to self only. CN II-XII grossly intact. Psych: Calm and co-operative. Objective Data Vital Signs Vital Signs: Vital Signs - 24 hr 07/30/24 20:00 07/30/24 21:08 07/30/24 21:08 Temperature Pulse Rate 92 Respiratory Rate 20 Blood Pressure Pulse Oximetry 90 Oxygen Delivery Room Air Room Air 07/30/24 21:18 07/30/24 22:00 07/31/24 01:11 Temperature 97.7 F Pulse Rate 93 115 H 96 Respiratory Rate 20 16 18 Blood Pressure 121/72 Pulse Oximetry 94 Oxygen Delivery 07/31/24 01:17 07/31/24 06:00 07/31/24 08:00 Temperature 99.8 F H Pulse Rate 98 102 H Respiratory Rate 18 18 Blood Pressure 119/64 Pulse Oximetry 97 Oxygen Delivery Room Air 07/31/24 09:05 07/31/24 09:05 07/31/24 09:12 Temperature Pulse Rate 95 93 Respiratory Rate 20 20 Blood Pressure Pulse Oximetry 94 Oxygen Delivery Room Air 07/31/24 15:47 Temperature 98.3 F Pulse Rate 84 Respiratory Rate 15 Blood Pressure 113/49 L Pulse Oximetry 100 Oxygen Delivery Intake/Output Intake/Output: Intake & Output 12/2807/29/24 07/30/24 07/31/24 23:59 23:59 23:59 23:59 Intake Total 013 0343 193 521 Output Total 0341 3525 2619 Balance 526 -772 -161 -500 Meds/Results Medications: Active Medications Generic Name Dose Route Start Last Admin Trade Name Freq PRN Reason Stop Dose Admin Acetaminophen 650 mg 07/27/24 23:14 07/28/24 08:48 Acetaminophen 325 Mg Tablet PO 650 mg Q4H PRN Administration Mild Pain (1-3) or Fever Hydrocodone Bitart/Acetaminophen 1 tab 07/28/24 11:29 Hydrocodone/Acetaminophen (*Crx) 10-325 Mg Tablet PO BID PRN Pain (Scale Score 7-10) Al Hydrox/Mg Hydrox/Simethicone 30 ml 07/28/24 04:22 Mag Hydrox/Al Hydrox/Simeth 30 Ml Udc PO Q6H PRN Indigestion Albuterol/Ipratropium 3 ml 07/31/24 09:57 Ipratropium 0.5 Mg/Albuterol Sulfate 2.5 Mg Ampul.Neb 3 Ml INHALATION Q6HRT PRN Shortness Of Breath Amitriptyline HCl 25 mg 07/28/24 21:00 07/30/24 21:02 Amitriptyline Hcl 25 Mg Tablet PO 25 mg QHS WILI Administration Amoxicillin/Clavulanate Potassium 1 tablet 07/31/24 21:00 Amoxicillin/Clavulanate K 875-125 Mg Tab PO 08/03/24 09:01 Q12HR WILI Carbamazepine 100 mg 07/28/24 11:30 07/31/24 08:44 Carbamazepine Xr 100 Mg Tab.Sr.12h PO 100 mg Q12HR WILI Administration Dextrose 12.5 gm 07/27/24 23:14 Dextrose 50% 25 Gm/50 Ml Syringe IV PUSH PRN PRN Hypoglycemia Protocol Duloxetine HCl 30 mg 07/29/24 09:00 07/31/24 08:43 Duloxetine Hcl 30 Mg Capsule.Dr PO 30 mg QAM WILI Administration Enoxaparin Sodium 40 mg 07/28/24 09:00 07/31/24 08:43 Enoxaparin 40 Mg/0.4 Ml Syringe SUB-Q 40 mg DAILY WILI Administration Famotidine 20 mg 07/28/24 09:00 07/31/24 08:43 Famotidine 20 Mg Tablet PO 20 mg Q12HR WILI Administration Fish Oil 1 gm 07/28/24 18:00 07/30/24 18:05 [place] 3 Polyunsat Fatty Acids 1 Gm Cap PO 1 gm QPM WILI Administration Glucagon 1 mg 07/27/24 23:14 Glucagon For Inj 1 Mg Vial IM PRN PRN Hypoglycemia Protocol Glucose 15 gm 07/27/24 23:14 Glucose Oral Gel 15 Gm Of Glucse In 37.5 Gm Tube PO PRN PRN Hypoglycemia Protocol Dextrose 1,000 mls @ 100 mls/hr 07/27/24 23:14 Dextrose 5% 1,000 Ml IVPB PRN PRN Hypoglycemia Protocol Morphine Sulfate 30 mg 07/28/24 11:30 07/31/24 06:26 Morphine Sulfate (*Crx) 30 Mg Tabcr PO 30 mg BID@0700,1900 WILI Administration Ondansetron HCl 4 mg 07/27/24 23:14 Ondansetron Inj 4 Mg/2 Ml Vial IV PUSH Q4H PRN Nausea Polyethylene Glycol 17 gm 07/28/24 04:22 Polyethylene Glycol 3350 17 Gm Powd.Pack PO QAM PRN Constipation Radiology Results: ITS Impressions Chest X-Ray 07/27/24 20:00 IMPRESSION: Right basal pneumonia. Follow-up to resolution is advised. Head CT 07/27/24 20:04 IMPRESSION: No acute intracranial findings. Labs Labs: Laboratory Results - last 24 hr 07/30/24 07/30/24 07/31/24 16:57 22:00 09:20 POC Capillary Glucose 106 H 196 H 107 H 07/31/24 12:27 POC Capillary Glucose 158 H Quality VTE Prophylaxis VTE prophylaxis: pharmacologic ordered
[2024-07-31 17:42] LABS: Glucose Point of Care 101 mg/dl (65-105)
[2024-07-31] MEDS: OMEGA 3 POLYUNSAT FATTY ACIDS 1 GM CAP PO (17:58)
[2024-07-31] MEDS: AMITRIPTYLINE HCL 25 MG TABLET PO (20:51)
[2024-07-31] MEDS: AMOXICILLIN/CLAVULANATE K 875-125 MG TAB 1 TABLET PO (20:52)
[2024-07-31 21:57] LABS: Glucose Point of Care 104 mg/dl (65-105)
[2024-08-01 05:58] VITALS: BP 137/60; PULSE 92; RESP 18; TEMP 36.6; O2SAT 92
[2024-08-01] MEDS: DULoxetine HCL 30 MG CAPSULE.DR PO (08:20)
[2024-08-01] MEDS: FAMOTIDINE 20 MG TABLET PO ×2 (08:20→21:11)
[2024-08-01] MEDS: CARBAMAZEPINE XR 100 MG TAB.SR.12H PO ×2 (08:20→21:11)
[2024-08-01] MEDS: AMOXICILLIN/CLAVULANATE K 875-125 MG TAB 1 TABLET PO ×2 (08:20→21:11)
[2024-08-01] MEDS: MORPHINE SULFATE (*CRX) 30 MG TABCR PO ×2 (08:20→18:00)
[2024-08-01] MEDS: ENOXAPARIN 40 MG/0.4 ML SYRINGE SUB-Q (08:20)
--- NOTE | 2024-08-01 15:15 | P.PNIM_ITS ---
Progress Note: A&P Assessment and Plan (1) Pneumonia: Qualifiers: Laterality: right Lung location: lower lobe of lung Pneumonia type: due to unspecified organism Qualified Code(s): J18.9 - Pneumonia, unspecified organism Code(s): J18.9 - Pneumonia, unspecified organism Status: Acute Assessment and Plan: CXR showing right basilar infiltrate vs atelectasis. Patient previously on Rocephin and Zithromax (07/27-07/31/24). Now on Augmentin (started 07/31). Would stop antibiotics after7 days. Blood cultures NGTD. No supplemental oxygen requirement. (2) Adult failure to thrive: Code(s): R62.7 - Adult failure to thrive Status: Acute Assessment and Plan: Likely secondary to acute illness vs dementia vs drug side effects. No ga of stroke, bleed, or tumor on CT brain. Clinically less likely are chronic infection (syphilis, lyme), acute infection (CJD), thyroid disease, or B12 deficiency. Nutritional supplements ordered. Patient still with very poor appetite. Labs ordered. Would likely benefit from deprescribin08/01/24 d/c amitriptyline and hydrocodone (not receiving the latter). (3) Weakness: Code(s): R53.1 - Weakness Status: Acute Assessment and Plan: Generalized. Possibly secondary to acute illness vs opioids use vs dementia vs other. CT head negative for acute process. Covid positive 07/27/24. Flu A/B, PCR negative, RSV PCR negative. Continue PT/OT. Case management to arrange placement. (4) COVID-19: Code(s): U07.1 - COVID-19 Status: Acute Assessment and Plan: 07/27/2024. Asymptomatic. Continue to monitor. (5) Altered mental status: Code(s): R41.82 - Altered mental status, unspecified Status: Acute Assessment and Plan: - Unclear etiology. - Possibly related to infection vs dementia vs other. - Possibly undiagnosed dementia. - Neuro consulted (6) Diet-controlled diabetes mellitus: Code(s): E11.9 - Type 2 diabetes mellitus without complications Status: Acute Assessment and Plan: Limit carbs. Monitor blood sugar. (7) RA (rheumatoid arthritis): Qualifiers: Rheumatoid arthritis location: multiple sites Rheumatoid factor presence: without rheumatoid factor Qualified Code(s): M06.09 - Rheumatoid arthritis without rheumatoid factor, multiple sites Code(s): M06.9 - Rheumatoid arthritis, unspecified Status: Acute Assessment and Plan: On Tylenol PRN. (8) Chronic lymphocytic leukemia: Code(s): C91.10 - Chronic lymphocytic leukemia of B-cell type not having achieved remission Status: Acute Assessment and Plan: Appears stable. 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 Predisposes to recurrent infection. Subjective Date/time seen: 08/01/24 15:15 Interval history: No c/o of pain. No new issues reported by staff. Review of Systems Review of Systems: ROS unobtainable: Yes unobtainable due to medical condition Exam Narrative: HEENT: EOMI, PERRL, sclerae nonicteric, pharyngeal mucosa pink and intact NECK: No JVD, adenopathy, or thyromegaly CHEST: Clear to auscultation. Normal effort. HEART: NL S1/S2, regular, no murmur. ABDOMEN: BS+, soft, nontender, no mass, no bruits. EXTREMITIES: No cyanosis, edema, or clubbing. NEUROLOGIC: CN intact and symmetric to inspection. DTR's symmetric but decreased, absent at ankles. Babinski downgoing. Tone WNL. No tremor. Strength symmetrically diminished throughout. MUSCULOSKELETAL: Tone and strength symmetric. PSYCH: Alert. Oriented to person only. Speech monosyllabic. Follows simple comm ands. Objective Data Vital Signs Vital Signs: Vital Signs - 24 hr 07/31/24 15:47 07/31/24 21:00 07/31/24 21:40 Temperature 98.3 F 98.4 F Pulse Rate 84 99 99 Respiratory Rate 15 18 18 Blood Pressure 113/49 L 135/65 Pulse Oximetry 100 91 91 Oxygen Delivery Room Air Fraction of Inspired Oxygen 21 08/01/24 05:58 08/01/24 08:00 Temperature 98 F Pulse Rate 92 Respiratory Rate 18 Blood Pressure 137/60 Pulse Oximetry 92 Oxygen Delivery Room Air Fraction of Inspired Oxygen Intake/Output Intake/Output: Intake & Output 07/29/24 07/30/24 07/31/24 08/01/24 23:59 23:59 23:59 23:59 Intake Total 1015 892 900 100 Output Total 9977 3644 7226 386 Jhxbppo -544 -015 -400 -490 Meds/Results Medications: Active Medications Generic Name Dose Route Start Last Admin Trade Name Freq PRN Reason Stop Dose Admin Acetaminophen 650 mg 07/27/24 23:14 07/28/24 08:48 Acetaminophen 325 Mg Tablet PO 650 mg Q4H PRN Administration Mild Pain (1-3) or Fever Hydrocodone Bitart/Acetaminophen 1 tab 07/28/24 11:29 Hydrocodone/Acetaminophen (*Crx) 10-325 Mg Tablet PO BID PRN Pain (Scale Score 7-10) Al Hydrox/Mg Hydrox/Simethicone 30 ml 07/28/24 04:22 Mag Hydrox/Al Hydrox/Simeth 30 Ml Udc PO Q6H PRN Indigestion Albuterol/Ipratropium 3 ml 07/31/24 09:57 Ipratropium 0.5 Mg/Albuterol Sulfate 2.5 Mg Ampul.Neb 3 Ml INHALATION Q6HRT PRN Shortness Of Breath Amitriptyline HCl 25 mg 07/28/24 21:00 07/31/24 20:51 Amitriptyline Hcl 25 Mg Tablet PO 25 mg QHS WILI Administration Amoxicillin/Clavulanate Potassium 1 tablet 07/31/24 21:00 08/01/24 08:20 Amoxicillin/Clavulanate K 875-125 Mg Tab PO 08/03/24 09:01 1 tablet Q12HR WILI Administration Carbamazepine 100 mg 07/28/24 11:30 08/01/24 08:20 Carbamazepine Xr 100 Mg Tab.Sr.12h PO 100 mg Q12HR WILI Administration Dextrose 12.5 gm 07/27/24 23:14 Dextrose 50% 25 Gm/50 Ml Syringe IV PUSH PRN PRN Hypoglycemia Protocol Duloxetine HCl 30 mg 07/29/24 09:00 08/01/24 08:20 Duloxetine Hcl 30 Mg Capsule.Dr PO 30 mg QAM WILI Administration Enoxaparin Sodium 40 mg 07/28/24 09:00 08/01/24 08:20 Enoxaparin 40 Mg/0.4 Ml Syringe SUB-Q 40 mg DAILY WILI Administration Famotidine 20 mg 07/28/24 09:00 08/01/24 08:20 Famotidine 20 Mg Tablet PO 20 mg Q12HR WILI Administration Fish Oil 1 gm 07/28/24 18:00 07/31/24 17:58 [place] 3 Polyunsat Fatty Acids 1 Gm Cap PO 1 gm QPM WILI Administration Glucagon 1 mg 07/27/24 23:14 Glucagon For Inj 1 Mg Vial IM PRN PRN Hypoglycemia Protocol Glucose 15 gm 07/27/24 23:14 Glucose Oral Gel 15 Gm Of Glucse In 37.5 Gm Tube PO PRN PRN Hypoglycemia Protocol Dextrose 1,000 mls @ 100 mls/hr 07/27/24 23:14 Dextrose 5% 1,000 Ml IVPB PRN PRN Hypoglycemia Protocol Morphine Sulfate 30 mg 07/28/24 11:30 08/01/24 08:20 Morphine Sulfate (*Crx) 30 Mg Tabcr PO 30 mg BID@0700,1900 WILI Administration Ondansetron HCl 4 mg 07/27/24 23:14 Ondansetron Inj 4 Mg/2 Ml Vial IV PUSH Q4H PRN Nausea Polyethylene Glycol 17 gm 07/28/24 04:22 Polyethylene Glycol 3350 17 Gm Powd.Pack PO QAM PRN Constipation Radiology Results: ITS Impressions Chest X-Ray 07/27/24 20:00 IMPRESSION: Right basal pneumonia. Follow-up to resolution is advised. Head CT 07/27/24 20:04 IMPRESSION: No acute intracranial findings. Labs Labs: Laboratory Results - last 24 hr 07/31/24 07/31/24 17:38 21:45 POC Capillary Glucose 101 104
[2024-08-01 16:38] VITALS: BP 126/79; PULSE 97; RESP 19; TEMP 36.4; O2SAT 96
--- NOTE | 2024-08-01 16:42 | WPDNEURCNPN ---
Assessment and Plan Assessment and plan (1) Metabolic encephalopathy: Code(s): G93.41 - Metabolic encephalopathy Status: Acute (2) COVID-19: Code(s): U07.1 - COVID-19 Status: Acute (3) Chronic lymphocytic leukemia: Code(s): C91.10 - Chronic lymphocytic leukemia of B-cell type not having achieved remission Status: Acute (4) Pneumonia: Code(s): J18.9 - Pneumonia, unspecified organism Status: Acute (5) Diet-controlled diabetes mellitus: Code(s): E11.9 - Type 2 diabetes mellitus without complications Status: Acute (6) RA (rheumatoid arthritis): Qualifiers: Rheumatoid arthritis location: multiple sites Rheumatoid factor presence: without rheumatoid factor Qualified Code(s): M06.09 - Rheumatoid arthritis without rheumatoid factor, multiple sites Code(s): M06.9 - Rheumatoid arthritis, unspecified Status: Acute Plan I had a long discussion with the patient's son and [id number] were from near [facility]. They are very concerned that on July 23 she could write a note that he has shown me the it and could she be. However she appears to be very negative in addition to being hard of hearing. I told them that with the pneumonia and COVID infection given her age we could be dealing with some degree of metabolic encephalopathy and a follow-up mental status examination may be helpful however sudden change in mental status does require some further investigation hence I would suggest an MRI of the brain and EEG and check her serum B12 and folic acid level. Her vitamin-D and TSH were checked on 04/30/2024 and were within normal limits. Recent lab data were reviewed. White cell count is 6.6. She denies any headache or nausea or vomiting. I do not find any evidence to suggest meningitis or encephalitis however possibility of these cannot be completely ruled out. I did mention to her son that if there is any change in mental status a raise possibility of encephalitis at spinal tap could be consideration however clinically this does not seem to be the case at this time. A mini-mental status examination and overall neurologic evaluation in 4-6 weeks time may be helpful once he has had 10 time to recover from her current infection. Since he lives by herself and there is no immediate family in the area probably a period of rehab for the next 2-3 weeks time may be beneficial for her. Current medications were reviewed. She has been on hydrocodone 1 tablet twice a day for some time. She is also on amitriptyline 25 mg at bedtime however since there is no recent change in these medications there is less likely to be the cause for the change in mental status. She has been found to have a right-sided pneumonia and COVID-19 positive status and these could well be the most likely cause for the change in mental status. We should follow up with the with the results of her investigations. Consult date: 08/01/24 HPI: Korin Jones is a 84 year old female With history of changes in mental status for which the patient is being evaluated from neurologic point of view. Patient presented to the hospital with generalized weakness and was found to have a right basal pneumonia and was also positive for COVID 19. The patient today is improving however the mental status has not improved. The patient's son and [id number] were present and are very concerned about this decline. The patient wrote a text on her iPad on July 23 which he has shown me was a fairly detailed fairly intelligent note. Patient's son lives near [place] and a another child lives even further way. The concern about the decline in the mental status. She has had similar change in mental status when she has urinary tract infection in June for which she was hospitalized but improved and went back to home. She also suffers from chronic pain and has been on narcotics for the same. However she has been able to function fairly well on her own and is fairly intelligent individual. According to her son she does not have any significant memory problem on ongoing basis and hence he is very concerned about the current decline. Review of Systems Review of Systems: Patient is hard of hearing and also does not want to talk and hence it is very difficult to get any reliable history from the patient herself. She denies any pain. Most of the discussion took place with the help of her son and [id number]. [facility] Past Medical History Medical History (Updated 08/01/24 @ 17:04 by Brandi Beard MD) Metabolic encephalopathy Vitamin D deficiency GERD (gastroesophageal reflux disease) Osteoporosis Chronic prescription opiate use Chronic pain syndrome Rheumatoid arthritis Diet-controlled diabetes mellitus Tobacco dependence Cancer of right breast Status post mastectomy and radiation. Chronic lymphocytic leukemia Chronic obstructive pulmonary disease Depression Immunoglobulin deficiency Trigeminal neuralgia Arthritis Allergies Squamous cell carcinoma Back. Melanoma Left arm. Surgical History Surgical History History of hemiarthroplasty of left hip (~11/08/22) Bipolar hemiarthroplasty left. History of squamous cell carcinoma excision Back. History of melanoma excision Left arm. History of hysterectomy History of right mastectomy (1987) History of cholecystectomy Family History Family History Mother CLL (chronic lymphocytic leukemia) Father Lung cancer Sibling Pancreatic cancer Social History Social History Social History: Surrogate medical decision maker: Oj Gregory, richie. Code status: Full code. Smoking packs per day: 1 Smoking cigarettes per day: 20.0 Years smoked: 70 Smoking pack-years: 70.00 Smoking status: Current every day smoker Tobacco type: cigarettes Alcohol intake: never Substance use: never Substance use type: does not use Do You Feel Safe in your Home?: No Lack of Transportation: No Lack of Food: Never True Current Housing: I Have Housing Concerned About Future Housing: No Difficulty Paying Gas/Electric Bills: No Difficulty Paying for Meds: No Currently Unemployed: No Education: Master's Degree or Higher Difficulty w/ Childcare or Family Care: No Additional living arrangements comments: Lives alone in [place]. Originally from [place]. Spiritual care concerns: No Meds Home Medications and Allergies Home Medications ?Medication ?Instructions ?Recorded ?Confirmed ?Type omega 6-biu-hub-fish oil 60 mg-90 1 cap PO QPM 09/15/23 07/28/24 History mg-500 mg capsule carbamazepine 100 mg 100 mg PO Q12H #60 tabs 03/29/24 07/28/24 Rx tablet,extended release,12 hr amitriptyline 25 mg tablet 25 mg PO .QHS #90 tabs 04/16/24 07/28/24 Rx albuterol sulfate 90 mcg/actuation 1 - 2 puff inhalation Q4-6H PRN 04/30/24 07/05/24 Rx aerosol inhaler (Ventolin HFA) shortness of breath or wheezing #8.5 grams duloxetine 30 mg capsule,delayed 30 mg PO QAM #90 caps 04/30/24 07/28/24 Rx release (Cymbalta) famotidine 20 mg tablet 20 mg PO Q12HR #180 tabs 04/30/24 07/28/24 Rx hydrocodone 10 mg-acetaminophen 1 tablet PO BID PRN Pain (Scale 07/06/24 07/28/24 Rx 325 mg tablet Score 7-10) #10 tabs morphine 30 mg tablet,extended 30 mg PO Q12H #10 tabs 07/06/24 07/28/24 Rx release Allergies Allergy/AdvReac Type Severity Reaction Status Date / Time doxycycline Allergy Unknown Verified 07/27/24 19:08 latex Allergy Unknown Verified 07/27/24 19:08 pregabalin (From Lyrica) Allergy Unknown Verified 07/27/24 19:08 Sulfa (Sulfonamide Allergy Unknown Verified 07/27/24 19:08 Antibiotics) sulfamethoxazole (From Allergy Unknown Verified 07/27/24 19:08 Bactrim) trimethoprim (From Bactrim) Allergy Unknown Verified 07/27/24 19:08 Vital Signs Vital Signs - 24 hr 07/31/24 21:00 07/31/24 21:40 08/01/24 05:58 Temperature 98.4 F 98 F Pulse Rate 99 99 92 Respiratory Rate 18 18 18 Blood Pressure 135/65 137/60 Pulse Oximetry 91 91 92 Oxygen Delivery Room Air Fraction of Inspired Oxygen 21 08/01/24 08:00 08/01/24 16:38 Temperature 97.5 F L Pulse Rate 97 Respiratory Rate 19 Blood Pressure 126/79 Pulse Oximetry 96 Oxygen Delivery Room Air Fraction of Inspired Oxygen Exam Narrative: Fully conscious alert. She does not answer to most of the questions however she was unable to name 5 colors. She was able to count fingers. When asked to touch her right ear with left hand she did raise her left hand but did not take it to the right ear. She appears visibly somewhat upset as if while my being put to the testing and family seems to agree. According to the nursing staff when she has urinary tract infection previously she was very much similar to this that time. Cranial nerves ENG testing appear grossly intact. There is no facial asymmetry. Tongue was in midline. Motor system shows normal power and tone in both upper and lower limbs. No involuntary movements were seen. Results Labs 07/29/24 05:58 07/27/24 20:49
[2024-08-01] MEDS: OMEGA 3 POLYUNSAT FATTY ACIDS 1 GM CAP PO (17:54)
[2024-08-01 19:28] LABS: Cholesterol 165 mg/dL (0-200); HDL Direct 60 mg/dL; Triglycerides 143 mg/dL (<150)
[2024-08-01 19:39] LABS: LDL Cholesterol Direct 61 mg/dL
[2024-08-01 21:29] LABS: Glucose Point of Care 100 mg/dl (65-105)
[2024-08-01 21:46] VITALS: BP 129/70; PULSE 90; RESP 16; TEMP 37.4; O2SAT 93
[2024-08-02 06:00] VITALS: BP 120/59; PULSE 91; RESP 16; TEMP 37; O2SAT 94
[2024-08-02 06:02] LABS: Hematocrit 33.3 % (37.0-47.0); Hemoglobin 11.2 g/dL (12.0-15.0); Mean Corpuscular HGB Conc 33.6 g/dl (32-36); Mean Corpuscular Hemoglobin 32.1 pg (26-34); Mean Corpuscular Volume 95.4 fl (80-100); Mean Platelet Volume 9.3 fl (7.4-10.4); Platelet Count Result 200 k/mm3 (150-375); Red Blood Count 3.49 M/mm3 (4.2-5.4); Red Cell Distribution Width 13.5 % (11.5-14.5); White Blood Count 6.7 K/mm3 (4.5-10.0)
[2024-08-02] MEDS: MORPHINE SULFATE (*CRX) 30 MG TABCR PO ×2 (06:07→18:00)
[2024-08-02 06:13] LABS: Alanine Aminotransferase 55 U/L (6-35); Albumin Level 3.1 g/dL (3.5-5.1); Alkaline Phosphatase 47 U/L (38-126); Anion Gap 0 mmol/L (4-12); Aspartate Amino Transferase 45 U/L (14-36); Bilirubin,Total 0.5 mg/dL (0.2-1.3); Blood Urea Nitrogen 21 mg/dL (7-17); CRP 4.7 mg/dL (<1.0); Calcium 9.4 mg/dL (8.4-10.2); Carbon Dioxide 28 mmol/L (22-30); Chloride 105 mmol/L (98-107); Estimated CRCL calculation 32 ml/min; Estimated Glomerular Filt Rate 60; Glucose 89 mg/dL (65-110); Potassium 3.6 mmol/L (3.4-5.0); Sodium 133 mmol/L (137-145)
[2024-08-02 08:20] LABS: Glucose Point of Care 96 mg/dl (65-105)
[2024-08-02] MEDS: FAMOTIDINE 20 MG TABLET PO ×2 (08:27→21:29)
[2024-08-02] MEDS: DULoxetine HCL 30 MG CAPSULE.DR PO (08:27)
[2024-08-02] MEDS: CARBAMAZEPINE XR 100 MG TAB.SR.12H PO ×2 (08:27→21:29)
[2024-08-02] MEDS: AMOXICILLIN/CLAVULANATE K 875-125 MG TAB 1 TABLET PO ×2 (08:27→21:29)
[2024-08-02] MEDS: ENOXAPARIN 40 MG/0.4 ML SYRINGE SUB-Q (08:28)
[2024-08-02 08:41] LABS: Rapid Plasma Reagin Non-Reactive (NonReactive)
[2024-08-02 12:32] LABS: Glucose Point of Care 101 mg/dl (65-105)
[2024-08-02 14:00] VITALS: BP 127/67; PULSE 94; RESP 18; TEMP 36.2; O2SAT 90
--- NOTE | 2024-08-02 16:00 | P.PNIM_ITS ---
Progress Note: A&P Assessment and Plan (1) Pneumonia: Qualifiers: Laterality: right Lung location: lower lobe of lung Pneumonia type: due to unspecified organism Qualified Code(s): J18.9 - Pneumonia, unspecified organism Code(s): J18.9 - Pneumonia, unspecified organism Status: Acute Assessment and Plan: CXR showing right basilar infiltrate vs atelectasis. Patient previously on Rocephin and Zithromax (07/27-07/31/24). Augmentin (started 07/31)- Blood cultures NGTD. No supplemental oxygen requirement. (2) Adult failure to thrive: Code(s): R62.7 - Adult failure to thrive Status: Acute Assessment and Plan: Likely secondary to acute illness vs dementia vs drug side effects. No ga of stroke, bleed, or tumor on CT brain. Clinically less likely are chronic infection (syphilis, lyme), acute infection (CJD), thyroid disease, or B12 deficiency. Nutritional supplements ordered. Patient still with very poor appetite. Labs ordered. Would likely benefit from stopping amitriptyline and hydrocodone (not receiving the latter). (3) Weakness: Code(s): R53.1 - Weakness Status: Acute Assessment and Plan: Generalized. Possibly secondary to acute illness vs opioids use vs dementia vs other. CT head negative for acute process. Covid positive 07/27/24. Flu A/B, PCR negative, RSV PCR negative. Continue PT/OT. Case management to arrange placement. (4) COVID-19: Code(s): U07.1 - COVID-19 Status: Acute Assessment and Plan: 07/27/2024. Asymptomatic. Continue to monitor. (5) Altered mental status: Code(s): R41.82 - Altered mental status, unspecified Status: Acute Assessment and Plan: --Acute change likely 2/2 infection/delirium. --Follow up cognitive changes. patient has been living at home and has been doing well prior to recent acute illnesses - MRI no acute findings, chronic changes - Neurology consulted, appreciate recommendations (6) Diet-controlled diabetes mellitus: Code(s): E11.9 - Type 2 diabetes mellitus without complications Status: Acute Assessment and Plan: Limit carbs. Monitor blood sugar. (7) RA (rheumatoid arthritis): Qualifiers: Rheumatoid arthritis location: multiple sites Rheumatoid factor presenc e: without rheumatoid factor Qualified Code(s): M06.09 - Rheumatoid arthritis without rheumatoid factor, multiple sites Code(s): M06.9 - Rheumatoid arthritis, unspecified Status: Acute Assessment and Plan: On Tylenol PRN. (8) Chronic lymphocytic leukemia: Code(s): C91.10 - Chronic lymphocytic leukemia of B-cell type not having achieved remission Status: Acute Assessment and Plan: Appears stable. 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 Predisposes to recurrent infection. Time Spent With Patient Time: 57 minutes Subjective Date/time seen: 08/02/24 08:46 Interval history: More talkative today than she has been per family at bedside but still very confused. She has a headache but no light sensitivity. Has a catheter, plan for a void trial in am MRI done today, showed Extensive nonspecific cerebral white matter disease and pontine disease, which likely represents chronic small vessel ischemic disease. No acute findings Labs ordered for 1700 today with carbamazepine level, reschedule for 11pm since 11:30pm med dose Review of Systems Review of Systems: All systems reviewed & are unremarkable except as noted in HPI and below ROS unobtainable: Yes unobtainable due to medical condition and unobtainable due to mental status (Lethargy, obtundation) Exam Narrative: HEENT: EOMI, PERRL, sclerae nonicteric, pharyngeal mucosa pink and intact NECK: No JVD, adenopathy, or thyromegaly CHEST: Clear to auscultation. Normal effort. HEART: NL S1/S2, regular, no murmur. ABDOMEN: BS+, soft, nontender, no mass, no bruits. EXTREMITIES: No cyanosis, edema, or clubbing. NEUROLOGIC: CN intact and symmetric to inspection. DTR's symmetric but decreased, absent at ankles. Babinski downgoing. Tone WNL. No tremor. Strength symmetrically diminished throughout. MUSCULOSKELETAL: Tone and strength symmetric. PSYCH: Alert. Oriented to person only. Follows simple commands. Objective Data Vital Signs Vital Signs: Vital Signs - 24 hr 08/01/24 16:38 08/01/24 20:00 08/01/24 21:46 Temperature 97.5 F L 99.3 F Pulse Rate 97 90 Respiratory Rate 19 16 Blood Pressure 126/79 129/70 Pulse Oximetry 96 93 Oxygen Delivery Room Air 08/02/24 06:00 08/02/24 08:00 Temperature 98.6 F Pulse Rate 91 Respiratory Rate 16 Blood Pressure 120/59 L Pulse Oximetry 94 Oxygen Delivery Room Air Intake/Output Intake/Output: Intake & Output 07/30/24 07/31/24 08/01/24 08/02/24 23:59 23:59 23:59 23:59 Intake Total 892 900 320 100 Output Total 1350 1300 700 250 Balance -458 -400 -380 -150 Meds/Results Medications: Active Medications Generic Name Dose Route Start Last Admin Trade Name Freq PRN Reason Stop Dose Admin Acetaminophen 650 mg 07/27/24 23:14 07/28/24 08:48 Acetaminophen 325 Mg Tablet PO 650 mg Q4H PRN Administration Mild Pain (1-3) or Fever Al Hydrox/Mg Hydrox/Simethicone 30 ml 07/28/24 04:22 Mag Hydrox/Al Hydrox/Simeth 30 Ml Udc PO Q6H PRN Indigestion Albuterol/Ipratropium 3 ml 07/31/24 09:57 Ipratropium 0.5 Mg/Albuterol Sulfate 2.5 Mg Ampul.Neb 3 Ml INHALATION Q6HRT PRN Shortness Of Breath Amoxicillin/Clavulanate Potassium 1 tablet 07/31/24 21:00 08/02/24 08:27 Amoxicillin/Clavulanate K 875-125 Mg Tab PO 08/03/24 09:01 1 tablet Q12HR WILI Administration Carbamazepine 100 mg 07/28/24 11:30 08/02/24 08:27 Carbamazepine Xr 100 Mg Tab.Sr.12h PO 100 mg Q12HR WILI Administration Dextrose 12.5 gm 07/27/24 23:14 Dextrose 50% 25 Gm/50 Ml Syringe IV PUSH PRN PRN Hypoglycemia Protocol Duloxetine HCl 30 mg 07/29/24 09:00 08/02/24 08:27 Duloxetine Hcl 30 Mg Capsule.Dr PO 30 mg QAM WILI Administration Enoxaparin Sodium 40 mg 07/28/24 09:00 08/02/24 08:28 Enoxaparin 40 Mg/0.4 Ml Syringe SUB-Q 40 mg DAILY WILI Administration Famotidine 20 mg 07/28/24 09:00 08/02/24 08:27 Famotidine 20 Mg Tablet PO 20 mg Q12HR WILI Administration Fish Oil 1 gm 07/28/24 18:00 08/01/24 17:54 [place] 3 Polyunsat Fatty Acids 1 Gm Cap PO 1 gm QPM WILI Administration Glucagon 1 mg 07/27/24 23:14 Glucagon For Inj 1 Mg Vial IM PRN PRN Hypoglycemia Protocol Glucose 15 gm 07/27/24 23:14 Glucose Oral Gel 15 Gm Of Glucse In 37.5 Gm Tube PO PRN PRN Hypoglycemia Protocol Dextrose 1,000 mls @ 100 mls/hr 07/27/24 23:14 Dextrose 5% 1,000 Ml IVPB PRN PRN Hypoglycemia Protocol Morphine Sulfate 30 mg 07/28/24 11:30 08/02/24 06:07 Morphine Sulfate (*Crx) 30 Mg Tabcr PO 30 mg BID@0700,1900 WILI Administration Ondansetron HCl 4 mg 07/27/24 23:14 Ondansetron Inj 4 Mg/2 Ml Vial IV PUSH Q4H PRN Nausea Polyethylene Glycol 17 gm 07/28/24 04:22 Polyethylene Glycol 3350 17 Gm Powd.Pack PO QAM PRN Constipation Radiology Results: ITS Impressions Chest X-Ray 07/27/24 20:00 IMPRESSION: Right basal pneumonia. Follow-up to resolution is advised. Head CT 07/27/24 20:04 IMPRESSION: No acute intracranial findings. Labs Labs: Laboratory Results - last 24 hr 08/01/24 08/01/24 08/02/24 19:14 21:09 05:49 WBC 6.7 RBC 3.49 L Hgb 11.2 L Hct 33.3 L MCV 95.4 MCH 32.1 MCHC 33.6 RDW 13.5 Plt Count 200 MPV 9.3 Sodium 133 L Potassium 3.6 Chloride 105 Carbon Dioxide 28 Anion Gap 0 L BUN 21 H Creatinine 0.90 Estim Creat Clear Calc 32 Estimated GFR 60 Glucose 89 POC Capillary Glucose 100 Calcium 9.4 Total Bilirubin 0.5 AST 45 H ALT 55 H Alkaline Phosphatase 47 C-Reactive Protein 4.7 H Total Protein 6.0 L Albumin 3.1 L Triglycerides 143 Cholesterol 165 LDL Cholesterol Direct 61 HDL Direct 60 TSH (Reflex) 1.110 RPR Non-reactive 08/02/24 08:12 WBC RBC Hgb Hct MCV MCH MCHC RDW Plt Count MPV Sodium Potassium Chloride Carbon Dioxide Anion Gap BUN Creatinine Estim Creat Clear Calc Estimated GFR Glucose POC Capillary Glucose 96 Calcium Total Bilirubin AST ALT Alkaline Phosphatase C-Reactive Protein Total Protein Albumin Triglycerides Cholesterol LDL Cholesterol Direct HDL Direct TSH (Reflex) RPR Quality VTE Prophylaxis VTE prophylaxis: pharmacologic ordered Hospitalist MIPS Advance Care Plan I have confirmed that the patient's Advanced Care Plan is present, code status is documented, or surrogate decision maker is listed in patient medical record.: Yes Medication Reconciliation I have utilized all available resources to obtain, update and review the patients current medications (includes all prescriptions, OTC, herbals, cannabis, and nutritional supplements).: Yes
[2024-08-02 17:49] LABS: Glucose Point of Care 101 mg/dl (65-105)
[2024-08-02] MEDS: OMEGA 3 POLYUNSAT FATTY ACIDS 1 GM CAP PO (18:00)
[2024-08-02 21:11] LABS: Glucose Point of Care 87 mg/dl (65-105)
[2024-08-02 21:30] VITALS: BP 146/73; PULSE 87; RESP 16; TEMP 36.9; O2SAT 92
[2024-08-03 03:55] LABS: Basophils Percent Auto 0.5 % (0.2-1.2); Eosinophils Absolute Auto 0.1 K/mm3 (0-0.3); Eosinophils Percent Auto 1.1 % (0-4.4); Hematocrit 33.5 % (37.0-47.0); Hemoglobin 11.4 g/dL (12.0-15.0); Immature Granulocyte Absolute 0.06 K/mm3 (0.00-0.031); Immature Granulocyte Percent A 0.8 % (0-0.5); Lymphocytes Absolute Auto 3.83 K/mm3 (0.9-3.2); Mean Corpuscular Hemoglobin 31.8 pg (26-34); Mean Corpuscular Volume 93.6 fl (80-100); Mean Platelet Volume 9.3 fl (7.4-10.4); Monocytes Absolute Auto 0.4 K/mm3 (0.1-0.6); Monocytes Percent Auto 5.7 % (2.6-8.5); Neutrophils Absolute Auto 2.9 K/mm3 (1.3-6.7); Neutrophils Percent Auto 39.9 % (45.5-73.1); Platelet Count Result 229 k/mm3 (150-375); Red Blood Count 3.58 M/mm3 (4.2-5.4); Red Cell Distribution Width 13.2 % (11.5-14.5); White Blood Count 7.4 K/mm3 (4.5-10.0)
[2024-08-03 04:07] LABS: Alanine Aminotransferase 57 U/L (6-35); Albumin Level 3.4 g/dL (3.5-5.1); Alkaline Phosphatase 51 U/L (38-126); Anion Gap 4 mmol/L (4-12); Aspartate Amino Transferase 45 U/L (14-36); Bilirubin,Total 0.6 mg/dL (0.2-1.3); Blood Urea Nitrogen 21 mg/dL (7-17); Calcium 9.5 mg/dL (8.4-10.2); Carbon Dioxide 25 mmol/L (22-30); Chloride 103 mmol/L (98-107); Estimated CRCL calculation 29 ml/min; Estimated Glomerular Filt Rate 53; Glucose 79 mg/dL (65-110); Potassium 3.5 mmol/L (3.4-5.0); Sodium 132 mmol/L (137-145)
[2024-08-03 04:14] LABS: Immunoglobulin A < 40 mg/dL (70-400); Immunoglobulin G < 270 mg/dL (700-1600); Immunoglobulin M < 25 mg/dL (40-230)
[2024-08-03 04:22] LABS: Procalcitonin 0.1 ng/mL
[2024-08-03 06:00] VITALS: BP 119/59; PULSE 74; RESP 14; TEMP 36.9; O2SAT 91
[2024-08-03] MEDS: MORPHINE SULFATE (*CRX) 30 MG TABCR PO (06:24)
[2024-08-03 07:14] LABS: Folic Acid 19.1 ng/mL (2.76->20)
[2024-08-03 08:35] LABS: Glucose Point of Care 71 mg/dl (65-105)
[2024-08-03] MEDS: CARBAMAZEPINE XR 100 MG TAB.SR.12H PO (09:45)
[2024-08-03] MEDS: FAMOTIDINE 20 MG TABLET PO (09:45)
[2024-08-03] MEDS: AMOXICILLIN/CLAVULANATE K 875-125 MG TAB 1 TABLET PO (09:45)
[2024-08-03] MEDS: ENOXAPARIN 40 MG/0.4 ML SYRINGE SUB-Q (09:45)
[2024-08-03] MEDS: DULoxetine HCL 30 MG CAPSULE.DR PO (09:45)
[2024-08-03 10:03] LABS: Homocysteine 9.5 umol/L (<10.4)
--- NOTE | 2024-08-03 10:10 | PCNEURO ---
EEG was attempted but patient is confused and was uncooperative so unable to complete setup.
[2024-08-03 11:43] LABS: Glucose Point of Care 102 mg/dl (65-105)
[2024-08-03 14:00] VITALS: BP 123/58; PULSE 100; RESP 18; TEMP 36.3; O2SAT 93
--- NOTE | 2024-08-03 16:29 | P.PNIM_ITS ---
Progress Note: A&P Assessment and Plan (1) Pneumonia: Qualifiers: Laterality: right Lung location: lower lobe of lung Pneumonia type: due to unspecified organism Qualified Code(s): J18.9 - Pneumonia, unspecified organism Code(s): J18.9 - Pneumonia, unspecified organism Status: Acute Assessment and Plan: CXR showing right basilar infiltrate vs atelectasis. Patient previously on Rocephin and Zithromax (07/27-07/31/24). Augmentin (started 07/31)- Blood cultures NGTD. No supplemental oxygen requirement. (2) Adult failure to thrive: Code(s): R62.7 - Adult failure to thrive Status: Acute Assessment and Plan: Likely secondary to acute illness vs dementia vs drug side effects. No ga of stroke, bleed, or tumor on CT brain. Clinically less likely are chronic infection (syphilis, lyme), acute infection (CJD), thyroid disease, or B12 deficiency. Nutritional supplements ordered. Patient still with very poor appetite. Labs ordered. Would likely benefit from stopping amitriptyline and hydrocodone (not receiving the latter). (3) Weakness: Code(s): R53.1 - Weakness Status: Acute Assessment and Plan: Generalized. Possibly secondary to acute illness vs opioids use vs dementia vs other. CT head negative for acute process. Covid positive 07/27/24. Flu A/B, PCR negative, RSV PCR negative. Continue PT/OT. Case management to arrange placement. (4) COVID-19: Code(s): U07.1 - COVID-19 Status: Acute Assessment and Plan: 07/27/2024. Asymptomatic. Continue to monitor. (5) Altered mental status: Code(s): R41.82 - Altered mental status, unspecified Status: Acute Assessment and Plan: --Acute change likely 2/2 infection/delirium. --Follow up cognitive changes. patient has been living at home and has been doing well prior to recent acute illnesses - MRI no acute findings, chronic changes - Neurology consulted, appreciate recommendations --Weaning opiates: Change morphine ER from 30 q12 to 15mg q8. Continuing Vicodin 10/325 BID prn, tylenol prn. No recent prn meds for pain (6) Diet-controlled diabetes mellitus: Code(s): E11.9 - Type 2 diabetes mellitus without complications Status: Acute Assessment and Plan: Limit carbs. Monitor blood sugar. (7) RA (rheumatoid arthritis): Qualifiers: Rheumatoid arthritis location: multiple sites Rheumatoid factor presence: without rheumatoid factor Qualified Code(s): M06.09 - Rheumatoid arthritis without rheumatoid factor, multiple sites Code(s): M06.9 - Rheumatoid arthritis, unspecified Status: Acute Assessment and Plan: Home meds: Morphine ER 30mg q12, Vicodin --Wean opiates slowly --Denies pain (8) Chronic lymphocytic leukemia: Code(s): C91.10 - Chronic lymphocytic leukemia of B-cell type not having achieved remission Status: Acute Assessment and Plan: Appears stable. 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 Predisposes to recurrent infection IgG/IgA/IgM levels all undetectable Time Spent With Patient Time: 59 minutes Subjective Date/time seen: 08/03/24 09:20 Interval history: Confused and not very talkative this morning. No headache or complaints Void trial Review of Systems Review of Systems: All systems reviewed & are unremarkable except as noted in HPI and below ROS unobtainable: Yes unobtainable due to medical condition and unobtainable due to mental status (Lethargy, obtundation) Exam Narrative: HEENT: EOMI, PERRL, sclerae nonicteric, pharyngeal mucosa pink and intact NECK: No JVD, adenopathy, or thyromegaly CHEST: Clear to auscultation. Normal effort. HEART: NL S1/S2, regular, no murmur. ABDOMEN: BS+, soft, nontender, no mass, no bruits. EXTREMITIES: No cyanosis, edema, or clubbing. NEUROLOGIC: CN intact and symmetric to inspection. DTR's symmetric but decreased, absent at ankles. Babinski downgoing. Tone WNL. No tremor. Strength symmetrically diminished throughout. MUSCULOSKELETAL: Tone and strength symmetric. PSYCH: Alert. Oriented to person only. Follows simple commands. Objective Data Vital Signs Vital Signs: Vital Signs - 24 hr 08/02/24 21:30 08/03/24 06:00 08/03/24 09:45 Temperature 98.4 F 98.4 F Pulse Rate 87 74 Respiratory Rate 16 14 Blood Pressure 146/73 H 119/59 L Pulse Oximetry 92 91 Oxygen Delivery Room Air 08/03/24 14:00 Temperature 97.3 F L Pulse Rate 100 Respiratory Rate 18 Blood Pressure 123/58 L Pulse Oximetry 93 Oxygen Delivery Intake/Output Intake/Output: Intake & Output 07/31/24 08/01/24 08/02/24 08/03/24 23:59 23:59 23:59 23:59 Intake Total 900 320 680 480 Output Total 1300 700 575 500 Balance -400 -380 105 -20 Meds/Results Medications: Active Medications Generic Name Dose Route Start Last Admin Trade Name Freq PRN Reason Stop Dose Admin Acetaminophen 650 mg 07/27/24 23:14 07/28/24 08:48 Acetaminophen 325 Mg Tablet PO 650 mg Q4H PRN Administration Mild Pain (1-3) or Fever Al Hydrox/Mg Hydrox/Simethicone 30 ml 07/28/24 04:22 Mag Hydrox/Al Hydrox/Simeth 30 Ml Udc PO Q6H PRN Indigestion Albuterol/Ipratropium 3 ml 07/31/24 09:57 Ipratropium 0.5 Mg/Albuterol Sulfate 2.5 Mg Ampul.Neb 3 Ml INHALATION Q6HRT PRN Shortness Of Breath Carbamazepine 100 mg 07/28/24 11:30 08/03/24 09:45 Carbamazepine Xr 100 Mg Tab.Sr.12h PO 100 mg Q12HR WILI Administration Dextrose 12.5 gm 07/27/24 23:14 Dextrose 50% 25 Gm/50 Ml Syringe IV PUSH PRN PRN Hypoglycemia Protocol Duloxetine HCl 30 mg 07/29/24 09:00 08/03/24 09:45 Duloxetine Hcl 30 Mg Capsule.Dr PO 30 mg QAM WILI Administration Enoxaparin Sodium 40 mg 07/28/24 09:00 08/03/24 09:45 Enoxaparin 40 Mg/0.4 Ml Syringe SUB-Q 40 mg DAILY WILI Administration Famotidine 20 mg 07/28/24 09:00 08/03/24 09:45 Famotidine 20 Mg Tablet PO 20 mg Q12HR WILI Administration Fish Oil 1 gm 07/28/24 18:00 08/02/24 18:00 [place] 3 Polyunsat Fatty Acids 1 Gm Cap PO 1 gm QPM WILI Administration Glucagon 1 mg 07/27/24 23:14 Glucagon For Inj 1 Mg Vial IM PRN PRN Hypoglycemia Protocol Glucose 15 gm 07/27/24 23:14 Glucose Oral Gel 15 Gm Of Glucse In 37.5 Gm Tube PO PRN PRN Hypoglycemia Protocol Dextrose 1,000 mls @ 100 mls/hr 07/27/24 23:14 Dextrose 5% 1,000 Ml IVPB PRN PRN Hypoglycemia Protocol Morphine Sulfate 30 mg 07/28/24 11:30 08/03/24 06:24 Morphine Sulfate (*Crx) 30 Mg Tabcr PO 30 mg BID@0700,1900 WILI Administration Ondansetron HCl 4 mg 07/27/24 23:14 Ondansetron Inj 4 Mg/2 Ml Vial IV PUSH Q4H PRN Nausea Polyethylene Glycol 17 gm 07/28/24 04:22 Polyethylene Glycol 3350 17 Gm Powd.Pack PO QAM PRN Constipation Radiology Results: ITS Impressions Chest X-Ray 07/27/24 20:00 IMPRESSION: Right basal pneumonia. Follow-up to resolution is advised. Head CT 07/27/24 20:04 IMPRESSION: No acute intracranial findings. Brain MRI 08/02/24 12:01 IMPRESSION: 1. Extensive nonspecific cerebral white matter disease and pontine disease, which likely represents chronic small vessel ischemic disease. Labs Labs: Laboratory Results - last 24 hr 08/01/24 08/02/24 08/02/24 19:14 17:42 21:07 WBC RBC Hgb Hct MCV MCH MCHC RDW Plt Count MPV Immature Gran % (Auto) Neut % (Auto) Lymph % (Auto) [place] % (Auto) Eos % (Auto) Baso % (Auto) Lymph # (Auto) [place] # (Auto) Eos # (Auto) Baso # (Auto) Abs Immat Gran (auto) Absolute Neuts (auto) Absolute Nucleated RBC Nucleated RBC % Sodium Potassium Chloride Carbon Dioxide Anion Gap BUN Creatinine Estim Creat Clear Calc Estimated GFR Glucose POC Capillary Glucose 101 87 Calcium Total Bilirubin AST ALT Alkaline Phosphatase Total Protein Albumin Vitamin B12 Folate Homocysteine 9.5 Procalcitonin IgG IgA IgM 08/03/24 08/03/24 08/03/24 03:39 08:32 11:37 WBC 7.4 RBC 3.58 L Hgb 11.4 L Hct 33.5 L MCV 93.6 MCH 31.8 MCHC 34.0 RDW 13.2 Plt Count 229 MPV 9.3 Immature Gran % (Auto) 0.8 H Neut % (Auto) 39.9 L Lymph % (Auto) 52.0 H [place] % (Auto) 5.7 Eos % (Auto) 1.1 Baso % (Auto) 0.5 Lymph # (Auto) 3.83 H [place] # (Auto) 0.4 Eos # (Auto) 0.1 Baso # (Auto) 0.0 Abs Immat Gran (auto) 0.06 H Absolute Neuts (auto) 2.9 Absolute Nucleated RBC 0.000 Nucleated RBC % 0.0 Sodium 132 L Potassium 3.5 Chloride 103 Carbon Dioxide 25 Anion Gap 4 BUN 21 H Creatinine 1.00 Estim Creat Clear Calc 29 Estimated GFR 53 L Glucose 79 POC Capillary Glucose 71 102 Calcium 9.5 Total Bilirubin 0.6 AST 45 H ALT 57 H Alkaline Phosphatase 51 Total Protein 6.0 L Albumin 3.4 L Vitamin B12 924.0 Folate 19.1 Homocysteine Procalcitonin 0.1 IgG < 270 L IgA < 40 L IgM < 25 L Quality VTE Prophylaxis VTE prophylaxis: pharmacologic ordered Hospitalist MIPS Advance Care Plan I have confirmed that the patient's Advanced Care Plan is present, code status is documented, or surrogate decision maker is listed in patient medical record.: Yes Medication Reconciliation I have utilized all available resources to obtain, update and review the patients current medications (includes all prescriptions, OTC, herbals, cannabis, and nutritional supplements).: Yes
[2024-08-03 17:26] LABS: Glucose Point of Care 100 mg/dl (65-105)
--- NOTE | 2024-08-03 17:48 | PC.NURSE ---
Patient will not chew food or take drinks of water. RN and REED CLEANER put straw up to patients mouth and she will not close her mouth to take a drink at this time. Unable to give patient medications due to not following commands to swallow liquids.
[2024-08-03 21:09] VITALS: BP 134/61; PULSE 85; RESP 16; TEMP 36.4; O2SAT 92
--- NOTE | 2024-08-03 21:16 | PC.NURSE ---
Patient refusing medication and would not take a drink of water when offered - would clench mouth closed. [employer] tried to offer mouth care and moisten patients mouth,but patient clinched teeth and moved head away. [employer] and PCT repositioned and turned patient in bed at this time.
[2024-08-03 22:38] LABS: Glucose Point of Care 80 mg/dl (65-105)
[2024-08-04 06:00] VITALS: BP 132/70; PULSE 77; RESP 14; TEMP 36.6; O2SAT 94
[2024-08-04] MEDS: MORPHINE SULFATE (*CRX) 15 MG TABCR PO ×3 (09:09→20:22)
[2024-08-04] MEDS: FAMOTIDINE 20 MG TABLET PO ×2 (09:10→20:22)
[2024-08-04] MEDS: DULoxetine HCL 30 MG CAPSULE.DR PO (09:10)
[2024-08-04] MEDS: ENOXAPARIN 40 MG/0.4 ML SYRINGE SUB-Q (09:10)
[2024-08-04] MEDS: CARBAMAZEPINE XR 100 MG TAB.SR.12H PO ×2 (09:10→20:22)
[2024-08-04 09:22] LABS: Glucose Point of Care 82 mg/dl (65-105)
[2024-08-04 12:38] LABS: Glucose Point of Care 164 mg/dl (65-105)
[2024-08-04 14:00] VITALS: BP 128/54; PULSE 80; RESP 18; TEMP 36.3; O2SAT 94
[2024-08-04 14:17] LABS: Methylmalonic Acid 204 nmol/L (85-423)
--- NOTE | 2024-08-04 18:20 | P.PNIM_ITS ---
Progress Note: A&P Assessment and Plan (1) Pneumonia: Qualifiers: Laterality: right Lung location: lower lobe of lung Pneumonia type: due to unspecified organism Qualified Code(s): J18.9 - Pneumonia, unspecified organism Code(s): J18.9 - Pneumonia, unspecified organism Status: Acute Assessment and Plan: CXR showing right basilar infiltrate vs atelectasis. Patient previously on Rocephin and Zithromax (07/27-07/31/24). Augmentin (started 07/31)- Blood cultures NGTD. No supplemental oxygen requirement. (2) Adult failure to thrive: Code(s): R62.7 - Adult failure to thrive Status: Acute Assessment and Plan: Likely secondary to acute illness vs dementia vs drug side effects. No ga of stroke, bleed, or tumor on CT brain. Clinically less likely are chronic infection (syphilis, lyme), acute infection (CJD), thyroid disease, or B12 deficiency. Nutritional supplements ordered. Patient still with very poor appetite. Labs ordered. Would likely benefit from stopping amitriptyline and hydrocodone (not receiving the latter). (3) Weakness: Code(s): R53.1 - Weakness Status: Acute Assessment and Plan: Generalized. Possibly secondary to acute illness vs opioids use vs dementia vs other. CT head negative for acute process. Covid positive 07/27/24. Flu A/B, PCR negative, RSV PCR negative. Continue PT/OT. Case management to arrange placement. (4) COVID-19: Code(s): U07.1 - COVID-19 Status: Acute Assessment and Plan: 07/27/2024. Asymptomatic. Continue to monitor. (5) Altered mental status: Code(s): R41.82 - Altered mental status, unspecified Status: Acute Assessment and Plan: Acute change likely 2/2 infection/delirium. Also on high doses of opiates, but that seems to be chronic --Follow up cognitive changes. patient has been living at home and has been doing fairly well prior to recent acute illnesses - MRI no acute findings, chronic changes - Neurology consulted, appreciate recommendations --Weaning opiates: Change morphine ER from 30 q12>15mg q8>15mg q12. Continuing Vicodin 10/325 BID prn, tylenol prn. No recent prn meds for pain --Needing to be straight cathed intermittently but PVR only slightly above 300. Not drinking well. 1 liter of fluids and increase PVR goal to 500. May need additional fluids, order daily prn --Calorie count and strict I&O (6) Diet-controlled diabetes mellitus: Code(s): E11.9 - Type 2 diabetes mellitus without complications Status: Acute Assessment and Plan: Limit carbs. Monitor blood sugar (7) RA (rheumatoid arthritis): Qualifiers: Rheumatoid arthritis location: multiple sites Rheumatoid factor presence: without rheumatoid factor Qualified Code(s): M06.09 - Rheumatoid arthritis without rheumatoid factor, multiple sites Code(s): M06.9 - Rheumatoid arthritis, unspecified Status: Acute Assessment and Plan: Home meds: Morphine ER 30mg q12, Vicodin --Weaning opiates slowly as noted --Has a headache but otherwise denies pain (8) Chronic lymphocytic leukemia: Code(s): C91.10 - Chronic lymphocytic leukemia of B-cell type not having achieved remission Status: Acute Assessment and Plan: Appears stable. 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 Predisposes to recurrent infection IgG/IgA/IgM levels all undetectable Time Spent With Patient Time: 52 minutes Subjective Date/time seen: 08/04/24 14:15 Interval history: Confused, has a mild headache. About the same today. Hadn't voided this morning, PVR slightly over 300, so increased criteria forstraight cath to >500 Review of Systems Review of Systems: All systems reviewed & are unremarkable except as noted in HPI and below ROS unobtainable: Yes unobtainable due to medical condition and unobtainable due to mental status (Lethargy, obtundation) Exam Narrative: HEENT: EOMI, PERRL, sclerae nonicteric, pharyngeal mucosa pink and intact NECK: No JVD, adenopathy, or thyromegaly CHEST: Clear to auscultation. Normal effort. HEART: NL S1/S2, regular, no murmur. ABDOMEN: BS+, soft, nontender, no mass, no bruits. EXTREMITIES: No cyanosis, edema, or clubbing. NEUROLOGIC: CN intact and symmetric to inspection. DTR's symmetric but decreased, absent at ankles. Babinski downgoing. Tone WNL. No tremor. Strength symmetrically diminished throughout. MUSCULOSKELETAL: Tone and strength symmetric. PSYCH: Alert. Oriented to person only. Follows simple commands. Objective Data Vital Signs Vital Signs: Vital Signs - 24 hr 08/03/24 21:09 08/03/24 21:30 08/04/24 06:00 Temperature 97.6 F 97.8 F Pulse Rate 85 77 Respiratory Rate 16 14 Blood Pressure 134/61 132/70 Pulse Oximetry 92 94 Oxygen Delivery Autopap 08/04/24 09:10 08/04/24 14:00 Temperature 97.4 F L Pulse Rate 80 Respiratory Rate 18 Blood Pressure 128/54 L Pulse Oximetry 94 Oxygen Delivery Room Air Intake/Output Intake/Output: Intake & Output 08/01/24 08/02/24 08/03/24 08/04/24 23:59 23:59 23:59 23:59 Intake Total 320 680 600 700 Output Total 700 575 500 Balance -380 105 100 700 Meds/Results Medications: Active Medications Generic Name Dose Route Start Last Admin Trade Name Freq PRN Reason Stop Dose Admin Acetaminophen 650 mg 07/27/24 23:14 07/28/24 08:48 Acetaminophen 325 Mg Tablet PO 650 mg Q4H PRN Administration Mild Pain (1-3) or Fever Al Hydrox/Mg Hydrox/Simethicone 30 ml 07/28/24 04:22 Mag Hydrox/Al Hydrox/Simeth 30 Ml Udc PO Q6H PRN Indigestion Albuterol/Ipratropium 3 ml 07/31/24 09:57 Ipratropium 0.5 Mg/Albuterol Sulfate 2.5 Mg Ampul.Neb 3 Ml INHALATION Q6HRT PRN Shortness Of Breath Carbamazepine 100 mg 07/28/24 11:30 08/04/24 09:10 Carbamazepine Xr 100 Mg Tab.Sr.12h PO 100 mg Q12HR WILI Administration Dextrose 12.5 gm 07/27/24 23:14 Dextrose 50% 25 Gm/50 Ml Syringe IV PUSH PRN PRN Hypoglycemia Protocol Duloxetine HCl 30 mg 07/29/24 09:00 08/04/24 09:10 Duloxetine Hcl 30 Mg Capsule.Dr PO 30 mg QAM WILI Administration Enoxaparin Sodium 40 mg 07/28/24 09:00 08/04/24 09:10 Enoxaparin 40 Mg/0.4 Ml Syringe SUB-Q 40 mg DAILY WILI Administration Famotidine 20 mg 07/28/24 09:00 08/04/24 09:10 Famotidine 20 Mg Tablet PO 20 mg Q12HR WILI Administration Fish Oil 1 gm 07/28/24 18:00 08/03/24 17:48 [place] 3 Polyunsat Fatty Acids 1 Gm Cap PO Not Given QPM WILI Glucagon 1 mg 07/27/24 23:14 Glucagon For Inj 1 Mg Vial IM PRN PRN Hypoglycemia Protocol Glucose 15 gm 07/27/24 23:14 Glucose Oral Gel 15 Gm Of Glucse In 37.5 Gm Tube PO PRN PRN Hypoglycemia Protocol Dextrose 1,000 mls @ 100 mls/hr 07/27/24 23:14 Dextrose 5% 1,000 Ml IVPB PRN PRN Hypoglycemia Protocol Morphine Sulfate 15 mg 08/03/24 16:50 08/04/24 14:30 Morphine Sulfate (*Crx) 15 Mg Tabcr PO 15 mg Q8HR WILI Administration Ondansetron HCl 4 mg 07/27/24 23:14 Ondansetron Inj 4 Mg/2 Ml Vial IV PUSH Q4H PRN Nausea Polyethylene Glycol 17 gm 07/28/24 04:22 Polyethylene Glycol 3350 17 Gm Powd.Pack PO QAM PRN Constipation Radiology Results: ITS Impressions Chest X-Ray 07/27/24 20:00 IMPRESSION: Right basal pneumonia. Follow-up to resolution is advised. Head CT 07/27/24 20:04 IMPRESSION: No acute intracranial findings. Brain MRI 08/02/24 12:01 IMPRESSION: 1. Extensive nonspecific cerebral white matter disease and pontine disease, which likely represents chronic small vessel ischemic disease. Labs Labs: Laboratory Results - last 24 hr 08/01/24 08/03/24 08/04/24 19:14 21:12 09:14 POC Capillary Glucose 80 82 Methylmalonic Acid 204 08/04/24 12:35 POC Capillary Glucose 164 H Methylmalonic Acid Quality VTE Prophylaxis VTE prophylaxis: pharmacologic ordered Hospitalist MIPS Advance Care Plan I have confirmed that the patient's Advanced Care Plan is present, code status is documented, or surrogate decision maker is listed in patient medical record.: Yes Medication Reconciliation I have utilized all available resources to obtain, update and review the patients current medications (includes all prescriptions, OTC, herbals, cannabis, and nutritional supplements).: Yes
[2024-08-04 18:31] LABS: Glucose Point of Care 76 mg/dl (65-105)
[2024-08-04] MEDS: SODIUM CHLORIDE 0.9% IV 1,000 ML 100 ML IV CONT (18:35)
[2024-08-04 20:22] VITALS: BP 117/50; PULSE 77; RESP 16; TEMP 36.5; O2SAT 91
[2024-08-04 22:19] LABS: Glucose Point of Care 139 mg/dl (65-105)
[2024-08-05 05:30] VITALS: BP 127/55; PULSE 70; RESP 18; TEMP 36.4; O2SAT 96
[2024-08-05] MEDS: SODIUM CHLORIDE 0.9% IV 1,000 ML 100 ML IV CONT (05:33)
[2024-08-05] MEDS: DULoxetine HCL 30 MG CAPSULE.DR PO (09:49)
[2024-08-05] MEDS: MORPHINE SULFATE (*CRX) 15 MG TABCR PO (09:49)
[2024-08-05] MEDS: FAMOTIDINE 20 MG TABLET PO (09:49)
[2024-08-05] MEDS: CARBAMAZEPINE XR 100 MG TAB.SR.12H PO (09:49)
--- NOTE | 2024-08-05 10:58 | P.PNIM_ITS ---
Progress Note: A&P Assessment and Plan (1) Pneumonia: Qualifiers: Laterality: right Lung location: lower lobe of lung Pneumonia type: due to unspecified organism Qualified Code(s): J18.9 - Pneumonia, unspecified organism Code(s): J18.9 - Pneumonia, unspecified organism Status: Acute Assessment and Plan: CXR showing right basilar infiltrate vs atelectasis. Patient previously on Rocephin and Zithromax (07/27-07/31/24). * Augmentin (started 07/31)- * Blood cultures NGTD. * No supplemental oxygen requirement. (2) Adult failure to thrive: Code(s): R62.7 - Adult failure to thrive Status: Acute Assessment and Plan: Likely secondary to acute illness vs dementia vs drug side effects. * No ga of stroke, bleed, or tumor on CT brain. * Clinically less likely are chronic infection (syphilis, lyme), acute infection (CJD), thyroid disease, or B12 deficiency. * Nutritional supplements ordered. * Patient still with very poor appetite. (3) Weakness: Code(s): R53.1 - Weakness Status: Acute Assessment and Plan: * Generalized. * Possibly secondary to acute illness vs opioids use vs dementia vs other. * CT head negative for acute process. * Covid positive 07/27/24. * Flu A/B, PCR negative, RSV PCR negative. * Continue PT/OT. * Case management to arrange placement. (4) COVID-19: Code(s): U07.1 - COVID-19 Status: Acute Assessment and Plan: * 07/27/2024. * Asymptomatic. * Continue to monitor. (5) Altered mental status: Code(s): R41.82 - Altered mental status, unspecified Status: Acute Assessment and Plan: Acute change likely 2/2 infection/delirium. Also on high doses of opiates, but that seems to be chronic * Follow up cognitive changes. patient has been living at home and has been doing fairly well prior to recent acute illnesses * MRI no acute findings, chronic changes * Neurology consulted, appreciate recommendations * Weaning opiates: Change morphine ER from 30 q12>15mg q8>15mg q12. Continuing Vicodin 10/325 BID prn, tylenol prn. No recent prn meds for pain * Needing to be straight cathed intermittently but PVR only slightly above 300. Not drinking well. 1 liter of fluids and increase PVR goal to 500. May need additional fluids, order daily prn 08/05/2024: * Carbamazepine level pending * Ammonia level WNL (6) Diet-controlled diabetes mellitus: Code(s): E11.9 - Type 2 diabetes mellitus without complications Status: Acute Assessment and Plan: * ACCU checks ACHS * SSI * hold oral medications * hypoglycemic protocol * regular diet due to poor appetiate (7) RA (rheumatoid arthritis): Qualifiers: Rheumatoid arthritis location: multiple sites Rheumatoid factor presence: without rheumatoid factor Qualified Code(s): M06.09 - Rheumatoid arthritis without rheumatoid factor, multiple sites Code(s): M06.9 - Rheumatoid arthritis, unspecified Status: Acute Assessment and Plan: Home meds: Morphine ER 30mg q12, Vicodin * Weaning opiates slowly as noted * Has a headache but otherwise denies pain (8) Chronic lymphocytic leukemia: Code(s): C91.10 - Chronic lymphocytic leukemia of B-cell type not having achieved remission Status: Acute Assessment and Plan: Appears stable. 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 * Predisposes to recurrent infection * IgG/IgA/IgM levels all undetectable Plan Code status: Full code per patient DVT prophylaxis: Lovenox Stress ulcer prophylaxis: Protonix 40 daily [facility]OT [facility]: [facility] Disposition: Patient continues admission for pneumonia, COVID, generalized weakness and failure to thrive patient is improving with PT/ OT and plan is to discharge to [place] swing bed for further rehabilitation tomorrow will update family. Time Spent With Patient Time with patient: 15 - 25 minutes Subjective Date/time seen: 08/05/24 10:58 Interval history: Patient is an 84-year-old female who was admitted for further of hydration of COVID and pneumonia with altered mental status and generalized weakness. 08/05/24: Assumed Care Patient is slow to respond, intermittent confusion and flight of ideas. Denies any pain, CP, SOB. Review of Systems Review of Systems: All systems reviewed & are unremarkable except as noted in HPI and below ROS unobtainable: Yes unobtainable due to medical condition and unobtainable due to mental status (Lethargy, obtundation) Exam Narrative: * GENERAL: Alert and oriented x 1 to 2. Slow to respond, No acute distress. * EYES: PERRLA. * HEENT: Moist mucous membranes. * LUNGS: Clear to auscultation bilaterally. No accessory muscle use. * CARDIOVASCULAR: Regular rate and rhythm. No murmur. No JVD. S1-S2 * ABDOMEN: Soft, non tenderness and non-distended. No palpable masses. * EXTREMITIES: No edema. Non-tender * SKIN: No rashes or lesions. Skin warm, dry. * NEUROLOGIC: No focal neurological deficits. CN II-XII grossly intact * PSYCHIATRIC: Flight of ideas, confusion. minimal response to questions Objective Data Vital Signs Vital Signs: Vital Signs - 24 hr 08/04/24 14:00 08/04/24 20:22 08/05/24 05:30 Temperature 97.4 F L 97.7 F 97.6 F Pulse Rate 80 77 70 Respiratory Rate 18 16 18 Blood Pressure 128/54 L 117/50 L 127/55 L Pulse Oximetry 94 91 96 Intake/Output Intake/Output: Intake & Output 08/02/24 08/03/24 08/04/24 08/05/24 23:59 23:59 23:59 23:59 Intake Total 680 456 371 8280 Output Total 938 073 1504 Balance 105 100 715 -48 Meds/Results Medications: Active Medications Generic Name Dose Route Start Last Admin Trade Name Freq PRN Reason Stop Dose Admin Acetaminophen 650 mg 07/27/24 23:14 07/28/24 08:48 Acetaminophen 325 Mg Tablet PO 650 mg Q4H PRN Administration Mild Pain (1-3) or Fever Al Hydrox/Mg Hydrox/Simethicone 30 ml 07/28/24 04:22 Mag Hydrox/Al Hydrox/Simeth 30 Ml Udc PO Q6H PRN Indigestion Albuterol/Ipratropium 3 ml 07/31/24 09:57 Ipratropium 0.5 Mg/Albuterol Sulfate 2.5 Mg Ampul.Neb 3 Ml INHALATION Q6HRT PRN Shortness Of Breath Carbamazepine 100 mg 07/28/24 11:30 08/05/24 09:49 Carbamazepine Xr 100 Mg Tab.Sr.12h PO 100 mg Q12HR WILI Administration Dextrose 12.5 gm 07/27/24 23:14 Dextrose 50% 25 Gm/50 Ml Syringe IV PUSH PRN PRN Hypoglycemia Protocol Duloxetine HCl 30 mg 07/29/24 09:00 08/05/24 09:49 Duloxetine Hcl 30 Mg Capsule.Dr PO 30 mg QAM WILI Administration Enoxaparin Sodium 40 mg 07/28/24 09:00 08/05/24 09:50 Enoxaparin 40 Mg/0.4 Ml Syringe SUB-Q Not Given DAILY WILI Famotidine 20 mg 07/28/24 09:00 08/05/24 09:49 Famotidine 20 Mg Tablet PO 20 mg Q12HR WILI Administration Fish Oil 1 gm 07/28/24 18:00 08/04/24 18:35 [place] 3 Polyunsat Fatty Acids 1 Gm Cap PO Not Given QPM WILI Glucagon 1 mg 07/27/24 23:14 Glucagon For Inj 1 Mg Vial IM PRN PRN Hypoglycemia Protocol Glucose 15 gm 07/27/24 23:14 Glucose Oral Gel 15 Gm Of Glucse In 37.5 Gm Tube PO PRN PRN Hypoglycemia Protocol Dextrose 1,000 mls @ 100 mls/hr 07/27/24 23:14 Dextrose 5% 1,000 Ml IVPB PRN PRN Hypoglycemia Protocol Sodium Chloride 1,000 mls @ 100 mls/hr 08/04/24 18:25 08/05/24 05:33 Normal Saline Iv IV CONT 100 mls/hr .Q10H WILI Administration Morphine Sulfate 15 mg 08/04/24 21:00 08/05/24 09:49 Morphine Sulfate (*Crx) 15 Mg Tabcr PO 15 mg Q12HR WILI Administration Ondansetron HCl 4 mg 07/27/24 23:14 Ondansetron Inj 4 Mg/2 Ml Vial IV PUSH Q4H PRN Nausea Polyethylene Glycol 17 gm 07/28/24 04:22 Polyethylene Glycol 3350 17 Gm Powd.Pack PO QAM PRN Constipation Radiology Results: ITS Impressions Chest X-Ray 07/27/24 20:00 IMPRESSION: Right basal pneumonia. Follow-up to resolution is advised. Head CT 07/27/24 20:04 IMPRESSION: No acute intracranial findings. Brain MRI 08/02/24 12:01 IMPRESSION: 1. Extensive nonspecific cerebral white matter disease and pontine disease, which likely represents chronic small vessel ischemic disease. Labs Labs: Laboratory Results - last 24 hr 08/01/24 08/04/24 08/04/24 19:14 12:35 18:22 POC Capillary Glucose 164 H 76 Methylmalonic Acid 204 08/04/24 20:27 POC Capillary Glucose 139 H Methylmalonic Acid Quality VTE Prophylaxis VTE prophylaxis: pharmacologic ordered -Patient's previous records reviewed on admission -ER notes reviewed in detail on admission -discussed all findings and current treatment plan with patient/Family/POA -Consultations reviewed for recommendations -Patient's disposition for safe discharge discussed with patient case coordinator Dictation performed by [employer] direct speech recognition software, therefore site specialist variants and typographical errors may occur. Hospitalist MIPS Advance Care Plan I have confirmed that the patient's Advanced Care Plan is present, code status is documented, or surrogate decision maker is listed in patient medical record.: Yes Medication Reconciliation I have utilized all available resources to obtain, update and review the patients current medications (includes all prescriptions, OTC, herbals, cannabis, and nutritional supplements).: Yes The patient is not eligible for med reconciliation; the patient is in a emergent medical situation where delaying treatment would jeopardize the patients health.: No
[2024-08-05 11:12] LABS: Hematocrit 32.7 % (37.0-47.0); Hemoglobin 11.2 g/dL (12.0-15.0); Mean Corpuscular HGB Conc 34.3 g/dl (32-36); Mean Corpuscular Hemoglobin 31.7 pg (26-34); Mean Corpuscular Volume 92.6 fl (80-100); Mean Platelet Volume 9.3 fl (7.4-10.4); Platelet Count Result 306 k/mm3 (150-375); Red Blood Count 3.53 M/mm3 (4.2-5.4); Red Cell Distribution Width 13.2 % (11.5-14.5); White Blood Count 8.9 K/mm3 (4.5-10.0)
[2024-08-05 11:23] LABS: Alanine Aminotransferase 38 U/L (6-35); Albumin Level 3.6 g/dL (3.5-5.1); Alkaline Phosphatase 57 U/L (38-126); Anion Gap 3 mmol/L (4-12); Aspartate Amino Transferase 29 U/L (14-36); Bilirubin,Total 0.5 mg/dL (0.2-1.3); Blood Urea Nitrogen 22 mg/dL (7-17); Calcium 9.8 mg/dL (8.4-10.2); Carbon Dioxide 28 mmol/L (22-30); Chloride 105 mmol/L (98-107); Estimated CRCL calculation 36 ml/min; Estimated Glomerular Filt Rate > 60; Glucose 103 mg/dL (65-110); Sodium 136 mmol/L (137-145)
[2024-08-05 13:37] LABS: Ammonia < 9 umol/L (9-30)
[2024-08-05 14:09] VITALS: BP 118/52; PULSE 72; RESP 16; TEMP 36.1; O2SAT 91
[2024-08-05 21:13] LABS: Glucose Point of Care 91 mg/dl (65-105)
[2024-08-05 22:00] VITALS: BP 126/60; PULSE 64; RESP 18; TEMP 36.1; O2SAT 93
[2024-08-06 05:29] VITALS: BP 130/64; PULSE 79; RESP 16; TEMP 36.3; O2SAT 95
[2024-08-06 06:04] LABS: Hematocrit 30.9 % (37.0-47.0); Hemoglobin 10.4 g/dL (12.0-15.0); Mean Corpuscular HGB Conc 33.7 g/dl (32-36); Mean Corpuscular Hemoglobin 31.4 pg (26-34); Mean Corpuscular Volume 93.4 fl (80-100); Mean Platelet Volume 9.7 fl (7.4-10.4); Platelet Count Result 290 k/mm3 (150-375); Red Blood Count 3.31 M/mm3 (4.2-5.4); Red Cell Distribution Width 13.2 % (11.5-14.5); White Blood Count 8.5 K/mm3 (4.5-10.0)
[2024-08-06 06:17] LABS: Alanine Aminotransferase 33 U/L (6-35); Albumin Level 3.1 g/dL (3.5-5.1); Alkaline Phosphatase 50 U/L (38-126); Anion Gap 1 mmol/L (4-12); Aspartate Amino Transferase 26 U/L (14-36); Bilirubin,Total 0.5 mg/dL (0.2-1.3); Blood Urea Nitrogen 22 mg/dL (7-17); Calcium 9.8 mg/dL (8.4-10.2); Carbon Dioxide 27 mmol/L (22-30); Chloride 107 mmol/L (98-107); Estimated CRCL calculation 36 ml/min; Estimated Glomerular Filt Rate > 60; Glucose 101 mg/dL (65-110); Potassium 4.1 mmol/L (3.4-5.0); Sodium 135 mmol/L (137-145)
[2024-08-06 08:18] LABS: Glucose Point of Care 93 mg/dl (65-105)
--- NOTE | 2024-08-06 09:42 | PCOTNOTE ---
Patient refused treatment this session. Patient refused stating get away. when asked if she was in pain. Patient initially did not answer. Then when asked again she stated No, Go.
--- NOTE | 2024-08-06 10:26 | PCPTNOTE ---
Attempted to see for physical therapy treatment, pt declines. RN notified.
[2024-08-06] MEDS: MORPHINE SULFATE (*CRX) 15 MG TABCR PO (10:34)
[2024-08-06] MEDS: CARBAMAZEPINE XR 100 MG TAB.SR.12H PO (10:34)
[2024-08-06] MEDS: FAMOTIDINE 20 MG TABLET PO (10:34)
[2024-08-06] MEDS: DULoxetine HCL 30 MG CAPSULE.DR PO (10:34)
[2024-08-06] MEDS: ENOXAPARIN 40 MG/0.4 ML SYRINGE SUB-Q (10:35)
[2024-08-06 10:45] VITALS: PULSE 79; RESP 16; O2SAT 95
--- NOTE | 2024-08-06 11:40 | P.PNIM_ITS ---
Progress Note: A&P Assessment and Plan (1) Pneumonia: Qualifiers: Laterality: right Lung location: lower lobe of lung Pneumonia type: due to unspecified organism Qualified Code(s): J18.9 - Pneumonia, unspecified organism Code(s): J18.9 - Pneumonia, unspecified organism Status: Acute Assessment and Plan: CXR showing right basilar infiltrate vs atelectasis. Patient previously on Rocephin and Zithromax (07/27-07/31/24). * Augmentin (started 07/31)- * Blood cultures NGTD. * No supplemental oxygen requirement. RESOLVED (2) Adult failure to thrive: Code(s): R62.7 - Adult failure to thrive Status: Acute Assessment and Plan: Likely secondary to acute illness vs dementia vs drug side effects. * No ga of stroke, bleed, or tumor on CT brain. * Clinically less likely are chronic infection (syphilis, lyme), acute infection (CJD), thyroid disease, or B12 deficiency. * Nutritional supplements ordered. * Patient still with very poor appetite. (3) Weakness: Code(s): R53.1 - Weakness Status: Acute Assessment and Plan: * Generalized. * Possibly secondary to acute illness vs opioids use vs dementia vs other. * CT head negative for acute process. * Covid positive 07/27/24. * Flu A/B, PCR negative, RSV PCR negative. * Continue PT/OT. * Case management to arrange placement. (4) COVID-19: Code(s): U07.1 - COVID-19 Status: Acute Assessment and Plan: * 07/27/2024. * Asymptomatic. * Continue to monitor. (5) Altered mental status: Code(s): R41.82 - Altered mental status, unspecified Status: Acute Assessment and Plan: Acute change likely 2/2 infection/delirium. Also on high doses of opiates, but that seems to be chronic * Follow up cognitive changes. patient has been living at home and has been doing fairly well prior to recent acute illnesses * MRI no acute findings, chronic changes * Neurology consulted, appreciate recommendations * Weaning opiates: Change morphine ER from 30 q12>15mg q8>15mg q12. Continuing Vicodin 10/325 BID prn, tylenol prn. No recent prn meds for pain * Needing to be straight cathed intermittently but PVR only slightly above 300. Not drinking well. 1 liter of fluids and increase PVR goal to 500. May need additional fluids, order daily prn 08/05/2024: * Carbamazepine level pending * Ammonia level WNL 08/06/24 * Mental status improving (6) Diet-controlled diabetes mellitus: Code(s): E11.9 - Type 2 diabetes mellitus without complications Status: Acute Assessment and Plan: * ACCU checks ACHS * SSI * hold oral medications * hypoglycemic protocol * regular diet due to poor appetiate (7) RA (rheumatoid arthritis): Qualifiers: Rheumatoid arthritis location: multiple sites Rheumatoid factor presence: without rheumatoid factor Qualified Code(s): M06.09 - Rheumatoid arthritis without rheumatoid factor, multiple sites Code(s): M06.9 - Rheumatoid arthritis, unspecified Status: Acute Assessment and Plan: Home meds: Morphine ER 30mg q12, Vicodin * Weaning opiates slowly as noted * Has a headache but otherwise denies pain (8) Chronic lymphocytic leukemia: Code(s): C91.10 - Chronic lymphocytic leukemia of B-cell type not having achieved remission Status: Acute Assessment and Plan: Appears stable. 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 * Predisposes to recurrent infection * IgG/IgA/IgM levels all undetectable Plan Code status: Full code per patient DVT prophylaxis: Lovenox Stress ulcer prophylaxis: Protonix 40 daily PT/OT notes: SWING Bed [place] Disposition: Patient continues admission for pneumonia, COVID, generalized weakness and failure to thrive patient is improving with PT/ OT and plan is to discharge to [place] swing bed for further rehabilitation. Time Spent With Patient Time with patient: 15 - 25 minutes Subjective Date/time seen: 08/06/24 11:40 Interval history: Patient is an 84-year-old female who was admitted for further of hydration of COVID and pneumonia with altered mental status and generalized weakness. 08/06/24: Assumed Care Patient in bed more alert and answering questions appropriately still has some flight of ideas but otherwise Alert and oriented x 3. Patient denied any CP, SOB,N/V or ABD pain. possible D/C to swing bed today. Review of Systems Review of Systems: All systems reviewed & are unremarkable except as noted in HPI and below Exam Narrative: * GENERAL: Alert and oriented x 3. some flight of ideas but responding appropriately, No acute distress. * EYES: PERRLA. * HEENT: Moist mucous membranes. * LUNGS: Clear to auscultation bilaterally. No accessory muscle use. * CARDIOVASCULAR: Regular rate and rhythm. No murmur. No JVD. S1-S2 * ABDOMEN: Soft, non tenderness and non-distended. No palpable masses. * EXTREMITIES: No edema. Non-tender * SKIN: No rashes or lesions. Skin warm, dry. * NEUROLOGIC: No focal neurological deficits. CN II-XII grossly intact * PSYCHIATRIC: Flight of ideas, confusion. Objective Data Vital Signs Vital Signs: Vital Signs - 24 hr 08/05/24 14:09 08/05/24 22:00 08/06/24 05:29 Temperature 97.0 F L 97.0 F L 97.3 F L Pulse Rate 72 64 79 Respiratory Rate 16 18 16 Blood Pressure 118/52 L 126/60 130/64 Pulse Oximetry 91 93 95 Oxygen Delivery Fraction of Inspired Oxygen 08/06/24 10:45 Temperature Pulse Rate 79 Respiratory Rate 16 Blood Pressure Pulse Oximetry 95 Oxygen Delivery Room Air Fraction of Inspired Oxygen 21 Intake/Output Intake/Output: Intake & Output 08/03/24 08/04/24 08/05/24 08/06/24 23:59 23:59 23:59 23:59 Intake Total 331 491 7199 360 Output Total 500 1048 1575 Balance 100 715 672 -1215 Meds/Results Medications: Active Medications Generic Name Dose Route Start Last Admin Trade Name Freq PRN Reason Stop Dose Admin Acetaminophen 650 mg 07/27/24 23:14 07/28/24 08:48 Acetaminophen 325 Mg Tablet PO 650 mg Q4H PRN Administration Mild Pain (1-3) or Fever Al Hydrox/Mg Hydrox/Simethicone 30 ml 07/28/24 04:22 Mag Hydrox/Al Hydrox/Simeth 30 Ml Udc PO Q6H PRN Indigestion Albuterol/Ipratropium 3 ml 07/31/24 09:57 Ipratropium 0.5 Mg/Albuterol Sulfate 2.5 Mg Ampul.Neb 3 Ml INHALATION Q6HRT PRN Shortness Of Breath Carbamazepine 100 mg 07/28/24 11:30 08/06/24 10:34 Carbamazepine Xr 100 Mg Tab.Sr.12h PO 100 mg Q12HR WILI Administration Dextrose 12.5 gm 07/27/24 23:14 Dextrose 50% 25 Gm/50 Ml Syringe IV PUSH PRN PRN Hypoglycemia Protocol Duloxetine HCl 30 mg 07/29/24 09:00 08/06/24 10:34 Duloxetine Hcl 30 Mg Capsule. PO 30 mg QAM WILI Administration Enoxaparin Sodium 40 mg 07/28/24 09:00 08/06/24 10:35 Enoxaparin 40 Mg/0.4 Ml Syringe SUB-Q 40 mg DAILY WILI Administration Famotidine 20 mg 07/28/24 09:00 08/06/24 10:34 Famotidine 20 Mg Tablet PO 20 mg Q12HR WILI Administration Fish Oil 1 gm 07/28/24 18:00 08/05/24 18:24 [place] 3 Polyunsat Fatty Acids 1 Gm Cap PO Not Given QPM WILI Glucagon 1 mg 07/27/24 23:14 Glucagon For Inj 1 Mg Vial IM PRN PRN Hypoglycemia Protocol Glucose 15 gm 07/27/24 23:14 Glucose Oral Gel 15 Gm Of Glucse In 37.5 Gm Tube PO PRN PRN Hypoglycemia Protocol Dextrose 1,000 mls @ 100 mls/hr 07/27/24 23:14 Dextrose 5% 1,000 Ml IVPB PRN PRN Hypoglycemia Protocol Morphine Sulfate 15 mg 08/04/24 21:00 08/06/24 10:34 Morphine Sulfate (*Crx) 15 Mg Tabcr PO 15 mg Q12HR WILI Administration Ondansetron HCl 4 mg 07/27/24 23:14 Ondansetron Inj 4 Mg/2 Ml Vial IV PUSH Q4H PRN Nausea Polyethylene Glycol 17 gm 07/28/24 04:22 Polyethylene Glycol 3350 17 Gm Powd.Pack PO QAM PRN Constipation Radiology Results: ITS Impressions Chest X-Ray 07/27/24 20:00 IMPRESSION: Right basal pneumonia. Follow-up to resolution is advised. Head CT 07/27/24 20:04 IMPRESSION: No acute intracranial findings. Brain MRI 08/02/24 12:01 IMPRESSION: 1. Extensive nonspecific cerebral white matter disease and pontine disease, which likely represents chronic small vessel ischemic disease. Labs Labs: Laboratory Results - last 24 hr 08/05/24 08/05/24 08/06/24 13:13 19:57 05:57 WBC 8.5 RBC 3.31 L Hgb 10.4 L Hct 30.9 L MCV 93.4 MCH 31.4 MCHC 33.7 RDW 13.2 Plt Count 290 MPV 9.7 Sodium 135 L Potassium 4.1 Chloride 107 Carbon Dioxide 27 Anion Gap 1 L BUN 22 H Creatinine 0.80 Estim Creat Clear Calc 36 Estimated GFR > 60 Glucose 101 POC Capillary Glucose 91 Calcium 9.8 Total Bilirubin 0.5 AST 26 ALT 33 Alkaline Phosphatase 50 Ammonia < 9 L Total Protein 5.0 L Albumin 3.1 L 08/06/24 08:15 WBC RBC Hgb Hct MCV MCH MCHC RDW Plt Count MPV Sodium Potassium Chloride Carbon Dioxide Anion Gap BUN Creatinine Estim Creat Clear Calc Estimated GFR Glucose POC Capillary Glucose 93 Calcium Total Bilirubin AST ALT Alkaline Phosphatase Ammonia Total Protein Albumin Quality VTE Prophylaxis VTE prophylaxis: pharmacologic ordered -Patient's previous records reviewed on admission -ER notes reviewed in detail on admission -discussed all findings and current treatment plan with patient/Family/POA -Consultations reviewed for recommendations -Patient's disposition for safe discharge discussed with case assembler Dictation performed by [employer] direct speech recognition software, therefore talent development director variants and typographical errors may occur. Hospitalist MIPS Advance Care Plan I have confirmed that the patient's Advanced Care Plan is present, code status is documented, or surrogate decision maker is listed in patient medical record.: Yes Medication Reconciliation I have utilized all available resources to obtain, update and review the patients current medications (includes all prescriptions, OTC, herbals, cannabis, and nutritional supplements).: Yes The patient is not eligible for med reconciliation; the patient is in a emergent medical situation where delaying treatment would jeopardize the patients health.: No
--- NOTE | 2024-08-06 12:33 | PC.NURSE ---
MEDICAL ADMINISTRATIVE ASSISTANT attempted to take patient's blood sugar. Patient swung at MEDICAL ADMINISTRATIVE ASSISTANT and stated Get away from me you're not poking me MEDICAL ADMINISTRATIVE ASSISTANT asked if she could check her depend and patient replied No get out of here . RN and MEDICAL ADMINISTRATIVE ASSISTANT will attempt to recheck patient later and see if patient is more relaxed.
--- NOTE | 2024-08-06 14:16 | P.DS_ITS ---
DS: Admitting Diagnosis Discharge Date 08/06/2024 Admitting Diagnosis COVID-19/ metabolic encephalopathy/PNA DS: Discharge Diagnosis Discharge Diagnosis (1) Pneumonia: Qualifiers: Laterality: right Lung location: lower lobe of lung Pneumonia type: due to unspecified organism Qualified Code(s): J18.9 - Pneumonia, unspecified organism Code(s): J18.9 - Pneumonia, unspecified organism Status: Acute Assessment and Plan: RESOLVED (2) Adult failure to thrive: Code(s): R62.7 - Adult failure to thrive Status: Acute Assessment and Plan: * Nutritional supplements ordered. * Patient still with very poor appetite. (3) Weakness: Code(s): R53.1 - Weakness Status: Acute Assessment and Plan: * Generalized. * Covid positive 07/27/24. * Continue PT/OT. (4) COVID-19: Code(s): U07.1 - COVID-19 Status: Acute Assessment and Plan: * 07/27/2024. * Asymptomatic. * Continue to monitor. (5) Altered mental status: Code(s): R41.82 - Altered mental status, unspecified Status: Acute Assessment and Plan: * Carbamazepine level pending * Ammonia level WNL 08/06/24 * Mental status improving (6) Diet-controlled diabetes mellitus: Code(s): E11.9 - Type 2 diabetes mellitus without complications Status: Acute Assessment and Plan: * ACCU checks ACHS * SSI * hold oral medications * hypoglycemic protocol * regular diet due to poor appetiate (7) RA (rheumatoid arthritis): Qualifiers: Rheumatoid arthritis location: multiple sites Rheumatoid factor presence: without rheumatoid factor Qualified Code(s): M06.09 - Rheumatoid arthritis without rheumatoid factor, multiple sites Code(s): M06.9 - Rheumatoid arthritis, unspecified Status: Acute Assessment and Plan: Home meds: Morphine ER 30mg q12, Vicodin * Weaning opiates slowly as noted * Has a headache but otherwise denies pain (8) Chronic lymphocytic leukemia: Code(s): C91.10 - Chronic lymphocytic leukemia of B-cell type not having achieved remission Status: Acute Assessment and Plan: Appears stable. 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 * Predisposes to recurrent infection * IgG/IgA/IgM levels all undetectable Plan Disposition: discharged to [facility] DS: Summary Hospital Course Reason for hospitalization: COVID-19/ metabolic encephalopathy/PNA Hospital Course: Patient was an 84-year-old female who was admitted for hospitalization at [facility] where she was treated for generalized weakness, COVID-19 infection, PNA and altered mental status. patient has a past medical history chronic pain syndrome on chronic opioid use, GERD, RA, diabetes, COPD, trigeminal neuralgia, CLL and arthritis. acute stroke was ruled out with MRI and no acute issues seen patient with improvement to mental status likely secondary to acute infection. Patient had completed her course of antibiotic therapy for possible pneumonia that which she did not require any oxygen. patient was seen by Neurology during her inpatient stay at [facility] who agreed this appear to be more metabolic encephalopathy due to acute infection at which time he recommended a follow-up outpatient mini-mental in 4 to seek 6 weeks with a neurological follow-up. patient will continue with her rehabilitation at [facility] with plans to return home at discharge with family. Patient with no current complaints denies any chest pain, shortness a breath, nausea, vomiting, abdominal pain or dizziness. Status at Discharge Functional status at discharge: uses cane/walker Overall status at discharge: patient is progressing back to baseline Time Spent with Patient Time attestation: Total time spent providing and/or coordinating discharge services: Time spent: Greater than 30 minutes Exam Narrative: * GENERAL: Alert and oriented x 3. some flight of ideas but responding appropriately, No acute distress. * EYES: PERRLA. * HEENT: Moist mucous membranes. * LUNGS: Clear to auscultation bilaterally. No accessory muscle use. * CARDIOVASCULAR: Regular rate and rhythm. No murmur. No JVD. S1-S2 * ABDOMEN: Soft, non tenderness and non-distended. No palpable masses. * EXTREMITIES: No edema. Non-tender * SKIN: No rashes or lesions. Skin warm, dry. * NEUROLOGIC: No focal neurological deficits. CN II-XII grossly intact * PSYCHIATRIC: Flight of ideas, confusion. DS: Data Data Completed and Pending Labs on day of discharge: Labs from last 24 hours 08/06/24 08/06/24 08/05/24 08:15 05:57 19:57 WBC 8.5 RBC 3.31 L Hgb 10.4 L Hct 30.9 L MCV 93.4 MCH 31.4 MCHC 33.7 RDW 13.2 Plt Count 290 MPV 9.7 Sodium 135 L Potassium 4.1 Chloride 107 Carbon Dioxide 27 Anion Gap 1 L BUN 22 H Creatinine 0.80 Estim Creat Clear Calc 36 Estimated GFR > 60 Glucose 101 POC Capillary Glucose 93 91 Calcium 9.8 Total Bilirubin 0.5 AST 26 ALT 33 Alkaline Phosphatase 50 Total Protein 5.0 L Albumin 3.1 L Imaging Radiologist's impression: Radiology Results: ITS Impressions Chest X-Ray 07/27/24 20:00 IMPRESSION: Right basal pneumonia. Follow-up to resolution is advised. Head CT 07/27/24 20:04 IMPRESSION: No acute intracranial findings. Brain MRI 08/02/24 12:01 IMPRESSION: 1. Extensive nonspecific cerebral white matter disease and pontine disease, which likely represents chronic small vessel ischemic disease. Discharge Plan Discharge Attending physician on discharge: Americo Saab Consulting providers: Brandi Beard Discharging Clinician: Caterina Soto Anticipated Discharge Date/Time: 08/06/24 14:05 Patient Disposition: Hospital Swing Bed Activity: as tolerated Diet: regular Discharge Instructions: You are being discharged to [place] swing bed for continued Rehab and strength training after treatment for metabolic encephalopathy secondary to COVID-19. * advance activity as tolerated * encourage regular diet and protein shakes with each meal How can you care for yourself at home? ? Keep track of any new symptoms or changes in your symptoms. ? Rest until you feel better. ? Be safe with medicines. Take your medicines exactly as prescribed. Call your doctor if you think you are having a problem with your medicine. ? Do not drive after taking a prescription pain medicine. ? Ensure to follow-up with primary care physician as indicated and provide updated medication list provided to you at discharge. When should you call for help? Call 911 anytime you think you may need emergency care. For example, call if: ? You passed out (lost consciousness). Call your doctor now or seek immediate medical care if: ? You have new symptoms like fever, difficulty breathing, Chest pain, vomiting, or rash. ? You have new or different pain. ? You are confused and are having trouble thinking clearly. ? Your symptoms are getting worse. Watch closely for changes in your health, and be sure to contact your doctor if: ? You do not get better as expected. Patient Instructions: Antibiotic Form, Dementia (GEN), Encephalopathy (DC), COVID-19 (Coronavirus Disease 2019) (DC), COVID-19 and Chronic Health Conditions (DC) Patient Language: Tamazight Stand Alone Forms: General Discharge Information Follow-up/Referrals: Baldomero Denis, DO [Primary Care Provider] - 4 Weeks Discharge Medications: New polyethylene glycol 3350 [Miralax] 17 gram Powder In Packet 17 g PO QAM PRN (Reason: Constipation) Qty: 14 0RF morphine 15 mg Tablet Extended Release 15 mg PO Q12HR Qty: 0 0RF Continued omega 5-adh-whu-fish oil 60-90-500 mg capsule 1 cap PO QPM Rx Instructions: only takes when she eats dinner albuterol sulfate [Ventolin HFA] 90 mcg/actuation HFA aerosol inhaler 1 - 2 puff INHALATION Q4-6H PRN (Reason: shortness of breath or wheezing) Qty: 8.5 3RF duloxetine [Cymbalta] 30 mg capsule,delayed release(DR/EC) 30 mg PO QAM Qty: 90 1RF famotidine 20 mg tablet 20 mg PO Q12HR Qty: 180 1RF hydrocodone-acetaminophen 10-325 mg tablet 1 tablet PO BID PRN (Reason: Pain (Scale Score 7-10)) Qty: 10 0RF Rx Instructions: for breakthrough pain carbamazepine 100 mg tablet extended release 12 hr 100 mg PO Q12H Qty: 60 3RF Discontinued morphine 30 mg tablet extended release 30 mg PO Q12H Qty: 10 0RF Patient Comments: Prescribed by pain management. please schedule for 7a-7p amitriptyline 25 mg tablet 25 mg PO .QHS Qty: 90 1RF Date of admission: 07/28/24 08:34 Primary Care Provider: Baldomero Denis Admitting Provider: Hope Sr V. Attending physician on admission: Caterina Soto Condition: Stable Quality VTE Prophylaxis VTE prophylaxis: pharmacologic ordered -Patient's previous records reviewed on admission -ER notes reviewed in detail on admission -discussed all findings and current treatment plan with patient/Family/POA -Consultations reviewed for recommendations -Patient's disposition for safe discharge discussed with caseworker protective services Dictation performed by [employer] direct speech recognition software, therefore property field inspector variants and typographical errors may occur. Hospitalist MIPS Heart Failure (Exclusion) Patient has history of Heart Transplant or Left Ventricular Assistive Device?: No IF YES, STOP HERE Heart Failure (Qualifier) Patient has current or prior documentation of LVEF less than or equal to 40%, or mod/servere depressed LVSF?: No IF NO, STOP HERE
[2024-08-07 18:39] LABS: Lyme Disease Ab (IgM), Blot NEGATIVE (NEGATIVE); Lyme Disease Ab(IgG), Blot NEGATIVE (NEGATIVE)
[2024-08-10 12:18] LABS: Carbamazepine Tegretol 6.7 mcg/mL (4.0-12.0)
== END 2024-08-06 15:30 | disposition swing bed (61) | DRG 193 ==
LOC: ANHED 22:52 → ANH3MED 07-28 00:34
PROVIDERS: Internal Medicine; Nurse Practitioner Acute Care; Nurse Practitioner Adult Health; Psychiatry & Neurology Neurology; Admitting Provider Internal Medicine; Emergency Provider Physician Assistant; PCP Internal Medicine; Visit Provider Nurse Practitioner Family
DX: J18.9 Pneumonia, unspecified organism (principal); G93.41 Metabolic encephalopathy; U07.1 COVID-19; J44.0 Chronic obstructive pulmonary disease with (acute) lower respiratory infection; C91.10 Chronic lymphocytic leukemia of B-cell type not having achieved remission; D84.9 Immunodeficiency, unspecified; Z68.1 Body mass index [BMI] 19.9 or less, adult; E55.9 Vitamin D deficiency, unspecified; E11.9 Type 2 diabetes mellitus without complications; K21.9 Gastro-esophageal reflux disease without esophagitis; M81.0 Age-related osteoporosis without current pathological fracture; M19.90 Unspecified osteoarthritis, unspecified site; M06.9 Rheumatoid arthritis, unspecified; R62.7 Adult failure to thrive; G89.4 Chronic pain syndrome; F32.A Depression, unspecified; Z79.891 Long term (current) use of opiate analgesic; Z85.3 Personal history of malignant neoplasm of breast; Z85.820 Personal history of malignant melanoma of skin; Z85.828 Personal history of other malignant neoplasm of skin
CPT/HCPCS: 36415; 70450; 70551; 71045; 80053; 80061; 80156; 81001; 82140; 82550; 82607; 82746; 82784; 82948; 83090; 83605; 83735; 83921; 84145; 84443; 85025; 85027; 85610; 85730; 86140; 86592; 86617; 87040; 87637; 93005; 94640; 96365; 96367; 97116; 97161; 97165; 97530; 99285; A9270; G0378; J0456; J0696; J1650; J7030

== ENCOUNTER 2024-12-27 18:27 | Emergency (ER) | payer MEDICARE, MEDICAID, SELFPAY ==
--- NOTE | ~2024-12-27 | CT_ITS ---
CT brain wo con Ordering provider: Earlene Marquez PA-C History: 84 years Female with . ams . Comparison: None. Technique: CT of the head without contrast. Radiation reduction technique utilized.The dose-length pr oduct was 1513.33 mGy-cm. FINDINGS: BRAIN PARENCHYMA AND CSF SPACES: Mild leukoaraiosis and diffuse cortical atrophy. Mild atheromatous d isease. No midline shift, mass effect or hemorrhage. The brain parenchyma and CSF spaces are otherwise norm al. VISUALIZED PARANASAL SINUSES: Left ethmoid sinus disease. Otherwise, Well aerated. MASTOIDS: Well aerated. BONES: The bones appear intact. SOFT TISSUES: Visualized nasopharynx is normal. Superficial soft tissues are normal. IMPRESSION: No acute intracranial findings. Reviewed, dictated and finalized at location A.
--- NOTE | ~2024-12-27 | XR_ITS ---
XR chest 1V portable Ordering provider: Earlene Marquez PA-C History: 84 years Female with . ams . Comparison: July 27, 2024 FINDINGS: MEDIASTINUM: The cardiac silhouette is not enlarged. LUNGS: No infiltrates, effusions or pneumothorax. Underlying emphysematous changes. Left apical pleur al thickening with calcification. OTHER: Calcification projected over the right lower ribs which may be in the breast or in the ribs. No free air under the diaphragm. IMPRESSION: No acute cardiopulmonary pathology. Reviewed, dictated and finalized at location A.
--- OUTSIDE RECORDS SUMMARY | 2024-12-27 18:29 | XMS_ITS | Clinical Summary ---
Author Organization [facility] Caitlin Villagran Address [address] [place] [address] Care Team Providers Care Fire Protection Inspector Name Role Phone AyemiltonBaldomero garcia Cruz Primary Care Provider Allergies Active Allergy Reactions Criticality Noted Date Comments Pregabalin Hives High 04/30/2020 Medications amitriptyline (ELAVIL) 25 mg tablet Take 25 mg by mouth daily at bedtime. 01/22/2020 Active morphine (MS CONTIN) 15 mg Controlled Release tablet Take by mouth every 12 hours. 01/30/2020 Active carBAMazepine 100 mg chewable tablet Take 100 mg by mouth every 12 hours. Active DULoxetine (CYMBALTA) 30 mg Capsule, Delayed Release(E.C.) 03/18/2023 Activ e famotidine (PEPCID) 20 mg tablet 03/18/2023 Active HYDROcodone-acet aminophen (NORCO) 10-325 mg Tablet 03/18/2023 Active Active Problems Problem Noted Date Diagnosed Date CLL (chronic lymphocytic leukemia) 05/20/2020 Immunoglobulin deficiency 05/20/2020 Family History Medical History Relation Name Comments Cancer Father Cancer Mother Cancer Sister 1 Pancreatic Cancer Sister 1 Relation Name Status Comments Brother Alive Father Mother Sister 1 Sister 2 Alive Son 1 Alive Son 2 Alive Social History Tobacco Use Types Packs/Day Years Used Date Smoking Tobacco: Every Day Cigarettes 0.5 25 Smokeless Tobacco: Never Tobacco Cessation:Ready to Q uit: Not Asked; Counseling Given: Not Answered Alcohol Use Standard Drinks/Week Comments Never 0 (1 standard drink = 0.6 oz pur e alcohol) Comments No Sex and Gender Information Value Date Recorded Sex Assigned at Not on file Legal Sex Female 3:08 AM SUPERVISOR SHIP MAINTENANCE SERVICES Gender Identity Not on file Sexual Orientation Not on file Last Filed Vital Signs Vital Sign Reading Time Taken Comments Blood Pressure 110/70 08/05/2023 12:27 PM SUPERVISOR [employer] MAINTENA[employer]CE [employer] Pulse 77 06/02/2023 3:45 PM CDT Temperature 36.3 C (97.4 F) 08/05/2023 12:27 PM SUPERVISOR [employer] MAINTENANCE [employer] Respiratory Rate 10 08/05/2023 12:27 PM SUPERVISOR [employer] MAINTENANCE SERVICES Oxygen Saturation 93% 06/02/2023 3:45 PM CDT Inhaled Oxygen Concentration - - Weight 51.3 kg (113 lb) 08/05/2023 12:27 PM SUPERVISOR [employer] MAINTENA[employer]CE [employer] Height 166.4 cm (5' 5.5) 05/20/2020 2:26 PM CDT Body Mass Index 18.52 05/20/2020 2:26 PM CDT Plan of Treatment Health Maintenance Due Date Last Done Comments DTAP/TDAP/TD VACCINES (1 - Tdap) 1959 PNEUMOCOCCAL VACCINE 50+ YEARS (1 of 2 - PCV) 01/18/19 58 ZOSTER VACCINE (1 of 2) 1959 OSTEOPOROSIS SCREENING 01/19/2004 RSV VACCINE (60+ or ) (1 - 1-dose 75+ series) 2014 INFLUENZA VACCINE (#1) 2024 Insurance MEDICARE PART A AND B [place]ICAID [place] Care Teams Fire Protection Inspector Relationship Specialty Start Date End Date Baldomero Denis DO [address] [place] [address] PCP - General Internal Medicine 01/15/20
--- OUTSIDE RECORDS SUMMARY | 2024-12-27 18:29 | XMS_ITS | Encounter Summary ---
Author Organization [facility] Address [address] [place] [address] Care Team Providers Care Safety And Skill Based Pay Manager Name Role Phone Baldomero Denis DO Primary Care Provider Encounter Details Date Type Department Care Team (Late st Contact Info) Description 04/08/2000 Outpatient Historical [facility] Servando Walter Social History Tobacco Use Types Packs/Day Years Used Date Smoking Tobacco: Never Assessed Comments Unknown Sex and Gender Information Value Date Recorded Sex Assigned at Not on file Legal Sex Female 3:08 AM GOLF BALL INSPECTOR Gender Identity Not on file Sexual Orientation Not on file documented as of this encounter Plan of Treatment Not on file documented as of this encounter Visit Diagnoses Not on filedocumented in this encounter Care Teams Safety And Skill Based Pay Manager Relationship Specialty Start Date End Date Baldomero Denis DO [address] [facility] [facility] [address] [place] [address] PCP - General Internal Medicine 01/15/20 documented as of this encounter
[2024-12-27 18:56] VITALS: BP 118/44; PULSE 115; RESP 20; TEMP 37.2; O2SAT 95
[2024-12-27 20:06] VITALS: RESP 16; O2SAT 93
[2024-12-27 20:11] VITALS: BP 114/53; PULSE 112; RESP 18; O2SAT 93
[2024-12-27 20:13] VITALS: PULSE 108
--- NOTE | 2024-12-27 20:35 | PC.NURSE ---
Bed alarm applied to pt bed.
[2024-12-27 20:39] LABS: Glucose Point of Care 122 mg/dl (65-105)
--- NOTE | 2024-12-27 20:47 | ECG_ITS ---
Test Date: 2024-12-27 21:04:16 Measurements Intervals [place] Rate: 96 P: 79 PA: 127 QRS: 79 QRSD: 88 T: 91 QT: 322 QTc: 408 Interpretive Statements SINUS RHYTHM Compared to ECG 07/28/2024 00:04:07 NO SIGNIFICANT CHANGES Electronically Signed On 12-28-2024 15:03:53 CDT by Felecia Keane M.D.
--- OUTSIDE RECORDS SUMMARY | 2024-12-27 20:57 | XMS_ITS | Clinical Summary ---
Author Organization [facility] Caitlin Villagran Address [address] [place] [address] Care Team Providers Care Live In Housekeeper Name Role Phone AyemiltonBaldomero garcia Cruz Primary [...] on file Legal Sex Female 3:08 AM BUSINESS ADMINISTRATION PROFESSOR Gender Identity Not on file Sexual Orientation Not on file Last Filed Vital Signs Vital Sign Reading Time Taken Comments Blood Pressure 110/70 08/05/2023 12:27 PM BUSINESS ADMINISTRATION PROFESSOR Pulse 77 06/02/2023 3:45 PM CDT Temperature 36.3 C (97.4 F) 08/05/2023 12:27 PM BUSINESS ADMINISTRATION PROFESSOR Respiratory Rate 10 08/05/2023 12:27 PM BUSINESS ADMINISTRATION PROFESSOR Oxygen Saturation 93% 06/02/2023 3:45 PM CDT Inhaled Oxygen Concentration - - Weight 51.3 kg (113 lb) 08/05/2023 12:27 PM BUSINESS ADMINISTRATION PROFESSOR Height 166.4 cm (5' 5.5) 05/20/2020 2:26 [...] A AND B [place] Care Teams Live In Housekeeper Relationship Specialty Start Date End Date Baldomero Denis DO [address] [facility] [address] [place] [address] PCP - General Internal Medicine 01/15/20
--- OUTSIDE RECORDS SUMMARY | 2024-12-27 20:57 | XMS_ITS | Encounter Summary ---
Author Organization [facility] Address [address] [place] [address] Care Team Providers Care Molecular Pathologist Name Role Phone Baldomero Denis DO Primary [...] on file Legal Sex Female 3:08 AM SANITARY PLUMBER Gender Identity Not on file Sexual Orientation Not on file documented as of this encounter Plan of Treatment Not on file documented as of this encounter Visit Diagnoses Not on filedocumented in this encounter Care Teams Molecular Pathologist Relationship Specialty Start Date End Date Baldomero Denis DO [address] [facility] [address] [place] [address] PCP - General Internal Medicine 01/15/20 documented as of this encounter
--- NOTE | 2024-12-27 21:06 | ED_ITS ---
HPI - General Adult General Chief complaint: Unspecified Stated complaint: resolved AMS? Time Seen by Provider: 12/27/24 20:14 Source: patient, RN notes reviewed and old records reviewed Mode of arrival: EMS Limitations: dementia History of Present Illness HPI narrative: Patient is an 84-year-old female, past medical history of dementia, RA, CLL, who presents to the ED via EMS with report of possible AMS. Patient is a resident of [facility]. Staff reported patient had an episode of altered mental status today. They attempted to wake her up for dinner and she sat up in bed, stared them, but would not speak to them. They stated this was not typical of her. She was sent here for further evaluation. Patient unable to provide any information. Denies any concerns. Related Data Home Medications ?Medication ?Instructions ?Recorded ?Confirmed ?Last Taken ?Type omega 6-yrk-bxt-fish oil 60 mg-90 1 cap PO QPM 09/15/23 08/24/24 08/02/24 18:00 History mg-500 mg capsule Allergies Allergy/AdvReac Type Severity Reaction Status Date / Time doxycycline Allergy Unknown Verified 08/24/24 10:38 latex Allergy Unknown Verified 08/24/24 10:38 pregabalin (From Lyrica) Allergy Unknown Verified 08/24/24 10:38 Sulfa (Sulfonamide Allergy Unknown Verified 08/24/24 10:38 Antibiotics) sulfamethoxazole (From Allergy Unknown Verified 08/24/24 10:38 Bactrim) trimethoprim (From Bactrim) Allergy Unknown Verified 08/24/24 10:38 Review of Systems 2 Review of Systems: ROS unobtainable: Yes unobtainable due to mental status PMFSH Past Medical History Medical History Trigeminal neuralgia Metabolic encephalopathy Vitamin D deficiency GERD (gastroesophageal reflux disease) Osteoporosis Chronic prescription opiate use Chronic pain syndrome Rheumatoid arthritis Diet-controlled diabetes mellitus Tobacco dependence Cancer of right breast Status post mastectomy and radiation. Chronic lymphocytic leukemia Chronic obstructive pulmonary disease Depression Immunoglobulin deficiency Arthritis Allergies Squamous cell carcinoma Back. Melanoma Left arm. Surgical History Surgical History History of hemiarthroplasty of left hip (~11/08/22) Bipolar hemiarthroplasty left. History of squamous cell carcinoma excision Back. History of melanoma excision Left arm. History of hysterectomy History of right mastectomy (1987) History of cholecystectomy Family History Family History Mother CLL (chronic lymphocytic leukemia) Father Lung cancer Sibling Pancreatic cancer Social History Social History Social History: Surrogate medical decision maker: Oj Gregory, richie. Code status: Full code. Smoking packs per day: 1 Smoking cigarettes per day: 20.0 Years smoked: 70 Smoking pack-years: 70.00 Smoking status: Current every day smoker Tobacco type: cigarettes Alcohol intake: never Substance use: never Substance use type: does not use Do You Feel Safe in your Home?: No Lack of Transportation: No Lack of Food: Never True Current Housing: I Have Housing Concerned About Future Housing: No Difficulty Paying Gas/Electric Bills: No Difficulty Paying for Meds: No Currently Unemployed: No Education: Master's Degree or Higher Difficulty w/ Childcare or Family Care: No Additional living arrangements comments: Lives alone in [place]. Originally from [place]. Spiritual care concerns: No Exam 2 Narrative: GENERAL: Elderly, frail, non-toxic, in no acute distress. HEAD: Normocephalic, atraumatic. RESPIRATORY: Airway patent, respirations nonlabored. Clear to auscultation bilaterally, no rales, rhonchi, wheezing. No appreciable focal lung sounds. CARDIOVASCULAR: Borderline tachycardic with regular rhythm without murmurs, rubs, or gallops. ABDOMINAL: Soft, no appreciable tenderness, nondistended. Normoactive BS. MUSCULOSKELETAL: Moves all extremities. No gross deformities. SKIN: Warm, dry, normal color. NEURO: A&O X3. Speech clear. No ataxic movements. PSYCHIATRIC: Appropriate mood and affect. Normal interaction. Course Vital Signs Vital signs: Vital Signs Temperature 98.9 F 12/27/24 18:56 Pulse Rate 115 H 12/27/24 18:56 Respiratory Rate 20 12/27/24 18:56 Blood Pressure 118/44 L 12/27/24 18:56 Pulse Oximetry 95 12/27/24 18:56 Temperature 98.9 F 12/27/24 18:56 Pulse Rate 90 12/27/24 22:18 Respiratory Rate 19 12/27/24 22:18 Blood Pressure 114/53 L 12/27/24 20:11 Pulse Oximetry 96 12/27/24 22:18 Medical Decision Making MDM Narrative Medical decision making narrative: Patient presented to ED with possible altered mental status. History of dementia, sent from local [facility]. Patient was mildly tachycardic upon arrival. This did improve by the time of my evaluation and even further into the 90s with fluid administration. She was in no acute distress. No appreciable focal deficits. Patient denying any complaints to myself. Altered mental status workup was obtained. EKG w/ sinus rhythm. No concerning ischemic changes. CT brain negative. Chest x-ray is clear. Laboratory studies are fairly unremarkable. Chronic mild anemia, consistent with previous records. Stable electrolytes. Stable kidney function. UA appears infectious. Sent for culture. Will treat. Previous urine cultures reviewed. Have been sensitive to cephalosporins in the past. Keflex started. Patient has remained stable throughout ED stay. Stay for D/C back to [facility]. Return precautions discussed on patient. Discharged in stable condition. Medical Records Medical records reviewed: Yes I reviewed the external patient's medical records. Vital Signs Vital Signs: Vital Signs Temperature 98.9 F 12/27/24 18:56 Pulse Rate 115 H 12/27/24 18:56 Respiratory Rate 20 12/27/24 18:56 Blood Pressure 118/44 L 12/27/24 18:56 Pulse Oximetry 95 12/27/24 18:56 Temperature 98.9 F 12/27/24 18:56 Pulse Rate 90 12/27/24 22:18 Respiratory Rate 19 12/27/24 22:18 Blood Pressure 114/53 L 12/27/24 20:11 Pulse Oximetry 96 12/27/24 22:18 Lab Data Lab results reviewed: Yes I reviewed the patient's lab results. 12/27/24 21:34 12/27/24 21:34 Labs: Lab Results 12/27/24 12/27/24 12/27/24 Range/Units 20:37 21:18 21:34 WBC 9.8 (4.5-10.0) K/mm3 RBC 3.62 L (4.2-5.4) M/mm3 Hgb 11.6 L (12.0-15.0) g/dL Hct 34.7 L (37.0-47.0) % MCV 95.9 (80-100) fl MCH 32.0 (26-34) pg MCHC 33.4 (32-36) g/dl RDW 13.9 (11.5-14.5) % Plt Count 222 (150-375) k/mm3 MPV 9.6 (7.4-10.4) fl Immature Gran % (Auto) 0.9 H (0-0.5) % Neut % (Auto) 63.4 (45.5-73.1) % Lymph % (Auto) 29.0 (18.3-44.2) % [place] % (Auto) 4.7 (2.6-8.5) % Eos % (Auto) 1.7 (0-4.4) % Baso % (Auto) 0.3 (0.2-1.2) % Lymph # (Auto) 2.84 (0.9-3.2) K/mm3 [place] # (Auto) 0.5 (0.1-0.6) K/mm3 Eos # (Auto) 0.2 (0-0.3) K/mm3 Baso # (Auto) 0.0 (0.0-0.1) K/mm3 Abs Immat Gran (auto) 0.09 H (0.00-0.031) K/mm3 Absolute Neuts (auto) 6.2 (1.3-6.7) K/mm3 Absolute Nucleated RBC 0.000 (0.0-0.012) K/mm3 Nucleated RBC % 0.0 (0.0-0.2) % PT 12.6 (11.1-14.7) Seconds INR 0.9 APTT 21.4 L (22.3-36.8) Seconds Sodium 137 (137-145) mmol/L Potassium 3.7 (3.4-5.0) mmol/L Chloride 106 (98-107) mmol/L Carbon Dioxide 22 (22-30) mmol/L Anion Gap 9 (4-12) mmol/L BUN 37 H D (7-17) mg/dL Creatinine 0.84 (0.7-1.0) mg/dL Estim Creat Clear Calc Not Reportable Estimated GFR > 60 (59 - ) Glucose 110 (65-110) mg/dL POC Capillary Glucose 122 H (65-105) mg/dl Calcium 10.4 H (8.4-10.2) mg/dL Total Bilirubin 0.4 (0.2-1.3) mg/dL AST 24 (14-36) U/L ALT 17 (6-35) U/L Alkaline Phosphatase 57 (38-126) U/L Total Protein 6.0 L (6.3-8.2) g/dL Albumin 4.0 (3.5-5.1) g/dL Urine Color Yellow (Yellow) Urine Appearance Turbid H (Clear) Urine pH 6.0 (5.0-9.0) Ur Specific [place] 1.017 (1.001-1.035) Urine Protein 2+ H (Negative) mg/dL Urine Glucose (UA) Negative (Negative) mg/dL Urine Ketones Negative (Negative) mg/dL Ur Blood (Man) 2+ H (Negative) Urine Nitrate Positive H (Negative) Urine Bilirubin Negative (Negative) Urine Urobilinogen 1.0 (<2.0) mg/dL Add Ur Microanalysis Reviewed Leukocyte Esterase Rfl 3+ H (Negative) SHERITA/UL Urine RBC 51-100 H (0-2) /hpf Urine WBC >100 H (0-3) /hpf Ur Squamous Epith Cells None seen (Few) /hpf Urine Bacteria 4+ H /hpf Urine Mucus Few H /lpf Urine Yeast (Budding) Present H (None) /hpf Imaging Data Attestation: I personally reviewed and interpreted this imaging study as follows: Radiologist's impression: ITS Impressions Chest X-Ray 12/27/24 21:05 IMPRESSION: No acute cardiopulmonary pathology. Head CT 12/27/24 22:04 IMPRESSION: No acute intracranial findings. ECG Data EKG #1: Attestation: I personally reviewed and interpreted this ECG as follows: ECG completion date: 12/27/24 ECG completion time: 21:04 EKG Interpretation: normal rate (96), sinus rhythm, non-specific ST changes and other (some baseline artifact) Discharge Plan Discharge Clinical Impression: UTI (urinary tract infection) Qualifiers: Urinary tract infection type: acute cystitis Hematuria presence: with hematuria Qualified Code(s): N30.01 - Acute cystitis with hematuria AMS (altered mental status) Qualifiers: Altered mental status type: unspecified Qualified Code(s): R41.82 - Altered mental status, unspecified Patient Disposition: NH Shelter/Asst Living Condition: Stable Instructions: Antibiotic Form, Urinary Tract Infection in Women (ED) Additional Instructions: Patient was diagnosed with a urinary tract infection. Take Keflex as prescribed. Follow-up with primary care doctor for further evaluation and urine culture results. Return to the ED for new or worsening concerns. Patient Language: Citizen [place] Prescriptions: New cephalexin 500 mg capsule 500 mg PO Q6H 7 Days Qty: 28 0RF No Action omega 1-ucv-yhm-fish oil 60-90-500 mg capsule 1 cap PO QPM Rx Instructions: only takes when she eats dinner albuterol sulfate [Ventolin HFA] 90 mcg/actuation HFA aerosol inhaler 1 - 2 puff INHALATION Q4-6H PRN (Reason: shortness of breath or wheezing) Qty: 8.5 3RF duloxetine [Cymbalta] 30 mg capsule,delayed release(DR/EC) 30 mg PO QAM Qty: 90 1RF famotidine 20 mg tablet 20 mg PO Q12HR Qty: 180 1RF hydrocodone-acetaminophen 10-325 mg tablet 1 tablet PO BID PRN (Reason: Pain (Scale Score 7-10)) Qty: 10 0RF Rx Instructions: for breakthrough pain polyethylene glycol 3350 [Miralax] 17 gram Powder In Packet 17 g PO QAM PRN (Reason: Constipation) Qty: 14 0RF carbamazepine 100 mg tablet extended release 12 hr 100 mg PO Q12H Qty: 60 3RF Follow-up/Referrals: Baldomero Denis DO [Primary Care Provider] - Time of Disposition: 22:20
[2024-12-27] MEDS: SODIUM CHLORIDE 0.9% IV 1,000 ML 999 ML IV CONT (21:33)
[2024-12-27 21:42] LABS: Basophils Percent Auto 0.3 % (0.2-1.2); Eosinophils Absolute Auto 0.2 K/mm3 (0-0.3); Eosinophils Percent Auto 1.7 % (0-4.4); Hematocrit 34.7 % (37.0-47.0); Hemoglobin 11.6 g/dL (12.0-15.0); Immature Granulocyte Absolute 0.09 K/mm3 (0.00-0.031); Immature Granulocyte Percent A 0.9 % (0-0.5); Lymphocytes Absolute Auto 2.84 K/mm3 (0.9-3.2); Mean Corpuscular HGB Conc 33.4 g/dl (32-36); Mean Corpuscular Volume 95.9 fl (80-100); Mean Platelet Volume 9.6 fl (7.4-10.4); Monocytes Absolute Auto 0.5 K/mm3 (0.1-0.6); Monocytes Percent Auto 4.7 % (2.6-8.5); Neutrophils Absolute Auto 6.2 K/mm3 (1.3-6.7); Neutrophils Percent Auto 63.4 % (45.5-73.1); Platelet Count Result 222 k/mm3 (150-375); Red Blood Count 3.62 M/mm3 (4.2-5.4); Red Cell Distribution Width 13.9 % (11.5-14.5); White Blood Count 9.8 K/mm3 (4.5-10.0)
[2024-12-27 21:43] LABS: Add Urine Microscopic? YES; Appearance Urine Turbid (Clear); Bacteria Urine 4+ /hpf; Bilirubin Urine Negative (Negative); Blood Urine 2+ (Negative); Color Urine Yellow (Yellow); Glucose Urine UA Negative (Negative); Ketones Urine Negative (Negative); Leukocyte Esterase Ur 3+ LEU/UL (Negative); Need Manual Microscopic Reviewed; Nitrate Urine Positive (Negative); Protein Urine 2+ mg/dL (Negative); RBC Urine 51-100 /hpf (0-2); Specific Grav Ur 1.017 (1.001-1.035); Squamous Epithelial Cell Urine None Seen /hpf (Few); WBC Urine >100 /hpf (0-3)
[2024-12-27 21:48] LABS: Budding Yeast Urine Present /hpf; Mucus Urine Few /lpf
[2024-12-27 21:53] LABS: Alanine Aminotransferase 17 U/L (6-35); Alkaline Phosphatase 57 U/L (38-126); Anion Gap 9 mmol/L (4-12); Aspartate Amino Transferase 24 U/L (14-36); Bilirubin,Total 0.4 mg/dL (0.2-1.3); Blood Urea Nitrogen 37 mg/dL (7-17); Calcium 10.4 mg/dL (8.4-10.2); Carbon Dioxide 22 mmol/L (22-30); Chloride 106 mmol/L (98-107); Estimated Glomerular Filt Rate > 60; Glucose 110 mg/dL (65-110); Potassium 3.7 mmol/L (3.4-5.0); Sodium 137 mmol/L (137-145)
[2024-12-27 21:59] LABS: INR 0.9; Prothrombin Time 12.6 Seconds (11.1-14.7)
[2024-12-27 22:00] LABS: Partial Thromboplastin Time 21.4 Seconds (22.3-36.8)
[2024-12-27 22:18] VITALS: PULSE 90; RESP 19; O2SAT 96
[2024-12-27] MEDS: CEPHALEXIN 500 MG CAPSULE PO (22:28)
== END 2024-12-27 23:23 ==
PROVIDERS: Emergency Provider Physician Assistant; PCP Internal Medicine
DX: N30.01 Acute cystitis with hematuria (principal); R41.82 Altered mental status, unspecified; F03.90 Unspecified dementia, unspecified severity, without behavioral disturbance, psychotic disturbance, mood disturbance, and anxiety; C91.10 Chronic lymphocytic leukemia of B-cell type not having achieved remission; J44.9 Chronic obstructive pulmonary disease, unspecified; E11.9 Type 2 diabetes mellitus without complications; E55.9 Vitamin D deficiency, unspecified; G89.4 Chronic pain syndrome; D64.9 Anemia, unspecified; K21.9 Gastro-esophageal reflux disease without esophagitis; M06.9 Rheumatoid arthritis, unspecified; M19.90 Unspecified osteoarthritis, unspecified site; M81.0 Age-related osteoporosis without current pathological fracture; F32.A Depression, unspecified; F17.210 Nicotine dependence, cigarettes, uncomplicated; Z85.820 Personal history of malignant melanoma of skin; Z85.828 Personal history of other malignant neoplasm of skin; Z85.3 Personal history of malignant neoplasm of breast; Z92.3 Personal history of irradiation; Z90.11 Acquired absence of right breast and nipple; Z90.710 Acquired absence of both cervix and uterus; Z90.49 Acquired absence of other specified parts of digestive tract; Z79.899 Other long term (current) drug therapy
CPT/HCPCS: 36415; 70450; 71045; 80053; 81001; 82948; 85025; 85610; 85730; 87077; 87086; 87186; 93005; 96360; 99284; A9270; J7030

== ENCOUNTER 2025-01-18 09:20 | Inpatient (IN) | payer MEDICARE, MEDICAID, SELFPAY ==
[2025-01-18] VITALS (12 sets, daily range): BP systolic 104–128; BP diastolic 48–84; PULSE 80–116; RESP 18–26; TEMP 36.1–36.6; O2SAT 92–99; BMI 19.1
--- NOTE | ~2025-01-18 | XR_ITS ---
EXAMINATION: XR chest 2V DATE: 01/18/2025 10:30 INDICATION: Pneumonia TECHNIQUE: frontal and lateral views of the chest were obtained. COMPARISON: Chest radiograph dated 12/27/2024 FINDINGS: Again seen is hyperexpansion lungs with increased lucency and architectural distortion in the mid to upper lung zones and increased retrosternal clear space consistent with emphysema. Biapical pleural-p arenchymal scarring and calcified pleural plaques. Increasing interstitial and airspace opacities in the right mid to lower lung zone and at the basilar left lower lobe consistent with pneumonia. Small right pleural effusion with blunting at the posterior sulcus. Small calcified nodule at the left cost ophrenic angle consistent with old granulomatous disease. Heart size is normal. Asymmetry to the agsu st suggesting prior partial right mastectomy with surgical clips consistent with associated right axi llary lymph node dissection. IMPRESSION: 1. Increasing opacities in the right mid to lower and left lower lung zones consistent with pneumonia . 2. Small right pleural effusion. 3. Emphysema with chronic biapical pleural-parenchymal scarring and calcified pleural plaques. Reviewed, dictated and finalized at location A. IMPRESSION: 1. Increasing opacities in the right mid to lower and left lower lung zones con sistent with pneumonia. 2. Small right pleural effusion. 3. Emphysema with chronic biapical pleural-parenchymal scarring and calcified p leural plaques.
--- NOTE | ~2025-01-18 | CT_ITS ---
CT brain wo con Ordering provider: Aby Gordillo MD History: 85 years Female with . AMS . Comparison: 12/27/2024 Technique: CT of the head without contrast. Radiation reduction technique utilized. The dose-length p roduct was 681 mGy-cm. FINDINGS: BRAIN PARENCHYMA AND CSF SPACES: Mild leukoaraiosis and diffuse cortical atrophy. Mild atheromatous d isease. 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 MRI is better for evaluation No midline shift, mass effect or hemorrhage. The brain parenchyma and CSF spaces are otherwise normal. VISUALIZED PARANASAL SINUSES: Bilateral ethmoid sinus disease. Well aerated. MASTOIDS: Well aerated. BONES: The bones appear intact. SOFT TISSUES: Visualized nasopharynx is normal. Superficial soft tissues are normal. IMPRESSION: No acute intracranial findings. 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 MRI is advised for further e valuation Reviewed, dictated and finalized at location A. IMPRESSION: No acute intracranial findings. 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 MRI is advised for further evaluation
--- NOTE | ~2025-01-18 | US_ITS ---
US renal BI Ordering provider: Aby Gordillo MD History: . hydronephrosis . Comparison: None. Technique: Ultrasound bilateral kidneys. Findings: RIGHT KIDNEY: Measures 11.3x 4.7x 5 cm in length which is normal in size. No renal cysts. No renal ma ss or visualized echogenic stones. Otherwise, normal echotexture and contour. No hydronephrosis. Norm al renal cortical thickness. LEFT KIDNEY: Measures 9.9x 5.4x 5.8 cm in length which is normal in size. No renal cysts. No renal ma ss. Visualized echogenic focus suggestive of stone is seen which measures 0.8 x 0.8 x 0.6 cm.. Otherw ise, normal echotexture and contour. Moderate hydronephrosis is noted. Normal renal cortical thicknes s. BLADDER: Partially decompressed. Ureteral jets were not seen bilaterally. IMPRESSION: Right kidney stones with moderate hydronephrosis. Reviewed, dictated and finalized at location A.
--- NOTE | ~2025-01-18 | CT_ITS ---
CTA chest PE protocol Ordering provider: Misty Burgess PA-C History: 85 years Female with . hypoxia, tachycardia, pneumonia . Comparison: None. Technique: CT angiogram chest was performed following timed intravenous injection of contrast. Thin s lice axial images and reformatted coronal images were obtained. Three dimensional reformatted images of the chest were also obtained using a [employer] workstation. . Automated exposure control and iterati ve reconstruction technique were employed. The dose-length product was 154.38 mGy-cm. 100 mL Omnipaqu e 350 was given IV. Findings: PULMONARY ARTERIES: No pulmonary embolus. VISUALIZED THORACIC INLET: Normal. MEDIASTINUM: Aorta/coronary arteries: Mild atheromatous disease. Heart/other: The heart is not enlarged. Lymph nodes: Precarinal lymph node is seen measuring 1.2 x 2.1 cm. LUNGS: Emphysematous changes of the lungs. Pneumonia in the right lower lobe. Minimal pneumonia versus atele ctasis in the left lower lobe. Possible nodule in the lower lobe is seen posteriorly measuring 8 mm. 6 months follow-up CT is advised. No pulmonary masses. No effusions. No pneumothorax. VISUALIZED UPPER ABDOMEN: Left kidney hydronephrotic changes versus parapelvic cysts. Proper imaging is advised. Pancreatic calcifications. Otherwise, the visualized upper abdomen is normal. MUSCULOSKELETAL: Soft tissues: The superficial soft tissues are normal. Bones: Severe degenerative changes of the spine. IMPRESSION: 1. No pulmonary embolism 2. Right lower lobe pneumonia. Minimal left lower lobe pneumonia versus atelectasis. 3. Nodule in the left lower lobe measuring 8 mm. 6 months follow-up CT is advised. 4. Precarinal lymphadenopathy. 5. Emphysematous changes of the lungs. 6. Left kidney hydronephrotic changes. Further evaluation advised. Reviewed, dictated and finalized at location A. IMPRESSION: 1. No pulmonary embolism 2. Right lower lobe pneumonia. Minimal left lower lobe pneumonia versus atelec tasis. 3. Nodule in the left lower lobe measuring 8 mm. 6 months follow-up CT is advi sed. 4. Precarinal lymphadenopathy. 5. Emphysematous changes of the lungs. 6. Left kidney hydronephrotic changes. Further evaluation advised.
--- NOTE | ~2025-01-18 | XR_ITS ---
MODIFIED ESOPHAGRAM HISTORY: Dysphagia. TECHNIQUE: Modified barium esophagram was performed on 01/19/2025. I administered fluoroscopy and perf ormed the exam with speech pathologist. Patient was seated for lateral fluoroscopic imaging for edvin stion of thin liquids, pudding, solids and quantified amounts, followed by thin liquids in uncontroll ed amounts. This was recorded on tape. A single fluoroscopic spot image was also recorded. The DAP fo r this procedure was 3.599 Gycm2. The amount of fluoroscopy time used during this procedure was 6.1 m inutes. FINDINGS: Oral stage: Difficulty with pills which fall in the anterior sulcus. Otherwise adequate function. Pharyngeal stage: Reduced tongue base retraction but adequate function. Cervical/esophageal stage: Adequate function. IMPRESSION: Patient tolerated regular consistency oral feedings in the upright position. Please gardenia elate with speech pathologist findings and specific feeding recommendations. Reviewed, dictated and finalized at location A. IMPRESSION: Patient tolerated regular consistency oral feedings in the upright position. Please correlate with speech pathologist findings and specific feedi ng recommendations.
--- NOTE | 2025-01-18 09:30 | ECG_ITS ---
Test Date: 2025-01-18 09:33:07 Measurements Intervals [place] Rate: 102 P: 71 AK: 126 QRS: 78 QRSD: 94 T: 86 QT: 305 QTc: 399 Interpretive Statements SINUS TACHYCARDIA NONSPECIFIC T-WAVE ABNORMALITY- INF/LAT LEADS BASELINE ARTIFACT- I, III, AVR, AVL, AVF, V5 BORDERLINE ECG Compared to ECG 12/27/2024 21:04:16 HEART RATE HAS INCREASED Electronically Signed On 01-18-2025 09:58:44 CDT by He Salazar D.O.
--- NOTE | 2025-01-18 09:34 | ED.SOB ---
HPI - SOB/Dyspnea General Chief Complaint: Shortness of Breath/Dyspnea <Misty Burgess PA-C - Last Filed: 01/18/25 13:27> Stated Complaint: SOB <EMILY Espino Last Filed: 01/18/25 13:27> Time Seen by Provider: 01/18/25 09:21 <EMILY Espino Last Filed: 01/18/25 13:27> Source: patient <EMILY Espino Last Filed: 01/18/25 13:27> Mode of arrival: EMS <EMILY Espino Last Filed: 01/18/25 13:27> Limitations: altered mental status <EMILY Espino Last Filed: 01/18/25 13:27> History of Present Illness HPI Narrative: This is a 85 year old female that presents to the ER for hypoxia. Reportedly patient was found to be hypoxic in the 80s on room air. Has known pneumonia. Was on oral antibiotics. Per pharmacy review, I see Augmentin and azithromycin that was prescribed on the 3rd of this month. <EMILY Espino Last Filed: 01/18/25 13:27> Related Data Home Medications: Home Medications ?Medication ?Instructions ?Recorded ?Confirmed ?Last Taken ?Type omega 6-jxt-pbk-fish oil 60 mg-90 1 cap PO QPM 09/15/23 08/24/24 08/02/24 18:00 History mg-500 mg capsule <EMILY Espino Last Filed: 01/18/25 13:27> Allergies/Adverse Reactions: Allergies Allergy/AdvReac Type Severity Reaction Status Date / Time doxycycline Allergy Unknown Verified 01/18/25 11:43 latex Allergy Unknown Verified 01/18/25 11:43 pregabalin (From Lyrica) Allergy Unknown Verified 01/18/25 11:43 Sulfa (Sulfonamide Allergy Unknown Verified 01/18/25 11:43 Antibiotics) sulfamethoxazole (From Allergy Unknown Verified 01/18/25 11:43 Bactrim) trimethoprim (From Bactrim) Allergy Unknown Verified 01/18/25 11:43 <EMILY Espino Last Filed: 01/18/25 13:27> Review of Systems Review of Systems: ROS unobtainable: Yes unobtainable due to mental status <Misty Burgess PA-C - Last Filed: 01/18/25 13:27> [facility] Past Medical History Medical History: Medical History Trigeminal neuralgia Metabolic encephalopathy Vitamin D deficiency GERD (gastroesophageal reflux disease) Osteoporosis Chronic prescription opiate use Chronic pain syndrome Rheumatoid arthritis Diet-controlled diabetes mellitus Tobacco dependence Cancer of right breast Status post mastectomy and radiation. Chronic lymphocytic leukemia Chronic obstructive pulmonary disease Depression Immunoglobulin deficiency Arthritis Allergies Squamous cell carcinoma Back. Melanoma Left arm. <Misty Burgess PA-C - Last Filed: 01/18/25 13:27> Surgical History Surgical History: Surgical History History of hemiarthroplasty of left hip (~11/08/22) Bipolar hemiarthroplasty left. History of squamous cell carcinoma excision Back. History of melanoma excision Left arm. History of hysterectomy History of right mastectomy (1987) History of cholecystectomy <Misty Burgess PA-C - Last Filed: 01/18/25 13:27> Family History Family History: Family History Mother CLL (chronic lymphocytic leukemia) Father Lung cancer Sibling Pancreatic cancer <Misty Burgess PA-C - Last Filed: 01/18/25 13:27> Social History Social History: Social History Social History: Surrogate medical decision maker: Oj Gregory, son. Code status: Full code. Smoking packs per day: 1 Smoking cigarettes per day: 20.0 Years smoked: 70 Smoking pack-years: 70.00 Smoking status: Current every day smoker Tobacco type: cigarettes Alcohol intake: never Substance use: never Substance use type: does not use Do You Feel Safe in your Home?: No Lack of Transportation: No Lack of Food: Never True Current Housing: I Have Housing Concerned About Future Housing: No Difficulty Paying Gas/Electric Bills: No Difficulty Paying for Meds: No Currently Unemployed: No Education: Master's Degree or Higher Difficulty w/ Childcare or Family Care: No Additional living arrangements comments: Lives alone in [place]. Originally from [place]. Spiritual care concerns: No <Misty Burgess PA-C - Last Filed: 01/18/25 13:27> Exam Narrative: GENERAL: Elderly, thin, and in no acute distress. HEAD: Normocephalic, atraumatic. EYES: PERRLA and EOMI. ENT: Nares clear, no rhinorrhea or epistaxis. Mucous membranes dry. Oropharynx without tonsillar hypertrophy exudate or other lesions. NECK: Supple. No adenopathy or masses. CHEST: Clear to auscultation. No respiratory distress. No wheezes rales or rhonchi HEART: Regular rate and rhythm. No murmur heard. Normal peripheral pulses. EXTREMITIES: Normal range of motion. No edema. SKIN: Warm, dry, no rash. NEURO: No focal deficits. Alert and oriented x1. PSYCH: Normal mood and affect <Misty Burgess PA-C - Last Filed: 01/18/25 13:27> Course Course Emergency Course: CTA negative for PE. Will be admitted for further management <Misty Burgess PA-C - Last Filed: 01/18/25 13:27> [employer] TECHNICIAN/PA Physician Supervision I agree with midlevel documentation; I performed the medical decision making component of this evaluation. <Amy Mcnair MD - Last Filed: 01/18/25 13:36> Consultations Consultation #1: Spoke with hospitalist about patient and workup. Recommends CTA pending admission <Misty Burgess PA-C - Last Filed: 01/18/25 13:27> Date: 01/18/25 <EMILY Espino Last Filed: 01/18/25 13:27> Vital Signs Vital signs: Vital Signs Temperature 97.9 F 01/18/25 09:20 Pulse Rate 116 H 01/18/25 09:20 Respiratory Rate 24 H 01/18/25 09:20 Blood Pressure 104/58 L 01/18/25 09:20 Pulse Oximetry 97 01/18/25 09:20 Oxygen Delivery Simple Face Mask 01/18/25 09:20 Oxygen Flow Rate 8 06/20/25 09:20 Temperature 97.9 F 01/18/25 09:20 Pulse Rate 80 01/18/25 11:39 Respiratory Rate 18 01/18/25 11:39 Blood Pressure 128/84 01/18/25 11:39 Pulse Oximetry 98 01/18/25 11:39 Oxygen Delivery Room Air 01/18/25 09:45 Oxygen Flow Rate 4 01/18/25 09:45 <Misty Burgess PA-C - Last Filed: 01/18/25 13:27> Vital Signs Temperature 97.9 F 01/18/25 09:20 Pulse Rate 116 H 01/18/25 09:20 Respiratory Rate 24 H 01/18/25 09:20 Blood Pressure 104/58 L 01/18/25 09:20 Pulse Oximetry 97 01/18/25 09:20 Oxygen Delivery Simple Face Mask 01/18/25 09:20 Oxygen Flow Rate 8 01/18/25 09:20 Temperature 97.9 F 01/18/25 09:20 Pulse Rate 80 01/18/25 11:39 Respiratory Rate 18 01/18/25 11:39 Blood Pressure 128/84 01/18/25 11:39 Pulse Oximetry 98 01/18/25 11:39 Oxygen Delivery Room Air 01/18/25 09:45 Oxygen Flow Rate 4 01/18/25 09:45 <Amy Mcnair MD - Last Filed: 01/18/25 13:36> MDM - SOB/Dyspnea MDM Narrative Medical decision making narrative: Patient presents the emergency department from her facility for worsening pneumonia, hypoxia. Patient does not usually require oxygen. She is stable currently on 4 L nasal cannula. Tachycardic upon arrival, this normalized with IV fluids. Blood pressure is stable. CBC with leukocytosis to 16.1. Metabolic panel with some evidence of dehydration, patient does appear quite dry on exam. Urine with evidence of infection. This was sent for culture. Blood cultures obtained. Patient started on IV antibiotics. Chest x-ray showing pneumonia, small right pleural effusion, emphysema. Spoke with hospitalist about patient and workup. Recommends CTA pending admission. CTA negative for PE. Will be admitted for further management <Misty Burgess PA-C - Last Filed: 01/18/25 13:27> Differential Diagnosis Differential diagnosis: Likely community acquired pneumonia and pulmonary embolism <Misty Burgess PA-C - Last Filed: 01/18/25 13:27> Lab Data Attestation: I reviewed the patient's lab results. <Misty Burgess PA-C - Last Filed: 01/18/25 13:27> Result diagrams: 01/18/25 09:51 01/18/25 09:51 <Misty Burgess PA-C - Last Filed: 01/18/25 13:27> Labs: Lab Results 01/18/25 01/18/25 Range/Units 09:44 09:51 WBC 16.1 H (4.5-10.0) K/mm3 RBC 3.98 L (4.2-5.4) M/mm3 Hgb 12.8 (12.0-15.0) g/dL Hct 37.7 (37.0-47.0) % MCV 94.7 (80-100) fl MCH 32.2 (26-34) pg MCHC 34.0 (32-36) g/dl RDW 13.6 (11.5-14.5) % Plt Count 249 (150-375) k/mm3 MPV 10.0 (7.4-10.4) fl Immature Gran % (Auto) 0.3 (0-0.5) % Neut % (Auto) 71.4 (45.5-73.1) % Lymph % (Auto) 24.0 (18.3-44.2) % [place] % (Auto) 3.8 (2.6-8.5) % Eos % (Auto) 0.2 (0-4.4) % Baso % (Auto) 0.3 (0.2-1.2) % Lymph # (Auto) 3.86 H (0.9-3.2) K/mm3 [place] # (Auto) 0.6 (0.1-0.6) K/mm3 Eos # (Auto) 0.0 (0-0.3) K/mm3 Baso # (Auto) 0.1 (0.0-0.1) K/mm3 Abs Immat Gran (auto) 0.05 H (0.00-0.031) K/mm3 Absolute Neuts (auto) 11.5 H (1.3-6.7) K/mm3 Absolute Nucleated RBC 0.000 (0.0-0.012) K/mm3 Nucleated RBC % 0.0 (0.0-0.2) % Sodium 138 (137-145) mmol/L Potassium 3.9 (3.4-5.0) mmol/L Chloride 103 (98-107) mmol/L Carbon Dioxide 22 (22-30) mmol/L Anion Gap 13 H (4-12) mmol/L BUN 30 H (7-17) mg/dL Creatinine 1.11 H (0.7-1.0) mg/dL Estim Creat Clear Calc Not Reportable Estimated GFR 47 L (59 - ) Glucose 121 H (65-110) mg/dL Lactic Acid 1.4 (0.7-2.0) mmol/L Calcium 10.9 H (8.4-10.2) mg/dL Total Bilirubin 0.9 (0.2-1.3) mg/dL AST 30 (14-36) U/L ALT 20 (6-35) U/L Alkaline Phosphatase 52 (38-126) U/L Total Protein 6.9 (6.3-8.2) g/dL Albumin 4.2 (3.5-5.1) g/dL Urine Color Dark yellow (Yellow) Urine Appearance Turbid H (Clear) Urine pH 5.5 (5.0-9.0) Ur Specific [place] 1.023 (1.001-1.035) Urine Protein 2+ H (Negative) mg/dL Urine Glucose (UA) Negative (Negative) mg/dL Urine Ketones Trace H (Negative) mg/dL Ur Blood (Man) 2+ H (Negative) Urine Nitrate Positive H (Negative) Urine Bilirubin 1+ H (Negative) Urine Urobilinogen 1.0 (<2.0) mg/dL Add Ur Microanalysis Reviewed Leukocyte Esterase Rfl 3+ H (Negative) SHERITA/UL Urine RBC 6-10 H (0-2) /hpf Urine WBC >100 H (0-3) /hpf Ur Squamous Epith Cells Few (Few) /hpf Urine Bacteria 4+ H /hpf Urine Casts 6-10 <Misty Burgess PA-C - Last Filed: 01/18/25 13:27> Lab Results 01/18/25 01/18/25 Range/Units 09:44 09:51 WBC 16.1 H (4.5-10.0) K/mm3 RBC 3.98 L (4.2-5.4) M/mm3 Hgb 12.8 (12.0-15.0) g/dL Hct 37.7 (37.0-47.0) % MCV 94.7 (80-100) fl MCH 32.2 (26-34) pg MCHC 34.0 (32-36) g/dl RDW 13.6 (11.5-14.5) % Plt Count 249 (150-375) k/mm3 MPV 10.0 (7.4-10.4) fl Immature Gran % (Auto) 0.3 (0-0.5) % Neut % (Auto) 71.4 (45.5-73.1) % Lymph % (Auto) 24.0 (18.3-44.2) % [place] % (Auto) 3.8 (2.6-8.5) % Eos % (Auto) 0.2 (0-4.4) % Baso % (Auto) 0.3 (0.2-1.2) % Lymph # (Auto) 3.86 H (0.9-3.2) K/mm3 [place] # (Auto) 0.6 (0.1-0.6) K/mm3 Eos # (Auto) 0.0 (0-0.3) K/mm3 Baso # (Auto) 0.1 (0.0-0.1) K/mm3 Abs Immat Gran (auto) 0.05 H (0.00-0.031) K/mm3 Absolute Neuts (auto) 11.5 H (1.3-6.7) K/mm3 Absolute Nucleated RBC 0.000 (0.0-0.012) K/mm3 Nucleated RBC % 0.0 (0.0-0.2) % Sodium 138 (137-145) mmol/L Potassium 3.9 (3.4-5.0) mmol/L Chloride 103 (98-107) mmol/L Carbon Dioxide 22 (22-30) mmol/L Anion Gap 13 H (4-12) mmol/L BUN 30 H (7-17) mg/dL Creatinine 1.11 H (0.7-1.0) mg/dL Estim Creat Clear Calc Not Reportable Estimated GFR 47 L (59 - ) Glucose 121 H (65-110) mg/dL Lactic Acid 1.4 (0.7-2.0) mmol/L Calcium 10.9 H (8.4-10.2) mg/dL Total Bilirubin 0.9 (0.2-1.3) mg/dL AST 30 (14-36) U/L ALT 20 (6-35) U/L Alkaline Phosphatase 52 (38-126) U/L Total Protein 6.9 (6.3-8.2) g/dL Albumin 4.2 (3.5-5.1) g/dL Urine Color Dark yellow (Yellow) Urine Appearance Turbid H (Clear) Urine pH 5.5 (5.0-9.0) Ur Specific [place] 1.023 (1.001-1.035) Urine Protein 2+ H (Negative) mg/dL Urine Glucose (UA) Negative (Negative) mg/dL Urine Ketones Trace H (Negative) mg/dL Ur Blood (Man) 2+ H (Negative) Urine Nitrate Positive H (Negative) Urine Bilirubin 1+ H (Negative) Urine Urobilinogen 1.0 (<2.0) mg/dL Add Ur Microanalysis Reviewed Leukocyte Esterase Rfl 3+ H (Negative) SHERITA/UL Urine RBC 6-10 H (0-2) /hpf Urine WBC >100 H (0-3) /hpf Ur Squamous Epith Cells Few (Few) /hpf Urine Bacteria 4+ H /hpf Urine Casts 6-10 <Amy Mcnair MD - Last Filed: 01/18/25 13:36> Imaging Data Radiologist's impression: ITS Impressions Chest X-Ray 01/18/25 10:43 IMPRESSION: 1. Increasing opacities in the right mid to lower and left lower lung zones consistent with pneumonia. 2. Small right pleural effusion. 3. Emphysema with chronic biapical pleural-parenchymal scarring and calcified pleural plaques. Chest CTA 01/18/25 12:35 IMPRESSION: 1. No pulmonary embolism 2. Right lower lobe pneumonia. Minimal left lower lobe pneumonia versus atelectasis. 3. Nodule in the left lower lobe measuring 8 mm. 6 months follow-up CT is advised. 4. Precarinal lymphadenopathy. 5. Emphysematous changes of the lungs. 6. Left kidney hydronephrotic changes. Further evaluation advised. <Misty Burgess PA-C - Last Filed: 01/18/25 13:27> ECG Data EKG #1: ECG completion date: 01/18/25 <EMILY Espino Last Filed: 01/18/25 13:27> EKG Interpretation: tachycardia, sinus rhythm, no ST changes and normal QT <EMILY Espino Last Filed: 01/18/25 13:27> Critical Care Time Critical Care Time Critical Care Time: Yes <Misty Burgess PA-C - Last Filed: 01/18/25 13:27> Total Critical Care Time: 35 <EMILY Espino Last Filed: 01/18/25 13:27> Discharge Plan Discharge Clinical Impression: Pneumonia, Acute hypoxic respiratory failure <EMILY Espino Last Filed: 01/18/25 13:27> Patient Disposition: Still a Patient <EMILY Espino Last Filed: 01/18/25 13:27> Condition: Improved <EMILY Espino Last Filed: 01/18/25 13:27> Patient Language: Japanese <EMILY Espino Last Filed: 01/18/25 13:27> Prescriptions: No Action omega 2-uyt-hwl-fish oil 60-90-500 mg capsule 1 cap PO QPM Rx Instructions: only takes when she eats dinner albuterol sulfate [Ventolin HFA] 90 mcg/actuation HFA aerosol inhaler 1 - 2 puff INHALATION Q4-6H PRN (Reason: shortness of breath or wheezing) Qty: 8.5 3RF duloxetine [Cymbalta] 30 mg capsule,delayed release(DR/EC) 30 mg PO QAM Qty: 90 1RF famotidine 20 mg tablet 20 mg PO Q12HR Qty: 180 1RF hydrocodone-acetaminophen 10-325 mg tablet 1 tablet PO BID PRN (Reason: Pain (Scale Score 7-10)) Qty: 10 0RF Rx Instructions: for breakthrough pain polyethylene glycol 3350 [Miralax] 17 gram Powder In Packet 17 g PO QAM PRN (Reason: Constipation) Qty: 14 0RF cephalexin 500 mg capsule 500 mg PO Q6H 7 Days Qty: 28 0RF carbamazepine 100 mg tablet extended release 12 hr 100 mg PO Q12H Qty: 60 3RF <Misty Burgess PA-C - Last Filed: 01/18/25 13:27> Follow-up/Referrals: Baldomero Denis DO [Primary Care Provider] - <Misty Burgess PA-C - Last Filed: 01/18/25 13:27>
[2025-01-18 09:59] LABS: Basophils Absolute Auto 0.1 K/mm3 (0.0-0.1); Basophils Percent Auto 0.3 % (0.2-1.2); Eosinophils Percent Auto 0.2 % (0-4.4); Hematocrit 37.7 % (37.0-47.0); Hemoglobin 12.8 g/dL (12.0-15.0); Immature Granulocyte Absolute 0.05 K/mm3 (0.00-0.031); Immature Granulocyte Percent A 0.3 % (0-0.5); Lymphocytes Absolute Auto 3.86 K/mm3 (0.9-3.2); Mean Corpuscular Hemoglobin 32.2 pg (26-34); Mean Corpuscular Volume 94.7 fl (80-100); Monocytes Absolute Auto 0.6 K/mm3 (0.1-0.6); Monocytes Percent Auto 3.8 % (2.6-8.5); Neutrophils Absolute Auto 11.5 K/mm3 (1.3-6.7); Neutrophils Percent Auto 71.4 % (45.5-73.1); Platelet Count Result 249 k/mm3 (150-375); Red Blood Count 3.98 M/mm3 (4.2-5.4); Red Cell Distribution Width 13.6 % (11.5-14.5); White Blood Count 16.1 K/mm3 (4.5-10.0)
[2025-01-18 10:10] LABS: Lactic Acid Reflex 1.4 mmol/L (0.7-2.0)
[2025-01-18 10:11] LABS: Alanine Aminotransferase 20 U/L (6-35); Albumin Level 4.2 g/dL (3.5-5.1); Alkaline Phosphatase 52 U/L (38-126); Anion Gap 13 mmol/L (4-12); Aspartate Amino Transferase 30 U/L (14-36); Bilirubin,Total 0.9 mg/dL (0.2-1.3); Blood Urea Nitrogen 30 mg/dL (7-17); Calcium 10.9 mg/dL (8.4-10.2); Carbon Dioxide 22 mmol/L (22-30); Chloride 103 mmol/L (98-107); Estimated Glomerular Filt Rate 47; Glucose 121 mg/dL (65-110); Potassium 3.9 mmol/L (3.4-5.0); Sodium 138 mmol/L (137-145); Total Protein 6.9 g/dL (6.3-8.2)
--- NOTE | 2025-01-18 10:20 | PC.NURSE ---
0954 - attempted to call [facility] for Misty ALONSO, no answer. 1015 - attempted again to call [facility] for Misty ALONSO. per track grinder operator, tried transferring twice and no one is answering phones. Misty ALONSO aware.
[2025-01-18] MEDS: SODIUM CHLORIDE 0.9% IV 500 ML 999 ML IV CONT (10:45)
[2025-01-18 10:59] LABS: Glucose Urine UA Negative (Negative)
[2025-01-18] MEDS: AZITHROMYCIN 500 MG/NS 250 ML 500 MG/250 ML BAG 250 MG IVPB (11:36)
[2025-01-18 11:50] LABS: Add Urine Microscopic? YES; Bacteria Urine 4+ /hpf; Need Manual Microscopic Reviewed; Squamous Epithelial Cell Urine Few /hpf (Few); WBC Urine >100 /hpf (0-3)
[2025-01-18 11:53] LABS: Appearance Urine Turbid (Clear); Bilirubin Urine 1+ (Negative); Blood Urine 2+ (Negative); Color Urine Dark Yellow (Yellow); Ketones Urine Trace mg/dL (Negative); Leukocyte Esterase Ur 3+ LEU/UL (Negative); Nitrate Urine Positive (Negative); Protein Urine 2+ mg/dL (Negative); Specific Grav Ur 1.023 (1.001-1.035); pH Urine 5.5 (5.0-9.0)
--- NOTE | 2025-01-18 11:57 | PC.NURSE ---
SPOKE WITH PT'S SON REY JAVIER AT [phone] AND GAVE UPDATE REGARDING MOTHER.
[2025-01-18] MEDS: SODIUM CHLORIDE 0.9% IV 1,000 ML 999 ML IV CONT (12:51)
--- NOTE | 2025-01-18 15:08 | PC.NURSE ---
This RN attempted to call [facility] at [phone]. Patient was transferred to ER with no paperwork from facility. No response from nurses station at [facility]. This RN left a messgee with Kristian confidential secretary for RN to return call when able.
--- NOTE | 2025-01-18 15:22 | ADMGEN ---
This patient, Korin Jones, was admitted to [facility] Surg Room 322-01. Patient/family oriented to hospital policies and general routines including ID bracelet, bed and alarms, visiting hours, pain management, procedures, bathroom and other care routines, personal items, smoking policy, room service/diet, and visiting hours. Information on how to activate the Rapid Response Team has been discussed. Patient/Family are encouraged to report perceived risks to care and to ask questions if they do not understand what they are told or what they should do.
--- NOTE | 2025-01-18 15:53 | P.HP_ITS ---
H&P: HPI History of Present Illness Date/Time: 01/18/25 15:53 Chief Complaint: altered mental statu Narrative: 85 yo female with PMH of Trigeminal neuralgia, Vit D deficiency, chronic pain syndrome, cancer right breast, CLL, COPD, Depression, SCC and melanoma, who was brought to the ER on account of AMS. patient was lethargic and nonverbal at the time of this encounter. Per ER provider patient was managed for Pneumonia with oral antibiotics at the custodial before she was found to be altered today with hypoxemia with O2 sats in the 80s. it appears she as on Augmentin and Azithromycin. ER eval notable for TN 116, RR 24, BP 104/58 on 4 liters oxygen. Labs notable for WBC 16.1, Cr 1.11, BUN 30, UA notable for Nitrates, leukocyte esterase adn pyuria. CT chest showed showed right lower lobe pneumonia with minimal left lower lobe, and left kidney hydronephrosis Patient was started on antibiotics blood and urine culture were sent prior to admission. Review of Systems Review of Systems: All other systems systems reviewed and negative except as noted in history above [facility] Past Medical History Medical History Trigeminal neuralgia Metabolic encephalopathy Vitamin D deficiency GERD (gastroesophageal reflux disease) Osteoporosis Chronic prescription opiate use Chronic pain syndrome Rheumatoid arthritis Diet-controlled diabetes mellitus Tobacco dependence Cancer of right breast Status post mastectomy and radiation. Chronic lymphocytic leukemia Chronic obstructive pulmonary disease Depression Immunoglobulin deficiency Arthritis Allergies Squamous cell carcinoma Back. Melanoma Left arm. Surgical History Surgical History History of hemiarthroplasty of left hip (~11/08/22) Bipolar hemiarthroplasty left. History of squamous cell carcinoma excision Back. History of melanoma excision Left arm. History of hysterectomy History of right mastectomy (1987) History of cholecystectomy Family History Family History Mother CLL (chronic lymphocytic leukemia) Father Lung cancer Sibling Pancreatic cancer Social History Social History Social History: Surrogate medical decision maker: Oj Gregory, son. Code status: Full code. Smoking packs per day: 1 Smoking cigarettes per day: 20.0 Years smoked: 70 Smoking pack-years: 70.00 Smoking status: Unknown if ever smoked Tobacco type: cigarettes Alcohol intake: unknown Substance use: unknown Substance use type: does not use Do You Feel Safe in your Home?: No Lack of Transportation: No Lack of Food: Never True Current Housing: I Have Housing Concerned About Future Housing: No Difficulty Paying Gas/Electric Bills: No Difficulty Paying for Meds: No Currently Unemployed: No Education: Master's Degree or Higher Difficulty w/ Childcare or Family Care: No Additional living arrangements comments: Lives alone in [place]. Originally from [place]. Spiritual care concerns: No Meds Home Medications and Allergies Home Medications ?Medication ?Instructions ?Recorded ?Confirmed ?Type famotidine 20 mg tablet 20 mg PO Q12HR #180 tabs 04/30/24 08/24/24 Rx hydrocodone 10 mg-acetaminophen 1 tablet PO BID PRN Pain (Scale 07/06/24 08/24/24 Rx 325 mg tablet Score 7-10) #10 tabs polyethylene glycol 3350 17 gram 17 g PO QAM PRN Constipation #14 ea 08/06/24 08/24/24 Rx oral powder packet (Miralax) acetaminophen 325 mg capsule 650 mg PO Q4H PRN pain 01/18/25 01/18/25 History albuterol sulfate 2.5 mg/3 mL 2.5 mg inhalation Q4H PRN 01/18/25 01/18/25 H istory (0.083 %) solution for nebulization shortness of breath or wheezing albuterol sulfate 90 mcg/actuation 2 inh inhalation Q4H PRN shortness 01/18/25 01/18/25 History aerosol inhaler (Ventolin HFA) of breath or wheezing baclofen 5 mg tablet 5 mg PO TID 01/18/25 01/18/25 History bisacodyl 10 mg rectal suppository 10 mg RECTAL DAILY PRN constipation 01/18/25 01/18/25 History carbamazepine 100 mg 100 mg PO Q12H trigeminal neuralgia 01/18/25 01/18/25 History tablet,extended release,12 hr (Tegretol XR) duloxetine 30 mg capsule,delayed 60 mg PO QAM 01/18/25 01/18/25 History release (Cymbalta) gemfibrozil 600 mg tablet 600 mg PO BID 01/18/25 01/18/25 History magnesium citrate 296 ml PO DAILY PRN constipation 01/18/25 01/18/25 History magnesium hydroxide 400 mg/5 mL 30 ml PO HS PRN constipation 01/18/25 01/18/25 History oral suspension (Milk of Magnesia) sodium phosphates 19 gram-7 118 ml RECTAL DAILY PRN 01/18/25 01/18/25 History gram/118 mL enema (Enema) constipation Allergies Allergy/AdvReac Type Severity Reaction Status Date / Time doxycycline Allergy Unknown Verified 01/18/25 11:43 latex Allergy Unknown Verified 01/18/25 11:43 pregabalin (From Lyrica) Allergy Unknown Verified 01/18/25 11:43 Sulfa (Sulfonamide Allergy Unknown Verified 01/18/25 11:43 Antibiotics) sulfamethoxazole (From Allergy Unknown Verified 01/18/25 11:43 Bactrim) trimethoprim (From Bactrim) Allergy Unknown Verified 01/18/25 11:43 Vital Signs Vital Signs - 24 hr 01/18/25 09:20 01/18/25 09:31 01/18/25 09:45 Temperature 97.9 F Pulse Rate 116 H 105 H Respiratory Rate 24 H 24 H Blood Pressure 104/58 L 112/69 Pulse Oximetry 97 99 96 Oxygen Delivery Simple Face Mask Nasal Cannula Oxygen Flow Rate 8 4 01/18/25 09:45 01/18/25 10:02 01/18/25 11:01 Temperature Pulse Rate 104 H 97 Respiratory Rate 26 H 24 H Blood Pressure 117/69 126/56 L Pulse Oximetry 98 Oxygen Delivery Room Air Oxygen Flow Rate 01/18/25 11:39 01/18/25 13:53 Temperature Pulse Rate 80 81 Respiratory Rate 18 18 Blood Pressure 128/84 104/52 L Pulse Oximetry 98 99 Oxygen Delivery Oxygen Flow Rate Exam Narrative: General: obtunded Eyes: EOMI, PERRLA ENNT External ears normal, Neck is supple, no masses, Respiratory systems: right sided crackles Cardiovascular S1, S2, normal rhythm, no murmur, rub, or gallop; no thrill or palpable murmurs on palpation. Gastrointestinal: soft, non-tender, and non-distended abdomen with no masses; BS present Skin: no rash, lesions, ulcerations, subcutaneous nodules or induration Musculoskeletal: no abnormality and no tenderness, normal ROM Neurologic: obtunded H&P: Results Labs Labs: Short CBC 01/18/25 Range/Units 09:51 WBC 16.1 H (4.5-10.0) K/mm3 Hgb 12.8 (12.0-15.0) g/dL Hct 37.7 (37.0-47.0) % Plt Count 249 (150-375) k/mm3 BMP 01/18/25 09:51 Sodium 138 Potassium 3.9 Chloride 103 Carbon Dioxide 22 BUN 30 H Creatinine 1.11 H Glucose 121 H Calcium 10.9 H Liver Function 01/18/25 Range/Units 09:51 Total Bilirubin 0.9 (0.2-1.3) mg/dL AST 30 (14-36) U/L ALT 20 (6-35) U/L Alkaline Phosphatase 52 (38-126) U/L Albumin 4.2 (3.5-5.1) g/dL Urine 01/18/25 Range/Units 09:44 Urine Color Dark yellow (Yellow) Urine Appearance Turbid H (Clear) Urine pH 5.5 (5.0-9.0) Ur Specific [place] 1.023 (1.001-1.035) Urine Protein 2+ H (Negative) mg/dL Urine Glucose (UA) Negative (Negative) mg/dL Assessment and Plan Assessment and plan (1) Altered mental status: Code(s): R41.82 - Altered mental status, unspecified Status: Acute (2) Acute hypoxic respiratory failure: Code(s): J96.01 - Acute respiratory failure with hypoxia Status: Acute (3) Pneumonia: Code(s): J18.9 - Pneumonia, unspecified organism Status: Acute Plan AMS likely from pneumonia Patient is noted to be Alert and oriented x1 at baseline Abg and CT head ordered Acute hypoxemic respiratory failure CT chest showed RLL pneumonia On 4 liters oxygen and normal at baseline Blood and urine culture ordered Continue Rocephin, azithromycin and Flagyl IVF until patient passes swallow eval ST for swallow eval Pneumonia Continue above care UTI with hydronephrosis UA showed positive leukocyte esterase and pyuria CT chest showed left hydronephrosis follow up cultures above, US renal ordered Urology consulted chronic pain syndrome hold pain meds for now due to AMS and adjust with clinical course COPD Duoneb PRN follow up Abg Hx of Breast ca, SCC, Melanoma and CLL contnue outpatinet follow up DVT prophylaxis on Sq Lovenox DNR Hospitalist MIPS Advance Care Plan I have confirmed that the patient's Advanced Care Plan is present, code status is documented, or surrogate decision maker is listed in patient medical record.: Yes Medication Reconciliation I have utilized all available resources to obtain, update and review the patients current medications (includes all prescriptions, OTC, herbals, cannabis, and nutritional supplements).: Yes
[2025-01-18] MEDS: SODIUM CHLORIDE 0.9% IV 1,000 ML 75 ML IV CONT (16:55)
[2025-01-18] MEDS: metroNIDAZOLE 500 MG/ISO 100ML 500 MG/100 ML BAG 100 MG IVPB (16:55)
--- NOTE | 2025-01-18 16:56 | P.CONUR_ITS ---
Assessment and Plan Assessment and plan (1) Abnormal urinalysis: Code(s): R82.90 - Unspecified abnormal findings in urine Status: Acute (2) Hydronephrosis, left: Code(s): N13.30 - Unspecified hydronephrosis Status: Acute Assessment and Plan: * Left right nephrosis which is been present since at least July 2024. My guess is this result from incomplete bladder emptying. * Ideally, we would place a Bryan catheter and see if hydronephrosis resolves. The nurses report, however, that the patient is chronically in a contracted position which were make placement of a Bryan catheter very difficult. Additionally, they say when she awakened she is often combative and they are fairly confident that she would traumatically removed the catheter * In light of these challenging issues I would suggest we forego attempted Bryan catheter placement unless either her renal function deteriorates or she develops a febrile urinary tract infection Urology Consult Note HPI Date Seen: 01/18/25 Requesting Physician: Aby Gordillo MD Primary Care Provider: Baldomero Denis DO Consult Narrative Narrative: Korin Jones is a 85 year old female who is a long-term resident and nonverbal. She was admitted through the emergency department with reported change in mental status and hypoxia. In the long-term she was being treated for pneumonia and CT scan on admission shows a right lower lobe pneumonia. Incidentally, she was also to have chronic left hydronephrosis on a CT scan. This was present, to some extent, in July 2025. Nurses report the patient is chronically in a contracted/ position. When she awakened she is often combative. Review of Systems 2 Review of Systems: ROS unobtainable: Yes unobtainable due to mental status PMFSH Past Medical History Medical History Trigeminal neuralgia Metabolic encephalopathy Vitamin D deficiency GERD (gastroesophageal reflux disease) Osteoporosis Chronic prescription opiate use Chronic pain syndrome Rheumatoid arthritis Diet-controlled diabetes mellitus Tobacco dependence Cancer of right breast Status post mastectomy and radiation. Chronic lymphocytic leukemia Chronic obstructive pulmonary disease Depression Immunoglobulin deficiency Arthritis Allergies Squamous cell carcinoma Back. Melanoma Left arm. Surgical History Surgical History History of hemiarthroplasty of left hip (~04/10/23) Bipolar hemiarthroplasty left. History of squamous cell carcinoma excision Back. History of melanoma excision Left arm. History of hysterectomy History of right mastectomy (1987) History of cholecystectomy Family History Family History Mother CLL (chronic lymphocytic leukemia) Father Lung cancer Sibling Pancreatic cancer Social History Social History Social History: Surrogate medical decision maker: Oj Gregory, richie. Code status: Full code. Smoking packs per day: 1 Smoking cigarettes per day: 20.0 Years smoked: 70 Smoking pack-years: 70.00 Smoking status: Unknown if ever smoked Tobacco type: cigarettes Alcohol intake: unknown Substance use: unknown Substance use type: does not use Do You Feel Safe in your Home?: No Lack of Transportation: No Lack of Food: Never True Current Housing: I Have Housing Concerned About Future Housing: No Difficulty Paying Gas/Electric Bills: No Difficulty Paying for Meds: No Currently Unemployed: No Education: Master's Degree or Higher Difficulty w/ Childcare or Family Care: No Additional living arrangements comments: Lives alone in [place]. Originally from [place]. Spiritual care concerns: No Meds Home Medications and Allergies Home Medications ?Medication ?Instructions ?Recorded ?Confirmed ?Type famotidine 20 mg tablet 20 mg PO Q12HR #180 tabs 04/30/24 01/18/25 Rx hydrocodone 10 mg-acetaminophen 1 tablet PO BID PRN Pain (Scale 07/06/24 01/18/25 Rx 325 mg tablet Score 7-10) #10 tabs polyethylene glycol 3350 17 gram 17 g PO QAM PRN Constipation #14 ea 08/06/24 01/18/25 Rx oral powder packet (Miralax) acetaminophen 325 mg capsule 650 mg PO Q4H PRN pain 01/18/25 01/18/25 History albuterol sulfate 2.5 mg/3 mL 2.5 mg inhalation Q4H PRN 01/18/25 01/18/25 History (0.083 %) solution for nebulization shortness of breath or wheezing albuterol sulfate 90 mcg/actuation 2 inh inhalation Q4H PRN shortness 01/18/25 01/18/25 History aerosol inhaler (Ventolin HFA) of breath or wheezing baclofen 5 mg tablet 5 mg PO TID 01/18/25 01/18/25 History bisacodyl 10 mg rectal suppository 10 mg RECTAL DAILY PRN constipation 01/18/25 01/18/25 History carbamazepine 100 mg 100 mg PO Q12H trigeminal neuralgia 01/18/25 01/18/25 History tablet,extended release,12 hr (Tegretol XR) duloxetine 30 mg capsule,delayed 60 mg PO QAM 01/18/25 01/18/25 History release (Cymbalta) gemfibrozil 600 mg tablet 600 mg PO BID 01/18/25 01/18/25 History magnesium citrate 296 ml PO DAILY PRN constipation 01/18/25 01/18/25 History magnesium hydroxide 400 mg/5 mL 30 ml PO HS PRN constipation 01/18/25 01/18/25 History oral suspension (Milk of Magnesia) sodium phosphates 19 gram-7 118 ml RECTAL DAILY PRN 01/18/25 01/18/25 History gram/118 mL enema (Enema) constipation Allergies Allergy/AdvReac Type Severity Reaction Status Date / Time doxycycline Allergy Unknown Verified 01/18/25 11:43 latex Allergy Unknown Verified 01/18/25 11:43 pregabalin (From Lyrica) Allergy Unknown Verified 01/18/25 11:43 Sulfa (Sulfonamide Allergy Unknown Verified 01/18/25 11:43 Antibiotics) sulfamethoxazole (From Allergy Unknown Verified 01/18/25 11:43 Bactrim) trimethoprim (From Bactrim) Allergy Unknown Verified 01/18/25 11:43 Vital Signs Vital Signs - 24 hr 01/18/25 09:20 01/18/25 09:31 01/18/25 09:45 Temperature 97.9 F Pulse Rate 116 H 105 H Respiratory Rate 24 H 24 H Blood Pressure 104/58 L 112/69 Pulse Oximetry 97 99 96 Oxygen Delivery Simple Face Mask Nasal Cannula Oxygen Flow Rate 8 4 01/18/25 09:45 01/18/25 10:02 01/18/25 11:01 Temperature Pulse Rate 104 H 97 Respiratory Rate 26 H 24 H Blood Pressure 117/69 126/56 L Pulse Oximetry 98 Oxygen Delivery Room Air Oxygen Flow Rate 01/18/25 11:39 01/18/25 13:53 Temperature Pulse Rate 80 81 Respiratory Rate 18 18 Blood Pressure 128/84 104/52 L Pulse Oximetry 98 99 Oxygen Delivery Oxygen Flow Rate Exam 2 Const: General: no acute distress and underweight; No alert or awake Resp: Effort & Inspection: normal respiratory effort GI: Inspection: non-distended GI Palp: No abdominal tenderness and No Guarding due to palpation present (GI) Auscultation: normal bowel sounds Results Labs 01/18/25 09:51 01/18/25 09:51 Labs: Short CBC 01/18/25 Range/Units 09:51 WBC 16.1 H (4.5-10.0) K/mm3 Hgb 12.8 (12.0-15.0) g/dL Hct 37.7 (37.0-47.0) % Plt Count 249 (150-375) k/mm3 BMP 01/18/25 09:51 Sodium 138 Potassium 3.9 Chloride 103 Carbon Dioxide 22 BUN 30 H Creatinine 1.11 H Glucose 121 H Calcium 10.9 H Liver Function 01/18/25 Range/Units 09:51 Total Bilirubin 0.9 (0.2-1.3) mg/dL AST 30 (14-36) U/L ALT 20 (6-35) U/L Alkaline Phosphatase 52 (38-126) U/L Albumin 4.2 (3.5-5.1) g/dL Urine 01/18/25 Range/Units 09:44 Urine Color Dark yellow (Yellow) Urine Appearance Turbid H (Clear) Urine pH 5.5 (5.0-9.0) Ur Specific Bevier 1.023 (1.001-1.035) Urine Protein 2+ H (Negative) mg/dL Urine Glucose (UA) Negative (Negative) mg/dL
[2025-01-18 17:04] LABS: Glucose Point of Care 94 mg/dl (65-105)
[2025-01-18] MEDS: cefTRIAXone 2 GM/NS 100 ML 2 GM/100 ML BAG IVPB (22:33)
[2025-01-18] MEDS: CARBAMAZEPINE XR 100 MG TAB.SR.12H PO (22:33)
[2025-01-18] MEDS: IPRATROPIUM 0.5 MG/ALBUTEROL SULFATE 2.5 MG AMPUL.NEB 3 ML INHALATION (22:35)
[2025-01-19] VITALS (11 sets, daily range): BP systolic 112–121; BP diastolic 48–51; PULSE 79–95; RESP 18–24; TEMP 36.2–36.8; O2SAT 91–99
[2025-01-19] MEDS: metroNIDAZOLE 500 MG/ISO 100ML 500 MG/100 ML BAG 100 MG IVPB ×3 (00:05→17:36)
[2025-01-19 00:39] LABS: MRSA (PCR) DETECTED (NOT DETECTE)
[2025-01-19] MEDS: IPRATROPIUM 0.5 MG/ALBUTEROL SULFATE 2.5 MG AMPUL.NEB 3 ML INHALATION ×3 (02:30→13:50)
[2025-01-19 07:11] LABS: Basophils Percent Auto 0.2 % (0.2-1.2); Hematocrit 29.8 % (37.0-47.0); Hemoglobin 9.7 g/dL (12.0-15.0); Immature Granulocyte Absolute 0.03 K/mm3 (0.00-0.031); Immature Granulocyte Percent A 0.3 % (0-0.5); Lymphocytes Absolute Auto 2.58 K/mm3 (0.9-3.2); Lymphocytes Percent Auto 27.4 % (18.3-44.2); Mean Corpuscular HGB Conc 32.6 g/dl (32-36); Mean Corpuscular Hemoglobin 32.1 pg (26-34); Mean Corpuscular Volume 98.7 fl (80-100); Mean Platelet Volume 10.1 fl (7.4-10.4); Monocytes Absolute Auto 0.5 K/mm3 (0.1-0.6); Monocytes Percent Auto 5.2 % (2.6-8.5); Neutrophils Absolute Auto 6.3 K/mm3 (1.3-6.7); Neutrophils Percent Auto 66.9 % (45.5-73.1); Platelet Count Result 209 k/mm3 (150-375); Red Blood Count 3.02 M/mm3 (4.2-5.4); White Blood Count 9.4 K/mm3 (4.5-10.0)
[2025-01-19 07:33] LABS: Alanine Aminotransferase 12 U/L (6-35); Albumin Level 3.1 g/dL (3.5-5.1); Alkaline Phosphatase 39 U/L (38-126); Anion Gap 13 mmol/L (4-12); Aspartate Amino Transferase 19 U/L (14-36); Bilirubin,Total 0.3 mg/dL (0.2-1.3); Blood Urea Nitrogen 29 mg/dL (7-17); Calcium 10.3 mg/dL (8.4-10.2); Carbon Dioxide 15 mmol/L (22-30); Chloride 114 mmol/L (98-107); Estimated CRCL calculation 27 ml/min; Estimated Glomerular Filt Rate 56; Glucose 114 mg/dL (65-110); Potassium 3.3 mmol/L (3.4-5.0); Sodium 142 mmol/L (137-145); Total Protein 5.6 g/dL (6.3-8.2)
--- NOTE | 2025-01-19 08:26 | P.PNIM_ITS ---
Progress Note: A&P Assessment and Plan (1) Altered mental status: Code(s): R41.82 - Altered mental status, unspecified Status: Acute Assessment and Plan: * Head CT: No acute intracranial findings. 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 MRI advised * CXR: Increased opacities in the right mid to lower and left lower lung zones consistent with pneumonia. Small right pleural effusion. Emphysema with chronic biapical pleural parenchymal scarring * UA: 3+ Leukocyte esterase, >100 WBC, 4+ bacteria, positive nitrate, trace ketones, 2+ blood * Viral PCR: Pending * WBC: On admission 16.1. * 01/19: WBC 9.4 * Likely secondary to underlying pneumonia, however patient is A&O x1 at baseline (2) Pneumonia: Code(s): J18.9 - Pneumonia, unspecified organism Status: Acute Assessment and Plan: * CXR: Increased opacities in the right mid to lower and left lower lung zones consistent with pneumonia. Small right pleural effusion. Emphysema with chronic biapical pleural parenchymal scarring * started on CAP tx: azithromycin & ceftriaxone * Viral PCR: negative for Flu/COVID/RSV * Consider ordering legionella, mycoplasma and pneumococcal * supportive treatment * trend labs * Monitor vital signs, I&Os, neuro status and patient is a fall risk * Follow WBC, serum electrolytes, temperature curves and cultures * Send sputum cultures * Gentle IV fluid resuscitation * Normal respiratory effort on exam * Afebrile, respiratory rate and O2 saturation within normal limits (3) Acute hypoxic respiratory failure: Code(s): J96.01 - Acute respiratory failure with hypoxia Status: Acute Assessment and Plan: * In ED SpO2: 97% on 8 L simple face mask * Suspected cause: Pneumonia * EKG: Sinus tachycardia, rate 102, QTC 399, QRS 78 * Chest XR: Increased opacities in the right mid to lower and left lower lung zones consistent with pneumonia. Small right pleural effusion. Emphysema with chronic biapical pleural parenchymal scarring * Chest CTA: No PE, RLL pneumonia, minimal left lower lobe pneumonia versus atelectasis. Nodule in left lower lobe measuring 8 mm, 6 month follow-up CT advised. 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 patient was lethargic and nonverbal at the time of this encounter. 01/19/2025 Patient sitting comfortably in bed at time of examination. Denies any chest pain, shortness a breath, nausea/vomiting or abdominal pain. Speech therapy consulted and recommended an MBS, which showed that the patient tolerated regular consistency oral feedings without any concern for aspiration. Patient was found to be MRSA positive his nasal MRSA colonization, vancomycin initiated and mupirocin ointment ordered. Urology consulted regarding abnormal urinalysis, this suggest foregoing Bryan catheter placement unless renal function deteriorates or patient develops afebrile UTI. Patient otherwise has no complaints. Review of Systems Review of Systems: All other systems systems reviewed and negative except as noted in history above who Exam Narrative: General: Chronically ill-appearing patient, does not appear to be in acute respiratory distress Eyes: EOMI, PERRLA ENNT: External ears normal, Neck is supple, no masses, Respiratory: right sided crackles, normal respiratory effort Cardiovascular: S1, S2, normal rhythm, no murmur, rub, or gallop; no thrill or palpable murmurs on palpation. Gastrointestinal: soft, non-tender, and non-distended abdomen with no masses; BS present Skin: no rash, lesions, ulcerations, subcutaneous nodules or induration Musculoskeletal: no abnormality and no tenderness, normal ROM Neurologic: obtunded, A&Ox1 baseline Objective Data Vital Signs Vital Signs: Vital Signs - 24 hr 01/18/25 09:20 01/18/25 09:31 01/18/25 09:45 Temperature 97.9 F Pulse Rate 116 H 105 H Respiratory Rate 24 H 24 H Blood Pressure 104/58 L 112/69 Pulse Oximetry 97 99 96 Oxygen Delivery Simple Face Mask Nasal Cannula Oxygen Flow Rate 8 4 Fraction of Inspired Oxygen 01/18/25 09:45 01/18/25 10:02 01/18/25 11:01 Temperature Pulse Rate 104 H 97 Respiratory Rate 26 H 24 H Blood Pressure 117/69 126/56 L Pulse Oximetry 98 Oxygen Delivery Room Air Oxygen Flow Rate Fraction of Inspired Oxygen 01/18/25 11:39 01/18/25 13:53 01/18/25 14:53 Temperature 97.4 F L Pulse Rate 80 81 82 Respiratory Rate 18 18 20 Blood Pressure 128/84 104/52 L 121/49 L Pulse Oximetry 98 99 92 Oxygen Delivery Oxygen Flow Rate Fraction of Inspired Oxygen 01/18/25 20:00 01/18/25 22:00 01/18/25 22:34 Temperature 97 F L Pulse Rate 88 88 Respiratory Rate 18 Blood Pressure 119/48 L Pulse Oximetry 96 96 95 Oxygen Delivery Nasal Cannula Nasal Cannula Oxygen Flow Rate 4 4 Fraction of Inspired Oxygen 01/18/25 22:34 01/18/25 22:45 01/19/25 02:30 Temperature Pulse Rate 88 86 82 Respiratory Rate 20 20 20 Blood Pressure Pulse Oximetry Oxygen Delivery Oxygen Flow Rate Fraction of Inspired Oxygen 01/19/25 02:40 01/19/25 06:00 01/19/25 08:11 Temperature 97.2 F L Pulse Rate 85 79 Respiratory Rate 20 18 Blood Pressure 121/51 L Pulse Oximetry 95 94 Oxygen Delivery Nasal Cannula Oxygen Flow Rate 3 Fraction of Inspired Oxygen 32 01/19/25 08:11 01/19/25 08:20 Temperature Pulse Rate 92 95 Respiratory Rate 20 24 H Blood Pressure Pulse Oximetry Oxygen Delivery Oxygen Flow Rate Fraction of Inspired Oxygen Intake/Output Intake/Output: Intake & Output 01/16/25 01/17/25 01/18/25 01/19/25 23:59 23:59 23:59 23:59 Intake Total 1900 0 Balance 1900 0 Meds/Results Medications: Active Medications Generic Name Dose Route Start Last Admin Trade Name Freq PRN Reason Stop Dose Admin Albuterol/Ipratropium 3 ml 01/18/25 20:00 01/19/25 08:11 Ipratropium 0.5 Mg/Albuterol Sulfate 2.5 Mg Ampul.Neb 3 Ml INHALATION 3 ml Q6HRT WILI Administration Carbamazepine 100 mg 01/18/25 21:00 01/18/25 22:33 Carbamazepine Xr 100 Mg Tab.Sr.12h PO 100 mg Q12HR WILI Administration Duloxetine HCl 60 mg 01/19/25 09:00 Duloxetine Hcl 60 Mg Capsule.Dr JERONIMO QAM [facility] Enoxaparin Sodium 30 mg 01/19/25 09:00 Enoxaparin 30 Mg/0.3 Ml Syringe SUB-Q DAILY [facility] Sodium Chloride 1,000 mls @ 75 mls/hr 01/18/25 13:20 01/18/25 16:55 Normal Saline Iv IV CONT 75 mls/hr .[id number] WILI Administration Ceftriaxone Sodium 2 gm in 100 mls @ 200 mls/hr 01/18/25 21:00 01/18/25 22:33 Rocephin 2 Gm/Ns 100 Ml IVPB 200 mls/hr Q24H WILI Administration Azithromycin 500 mg in 250 mls @ 250 mls/hr 01/19/25 12:00 Zithromax IVPB Q24H WILI Metronidazole 500 mg in 100 mls @ 100 mls/hr 01/18/25 17:00 01/19/25 00:05 Flagyl 500 Mg/Iso Soln 100 Ml IVPB 100 mls/hr Q8H WILI Administration Radiology Results: ITS Impressions Chest X-Ray 01/18/25 10:43 IMPRESSION: 1. Increasing opacities in the right mid to lower and left lower lung zones cons istent with pneumonia. 2. Small right pleural effusion. 3. Emphysema with chronic biapical pleural-parenchymal scarring and calcified pleural plaques. Chest CTA 01/18/25 12:35 IMPRESSION: 1. No pulmonary embolism 2. Right lower lobe pneumonia. Minimal left lower lobe pneumonia versus atelectasis. 3. Nodule in the left lower lobe measuring 8 mm. 6 months follow-up CT is advised. 4. Precarinal lymphadenopathy. 5. Emphysematous changes of the lungs. 6. Left kidney hydronephrotic changes. Further evaluation advised. Head CT 01/18/25 16:36 IMPRESSION: No acute intracranial findings. 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 MRI is advised for further evaluation Labs Labs: Laboratory Results - last 24 hr 01/18/25 01/18/25 01/18/25 09:44 09:51 17:00 WBC 16.1 H RBC 3.98 L Hgb 12.8 Hct 37.7 MCV 94.7 MCH 32.2 MCHC 34.0 RDW 13.6 Plt Count 249 MPV 10.0 Immature Gran % (Auto) 0.3 Neut % (Auto) 71.4 Lymph % (Auto) 24.0 [place] % (Auto) 3.8 Eos % (Auto) 0.2 Baso % (Auto) 0.3 Lymph # (Auto) 3.86 H [place] # (Auto) 0.6 Eos # (Auto) 0.0 Baso # (Auto) 0.1 Abs Immat Gran (auto) 0.05 H Absolute Neuts (auto) 11.5 H Absolute Nucleated RBC 0.000 Nucleated RBC % 0.0 Sodium 138 Potassium 3.9 Chloride 103 Carbon Dioxide 22 Anion Gap 13 H BUN 30 H Creatinine 1.11 H Estim Creat Clear Calc Not Reportable Estimated GFR 47 L Glucose 121 H POC Capillary Glucose 94 Lactic Acid 1.4 Calcium 10.9 H Magnesium Total Bilirubin 0.9 AST 30 ALT 20 Alkaline Phosphatase 52 Total Protein 6.9 Albumin 4.2 Urine Color Dark yellow Urine Appearance Turbid H Urine pH 5.5 Ur Specific [place] 1.023 Urine Protein 2+ H Urine Glucose (UA) Negative Urine Ketones Trace H Ur Blood (Man) 2+ H Urine Nitrate Positive H Urine Bilirubin 1+ H Urine Urobilinogen 1.0 Add Ur Microanalysis Reviewed Leukocyte Esterase Rfl 3+ H Urine RBC 6-10 H Urine WBC >100 H Ur Squamous Epith Cells Few Urine Bacteria 4+ H Urine Casts 6-10 Nasal MRSA (PCR) 01/18/25 01/19/25 23:27 06:47 WBC 9.4 RBC 3.02 L Hgb 9.7 L D Hct 29.8 L MCV 98.7 MCH 32.1 MCHC 32.6 RDW 14.0 Plt Count 209 MPV 10.1 Immature Gran % (Auto) 0.3 Neut % (Auto) 66.9 Lymph % (Auto) 27.4 [place] % (Auto) 5.2 Eos % (Auto) 0.0 Baso % (Auto) 0.2 Lymph # (Auto) 2.58 [place] # (Auto) 0.5 Eos # (Auto) 0.0 Baso # (Auto) 0.0 Abs Immat Gran (auto) 0.03 Absolute Neuts (auto) 6.3 Absolute Nucleated RBC 0.000 Nucleated RBC % 0.0 Sodium 142 Potassium 3.3 L Chloride 114 H Carbon Dioxide 15 L Anion Gap 13 H BUN 29 H Creatinine 0.95 Estim Creat Clear Calc 27 Estimated GFR 56 L Glucose 114 H POC Capillary Glucose Lactic Acid 1.0 Calcium 10.3 H Magnesium 2.0 Total Bilirubin 0.3 AST 19 ALT 12 Alkaline Phosphatase 39 Total Protein 5.6 L Albumin 3.1 L Urine Color Urine Appearance Urine pH Ur Specific [place] Urine Protein Urine Glucose (UA) Urine Ketones Ur Blood (Man) Urine Nitrate Urine Bilirubin Urine Urobilinogen Add Ur Microanalysis Leukocyte Esterase Rfl Urine RBC Urine WBC Ur Squamous Epith Cells Urine Bacteria Urine Casts Nasal MRSA (PCR) Detected A* Quality VTE Prophylaxis VTE prophylaxis: pharmacologic ordered
[2025-01-19] MEDS: SODIUM CHLORIDE 0.9% IV 1,000 ML 75 ML IV CONT (08:59)
[2025-01-19] MEDS: CARBAMAZEPINE XR 100 MG TAB.SR.12H PO ×2 (08:59→22:07)
[2025-01-19] MEDS: DULoxetine HCL 60 MG CAPSULE.DR PO (08:59)
[2025-01-19] MEDS: ENOXAPARIN 30 MG/0.3 ML SYRINGE SUB-Q (08:59)
[2025-01-19] MEDS: AZITHROMYCIN 500 MG/NS 250 ML 500 MG/250 ML BAG 250 MG IVPB (12:20)
[2025-01-19 12:58] LABS: Vancomycin Trough < 5.0 ug/mL (10.0-20.0)
--- NOTE | 2025-01-19 13:51 | PCSTNOTE ---
Please refer to the Bedside Swallow Evaluation in the EMR. Please note, silent aspiration cannot be ruled out at bedside.
--- NOTE | 2025-01-19 13:51 | PCSTNOTE ---
Please refer to the Modified Barium Swallow Evaluation in the EMR.
[2025-01-19] MEDS: VANCOMYCIN 1,250 MG/NS 250 ML 1,250 MG/250 ML BAG 166.67 MG IVPB (14:07)
[2025-01-19] MEDS: MUPIROCIN 2% OINT 22 GM TUBE 1 APPLIC EACH NARE ×2 (14:07→21:00)
[2025-01-19] MEDS: BACLOFEN 5 MG TABLET PO ×2 (14:10→17:36)
--- NOTE | 2025-01-19 16:55 | P.PNUR_ITS ---
Progress Note: A&P Assessment and Plan (1) Hydronephrosis, left: Code(s): N13.30 - Unspecified hydronephrosis Status: Acute Assessment and Plan: * Left right nephrosis which is been present since at least July 2024. My guess is this result from incomplete bladder emptying. * Ideally, we would place a Bryan catheter and see if hydronephrosis resolves. The nurses report, however, that the patient is chronically in a contracted position which were make placement of a Bryan catheter very difficult. Additionally, they say when she awakened she is often combative and they are fairly confident that she would traumatically removed the catheter * In light of these challenging issues I would suggest we forego attempted Bryan catheter placement unless either her renal function deteriorates or she develops a febrile urinary tract infection * urine culture pending, Creatine downtrending Subjective Subjective Date/Time Seen: 01/19/25 16:55 Interval history: NAEO. Pt has no complaints. Review of Systems Review of Systems: ROS unobtainable: Yes unobtainable due to mental status Constitutional: Constitutional: Reports no additional constitutional complaints Exam Const: General: no acute distress Eyes: General: appearance normal, both eyes and all related structures Resp: Effort & Inspection: normal respiratory effort Cardio: Rate: regular rate GI: Inspection: non-distended : General: No CVA tenderness Objective Data Vital Signs Vital Signs: Vital Signs - 24 hr 01/18/25 20:00 01/18/25 22:00 01/18/25 22:34 Temperature 36.1 C L Pulse Rate 88 88 Respiratory Rate 18 Blood Pressure 119/48 L Pulse Oximetry 96 96 95 Oxygen Delivery Nasal Cannula Nasal Cannula Oxygen Flow Rate 4 4 Fraction of Inspired Oxygen 01/18/25 22:34 01/18/25 22:45 01/19/25 02:30 Temperature Pulse Rate 88 86 82 Respiratory Rate 20 20 20 Blood Pressure Pulse Oximetry Oxygen Delivery Oxygen Flow Rate Fraction of Inspired Oxygen 01/19/25 02:40 01/19/25 06:00 01/19/25 08:00 Temperature 36.2 C L Pulse Rate 85 79 95 Respiratory Rate 20 18 24 H Blood Pressure 121/51 L Pulse Oximetry 95 94 Oxygen Delivery Nasal Cannula Oxygen Flow Rate 4 Fraction of Inspired Oxygen 32 01/19/25 08:11 01/19/25 08:11 01/19/25 08:20 Temperature Pulse Rate 92 95 Respiratory Rate 20 24 H Blood Pressure Pulse Oximetry 94 Oxygen Delivery Nasal Cannula Oxygen Flow Rate 3 Fraction of Inspired Oxygen 32 01/19/25 13:50 01/19/25 13:50 01/19/25 13:57 Temperature Pulse Rate 79 86 Respiratory Rate 20 24 H Blood Pressure Pulse Oximetry 95 Oxygen Delivery Nasal Cannula Oxygen Flow Rate 4 Fraction of Inspired Oxygen 36 01/19/25 14:00 Temperature 36.3 C L Pulse Rate 80 Respiratory Rate 18 Blood Pressure 115/50 L Pulse Oximetry 99 Oxygen Delivery Oxygen Flow Rate Fraction of Inspired Oxygen Intake/Output Intake/Output: Intake & Output 01/16/25 01/17/25 01/18/25 01/19/25 23:59 23:59 23:59 23:59 Intake Total 1900 1100 Balance 1900 1100 Meds/Results Medications: Active Medications Generic Name Dose Route Start Last Admin Trade Name Freq PRN Reason Stop Dose Admin Acetaminophen 650 mg 01/19/25 12:02 Acetaminophen 325 Mg Tablet PO Q4H PRN pain Hydrocodone Bitart/Acetaminophen 1 tab 01/19/25 12:02 Hydrocodone/Acetaminophen (*Crx) 10-325 Mg Tablet PO BID PRN Pain (Scale Score 7-10) Albuterol 2.5 mg 01/19/25 12:02 Albuterol Sulfate Neb 2.5 Mg/3 Ml Inh INHALATION Q4HRT PRN shortness of breath or wheezing Albuterol/Ipratropium 3 ml 01/18/25 20:00 01/19/25 13:50 Ipratropium 0.5 Mg/Albuterol Sulfate 2.5 Mg Ampul.Neb 3 Ml INHALATION 3 ml Q6HRT WILI Administration Baclofen 5 mg 01/19/25 13:00 01/19/25 14:10 Baclofen 5 Mg Tablet PO 5 mg TID WILI Administration Bisacodyl 10 mg 01/19/25 12:02 Bisacodyl 10 Mg Suppository RECTAL DAILY PRN constipation Carbamazepine 100 mg 01/18/25 21:00 01/19/25 08:59 Carbamazepine Xr 100 Mg Tab.Sr.12h PO 100 mg Q12HR WILI Administration Duloxetine HCl 60 mg 01/19/25 09:00 01/19/25 08:59 Duloxetine Hcl 60 Mg Capsule.Dr PO 60 mg QAM WILI Administration Enoxaparin Sodium 30 mg 01/19/25 09:00 01/19/25 08:59 Enoxaparin 30 Mg/0.3 Ml Syringe SUB-Q 30 mg DAILY WILI Administration Famotidine 20 mg 01/19/25 21:00 Famotidine 20 Mg Tablet PO Q12HR WILI Gemfibrozil 600 mg 01/19/25 16:30 Gemfibrozil 600 Mg Tablet PO BIDAC WILI Sodium Chloride 1,000 mls @ 75 mls/hr 01/18/25 13:20 01/19/25 15:39 Normal Saline Iv IV CONT Not Given .[id number] WILI Ceftriaxone Sodium 2 gm in 100 mls @ 200 mls/hr 01/18/25 21:00 01/18/25 22:33 Rocephin 2 Gm/Ns 100 Ml IVPB 200 mls/hr Q24H WILI Administration Azithromycin 500 mg in 250 mls @ 250 mls/hr 01/19/25 12:00 01/19/25 12:20 Zithromax IVPB 250 mls/hr Q24H WILI Administration Metronidazole 500 mg in 100 mls @ 100 mls/hr 01/18/25 17:00 01/19/25 08:59 Flagyl 500 Mg/Iso Soln 100 Ml IVPB 100 mls/hr Q8H WILI Administration Vancomycin HCl 750 mg in 250 mls @ 250 mls/hr 01/21/25 02:00 Vancomycin 750 Mg/Ns 250 Ml IVPB Q36H WILI Mupirocin 1 applic 01/19/25 12:30 01/19/25 14:07 Mupirocin 2% Oint 22 Gm Tube EACH NARE 01/23/25 21:01 1 applic Q12HR WILI Administration Radiology Results: ITS Impressions Chest X-Ray 01/18/25 10:43 IMPRESSION: 1. Increasing opacities in the right mid to lower and left lower lung zones consistent with pneumonia. 2. Small right pleural effusion. 3. Emphysema with chronic biapical pleural-parenchymal scarring and calcified pleural plaques. Chest CTA 01/18/25 12:35 IMPRESSION: 1. No pulmonary embolism 2. Right lower lobe pneumonia. Minimal left lower lobe pneumonia versus atelectasis. 3. Nodule in the left lower lobe measuring 8 mm. 6 months follow-up CT is advised. 4. Precarinal lymphadenopathy. 5. Emphysematous changes of the lungs. 6. Left kidney hydronephrotic changes. Further evaluation advised. Head CT 01/18/25 16:36 IMPRESSION: No acute intracranial findings. 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 MRI is advised for further evaluation Modified Barium Swallow 01/19/25 13:52 IMPRESSION: Patient tolerated regular consistency oral feedings in the upright position. Please correlate with speech pathologist findings and specific feeding recommendations. Labs Labs: Laboratory Results - last 24 hr 01/18/25 01/18/25 01/19/25 17:00 23:27 06:47 WBC 9.4 RBC 3.02 L Hgb 9.7 L D Hct 29.8 L MCV 98.7 MCH 32.1 MCHC 32.6 RDW 14.0 Plt Count 209 MPV 10.1 Immature Gran % (Auto) 0.3 Neut % (Auto) 66.9 Lymph % (Auto) 27.4 [place] % (Auto) 5.2 Eos % (Auto) 0.0 Baso % (Auto) 0.2 Lymph # (Auto) 2.58 [place] # (Auto) 0.5 Eos # (Auto) 0.0 Baso # (Auto) 0.0 Abs Immat Gran (auto) 0.03 Absolute Neuts (auto) 6.3 Absolute Nucleated RBC 0.000 Nucleated RBC % 0.0 Sodium 142 Potassium 3.3 L Chloride 114 H Carbon Dioxide 15 L Anion Gap 13 H BUN 29 H Creatinine 0.95 Estim Creat Clear Calc 27 Estimated GFR 56 L Glucose 114 H POC Capillary Glucose 94 Lactic Acid 1.0 Calcium 10.3 H Magnesium 2.0 Total Bilirubin 0.3 AST 19 ALT 12 Alkaline Phosphatase 39 Total Protein 5.6 L Albumin 3.1 L Nasal MRSA (PCR) Detected A* Vancomycin Trough 01/19/25 12:30 WBC RBC Hgb Hct MCV MCH MCHC RDW Plt Count MPV Immature Gran % (Auto) Neut % (Auto) Lymph % (Auto) [place] % (Auto) Eos % (Auto) Baso % (Auto) Lymph # (Auto) [place] # (Auto) Eos # (Auto) Baso # (Auto) Abs Immat Gran (auto) Absolute Neuts (auto) Absolute Nucleated RBC Nucleated RBC % Sodium Potassium Chloride Carbon Dioxide Anion Gap BUN Creatinine Estim Creat Clear Calc Estimated GFR Glucose POC Capillary Glucose Lactic Acid Calcium Magnesium Total Bilirubin AST ALT Alkaline Phosphatase Total Protein Albumin Nasal MRSA (PCR) Vancomycin Trough < 5.0 L
[2025-01-19] MEDS: gemfibroziL 600 MG TABLET PO (17:36)
[2025-01-19 17:47] LABS: Influenza A QL RT-PCR Negative (Negative); Influenza B QL RT-PCR Negative (Negative); RSV RNA, RT-PCR Negative (Negative); SARS-CoV-2 RNA PCR Negative (Negative)
[2025-01-19] MEDS: FAMOTIDINE 20 MG TABLET PO (22:07)
[2025-01-19] MEDS: cefTRIAXone 2 GM/NS 100 ML 2 GM/100 ML BAG IVPB (22:08)
[2025-01-20] VITALS (14 sets, daily range): BP systolic 109–118; BP diastolic 50–55; PULSE 71–86; RESP 16–20; TEMP 36.9–37.2; O2SAT 90–98
[2025-01-20] MEDS: metroNIDAZOLE 500 MG/ISO 100ML 500 MG/100 ML BAG 100 MG IVPB ×3 (01:14→16:49)
--- NOTE | 2025-01-20 05:40 | PCRCNOTE ---
Patient refused both 1999 and 0200 updraft treatments. Pt stated she was breathing fine when this RT inquired. Treatment to resume @ 0800 if patient is willing.
[2025-01-20] MEDS: gemfibroziL 600 MG TABLET PO ×2 (06:19→16:17)
[2025-01-20] MEDS: SODIUM CHLORIDE 0.9% IV 1,000 ML 75 ML IV CONT (06:24)
[2025-01-20 07:06] LABS: Estimated CRCL calculation 33 ml/min; Estimated Glomerular Filt Rate > 60
[2025-01-20] MEDS: IPRATROPIUM 0.5 MG/ALBUTEROL SULFATE 2.5 MG AMPUL.NEB 3 ML INHALATION ×3 (07:33→20:20)
[2025-01-20 07:50] LABS: Basophils Percent Auto 0.2 % (0.2-1.2); Eosinophils Percent Auto 0.1 % (0-4.4); Hematocrit 28.8 % (37.0-47.0); Immature Granulocyte Absolute 0.11 K/mm3 (0.00-0.031); Immature Granulocyte Percent A 1.4 % (0-0.5); Lymphocytes Absolute Auto 2.45 K/mm3 (0.9-3.2); Lymphocytes Percent Auto 30.5 % (18.3-44.2); Mean Corpuscular HGB Conc 31.3 g/dl (32-36); Mean Corpuscular Hemoglobin 31.8 pg (26-34); Mean Corpuscular Volume 101.8 fl (80-100); Monocytes Absolute Auto 0.5 K/mm3 (0.1-0.6); Monocytes Percent Auto 5.7 % (2.6-8.5); Neutrophils Percent Auto 62.1 % (45.5-73.1); Platelet Count Result 215 k/mm3 (150-375); Red Blood Count 2.83 M/mm3 (4.2-5.4)
[2025-01-20 07:51] LABS: Alanine Aminotransferase 10 U/L (6-35); Albumin Level 2.7 g/dL (3.5-5.1); Alkaline Phosphatase 27 U/L (38-126); Anion Gap 9 mmol/L (4-12); Aspartate Amino Transferase 20 U/L (14-36); Bilirubin,Total 0.2 mg/dL (0.2-1.3); Blood Urea Nitrogen 26 mg/dL (7-17); Calcium 9.9 mg/dL (8.4-10.2); Carbon Dioxide 15 mmol/L (22-30); Chloride 116 mmol/L (98-107); Estimated CRCL calculation 33 ml/min; Estimated Glomerular Filt Rate > 60; Glucose 108 mg/dL (65-110); Sodium 140 mmol/L (137-145)
--- NOTE | 2025-01-20 08:04 | P.PNIM_ITS ---
Progress Note: A&P Assessment and Plan (1) Altered mental status: Code(s): R41.82 - Altered mental status, unspecified Status: Acute Assessment and Plan: * Head CT: No acute intracranial findings. 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 MRI advised * CXR: Increased opacities in the right mid to lower and left lower lung zones consistent with pneumonia. Small right pleural effusion. Emphysema with chronic biapical pleural parenchymal scarring * UA: 3+ Leukocyte esterase, >100 WBC, 4+ bacteria, positive nitrate, trace ketones, 2+ blood * Viral PCR: Pending * WBC: On admission 16.1. * 01/20: WBC 8.0 * Likely secondary to underlying pneumonia, however patient is A&O x1 at baseline (2) Pneumonia: Code(s): J18.9 - Pneumonia, unspecified organism Status: Acute Assessment and Plan: * CXR: Increased opacities in the right mid to lower and left lower lung zones consistent with pneumonia. Small right pleural effusion. Emphysema with chronic biapical pleural parenchymal scarring * started on CAP tx: azithromycin & ceftriaxone * Viral PCR: negative for Flu/COVID/RSV * Consider ordering legionella, mycoplasma and pneumococcal * supportive treatment * trend labs * Monitor vital signs, I&Os, neuro status and patient is a fall risk * Follow WBC, serum electrolytes, temperature curves and cultures * Send sputum cultures * Gentle IV fluid resuscitation * Normal respiratory effort on exam * Afebrile, respiratory rate and O2 saturation within normal limits * Will discontinue ceftriaxone as UTI is resistant * Initiate cefepime (3) Acute hypoxic respiratory failure: Code(s): J96.01 - Acute respiratory failure with hypoxia Status: Acute Assessment and Plan: * In ED SpO2: 97% on 8 L simple face mask * Suspected cause: Pneumonia * EKG: Sinus tachycardia, rate 102, QTC 399, QRS 78 * Chest XR: Increased opacities in the right mid to lower and left lower lung zones consistent with pneumonia. Small right pleural effusion. Emphysema with chronic biapical pleural parenchymal scarring * Chest CTA: No PE, RLL pneumonia, minimal left lower lobe pneumonia versus atelectasis. Nodule in left lower lobe measuring 8 mm, 6 month follow-up CT advised. Pre renal lymphadenopathy, emphysematous changes of lungs * See plan above (4) UTI (urinary tract infection): Qualifiers: Hematuria presence: with hematuria Urinary tract infection type: acute cystitis Qualified Code(s): N30.01 - Acute cystitis with hematuria Code(s): N39.0 - Urinary tract infection, site not specified Status: Inactive Assessment and Plan: - UA: 3+ Leukocyte esterase, >100 WBC, 4+ bacteria, positive nitrate, trace ketones, 2+ blood - UC obtained on 01/18, still pending at this time - previous micro reviewed on 12/27 -E coli - started on Rocephin and azithromycin - discontinue Rocephin, add cefepime (5) 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: Code(s): Z22.322 - Carrier or suspected carrier of Methicillin resistant Staphylococcus aureus Status: Acute Assessment and Plan: * MRSA positive detected on 01/19 * Started on vancomycin * Mupirocin ointment for each nare (6) Hypokalemia: Code(s): E87.6 - Hypokalemia Status: Acute Assessment and Plan: * Upon admission: 3.9 * 01/20, potassium 3.0 * Will supplement as needed, 40 mEq supplement * Monitor daily labs Subjective Date/time seen: 01/20/25 08:04 Interval history: 85 yo female with PMH of Trigeminal neuralgia, Vit D deficiency, chronic pain syndrome, cancer right breast, CLL, COPD, Depression, SCC and melanoma, who was brought to the ER on account of AMS. patient was lethargic and nonverbal at the time of this encounter. 01/20/2025 Patient sitting comfortably in bed at time of examination. She is eating lunch, denies any complaints or concerns at this time. Physical exam was reassuring. Potassium was low 3.0 this morning, will supplement as needed. Urine culture sensitivities resulted, will adjust IV antibiotics, however leukocytosis is improving patient remains afebrile. No other complaints or concerns at this time. Monitor labs in the a.m. and discuss oral antibiotic options with ID pharmacist tomorrow with hopeful discharge in the a.m./afternoon. Review of Systems Review of Systems: All other systems systems reviewed and negative except as noted in history above who Exam Narrative: General: Chronically ill-appearing patient, does not appear to be in acute respiratory distress Eyes: EOMI, PERRLA ENNT: External ears normal, Neck is supple, no masses, Respiratory: right sided crackles, normal respiratory effort Cardiovascular: S1, S2, normal rhythm, no murmur, rub, or gallop; no thrill or palpable murmurs on palpation. Gastrointestinal: soft, non-tender, and non-distended abdomen with no masses; BS present Skin: no rash, lesions, ulcerations, subcutaneous nodules or induration Musculoskeletal: no abnormality and no tenderness, normal ROM Neurologic: obtunded, A&Ox1 baseline Objective Data Vital Signs Vital Signs: Vital Signs - 24 hr 01/19/25 08:11 01/19/25 08:11 01/19/25 08:20 Temperature Pulse Rate 92 95 Respiratory Rate 20 24 H Blood Pressure Pulse Oximetry 94 Oxygen Delivery Nasal Cannula Oxygen Flow Rate 3 Fraction of Inspired Oxygen 32 01/19/25 13:50 01/19/25 13:50 01/19/25 13:57 Temperature Pulse Rate 79 86 Respiratory Rate 20 24 H Blood Pressure Pulse Oximetry 95 Oxygen Delivery Nasal Cannula Oxygen Flow Rate 4 Fraction of Inspired Oxygen 36 01/19/25 14:00 01/19/25 20:40 01/19/25 22:00 Temperature 97.4 F L 98.2 F Pulse Rate 80 82 Respiratory Rate 18 18 Blood Pressure 115/50 L 112/48 L Pulse Oximetry 99 93 91 Oxygen Delivery Nasal Cannula Oxygen Flow Rate 4 Fraction of Inspired Oxygen 01/20/25 06:00 01/20/25 07:30 01/20/25 07:36 Temperature 98.4 F Pulse Rate 71 78 Respiratory Rate 18 20 Blood Pressure 116/52 L Pulse Oximetry 92 96 Oxygen Delivery Nasal Cannula Oxygen Flow Rate 4 Fraction of Inspired Oxygen 36 01/20/25 07:38 Temperature Pulse Rate 80 Respiratory Rate 20 Blood Pressure Pulse Oximetry Oxygen Delivery Oxygen Flow Rate Fraction of Inspired Oxygen Intake/Output Intake/Output: Intake & Output 01/17/25 01/18/25 01/19/25 01/20/25 23:59 23:59 23:59 23:59 Intake Total 1999 3020 Balance 1999 3020 Meds/Results Medications: Active Medications Generic Name Dose Route Start Last Admin Trade Name Freq PRN Reason Stop Dose Admin Acetaminophen 650 mg 01/19/25 12:02 Acetaminophen 325 Mg Tablet PO Q4H PRN pain Hydrocodone Bitart/Acetaminophen 1 tab 01/19/25 12:02 Hydrocodone/Acetaminophen (*Crx) 10-325 Mg Tablet PO BID PRN Pain (Scale Score 7-10) Albuterol 2.5 mg 01/19/25 12:02 Albuterol Sulfate Neb 2.5 Mg/3 Ml Inh INHALATION Q4HRT PRN shortness of breath or wheezing Albuterol/Ipratropium 3 ml 01/18/25 20:00 01/20/25 07:33 Ipratropium 0.5 Mg/Albuterol Sulfate 2.5 Mg Ampul.Neb 3 Ml INHALATION 3 ml Q6HRT WILI Administration Baclofen 5 mg 01/19/25 13:00 01/19/25 17:36 Baclofen 5 Mg Tablet PO 5 mg TID WILI Administration Bisacodyl 10 mg 01/19/25 12:02 Bisacodyl 10 Mg Suppository RECTAL DAILY PRN constipation Carbamazepine 100 mg 01/18/25 21:00 01/19/25 22:07 Carbamazepine Xr 100 Mg Tab.Sr.12h PO 100 mg Q12HR WILI Administration Duloxetine HCl 60 mg 01/19/25 09:00 01/19/25 08:59 Duloxetine Hcl 60 Mg Capsule.Dr PO 60 mg QAM WILI Administration Enoxaparin Sodium 30 mg 01/19/25 09:00 01/19/25 08:59 Enoxaparin 30 Mg/0.3 Ml Syringe SUB-Q 30 mg DAILY WILI Administration Famotidine 20 mg 01/19/25 21:00 01/19/25 22:07 Famotidine 20 Mg Tablet PO 20 mg Q12HR WILI Administration Gemfibrozil 600 mg 01/19/25 16:30 01/20/25 06:19 Gemfibrozil 600 Mg Tablet PO 600 mg BIDAC WILI Administration Sodium Chloride 1,000 mls @ 75 mls/hr 01/18/25 13:20 01/20/25 06:24 Normal Saline Iv IV CONT 75 mls/hr .[id number] WILI Administration Ceftriaxone Sodium 2 gm in 100 mls @ 200 mls/hr 01/18/25 21:00 01/19/25 22:08 Rocephin 2 Gm/Ns 100 Ml IVPB 200 mls/hr Q24H WILI Administration Azithromycin 500 mg in 250 mls @ 250 mls/hr 01/19/25 12:00 01/19/25 12:20 Zithromax IVPB 250 mls/hr Q24H WILI Administration Metronidazole 500 mg in 100 mls @ 100 mls/hr 01/18/25 17:00 01/20/25 01:14 Flagyl 500 Mg/Iso Soln 100 Ml IVPB 100 mls/hr Q8H WILI Administration Vancomycin HCl 750 mg in 250 mls @ 250 mls/hr 01/21/25 02:00 Vancomycin 750 Mg/Ns 250 Ml IVPB Q36H WILI Mupirocin 1 applic 01/19/25 12:30 01/19/25 21:00 Mupirocin 2% Oint 22 Gm Tube EACH NARE 01/23/25 21:01 1 applic Q12HR WILI Administration Radiology Results: ITS Impressions Chest X-Ray 01/18/25 10:43 IMPRESSION: 1. Increasing opacities in the right mid to lower and left lower lung zones consistent with pneumonia. 2. Small right pleural effusion. 3. Emphysema with chronic biapical pleural-parenchymal scarring and calcified pleural plaques. Chest CTA 01/18/25 12:35 IMPRESSION: 1. No pulmonary embolism 2. Right lower lobe pneumonia. Minimal left lower lobe pneumonia versus atelectasis. 3. Nodule in the left lower lobe measuring 8 mm. 6 months follow-up CT is advised. 4. Precarinal lymphadenopathy. 5. Emphysematous changes of the lungs. 6. Left kidney hydronephrotic changes. Further evaluation advised. Head CT 01/18/25 16:36 IMPRESSION: No acute intracranial findings. 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 MRI is advised for further evaluation Modified Barium Swallow 01/19/25 13:52 IMPRESSION: Patient tolerated regular consistency oral feedings in the upright position. Please correlate with speech pathologist findings and specific feeding recommendations. Labs Labs: Laboratory Results - last 24 hr 01/19/25 01/19/25 01/20/25 12:30 16:59 06:29 WBC 8.0 RBC 2.83 L Hgb 9.0 L Hct 28.8 L MCV 101.8 H MCH 31.8 MCHC 31.3 L RDW 14.0 Plt Count 215 MPV 10.0 Immature Gran % (Auto) 1.4 H Neut % (Auto) 62.1 Lymph % (Auto) 30.5 [place] % (Auto) 5.7 Eos % (Auto) 0.1 Baso % (Auto) 0.2 Lymph # (Auto) 2.45 [place] # (Auto) 0.5 Eos # (Auto) 0.0 Baso # (Auto) 0.0 Abs Immat Gran (auto) 0.11 H Absolute Neuts (auto) 5.0 Absolute Nucleated RBC 0.000 Nucleated RBC % 0.0 Sodium 140 Potassium 3.0 L Chloride 116 H Carbon Dioxide 15 L Anion Gap 9 BUN 26 H Creatinine 0.77 Estim Creat Clear Calc Estimated GFR Glucose Calcium Total Bilirubin AST ALT Alkaline Phosphatase Total Protein Albumin Vancomycin Trough < 5.0 L Influenza A (RT-PCR) Negative Influenza B (RT-PCR) Negative RSV (RT-PCR) Negative SARS-CoV-2 RNA (RT-PCR) Negative 01/20/25 01/20/25 01/20/25 06:29 06:29 06:29 WBC RBC Hgb Hct MCV MCH MCHC RDW Plt Count MPV Immature Gran % (Auto) Neut % (Auto) Lymph % (Auto) [place] % (Auto) Eos % (Auto) Baso % (Auto) Lymph # (Auto) [place] # (Auto) Eos # (Auto) Baso # (Auto) Abs Immat Gran (auto) Absolute Neuts (auto) Absolute Nucleated RBC Nucleated RBC % Sodium Potassium Chloride Carbon Dioxide Anion Gap BUN Creatinine 0.78 Estim Creat Clear Calc 33 33 Estimated GFR > 60 > 60 Glucose 108 Calcium 9.9 Total Bilirubin 0.2 AST 20 ALT 10 Alkaline Phosphatase 27 L Total Protein 5.0 L Albumin 2.7 L Vancomycin Trough Influenza A (RT-PCR) Influenza B (RT-PCR) RSV (RT-PCR) SARS-CoV-2 RNA (RT-PCR) Quality VTE Prophylaxis VTE prophylaxis: pharmacologic ordered
[2025-01-20] MEDS: POTASSIUM CHLORIDE 20 MEQ ER TABLET 40 MEQ PO (09:11)
[2025-01-20] MEDS: CARBAMAZEPINE XR 100 MG TAB.SR.12H PO ×2 (09:12→20:59)
[2025-01-20] MEDS: ENOXAPARIN 30 MG/0.3 ML SYRINGE SUB-Q (09:12)
[2025-01-20] MEDS: MUPIROCIN 2% OINT 22 GM TUBE 1 APPLIC EACH NARE ×2 (09:13→20:59)
[2025-01-20] MEDS: BACLOFEN 5 MG TABLET PO ×3 (09:13→16:17)
[2025-01-20] MEDS: DULoxetine HCL 60 MG CAPSULE.DR PO (09:13)
[2025-01-20] MEDS: FAMOTIDINE 20 MG TABLET PO ×2 (09:13→20:58)
[2025-01-20] MEDS: AZITHROMYCIN 500 MG/NS 250 ML 500 MG/250 ML BAG 250 MG IVPB (12:18)
--- NOTE | 2025-01-20 12:37 | P.PNUR_ITS ---
Progress Note: A&P Assessment and Plan (1) Hydronephrosis, left: Code(s): N13.30 - Unspecified hydronephrosis Status: Acute Assessment and Plan: * Left right nephrosis which is been present since at least July 2024. My guess is this result from incomplete bladder emptying. * In light of these challenging issues I would suggest we forego attempted Bryan catheter placement unless either her renal function deteriorates or she develops a febrile urinary tract infection * urine culture E coli sensitivity pending, Creatine downtrending/stable Subjective Subjective Date/Time Seen: 01/20/25 12:37 Review of Systems Review of Systems: ROS unobtainable: Yes unobtainable due to mental status Constitutional: Constitutional: Reports no additional constitutional complaints Exam Const: General: no acute distress Eyes: General: appearance normal, both eyes and all related structures Resp: Effort & Inspection: normal respiratory effort Cardio: Rate: regular rate GI: Inspection: non-distended : General: No CVA tenderness Objective Data Vital Signs Vital Signs: Vital Signs - 24 hr 01/19/25 13:50 01/19/25 13:50 01/19/25 13:57 Temperature Pulse Rate 79 86 Respiratory Rate 20 24 H Blood Pressure Pulse Oximetry 95 Oxygen Delivery Nasal Cannula Oxygen Flow Rate 4 Fraction of Inspired Oxygen 36 01/19/25 14:00 01/19/25 20:40 01/19/25 22:00 Temperature 36.3 C L 36.8 C Pulse Rate 80 82 Respiratory Rate 18 18 Blood Pressure 115/50 L 112/48 L Pulse Oximetry 99 93 91 Oxygen Delivery Nasal Cannula Oxygen Flow Rate 4 Fraction of Inspired Oxygen 01/20/25 06:00 01/20/25 07:30 01/20/25 07:36 Temperature 36.9 C Pulse Rate 71 78 Respiratory Rate 18 20 Blood Pressure 116/52 L Pulse Oximetry 92 96 Oxygen Delivery Nasal Cannula Oxygen Flow Rate 4 Fraction of Inspired Oxygen 36 01/20/25 07:38 01/20/25 08:00 Temperature Pulse Rate 80 Respiratory Rate 20 Blood Pressure Pulse Oximetry 98 Oxygen Delivery Nasal Cannula Oxygen Flow Rate 4 Fraction of Inspired Oxygen Intake/Output Intake/Output: Intake & Output 01/17/25 01/18/25 01/19/25 01/20/25 23:59 23:59 23:59 23:59 Intake Total 1999 3270 220 Balance 1999 3270 220 Meds/Results Medications: Active Medications Generic Name Dose Route Start Last Admin Trade Name Freq PRN Reason Stop Dose Admin Acetaminophen 650 mg 01/19/25 12:02 Acetaminophen 325 Mg Tablet PO Q4H PRN pain Hydrocodone Bitart/Acetaminophen 1 tab 01/19/25 12:02 Hydrocodone/Acetaminophen (*Crx) 10-325 Mg Tablet PO BID PRN Pain (Scale Score 7-10) Albuterol 2.5 mg 01/19/25 12:02 Albuterol Sulfate Neb 2.5 Mg/3 Ml Inh INHALATION Q4HRT PRN shortness of breath or wheezing Albuterol/Ipratropium 3 ml 01/18/25 20:00 01/20/25 07:33 Ipratropium 0.5 Mg/Albuterol Sulfate 2.5 Mg Ampul.Neb 3 Ml INHALATION 3 ml Q6HRT WILI Administration Baclofen 5 mg 01/19/25 13:00 01/20/25 09:13 Baclofen 5 Mg Tablet PO 5 mg TID WILI Administration Bisacodyl 10 mg 01/19/25 12:02 Bisacodyl 10 Mg Suppository RECTAL DAILY PRN constipation Carbamazepine 100 mg 01/18/25 21:00 01/20/25 09:12 Carbamazepine Xr 100 Mg Tab.Sr.12h PO 100 mg Q12HR WILI Administration Duloxetine HCl 60 mg 01/19/25 09:00 01/20/25 09:13 Duloxetine Hcl 60 Mg Capsule.Dr PO 60 mg QAM WILI Administration Enoxaparin Sodium 30 mg 01/19/25 09:00 01/20/25 09:12 Enoxaparin 30 Mg/0.3 Ml Syringe SUB-Q 30 mg DAILY WILI Administration Famotidine 20 mg 01/19/25 21:00 01/20/25 09:13 Famotidine 20 Mg Tablet PO 20 mg Q12HR WILI Administration Gemfibrozil 600 mg 01/19/25 16:30 01/20/25 06:19 Gemfibrozil 600 Mg Tablet PO 600 mg BIDAC WILI Administration Ceftriaxone Sodium 2 gm in 100 mls @ 200 mls/hr 01/18/25 21:00 01/19/25 22:08 Rocephin 2 Gm/Ns 100 Ml IVPB 200 mls/hr Q24H WILI Administration Azithromycin 500 mg in 250 mls @ 250 mls/hr 01/19/25 12:00 01/20/25 12:18 Zithromax IVPB 250 mls/hr Q24H WILI Administration Metronidazole 500 mg in 100 mls @ 100 mls/hr 01/18/25 17:00 01/20/25 09:13 Flagyl 500 Mg/Iso Soln 100 Ml IVPB 100 mls/hr Q8H WILI Administration Vancomycin HCl 750 mg in 250 mls @ 250 mls/hr 01/21/25 02:00 Vancomycin 750 Mg/Ns 250 Ml IVPB Q36H WILI Mupirocin 1 applic 01/19/25 12:30 01/20/25 09:13 Mupirocin 2% Oint 22 Gm Tube EACH NARE 01/23/25 21:01 1 applic Q12HR WILI Administration Radiology Results: ITS Impressions Chest X-Ray 01/18/25 10:43 IMPRESSION: 1. Increasing opacities in the right mid to lower and left lower lung zones consistent with pneumonia. 2. Small right pleural effusion. 3. Emphysema with chronic biapical pleural-parenchymal scarring and calcified pleural plaques. Chest CTA 01/18/25 12:35 IMPRESSION: 1. No pulmonary embolism 2. Right lower lobe pneumonia. Minimal left lower lobe pneumonia versus atelectasis. 3. Nodule in the left lower lobe measuring 8 mm. 6 months follow-up CT is advised. 4. Precarinal lymphadenopathy. 5. Emphysematous changes of the lungs. 6. Left kidney hydronephrotic changes. Further evaluation advised. Head CT 01/18/25 16:36 IMPRESSION: No acute intracranial findings. 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 MRI is advised for further evaluation Modified Barium Swallow 01/19/25 13:52 IMPRESSION: Patient tolerated regular consistency oral feedings in the upright position. Please correlate with speech pathologist findings and specific feeding recommendations. Labs Labs: Laboratory Results - last 24 hr 01/19/25 01/19/25 01/20/25 12:30 16:59 06:29 WBC 8.0 RBC 2.83 L Hgb 9.0 L Hct 28.8 L MCV 101.8 H MCH 31.8 MCHC 31.3 L RDW 14.0 Plt Count 215 MPV 10.0 Immature Gran % (Auto) 1.4 H Neut % (Auto) 62.1 Lymph % (Auto) 30.5 [place] % (Auto) 5.7 Eos % (Auto) 0.1 Baso % (Auto) 0.2 Lymph # (Auto) 2.45 [place] # (Auto) 0.5 Eos # (Auto) 0.0 Baso # (Auto) 0.0 Abs Immat Gran (auto) 0.11 H Absolute Neuts (auto) 5.0 Absolute Nucleated RBC 0.000 Nucleated RBC % 0.0 Sodium 140 Potassium 3.0 L Chloride 116 H Carbon Dioxide 15 L Anion Gap 9 BUN 26 H Creatinine 0.77 Estim Creat Clear Calc Estimated GFR Glucose Calcium Total Bilirubin AST ALT Alkaline Phosphatase Total Protein Albumin Vancomycin Trough < 5.0 L Influenza A (RT-PCR) Negative Influenza B (RT-PCR) Negative RSV (RT-PCR) Negative SARS-CoV-2 RNA (RT-PCR) Negative 01/20/25 01/20/25 01/20/25 06:29 06:29 06:29 WBC RBC Hgb Hct MCV MCH MCHC RDW Plt Count MPV Immature Gran % (Auto) Neut % (Auto) Lymph % (Auto) [place] % (Auto) Eos % (Auto) Baso % (Auto) Lymph # (Auto) [place] # (Auto) Eos # (Auto) Baso # (Auto) Abs Immat Gran (auto) Absolute Neuts (auto) Absolute Nucleated RBC Nucleated RBC % Sodium Potassium Chloride Carbon Dioxide Anion Gap BUN Creatinine 0.78 Estim Creat Clear Calc 33 33 Estimated GFR > 60 > 60 Glucose 108 Calcium 9.9 Total Bilirubin 0.2 AST 20 ALT 10 Alkaline Phosphatase 27 L Total Protein 5.0 L Albumin 2.7 L Vancomycin Trough Influenza A (RT-PCR) Influenza B (RT-PCR) RSV (RT-PCR) SARS-CoV-2 RNA (RT-PCR)
[2025-01-20] MEDS: HYDROcodone/acetaminophen (*CRX) 10-325 MG TABLET 1 TAB PO ×2 (12:46→20:58)
[2025-01-20] MEDS: CEFEPIME 1 GM/NS 50 ML 1 GM/50 ML BAG IVPB (16:16)
[2025-01-21] VITALS (7 sets, daily range): BP systolic 123–134; BP diastolic 66–76; PULSE 79–93; RESP 16–20; TEMP 35.9–37.2; O2SAT 94–98
[2025-01-21] MEDS: metroNIDAZOLE 500 MG/ISO 100ML 500 MG/100 ML BAG 100 MG IVPB (00:51)
[2025-01-21] MEDS: VANCOMYCIN 750 MG/NS 250 ML 750 MG/250 ML BAG 250 MG IVPB (02:23)
[2025-01-21] MEDS: CEFEPIME 1 GM/NS 50 ML 1 GM/50 ML BAG IVPB (04:45)
[2025-01-21] MEDS: gemfibroziL 600 MG TABLET PO ×2 (06:15→17:00)
[2025-01-21 06:23] LABS: Basophils Absolute Auto 0.1 K/mm3 (0.0-0.1); Basophils Percent Auto 0.6 % (0.2-1.2); Eosinophils Percent Auto 0.2 % (0-4.4); Hematocrit 28.9 % (37.0-47.0); Hemoglobin 9.4 g/dL (12.0-15.0); Immature Granulocyte Absolute 0.16 K/mm3 (0.00-0.031); Immature Granulocyte Percent A 1.9 % (0-0.5); Lymphocytes Absolute Auto 2.86 K/mm3 (0.9-3.2); Lymphocytes Percent Auto 33.6 % (18.3-44.2); Mean Corpuscular HGB Conc 32.5 g/dl (32-36); Mean Corpuscular Hemoglobin 31.5 pg (26-34); Mean Platelet Volume 9.7 fl (7.4-10.4); Monocytes Absolute Auto 0.5 K/mm3 (0.1-0.6); Monocytes Percent Auto 6.2 % (2.6-8.5); Neutrophils Absolute Auto 4.9 K/mm3 (1.3-6.7); Neutrophils Percent Auto 57.5 % (45.5-73.1); Platelet Count Result 245 k/mm3 (150-375); Red Blood Count 2.98 M/mm3 (4.2-5.4); Red Cell Distribution Width 13.9 % (11.5-14.5); White Blood Count 8.5 K/mm3 (4.5-10.0)
[2025-01-21 06:37] LABS: Alanine Aminotransferase 12 U/L (6-35); Albumin Level 2.9 g/dL (3.5-5.1); Alkaline Phosphatase 33 U/L (38-126); Anion Gap 8 mmol/L (4-12); Aspartate Amino Transferase 18 U/L (14-36); Bilirubin,Total 0.3 mg/dL (0.2-1.3); Blood Urea Nitrogen 17 mg/dL (7-17); Calcium 9.6 mg/dL (8.4-10.2); Carbon Dioxide 21 mmol/L (22-30); Chloride 108 mmol/L (98-107); Estimated CRCL calculation 35 ml/min; Estimated Glomerular Filt Rate > 60; Glucose 105 mg/dL (65-110); Potassium 3.4 mmol/L (3.4-5.0); Sodium 137 mmol/L (137-145)
[2025-01-21] MEDS: ENOXAPARIN 40 MG/0.4 ML SYRINGE SUB-Q (09:14)
[2025-01-21] MEDS: levoFLOXacin 750 MG TABLET PO (09:14)
[2025-01-21] MEDS: FAMOTIDINE 20 MG TABLET PO (09:14)
[2025-01-21] MEDS: DULoxetine HCL 60 MG CAPSULE.DR PO (09:15)
[2025-01-21] MEDS: MUPIROCIN 2% OINT 22 GM TUBE 1 APPLIC EACH NARE (09:15)
[2025-01-21] MEDS: CARBAMAZEPINE XR 100 MG TAB.SR.12H PO (09:15)
[2025-01-21] MEDS: BACLOFEN 5 MG TABLET PO ×3 (09:15→17:00)
--- NOTE | 2025-01-21 09:18 | P.PNUR_ITS ---
Progress Note: A&P Assessment and Plan (1) Hydronephrosis, left: Code(s): N13.30 - Unspecified hydronephrosis Status: Acute Assessment and Plan: * Renal ultrasound 01/20/2025 shows moderate hydronephrosis which has been present since at least 07/2024, suspected due to incomplete bladder emptying. * LYNNE also suggestive of possible left renal stone 6-[address] 07/24 also showed likely renal stones. This is unlikely to be contributing to her hydronephrosis and given her medical comorbidities and that she is asymptomatic with normal renal function, would recommend continued observation * Creatinine remaining stable at 0.73. * Urine culture with growth of E. coli, resistant to Augmentin and Ceftriaxone. Continue cefepime. Can transition to p.o. Macrobid when appropriate per primary team (Bactrim allergy noted). Subjective Subjective Date/Time Seen: 01/21/25 09:18 Interval history: Else is feeling well today. She offers no complaints at this time aside from chronic back pain. She is a poor historian and unable to answer questions appropriately. Review of Systems Review of Systems: ROS unobtainable: Yes unobtainable due to mental status Exam Narrative: General: Awake, alert, comfortable, no acute distress HEENT: Normocephalic, atraumatic, sclerae anicteric Respiratory: Normal respiratory effort, no accessory muscle use Skin: Normal coloration, warm and dry Neurologic: No focal neuro deficits noted Psychiatric: Appropriate mood, judgment and insight poor Objective Data Vital Signs Vital Signs: Vital Signs - 24 hr 01/20/25 13:18 01/20/25 13:25 01/20/25 14:00 Temperature 98.4 F Pulse Rate 77 78 86 Respiratory Rate 20 20 16 Blood Pressure 109/50 L Pulse Oximetry 90 Oxygen Delivery Oxygen Flow Rate Fraction of Inspired Oxygen 01/20/25 20:00 01/20/25 20:20 01/20/25 20:30 Temperature Pulse Rate 85 82 Respiratory Rate 20 20 Blood Pressure Pulse Oximetry 92 Oxygen Delivery Nasal Cannula Oxygen Flow Rate 2 Fraction of Inspired Oxygen 01/20/25 20:49 01/20/25 21:21 01/21/25 06:00 Temperature 99.0 F 99.0 F Pulse Rate 85 85 Respiratory Rate 16 16 Blood Pressure 118/55 L 123/66 Pulse Oximetry 92 93 94 Oxygen Delivery Nasal Cannula Oxygen Flow Rate 2 Fraction of Inspired Oxygen 28 Intake/Output Intake/Output: Intake & Output 01/18/25 01/19/25 01/20/25 01/21/25 23:59 23:59 23:59 23:59 Intake Total 1999 3270 620 0 Output Total 300 200 Balance 1999 3270 320 -200 Meds/Results Medications: Active Medications Generic Name Dose Route Start Last Admin Trade Name Freq PRN Reason Stop Dose Admin Acetaminophen 650 mg 01/19/25 12:02 Acetaminophen 325 Mg Tablet PO Q4H PRN pain Hydrocodone Bitart/Acetaminophen 1 tab 01/19/25 12:02 01/20/25 20:58 Hydrocodone/Acetaminophen (*Crx) 10-325 Mg Tablet PO 1 tab BID PRN Administration Pain (Scale Score 7-10) Albuterol 2.5 mg 01/19/25 12:02 Albuterol Sulfate Neb 2.5 Mg/3 Ml Inh INHALATION Q4HRT PRN shortness of breath or wheezing Albuterol/Ipratropium 3 ml 01/18/25 20:00 01/21/25 04:36 Ipratropium 0.5 Mg/Albuterol Sulfate 2.5 Mg Ampul.Neb 3 Ml INHALATION Not Given Q6HRT WILI Baclofen 5 mg 01/19/25 13:00 01/21/25 09:15 Baclofen 5 Mg Tablet PO 5 mg TID WILI Administration Bisacodyl 10 mg 01/19/25 12:02 Bisacodyl 10 Mg Suppository RECTAL DAILY PRN constipation Carbamazepine 100 mg 01/18/25 21:00 01/21/25 09:15 Carbamazepine Xr 100 Mg Tab.Sr.12h PO 100 mg Q12HR WILI Administration Duloxetine HCl 60 mg 01/19/25 09:00 01/21/25 09:15 Duloxetine Hcl 60 Mg Capsule.Dr PO 60 mg QAM WILI Administration Enoxaparin Sodium 40 mg 01/21/25 09:00 01/21/25 09:14 Enoxaparin 40 Mg/0.4 Ml Syringe SUB-Q 40 mg DAILY WILI Administration Famotidine 20 mg 01/19/25 21:00 01/21/25 09:14 Famotidine 20 Mg Tablet PO 20 mg Q12HR WILI Administration Gemfibrozil 600 mg 01/19/25 16:30 01/21/25 06:15 Gemfibrozil 600 Mg Tablet PO 600 mg BIDAC WILI Administration Levofloxacin 750 mg 01/21/25 09:00 01/21/25 09:14 Levofloxacin 750 Mg Tablet PO 01/27/25 09:01 750 mg Q48H WILI Administration Mupirocin 1 applic 01/19/25 12:30 01/21/25 09:15 Mupirocin 2% Oint 22 Gm Tube EACH NARE 01/23/25 21:01 1 applic Q12HR WILI Administration Radiology Results: ITS Impressions Chest X-Ray 01/18/25 10:43 IMPRESSION: 1. Increasing opacities in the right mid to lower and left lower lung zones consistent with pneumonia. 2. Small right pleural effusion. 3. Emphysema with chronic biapical pleural-parenchymal scarring and calcified pleural plaques. Chest CTA 01/18/25 12:35 IMPRESSION: 1. No pulmonary embolism 2. Right lower lobe pneumonia. Minimal left lower lobe pneumonia versus atelectasis. 3. Nodule in the left lower lobe measuring 8 mm. 6 months follow-up CT is advised. 4. Precarinal lymphadenopathy. 5. Emphysematous changes of the lungs. 6. Left kidney hydronephrotic changes. Further evaluation advised. Head CT 01/18/25 16:36 IMPRESSION: No acute intracranial findings. 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 MRI is advised for further evaluation Modified Barium Swallow 01/19/25 13:52 IMPRESSION: Patient tolerated regular consistency oral feedings in the upright position. Please correlate with speech pathologist findings and specific feeding recommendations. Renal Ultrasound 01/20/25 17:34 IMPRESSION: Right kidney stones with moderate hydronephrosis. Labs Labs: Laboratory Results - last 24 hr 01/21/25 06:03 WBC 8.5 RBC 2.98 L Hgb 9.4 L Hct 28.9 L MCV 97.0 MCH 31.5 MCHC 32.5 RDW 13.9 Plt Count 245 MPV 9.7 Immature Gran % (Auto) 1.9 H Neut % (Auto) 57.5 Lymph % (Auto) 33.6 [place] % (Auto) 6.2 Eos % (Auto) 0.2 Baso % (Auto) 0.6 Lymph # (Auto) 2.86 [place] # (Auto) 0.5 Eos # (Auto) 0.0 Baso # (Auto) 0.1 Abs Immat Gran (auto) 0.16 H Absolute Neuts (auto) 4.9 Absolute Nucleated RBC 0.000 Nucleated RBC % 0.0 Sodium 137 Potassium 3.4 Chloride 108 H Carbon Dioxide 21 L Anion Gap 8 BUN 17 Creatinine 0.73 Estim Creat Clear Calc 35 Estimated GFR > 60 Glucose 105 Calcium 9.6 Total Bilirubin 0.3 AST 18 ALT 12 Alkaline Phosphatase 33 L Total Protein 5.0 L Albumin 2.9 L
[2025-01-21] MEDS: IPRATROPIUM 0.5 MG/ALBUTEROL SULFATE 2.5 MG AMPUL.NEB 3 ML INHALATION ×2 (10:01→14:28)
--- NOTE | 2025-01-21 13:21 | PCNFU ---
Nutrition Follow-Up Complete: Inadequate oral intake related to loss of appetite as evidenced by BMI Intakes >75% - Progressing. Intakes improved last 48 hours. Continue wtih same goal Goal: Pt current nutrition is Diabetic consistent carbs. Glucerna BID (220 kcal, 10 g protein each) Nutrition recommendation: No new recommendations. Continue current nutrition care plan and orders. Agree with orders Last recorded weight is 45.8 kg. Bowel Motility: +1 01/19/25 Labs Reviewed: Hgb 9.4, Hct 28.9, Alb 2.9 Meds Noted: Pepcid, dulcolax Skin: No skin issues noted Additional Notes: Intakes have improved to 15-50% last 48 hours. Pt may discharge soon per notes. Continue current nutrition care plan and orders. Monitoring intakes, weights, labs, supplement tolerance, plan of care Follow up in3 days
--- NOTE | 2025-01-21 14:10 | P.PNIM_ITS ---
Progress Note: A&P Assessment and Plan (1) Hydronephrosis, left: Code(s): N13.30 - Unspecified hydronephrosis Status: Acute Assessment and Plan: * Renal ultrasound 01/20/2025 shows moderate hydronephrosis which has been present since at least 07/2024, suspected due to incomplete bladder emptying. * LYNNE also suggestive of possible left renal stone 6-[address] 07/24 also showed likely renal stones. This is unlikely to be contributing to her hydronephrosis and given her medical comorbidities and that she is asymptomatic with normal renal function, would recommend continued observation * Creatinine remaining stable at 0.73. * Urine culture with growth of E. coli, resistant to Augmentin and Ceftriaxone. Continue cefepime. Can transition to p.o. Macrobid when appropriate per primary team (Bactrim allergy noted). (2) Altered mental status: Code(s): R41.82 - Altered mental status, unspecified Status: Acute Assessment and Plan: * Head CT: No acute intracranial findings. 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 MRI advised * CXR: Increased opacities in the right mid to lower and left lower lung zones consistent with pneumonia. Small right pleural effusion. Emphysema with chronic biapical pleural parenchymal scarring * UA: 3+ Leukocyte esterase, >100 WBC, 4+ bacteria, positive nitrate, trace ketones, 2+ blood * Viral PCR: Pending * WBC: On admission 16.1. * 01/20: WBC 8.0 * Likely secondary to underlying pneumonia, however patient is A&O x1 at baseline (3) Pneumonia: Code(s): J18.9 - Pneumonia, unspecified organism Status: Acute Assessment and Plan: * CXR: Increased opacities in the right mid to lower and left lower lung zones consistent with pneumonia. Small right pleural effusion. Emphysema with chronic biapical pleural parenchymal scarring * started on CAP tx: azithromycin & ceftriaxone * Viral PCR: negative for Flu/COVID/RSV * Consider ordering legionella, mycoplasma and pneumococcal * supportive treatment * trend labs * Monitor vital signs, I&Os, neuro status and patient is a fall risk * Follow WBC, serum electrolytes, temperature curves and cultures * Send sputum cultures * Gentle IV fluid resuscitation * Normal respiratory effort on exam * Afebrile, respiratory rate and O2 saturation within normal limits * Will discontinue ceftriaxone as UTI is resistant * Initiate cefepime (4) Acute hypoxic respiratory failure: Code(s): J96.01 - Acute respiratory failure with hypoxia Status: Acute Assessment and Plan: * In ED SpO2: 97% on 8 L simple face mask * Suspected cause: Pneumonia * EKG: Sinus tachycardia, rate 102, QTC 399, QRS 78 * Chest XR: Increased opacities in the right mid to lower and left lower lung zones consistent with pneumonia. Small right pleural effusion. Emphysema with chronic biapical pleural parenchymal scarring * Chest CTA: No PE, RLL pneumonia, minimal left lower lobe pneumonia versus atelectasis. Nodule in left lower lobe measuring 8 mm, 6 month follow-up CT advised. Pre renal lymphadenopathy, emphysematous changes of lungs * See plan above (5) UTI (urinary tract infection): Qualifiers: Hematuria presence: with hematuria Urinary tract infection type: acute cystitis Qualified Code(s): N30.01 - Acute cystitis with hematuria Code(s): N39.0 - Urinary tract infection, site not specified Status: Inactive Assessment and Plan: - UA: 3+ Leukocyte esterase, >100 WBC, 4+ bacteria, positive nitrate, trace ketones, 2+ blood - UC obtained on 01/18, still pending at this time - previous micro reviewed on 12/27 -E coli - started on Rocephin and azithromycin - discontinue Rocephin, add cefepime (6) 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: Code(s): Z22.322 - Carrier or suspected carrier of Methicillin resistant Staphylococcus aureus Status: Acute Assessment and Plan: * MRSA positive detected on 01/19 * Started on vancomycin * Mupirocin ointment for each nare (7) Hypokalemia: Code(s): E87.6 - Hypokalemia Status: Acute Assessment and Plan: * Upon admission: 3.9 * 01/20, potassium 3.0 * Will supplement as needed, 40 mEq supplement * Monitor daily labs Subjective Date/time seen: 01/21/25 14:10 Interval history: 85 yo female with PMH of Trigeminal neuralgia, Vit D deficiency, chronic pain syndrome, cancer right breast, CLL, COPD, Depression, SCC and melanoma, who was brought to the ER on account of AMS. patient was lethargic and nonverbal at the time of this encounter. 01/21/2025 Review of Systems Review of Systems: All other systems systems reviewed and negative except as noted in history above who ROS unobtainable: Yes unobtainable due to mental status Exam Narrative: General: Awake, alert, comfortable, no acute distress HEENT: Normocephalic, atraumatic, sclerae anicteric Respiratory: Normal respiratory effort, no accessory muscle use Skin: Normal coloration, warm and dry Neurologic: No focal neuro deficits noted Psychiatric: Appropriate mood, judgment and insight poor Objective Data Vital Signs Vital Signs: Vital Signs - 24 hr 01/20/25 20:00 01/20/25 20:20 01/20/25 20:30 Temperature Pulse Rate 85 82 Respiratory Rate 20 20 Blood Pressure Pulse Oximetry 92 Oxygen Delivery Nasal Cannula Oxygen Flow Rate 2 Fraction of Inspired Oxygen 01/20/25 20:49 01/20/25 21:21 01/21/25 06:00 Temperature 99.0 F 99.0 F Pulse Rate 85 85 Respiratory Rate 16 16 Blood Pressure 118/55 L 123/66 Pulse Oximetry 92 93 94 Oxygen Delivery Nasal Cannula Oxygen Flow Rate 2 Fraction of Inspired Oxygen 28 01/21/25 10:03 01/21/25 10:03 01/21/25 10:10 Temperature Pulse Rate 87 79 Respiratory Rate 18 20 Blood Pressure Pulse Oximetry 95 Oxygen Delivery Nasal Cannula Oxygen Flow Rate 2 Fraction of Inspired Oxygen 01/21/25 13:42 Temperature 96.6 F L Pulse Rate 93 Respiratory Rate 20 Blood Pressure 134/76 Pulse Oximetry 98 Oxygen Delivery Oxygen Flow Rate Fraction of Inspired Oxygen Intake/Output Intake/Output: Intake & Output 01/18/25 01/19/25 01/20/25 01/21/25 23:59 23:59 23:59 23:59 Intake Total 1999 3270 620 120 Output Total 300 200 Balance 1999 3270 320 -80 Meds/Results Medications: Active Medications Generic Name Dose Route Start Last Admin Trade Name Freq PRN Reason Stop Dose Admin Acetaminophen 650 mg 01/19/25 12:02 Acetaminophen 325 Mg Tablet PO Q4H PRN pain Hydrocodone Bitart/Acetaminophen 1 tab 01/19/25 12:02 01/20/25 20:58 Hydrocodone/Acetaminophen (*Crx) 10-325 Mg Tablet PO 1 tab BID PRN Administration Pain (Scale Score 7-10) Albuterol 2.5 mg 01/19/25 12:02 Albuterol Sulfate Neb 2.5 Mg/3 Ml Inh INHALATION Q4HRT PRN shortness of breath or wheezing Albuterol/Ipratropium 3 ml 01/18/25 20:00 01/21/25 10:01 Ipratropium 0.5 Mg/Albuterol Sulfate 2.5 Mg Ampul.Neb 3 Ml INHALATION 3 ml Q6HRT WILI Administration Baclofen 5 mg 01/19/25 13:00 01/21/25 13:25 Baclofen 5 Mg Tablet PO 5 mg TID WILI Administration Bisacodyl 10 mg 01/19/25 12:02 Bisacodyl 10 Mg Suppository RECTAL DAILY PRN constipation Carbamazepine 100 mg 01/18/25 21:00 01/21/25 09:15 Carbamazepine Xr 100 Mg Tab.Sr.12h PO 100 mg Q12HR WILI Administration Duloxetine HCl 60 mg 01/19/25 09:00 01/21/25 09:15 Duloxetine Hcl 60 Mg Capsule.Dr PO 60 mg QAM WILI Administration Enoxaparin Sodium 40 mg 01/21/25 09:00 01/21/25 09:14 Enoxaparin 40 Mg/0.4 Ml Syringe SUB-Q 40 mg DAILY WILI Administration Famotidine 20 mg 01/19/25 21:00 01/21/25 09:14 Famotidine 20 Mg Tablet PO 20 mg Q12HR WILI Administration Gemfibrozil 600 mg 01/19/25 16:30 01/21/25 06:15 Gemfibrozil 600 Mg Tablet PO 600 mg BIDAC WILI Administration Levofloxacin 750 mg 01/21/25 09:00 01/21/25 09:14 Levofloxacin 750 Mg Tablet PO 01/27/25 09:01 750 mg Q48H WILI Administration Mupirocin 1 applic 01/19/25 12:30 01/21/25 09:15 Mupirocin 2% Oint 22 Gm Tube EACH NARE 01/23/25 21:01 1 applic Q12HR WILI Administration Radiology Results: ITS Impressions Chest X-Ray 01/18/25 10:43 IMPRESSION: 1. Increasing opacities in the right mid to lower and left lower lung zones consistent with pneumonia. 2. Small right pleural effusion. 3. Emphysema with chronic biapical pleural-parenchymal scarring and calcified pleural plaques. Chest CTA 01/18/25 12:35 IMPRESSION: 1. No pulmonary embolism 2. Right lower lobe pneumonia. Minimal left lower lobe pneumonia versus atelectasis. 3. Nodule in the left lower lobe measuring 8 mm. 6 months follow-up CT is advised. 4. Precarinal lymphadenopathy. 5. Emphysematous changes of the lungs. 6. Left kidney hydronephrotic changes. Further evaluation advised. Head CT 01/18/25 16:36 IMPRESSION: No acute intracranial findings. 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 MRI is advised for further evaluation Modified Barium Swallow 01/19/25 13:52 IMPRESSION: Patient tolerated regular consistency oral feedings in the upright position. Please correlate with speech pathologist findings and specific feeding recommendations. Renal Ultrasound 01/20/25 17:34 IMPRESSION: Right kidney stones with moderate hydronephrosis. Labs Labs: Laboratory Results - last 24 hr 01/21/25 06:03 WBC 8.5 RBC 2.98 L Hgb 9.4 L Hct 28.9 L MCV 97.0 MCH 31.5 MCHC 32.5 RDW 13.9 Plt Count 245 MPV 9.7 Immature Gran % (Auto) 1.9 H Neut % (Auto) 57.5 Lymph % (Auto) 33.6 [place]ball % (Auto) 6.2 Eos % (Auto) 0.2 Baso % (Auto) 0.6 Lymph # (Auto) 2.86 [place] # (Auto) 0.5 Eos # (Auto) 0.0 Baso # (Auto) 0.1 Abs Immat Gran (auto) 0.16 H Absolute Neuts (auto) 4.9 Absolute Nucleated RBC 0.000 Nucleated RBC % 0.0 Sodium 137 Potassium 3.4 Chloride 108 H Carbon Dioxide 21 L Anion Gap 8 BUN 17 Creatinine 0.73 Estim Creat Clear Calc 35 Estimated GFR > 60 Glucose 105 Calcium 9.6 Total Bilirubin 0.3 AST 18 ALT 12 Alkaline Phosphatase 33 L Total Protein 5.0 L Albumin 2.9 L Quality VTE Prophylaxis VTE prophylaxis: pharmacologic ordered
--- NOTE | 2025-01-21 15:15 | PM.DS ---
DS: Admitting Diagnosis Discharge Date 01/21/2025 Admitting Diagnosis UTI, pneumonia, altered mental status, acute hypoxic respiratory failure DS: Discharge Diagnosis Discharge Diagnosis (1) Hydronephrosis, left: Code(s): N13.30 - Unspecified hydronephrosis Status: Acute (2) Altered mental status: Code(s): R41.82 - Altered mental status, unspecified Status: Acute (3) Pneumonia: Code(s): J18.9 - Pneumonia, unspecified organism Status: Acute (4) Acute hypoxic respiratory failure: Code(s): J96.01 - Acute respiratory failure with hypoxia Status: Acute (5) UTI (urinary tract infection): Qualifiers: Hematuria presence: with hematuria Urinary tract infection type: acute cystitis Qualified Code(s): N30.01 - Acute cystitis with hematuria Code(s): N39.0 - Urinary tract infection, site not specified Status: Inactive (6) 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: Code(s): Z22.322 - Carrier or suspected carrier of Methicillin resistant Staphylococcus aureus Status: Acute (7) Hypokalemia: Code(s): E87.6 - Hypokalemia Status: Acute DS: Summary Hospital Course Reason for hospitalization: altered mental status Hospital Course: 85 yo female with PMH of Trigeminal neuralgia, Vit D deficiency, chronic pain syndrome, cancer right breast, CLL, COPD, Depression, SCC and melanoma, who was brought to the ER on account of AMS. patient was lethargic and nonverbal at the time of this encounter. Per ER provider patient was managed [facility] before she was found to be altered today with hypoxemia with O2 sats in the 80s. it appears she as on Augmentin and Azithromycin. ER eval notable for AL 116, RR 24, BP 104/58 on 4 liters oxygen. Labs notable for WBC 16.1, Cr 1.11, BUN 30, UA notable for Nitrates, leukocyte esterase adn pyuria. CT chest showed showed right lower lobe pneumonia with minimal left lower lobe, and left kidney hydronephrosis Patient was started on antibiotics blood and urine culture were sent prior to admission. Patient was admitted for altered mental status which is likely secondary to underlying pneumonia. She has an O x1 at baseline, CT of the head was unremarkable. Also admitted for acute hypoxemic respiratory failure, CT shows right lower lobe pneumonia which is likely the etiology. Upon review of documentation, patient is on O2 supplementation at baseline. Will obtain home O2 eval at discharge for further oxygen supplementation needs. Blood cultures were obtained and were negative for growth. Urine culture was obtained which showed growth of E coli it with likely ESBL. Patient is susceptible to levofloxacin. Throughout hospitalization she remained on IV antibiotics until on 01/21 she was transitioned to oral antibiotics. Upon discharge she will be given a prescription for further levofloxacin given susceptibility. Throughout hospitalization she has been weaned down to 2 L of nasal cannula as needed with O2 saturations in the 90s. Urology was consulted regarding hydronephrosis the left ureter. Renal ultrasound on 01/20 showed moderate hydronephrosis which has been present since at least 07/2020 for, likely secondary to incomplete bladder emptying. Are U.S. shows possible left renal stone 6-8 mm, consistent with previous imaging. Likely noncontributory to hydronephrosis, recommend continued observation. Creatinine remains stable. Leukocytosis upon admission has resolved and has remained within normal limits. Patient remains afebrile as well. Physical exam remains reassuring and patient is otherwise hemodynamically stable and no longer requires hospitalization at this time. She has been transitioned to oral antibiotics and will have home O2 evaluation prior to discharge. She will be discharged with 3 additional doses of Levaquin q.48h. Plan for discharge back to [facility]. Status at Discharge Functional status at discharge: uses cane/walker Overall status at discharge: patient is progressing back to baseline Time Spent with Patient Time attestation: Total time spent providing and/or coordinating discharge services:45 Exam Narrative: General: Awake, alert, comfortable, no acute distress HEENT: Normocephalic, atraumatic, sclerae anicteric Respiratory: Normal respiratory effort, no accessory muscle use Skin: Normal coloration, warm and dry Neurologic: No focal neuro deficits noted Psychiatric: Appropriate mood, judgment and insight poor DS: Data Data Completed and Pending Labs on day of discharge: Labs from last 24 hours 01/21/25 06:03 WBC 8.5 RBC 2.98 L Hgb 9.4 L Hct 28.9 L MCV 97.0 MCH 31.5 MCHC 32.5 RDW 13.9 Plt Count 245 MPV 9.7 Immature Gran % (Auto) 1.9 H Neut % (Auto) 57.5 Lymph % (Auto) 33.6 Gray % (Auto) 6.2 Eos % (Auto) 0.2 Baso % (Auto) 0.6 Lymph # (Auto) 2.86 Gray # (Auto) 0.5 Eos # (Auto) 0.0 Baso # (Auto) 0.1 Abs Immat Gran (auto) 0.16 H Absolute Neuts (auto) 4.9 Absolute Nucleated RBC 0.000 Nucleated RBC % 0.0 Sodium 137 Potassium 3.4 Chloride 108 H Carbon Dioxide 21 L Anion Gap 8 BUN 17 Creatinine 0.73 Estim Creat Clear Calc 35 Estimated GFR > 60 Glucose 105 Calcium 9.6 Total Bilirubin 0.3 AST 18 ALT 12 Alkaline Phosphatase 33 L Total Protein 5.0 L Albumin 2.9 L Preliminary micro results at discharge 01/18/25 10:50 Blood Culture - Preliminary Blood 01/18/25 09:51 Blood Culture - Preliminary Blood Discharge Plan Discharge Attending physician on discharge: Tyrell Hines Consulting providers: Addi Watters; Leroy Gibbons Discharging Clinician: Leroy Gibbons Anticipated Discharge Date/Time: 01/21/25 15:10 Patient Disposition: NH [facility] Living Activity: as tolerated Diet: as tolerated Discharge Instructions: Discharge disposition: Stable Take medications as prescribed. You will be prescribed 3 additional doses of Levaquin. Monitor blood pressures Take caution while standing, rising, or moving Change positions slowly taking a break between each position change If you standing feel dizzy sit back down and take a break Encouraged to continue with yearly vaccinations Return to the emergency department if he developed sudden shortness of breath, chest pain, nausea, vomiting, upset stomach or intractable diarrhea Return to the emergency department if you develop fever greater than 101.5 Follow-up with the primary care physician within 1-2 weeks Thank you for [facility] for your healthcare needs Patient Instructions: Antibiotic Form Patient Language: Cuban Stand Alone Forms: General Discharge Information Follow-up/Referrals: PHYSICIAN NOT ON STAFF,NONSTAFF [Primary Care Provider] - Discharge Medications: New levofloxacin 750 mg tablet 750 mg PO Q48H Qty: 3 0RF Continued famotidine 20 mg tablet 20 mg PO Q12HR Qty: 180 1RF hydrocodone-acetaminophen 10-325 mg tablet 1 tablet PO BID PRN (Reason: Pain (Scale Score 7-10)) Qty: 10 0RF Rx Instructions: for breakthrough pain polyethylene glycol 3350 [Miralax] 17 gram Powder In Packet 17 g PO QAM PRN (Reason: Constipation) Qty: 14 0RF baclofen 5 mg tablet 5 mg PO TID gemfibrozil 600 mg tablet 600 mg PO BID acetaminophen 325 mg capsule 650 mg PO Q4H PRN (Reason: pain) albuterol sulfate 2.5 mg /3 mL (0.083 %) solution for nebulization 2.5 mg inhalation Q4H PRN (Reason: shortness of breath or wheezing) Rx Instructions: through 01/25/2025 bisacodyl 10 mg suppository 10 mg RECTAL DAILY PRN (Reason: constipation) Rx Instructions: if no results from MOM magnesium citrate Solution 296 ml PO DAILY PRN (Reason: constipation) Rx Instructions: if no result from enema. if no result within 1 hour of completion of bowel protocol, contact MD immediately for further orders Enema 19-7 gram/118 mL enema 118 ml RECTAL DAILY PRN (Reason: constipation) Rx Instructions: if no results 1 day after suppository if no result magnesium hydroxide [Milk of Magnesia] 400 mg/5 mL suspension 30 ml PO HS PRN (Reason: constipation) Rx Instructions: if no bm in 3 days carbamazepine [Tegretol XR] 100 mg tablet extended release 12 hr 100 mg PO Q12H albuterol sulfate [Ventolin HFA] 90 mcg/actuation HFA aerosol inhaler 2 inh inhalation Q4H PRN (Reason: shortness of breath or wheezing) duloxetine [Cymbalta] 30 mg capsule,delayed release(DR/EC) 60 mg PO QAM Date of admission: 01/19/25 13:07 Primary Care Provider: PHYSICIAN NOT ON STAFF,NONSTAFF Admitting Provider: Aby Gordillo Attending physician on admission: Aby Gordillo Condition: Improved Quality VTE Prophylaxis VTE prophylaxis: pharmacologic ordered
--- NOTE | 2025-01-21 16:02 | PCRCNOTE ---
Patient resides in [facility], home O2 eval not needed as the skilled staff at facility can titrate pt O2 as needed. No need for home O2 set-up with [id number]+, O2 equipment available at SNF.
== END 2025-01-21 20:20 | DRG 193 ==
LOC: ANHED 13:27 → ANH3MEDSUR 14:05
PROVIDERS: Admitting Provider Internal Medicine; Emergency Provider Physician Assistant; Visit Provider Physician Assistant
DX: J18.9 Pneumonia, unspecified organism (principal); J96.01 Acute respiratory failure with hypoxia; C91.10 Chronic lymphocytic leukemia of B-cell type not having achieved remission; D84.9 Immunodeficiency, unspecified; J44.0 Chronic obstructive pulmonary disease with (acute) lower respiratory infection; N13.6 Pyonephrosis; E87.6 Hypokalemia; E55.9 Vitamin D deficiency, unspecified; E11.9 Type 2 diabetes mellitus without complications; K21.9 Gastro-esophageal reflux disease without esophagitis; M81.0 Age-related osteoporosis without current pathological fracture; M06.9 Rheumatoid arthritis, unspecified; M19.90 Unspecified osteoarthritis, unspecified site; G89.4 Chronic pain syndrome; F17.210 Nicotine dependence, cigarettes, uncomplicated; F32.A Depression, unspecified; Z20.822 Contact with and (suspected) exposure to COVID-19; Z79.891 Long term (current) use of opiate analgesic; Z85.3 Personal history of malignant neoplasm of breast; Z85.820 Personal history of malignant melanoma of skin; Z85.828 Personal history of other malignant neoplasm of skin; Z22.322 Carrier or suspected carrier of Methicillin resistant Staphylococcus aureus
CPT/HCPCS: 36415; 70450; 71046; 71275; 76775; 80053; 80202; 81001; 81003; 82565; 82948; 83605; 83735; 85025; 87040; 87086; 87186; 87637; 87641; 92610; 92611; 93005; 94640; 96361; 96365; 96367; 99291; A9270; G0378; J0456; J0692; J0696; J1650; J1836; J3370; J7030; J7040; Q9967

== ENCOUNTER 2025-01-26 13:59 | Emergency (ER) | payer MEDICARE, MEDICAID, SELFPAY ==
--- NOTE | ~2025-01-26 | XR_ITS ---
EXAMINATION: XR chest 1V Exam Date/Time: 01/26/2025 15:30 CDT HISTORY: recent PNA Comparison: 01/18/2025; CTPA 01/18/2025. RESULT: Lines, tubes, and devices: Right axillary clips. Lungs and pleura: Rightward rotation. Improved aeration of the bilateral lung bases. Right costophre toshia angle blunting. And emphysematous change. Biapical pleural scarring and calcification. Cardiomediastinal silhouette: Stable. Other: No acute osseous or upper abdominal finding. IMPRESSION: Improving bilateral lower lobe airspace disease. Small right pleural effusion versus chronic pleural blunting. Reviewed, dictated and finalized at location K. IMPRESSION: Improving bilateral lower lobe airspace disease. Small right pleural effusion v ersus chronic pleural blunting.
--- NOTE | ~2025-01-26 | CT_ITS ---
EXAMINATION: CT brain wo con DATE: 01/26/2025 15:32 INDICATION: ams . TECHNIQUE: Computed tomography (CT) of the head was performed without intravenous contrast. The mA wa s adjusted according to patient size. Iterative reconstruction technique was employed. The dose-lengt h product was 681.00 mGy-cm. COMPARISON: 01/18/2025. FINDINGS: No acute intracranial hemorrhage or extra-axial fluid collection. No hydrocephalus, mass, or herniation. No acute ischemic infarct. Unremarkable dural venous sinus attenuation. No acute osseous abnormality. Aerated secretions in the right sphenoid sinus, mucosal thickening and partial opacification of multi ple ethmoid sinuses, the remaining aerated spaces are clear. Mild atrophy and moderate chronic white matter change. Atherosclerotic intracranial calcification. Bi lateral lens replacements. IMPRESSION: No acute intracranial process. Possible acute right sphenoid sinusitis. Reviewed, dictated and finalized at location K.
[2025-01-26 14:10] VITALS: BP 127/61; PULSE 80; RESP 18; TEMP 36.8; O2SAT 98
--- NOTE | 2025-01-26 14:47 | ECG_ITS ---
Test Date: 2025-01-26 16:08:09 Measurements Intervals [place] Rate: 71 P: 60 CA: 124 QRS: 73 QRSD: 94 T: 76 QT: 409 QTc: 445 Interpretive Statements SINUS RHYTHM WITH OCCASIONAL VENTRICULAR PREMATURE COMPLEXES BASELINE ARTIFACT- V5 BORDERLINE ECG Compared to ECG 01/18/2025 09:33:07 HEART RATE HAS DECREASED Ventricular premature complex(es) now present Electronically Signed On 01-26-2025 20:07:50 CDT by He Salazar D.O.
[2025-01-26 15:11] LABS: Base Excess ABG -0.8 mEq/l (+/-2.0); Carboxyhemoglobin 0.5 % THb (0-2.0); Device NASAL CANNULA; Fractional Inspired Oxygen 28 %; HCO3 ABG 23.2 mEq/l (22.0-26.0); Methemoglobin ABG 0.2 %THb (0-1.5); Modified Allen's Test Pass; Oxygen Content ABG 15.3 %vol (16.0-22.0); Oxygen Saturation ABG 94.7 % (95.0-100.0); Oxyhemoglobin 93.3 % THb (90.0-100.0); PCO2 ABG 35.7 mmHg (35.0-45.0); PO2 ABG 70.5 mmHg (80.0-100.0); PO2 FiO2 Ratio Arterial Blood 2.52 %; Site Drawn RIGHT RADIAL; Total Hemoglobin 11.6 g/dL (12.0-18.0)
--- NOTE | 2025-01-26 15:47 | ED_ITS ---
HPI - General Adult General Chief complaint: Unspecified Stated complaint: failure to thrive Time Seen by Provider: 01/26/25 14:06 Source: patient Mode of arrival: EMS Limitations: clinical condition History of Present Illness HPI narrative: Patient is an 85-year-old female, with past medical history of dementia, RA, CLL, who presents the ED via EMS with report of failure to thrive. Patient is a resident of [facility]. Per intermediate report, patient had decreased responsiveness today, has not been eating or drinking. Patient is somewhat uncooperative, but is able to respond to questioning. Denies any pain. Patient was recently admitted to the hospital here for pneumonia and new oxygen requirement. Chronically now on 2-3L NC. Related Data Home Medications ?Medication ?Instructions ?Recorded ?Confirmed ?Last Taken ?Type acetaminophen 325 mg capsule 650 mg PO Q4H PRN pain 01/18/25 01/18/25 Unknown History albuterol sulfate 2.5 mg/3 mL 2.5 mg inhalation Q4H PRN 01/18/25 01/18/25 Unknown History (0.083 %) solution for nebulization shortness of breath or wheezing albuterol sulfate 90 mcg/actuation 2 inh inhalation Q4H PRN shortness 01/18/25 01/18/25 Unknown History aerosol inhaler (Ventolin HFA) of breath or wheezing baclofen 5 mg tablet 5 mg PO TID 01/18/25 01/18/25 Unknown History bisacodyl 10 mg rectal suppository 10 mg RECTAL DAILY PRN constipation 01/18/25 01/18/25 Unknown History carbamazepine 100 mg 100 mg PO Q12H trigeminal neuralgia 01/18/25 01/18/25 Unknown History tablet,extended release,12 hr (Tegretol XR) duloxetine 30 mg capsule,delayed 60 mg PO QAM 01/18/25 01/18/25 Unknown History release (Cymbalta) gemfibrozil 600 mg tablet 600 mg PO BID 01/18/25 01/18/25 Unknown History magnesium citrate 296 ml PO DAILY PRN constipation 01/18/25 01/18/25 Unknown History magnesium hydroxide 400 mg/5 mL 30 ml PO HS PRN constipation 01/18/25 01/18/25 Unknown History oral suspension (Milk of Magnesia) sodium phosphates 19 gram-7 118 ml RECTAL DAILY PRN 01/18/25 01/18/25 Unknown History gram/118 mL enema (Enema) constipation Allergies Allergy/AdvReac Type Severity Reaction Status Date / Time doxycycline Allergy Unknown Verified 01/18/25 11:43 latex Allergy Unknown Verified 01/18/25 11:43 pregabalin (From Lyrica) Allergy Unknown Verified 01/18/25 11:43 Sulfa (Sulfonamide Allergy Unknown Verified 01/18/25 11:43 Antibiotics) sulfamethoxazole (From Allergy Unknown Verified 01/18/25 11:43 Bactrim) trimethoprim (From Bactrim) Allergy Unknown Verified 01/18/25 11:43 Review of Systems 2 Review of Systems: ROS unobtainable: Yes unobtainable due to medical condition [facility] Past Medical History Medical History UTI (urinary tract infection) Trigeminal neuralgia Metabolic encephalopathy Vitamin D deficiency GERD (gastroesophageal reflux disease) Osteoporosis Chronic prescription opiate use Chronic pain syndrome Rheumatoid arthritis Diet-controlled diabetes mellitus Tobacco dependence Cancer of right breast Status post mastectomy and radiation. Chronic lymphocytic leukemia Chronic obstructive pulmonary disease Depression Immunoglobulin deficiency Arthritis Allergies Squamous cell carcinoma Back. Melanoma Left arm. Surgical History Surgical History History of hemiarthroplasty of left hip (~11/08/22) Bipolar hemiarthroplasty left. History of squamous cell carcinoma excision Back. History of melanoma excision Left arm. History of hysterectomy History of right mastectomy (1987) History of cholecystectomy Family History Family History Mother CLL (chronic lymphocytic leukemia) Father Lung cancer Sibling Pancreatic cancer Social History Social History Social History: Surrogate medical decision maker: Oj Gregory, son. Code status: Full code. Smoking packs per day: 1 Smoking cigarettes per day: 20.0 Years smoked: 70 Smoking pack-years: 70.00 Smoking status: Unknown if ever smoked Tobacco type: cigarettes Alcohol intake: unknown Substance use: unknown Substance use type: does not use Do You Feel Safe in your Home?: No Lack of Transportation: No Lack of Food: Never True Current Housing: I Have Housing Concerned About Future Housing: No Difficulty Paying Gas/Electric Bills: No Difficulty Paying for Meds: No Currently Unemployed: No Education: Master's Degree or Higher Difficulty w/ Childcare or Family Care: No Additional living arrangements comments: Lives alone in [place]. Originally from [place]. Spiritual care concerns: No Exam 2 Narrative: GENERAL: Elderly, frail/thin, non-toxic, in no acute distress. HEAD: Normocephalic, atraumatic. RESPIRATORY: Airway patent, respirations nonlabored. Clear to auscultation bilaterally, no rales, rhonchi, wheezing. No distress. CARDIOVASCULAR: Regular rate and rhythm without murmurs, rubs, or gallops. ABDOMINAL: Soft, no appreciable tenderness, nondistended. Normoactive BS. MUSCULOSKELETAL: Moves all extremities. No gross deformities. SKIN: Warm, dry, normal color. NEURO: Alert, somewhat difficult to arouse at times, answers some questions but otherwise not very cooperative with questioning. No ataxic movements. PSYCHIATRIC: Somnolent. Normal interaction. Course Vital Signs Vital signs: Vital Signs Temperature 98.3 F 01/26/25 14:10 Pulse Rate 80 01/26/25 14:10 Respiratory Rate 18 01/26/25 14:10 Blood Pressure 127/61 01/26/25 14:10 Pulse Oximetry 98 01/26/25 14:10 Oxygen Delivery Room Air 01/26/25 14:10 Temperature 97.7 F 01/26/25 16:29 Pulse Rate 67 01/26/25 19:01 Respiratory Rate 18 01/26/25 19:01 Blood Pressure 138/62 01/26/25 19:01 Pulse Oximetry 99 01/26/25 19:01 Oxygen Delivery Room Air 01/26/25 14:10 Medical Decision Making MDM Narrative Medical decision making narrative: Patient presented to ED with report of failure to thrive, not eating or drinking at intermediate. Well known to our facility and myself. Was recently admitted here for pneumonia, now still on home O2. Vital signs are stable upon arrival, oxygen stable on 2 L. Patient without acute complaints. Somewhat uncooperative with questioning, but able to open eyes and shake head yes or no. No appreciable focal deficits. Able to move all extremities. CT brain negative Chest x-ray with improving airspace disease ABG without CO2 retention. Laboratory studies are w/o significant abnormalities, no leukocytosis. No electrolyte derangement. Stable kidney function. Does appear slightly dehydrated. Given fluids. EKG without concerning ST changes. UA is clear. Viral swabs are negative Spoke with Danya Bri, POA/daughter in law, and son (Oj Gregory) via phone. Had extensive discussion with family about patient's condition, steady decline, general failure to thrive. Discussed goals of care. Patient is a DNR. Discussed that her increasing apathy towards eating/drinking/moving/getting up may be her signs that she is nearing end of life. Family is very understanding of this. Discussed hospice care. Family would like to proceed with this. Discussed with care coordination, [place], who spoke to [facility] and family, patient is safe for D/C back to intermediate and the test will meet patient there tomorrow morning to discuss hospice care/goals. No indication for inpatient hospitalization or emergent need for morphine/Ativan at this time. Patient is resting very comfortably. She has been sleeping throughout most of ED stay, does not want to be bothered. Family is in agreement with this plan. Discharge back to intermediate in stable condition. [facility] updated on plan. Medical Records Medical records reviewed: Yes I reviewed the external patient's medical records. Vital Signs Vital Signs: Vital Signs Temperature 98.3 F 01/26/25 14:10 Pulse Rate 80 01/26/25 14:10 Respiratory Rate 18 01/26/25 14:10 Blood Pressure 127/61 01/26/25 14:10 Pulse Oximetry 98 01/26/25 14:10 Oxygen Delivery Room Air 01/26/25 14:10 Temperature 97.7 F 01/26/25 16:29 Pulse Rate 67 01/26/25 19:01 Respiratory Rate 18 01/26/25 19:01 Blood Pressure 138/62 01/26/25 19:01 Pulse Oximetry 99 01/26/25 19:01 Oxygen Delivery Room Air 01/26/25 14:10 Lab Data Lab results reviewed: Yes I reviewed the patient's lab results. 01/26/25 16:11 01/26/25 16:11 Labs: Lab Results 01/26/25 01/26/25 01/26/25 Range/Units 15:09 16:11 16:28 WBC 9.8 (4.5-10.0) K/mm3 RBC 3.78 L (4.2-5.4) M/mm3 Hgb 11.9 L (12.0-15.0) g/dL Hct 36.7 L (37.0-47.0) % MCV 97.1 (80-100) fl MCH 31.5 (26-34) pg MCHC 32.4 (32-36) g/dl RDW 14.7 H (11.5-14.5) % Plt Count 388 H D (150-375) k/mm3 MPV 8.8 (7.4-10.4) fl Immature Gran % (Auto) 4.0 H (0-0.5) % Neut % (Auto) 46.7 (45.5-73.1) % Lymph % (Auto) 40.1 (18.3-44.2) % [place] % (Auto) 7.3 (2.6-8.5) % Eos % (Auto) 1.0 (0-4.4) % Baso % (Auto) 0.9 (0.2-1.2) % Lymph # (Auto) 3.91 H (0.9-3.2) K/mm3 [place] # (Auto) 0.7 H (0.1-0.6) K/mm3 Eos # (Auto) 0.1 (0-0.3) K/mm3 Baso # (Auto) 0.1 (0.0-0.1) K/mm3 Abs Immat Gran (auto) 0.39 H (0.00-0.031) K/mm3 Absolute Neuts (auto) 4.6 (1.3-6.7) K/mm3 Absolute Nucleated RBC 0.000 (0.0-0.012) K/mm3 Nucleated RBC % 0.0 (0.0-0.2) % Methemoglobin 0.2 (0-1.5) %THb Sodium 138 (137-145) mmol/L Potassium 3.7 (3.4-5.0) mmol/L Chloride 108 H (98-107) mmol/L Carbon Dioxide 23 (22-30) mmol/L Anion Gap 7 (4-12) mmol/L BUN 22 H (7-17) mg/dL Creatinine 0.67 L (0.7-1.0) mg/dL Estim Creat Clear Calc Not Reportable Estimated GFR > 60 (59 - ) Glucose 97 (65-110) mg/dL Calcium 9.8 (8.4-10.2) mg/dL Total Bilirubin 0.3 (0.2-1.3) mg/dL AST 27 (14-36) U/L ALT 16 (6-35) U/L Alkaline Phosphatase 30 L (38-126) U/L Total Protein 5.7 L (6.3-8.2) g/dL Albumin 3.4 L (3.5-5.1) g/dL Urine Color Yellow (Yellow) Urine Appearance Clear (Clear) Urine pH 6.5 (5.0-9.0) Ur Specific [place] 1.013 (1.001-1.035) Urine Protein 1+ H (Negative) mg/dL Urine Glucose (UA) Negative (Negative) mg/dL Urine Ketones Negative (Negative) mg/dL Ur Blood (Man) Negative (Negative) Urine Nitrate Negative (Negative) Urine Bilirubin Negative (Negative) Urine Urobilinogen 0.2 (<2.0) mg/dL Leukocyte Esterase Rfl Negative (Negative) SHERITA/UL Urine RBC 0-2 (0-2) /hpf Urine WBC 0-5 (0-3) /hpf Ur Squamous Epith Cells None seen (Few) /hpf Urine Bacteria None seen /hpf Urine Casts 0-2 Influenza A (RT-PCR) Negative (Negative) Influenza B (RT-PCR) Negative (Negative) RSV (RT-PCR) Negative (Negative) SARS-CoV-2 RNA (RT-PCR) Negative (Negative) ABG Data ABG results: 01/26/25 15:09 Puncture Site Right radial ABG pH 7.430 ABG pCO2 35.7 ABG pO2 70.5 L ABG PO2/FiO2 Ratio 2.52 ABG HCO3 23.2 ABG O2 Saturation 94.7 L ABG O2 Content 15.3 L ABG Base Excess -0.8 A-a Gradient 87.0 Oxyhemoglobin 93.3 Carboxyhemoglobin 0.5 Reduced Hemoglobin 6.0 H Total Hemoglobin 11.6 L O2 Delivery Device Nasal cannula O2 Liters/Min 2.0 FiO2 28 Attestation: I personally reviewed and interpreted this ABG as follows: Imaging Data Attestation: I personally reviewed and interpreted this imaging study as follows: Radiologist's impression: ITS Impressions Head CT 01/26/25 15:46 IMPRESSION: No acute intracranial process. Possible acute right sphenoid sinusitis. Chest X-Ray 01/26/25 15:56 IMPRESSION: Improving bilateral lower lobe airspace disease. Small right pleural effusion versus chronic pleural blunting. ECG Data EKG #1: Attestation: I personally reviewed and interpreted this ECG as follows: ECG completion date: 01/26/25 ECG completion time: 16:08 EKG Interpretation: normal rate (71), sinus rhythm, PVCs and no ST changes Discharge Plan Discharge Clinical Impression: Adult failure to thrive Patient Disposition: NH Intermediate/Asst Living Condition: Guarded Prognosis Instructions: Antibiotic Form Additional Instructions: [facility] will be meeting the patient at your facility tomorrow morning to discuss hospice care with patient/family. Patient Language: Puerto [place]ican Prescriptions: No Action famotidine 20 mg tablet 20 mg PO Q12HR Qty: 180 1RF hydrocodone-acetaminophen 10-325 mg tablet 1 tablet PO BID PRN (Reason: Pain (Scale Score 7-10)) Qty: 10 0RF Rx Instructions: for breakthrough pain polyethylene glycol 3350 [Miralax] 17 gram Powder In Packet 17 g PO QAM PRN (Reason: Constipation) Qty: 14 0RF baclofen 5 mg tablet 5 mg PO TID gemfibrozil 600 mg tablet 600 mg PO BID acetaminophen 325 mg capsule 650 mg PO Q4H PRN (Reason: pain) albuterol sulfate 2.5 mg /3 mL (0.083 %) solution for nebulization 2.5 mg inhalation Q4H PRN (Reason: shortness of breath or wheezing) Rx Instructions: through 01/25/2025 bisacodyl 10 mg suppository 10 mg RECTAL DAILY PRN (Reason: constipation) Rx Instructions: if no results from MOM magnesium citrate Solution 296 ml PO DAILY PRN (Reason: constipation) Rx Instructions: if no result from enema. if no result within 1 hour of completion of bowel protocol, contact MD immediately for further orders Enema 19-7 gram/118 mL enema 118 ml RECTAL DAILY PRN (Reason: constipation) Rx Instructions: if no results 1 day after suppository if no result magnesium hydroxide [Milk of Magnesia] 400 mg/5 mL suspension 30 ml PO HS PRN (Reason: constipation) Rx Instructions: if no bm in 3 days carbamazepine [Tegretol XR] 100 mg tablet extended release 12 hr 100 mg PO Q12H albuterol sulfate [Ventolin HFA] 90 mcg/actuation HFA aerosol inhaler 2 inh inhalation Q4H PRN (Reason: shortness of breath or wheezing) duloxetine [Cymbalta] 30 mg capsule,delayed release(DR/EC) 60 mg PO QAM levofloxacin 750 mg tablet 750 mg PO Q48H Qty: 3 0RF Follow-up/Referrals: PHYSICIAN NOT ON STAFF,NONSTAFF [Primary Care Provider] - Time of Disposition: 18:19
[2025-01-26 16:18] LABS: Basophils Absolute Auto 0.1 K/mm3 (0.0-0.1); Basophils Percent Auto 0.9 % (0.2-1.2); Eosinophils Absolute Auto 0.1 K/mm3 (0-0.3); Hematocrit 36.7 % (37.0-47.0); Hemoglobin 11.9 g/dL (12.0-15.0); Immature Granulocyte Absolute 0.39 K/mm3 (0.00-0.031); Lymphocytes Absolute Auto 3.91 K/mm3 (0.9-3.2); Lymphocytes Percent Auto 40.1 % (18.3-44.2); Mean Corpuscular HGB Conc 32.4 g/dl (32-36); Mean Corpuscular Hemoglobin 31.5 pg (26-34); Mean Corpuscular Volume 97.1 fl (80-100); Mean Platelet Volume 8.8 fl (7.4-10.4); Monocytes Absolute Auto 0.7 K/mm3 (0.1-0.6); Monocytes Percent Auto 7.3 % (2.6-8.5); Neutrophils Absolute Auto 4.6 K/mm3 (1.3-6.7); Neutrophils Percent Auto 46.7 % (45.5-73.1); Platelet Count Result 388 k/mm3 (150-375); Red Blood Count 3.78 M/mm3 (4.2-5.4); Red Cell Distribution Width 14.7 % (11.5-14.5); White Blood Count 9.8 K/mm3 (4.5-10.0)
[2025-01-26 16:29] VITALS: BP 113/60; PULSE 75; RESP 14; TEMP 36.5; O2SAT 99
[2025-01-26 16:35] LABS: Alanine Aminotransferase 16 U/L (6-35); Albumin Level 3.4 g/dL (3.5-5.1); Alkaline Phosphatase 30 U/L (38-126); Anion Gap 7 mmol/L (4-12); Aspartate Amino Transferase 27 U/L (14-36); Bilirubin,Total 0.3 mg/dL (0.2-1.3); Blood Urea Nitrogen 22 mg/dL (7-17); Calcium 9.8 mg/dL (8.4-10.2); Carbon Dioxide 23 mmol/L (22-30); Chloride 108 mmol/L (98-107); Estimated Glomerular Filt Rate > 60; Glucose 97 mg/dL (65-110); Potassium 3.7 mmol/L (3.4-5.0); Sodium 138 mmol/L (137-145); Total Protein 5.7 g/dL (6.3-8.2)
[2025-01-26 16:52] LABS: Add Urine Microscopic? YES; Appearance Urine Clear (Clear); Bacteria Urine None Seen /hpf; Bilirubin Urine Negative (Negative); Blood Urine Negative (Negative); Color Urine Yellow (Yellow); Glucose Urine UA Negative (Negative); Ketones Urine Negative (Negative); Leukocyte Esterase Ur Negative LEU/UL (Negative); Nitrate Urine Negative (Negative); Non Pathogenic Casts 0-2; Protein Urine 1+ mg/dL (Negative); RBC Urine 0-2 /hpf (0-2); Specific Grav Ur 1.013 (1.001-1.035); Squamous Epithelial Cell Urine None Seen /hpf (Few); Urobilinogen Urine 0.2 mg/dL (<2.0); WBC Urine 0-5 /hpf (0-3); pH Urine 6.5 (5.0-9.0)
[2025-01-26 16:54] LABS: Influenza A QL RT-PCR Negative (Negative); Influenza B QL RT-PCR Negative (Negative); RSV RNA, RT-PCR. Negative (Negative); SARS-CoV-2 RNA PCR Negative (Negative)
[2025-01-26] MEDS: SODIUM CHLORIDE 0.9% IV 1,000 ML 999 ML IV CONT (16:55)
[2025-01-26 18:18] VITALS: BP 138/67; PULSE 66; RESP 18; O2SAT 98
--- NOTE | 2025-01-26 18:35 | PCCCNOTE ---
Called to the ED regarding a hospice referral for pt. Her DIL, Danya Gregory is her POA, but they do not live around here. Pt. resides at [facility]. I spoke with Danya and the pt's son and they would like [facility]. Pt is stable to be D/C'd back to [facility]. I called [facility], and they will send a nurse to [facility] in the morning. I explained that family lived out of town and they would need to contact them by phone. I gave the on-call RN the information and faxed the referral to [facility].
[2025-01-26 19:01] VITALS: BP 138/62; PULSE 67; RESP 18; O2SAT 99
== END 2025-01-26 19:40 ==
PROVIDERS: Emergency Provider Physician Assistant
DX: C91.10 Chronic lymphocytic leukemia of B-cell type not having achieved remission (principal); R62.7 Adult failure to thrive; F03.90 Unspecified dementia, unspecified severity, without behavioral disturbance, psychotic disturbance, mood disturbance, and anxiety; Z99.81 Dependence on supplemental oxygen; E55.9 Vitamin D deficiency, unspecified; K21.9 Gastro-esophageal reflux disease without esophagitis; M81.0 Age-related osteoporosis without current pathological fracture; G89.29 Other chronic pain; Z79.891 Long term (current) use of opiate analgesic; E11.9 Type 2 diabetes mellitus without complications; Z85.3 Personal history of malignant neoplasm of breast; Z85.820 Personal history of malignant melanoma of skin; Z90.11 Acquired absence of right breast and nipple; Z11.59 Encounter for screening for other viral diseases
CPT/HCPCS: 36415; 36600; 70450; 71045; 80053; 81001; 82375; 82805; 83050; 85018; 85025; 87637; 93005; 96360; 99284; J7030